=== PATIENT | male | born 1940 | race African-American/Black ===

== ENCOUNTER 2017-08-24 06:08 | Day surgery (SDC) | payer OTHER ==
[2017-08-19 09:25] LABS: Urine Appearance CLEAR; Urine Bilirubin NEGATIVE (NEG); Urine Blood NEGATIVE (NEG); Urine Color YELLOW; Urine Glucose NEGATIVE (NEG); Urine Protein NEGATIVE (NEG); Urine Specific Gravity <=1.005 (1.005-1.030)
[2017-08-19 09:28] LABS: Urine Microscopic Reflex NO UMIC
[2017-08-19 09:42] LABS: Protime INR 0.93
[2017-08-19 09:48] LABS: Absolute Lymphocytes (CBC) 1.6 K/uL (0.7-4.9); Absolute Monocytes 0.5 K/uL (0.1-1.3); Absolute Neutrophil 4.7 K/uL (1.8-8.0); Basophils % 0.4 % (0-1.3); Eosinophils % 4.4 % (0-4.4); Hematocrit 34.4 % (39.6-49.0); Lymphocytes % 22.7 % (15.3-44.8); MCH 24.4 pg (27.0-35.0); MCV 77.1 fL (80-100); MPV 8.4 fL (7.6-11.3); Monocytes % 7.1 % (3.3-12.3); RBC Red Blood Cell Count 4.47 M/uL (4.33-5.43)
[2017-08-19 10:12] LABS: A1c Component 0.53 mg/dL; ALT/SGPT 18 IU/L (10-60); AST/SGOT 26 IU/L (10-42); Albumin 4.2 g/dL (3.2-5.5); Alkaline Phosphatase 71 IU/L (42-121); BUN Blood Urea Nitrogen 12 mg/dL (6-20); Bicarbonate 25 mEq/L (21-31); Bilirubin Total 0.7 mg/dL (0.3-1.2); Glucose Level 91 mg/dL (65-120); Hemoglobin A1c 6.4 % (4-6.0); Potassium 4.6 mEq/L (3.6-5.0); Protein, Total 7.8 g/dL (6.0-8.3); Sodium Level 134 mEq/L (135-145)
[2017-08-19 10:13] LABS: Albumin 4.1 g/dL (3.2-5.5); Bilirubin Direct 0.1 mg/dL (0-0.2); Bilirubin Total 0.5 mg/dL (0.3-1.2); Protein, Total 7.8 g/dL (6.0-8.3)
--- NOTE | 2017-08-19 10:32 | RAD REPORT ---
EXAM DESCRIPTION: RADOP - Outpt Chest Pa/Lat (2 Views) - 08/19/2017 9:21 am CLINICAL HISTORY: Hypertension/preop COMPARISON: 2013 FINDINGS: The lungs appear clear of acute infiltrate. The heart is normal size. The aorta is tortuou s/ectatic IMPRESSION: No acute abnormality is displayed
[2017-08-24] MEDS ORDERED: NA CHLORIDE 0.9% 0 ML ONE (06:10)
[2017-08-24] MEDS ORDERED: CEFAZOLIN/SWI 1gm 0 GM/0 ML SYR ONE (06:11)
[2017-08-24 06:39] VITALS: BP 127/66; TEMP 98.1; O2SAT 96
== END 2017-08-24 09:29 | disposition home or self-care (01) ==
LOC: DSO 06:08 → DS 06:08 → UNDOADMIN 06:08 → UNDODISIN 07:30 → EDSTATUS 07:30 → DS 09:29
PROVIDERS: ATTEND Orthopaedic Surgery
DX: M17.12 Unilateral primary osteoarthritis, left knee (principal); M25.562 Pain in left knee; Z53.8 Procedure and treatment not carried out for other reasons
CPT/HCPCS: 36415; 71046; 80053; 80076; 81003; 83036; 85025; 85610; 85730; 86850; 86900; 86901; J0690; J7030

== ENCOUNTER 2017-09-07 05:47 | Inpatient (IN) | payer OTHER ==
[2017-09-02 08:38] LABS: Absolute Lymphocytes (CBC) 1.5 K/uL (0.7-4.9); Absolute Monocytes 0.4 K/uL (0.1-1.3); Absolute Neutrophil 3.6 K/uL (1.8-8.0); Basophils % 0.6 % (0-1.3); Eosinophils % 4.1 % (0-4.4); Hematocrit 34.7 % (39.6-49.0); Lymphocytes % 25.6 % (15.3-44.8); MCH 24.4 pg (27.0-35.0); MCV 75.6 fL (80-100); Monocytes % 6.8 % (3.3-12.3); RBC Red Blood Cell Count 4.59 M/uL (4.33-5.43)
[2017-09-02 08:39] LABS: Urine Appearance CLEAR; Urine Bilirubin NEGATIVE (NEG); Urine Blood NEGATIVE (NEG); Urine Color YELLOW; Urine Glucose NEGATIVE (NEG); Urine Protein NEGATIVE (NEG); Urine Specific Gravity 1.015 (1.005-1.030)
[2017-09-02 08:46] LABS: Urine Microscopic Reflex NO UMIC
[2017-09-02 08:47] LABS: Protime INR 0.94
[2017-09-02 09:19] LABS: Bicarbonate 24 mEq/L (21-31); Glucose Level 72 mg/dL (65-120); Potassium 4.3 mEq/L (3.6-5.0); Sodium Level 137 mEq/L (135-145)
[2017-09-02 09:25] LABS: ALT/SGPT 16 IU/L (10-60); AST/SGOT 23 IU/L (10-42); Albumin 4.1 g/dL (3.2-5.5); Alkaline Phosphatase 69 IU/L (42-121); BUN Blood Urea Nitrogen 11 mg/dL (6-20); Bilirubin Direct 0.1 mg/dL (0-0.2); Bilirubin Total 0.5 mg/dL (0.3-1.2); Protein, Total 7.7 g/dL (6.0-8.3)
[2017-09-02 12:19] LABS: A1c Component 0.54 mg/dL; Hemoglobin A1c 6.4 % (4-6.0)
[2017-09-07] MEDS ORDERED: NA CHLORIDE 0.9% 1,000 ML ONE ×2 (06:04→09:10)
[2017-09-07] MEDS ORDERED: CEFAZOLIN/SWI 1gm 1 GM/10 ML SYR ONE (06:04)
[2017-09-07] MEDS ORDERED: NA CHLORIDE 0.9% 250 ML ONE (06:47)
[2017-09-07] MEDS ORDERED: ROPLVACAINE HCL 40 ML ONE (06:51)
[2017-09-07] MEDS ORDERED: DEXAMETHASONE 4 MG/ML VIAL ONE (06:51)
[2017-09-07] MEDS ORDERED: FENTANYL CITR 100 MCG/2 ML ONE (06:57)
[2017-09-07] MEDS ORDERED: LIDOCAINE 2% MPF 5 ML VIAL ONE (06:57)
[2017-09-07] MEDS ORDERED: MIDAZOLAM HCL 2 MG/2 ML INJ ONE (06:57)
[2017-09-07] MEDS ORDERED: PROPOFOL 200 MG/20 ML VIAL IV ONE (06:57)
[2017-09-07] MEDS ORDERED: ROCURONIUM 50 MG/5 ML VIAL IV ONE (06:57)
[2017-09-07] MEDS ORDERED: TRANEXAMIC ACID 1,000 MG in NA CHLORIDE 0.9% 50 ML IV SCH (07:15)
[2017-09-07] MEDS: BUPIVACA 0.25%/EPI 0.0005%/PF 30 ML VIAL ONE ×2 (08:21→11:00)
[2017-09-07] MEDS ORDERED: EPHEDRINE SULF 50 MG/ML SYR ONE (08:52)
[2017-09-07] MEDS ORDERED: Phenylephrine HCl 10 MG/ML 1 ML VIAL ONE (08:52)
[2017-09-07] MEDS ORDERED: NS 0.9% VIAL 0 ML ONE (08:52)
[2017-09-07] MEDS ORDERED: ONDANSETRON 4 MG/2 ML VIAL ONE (10:51)
[2017-09-07] MEDS ORDERED: ZOLPIDEM TARTRATE 5 MG TABLET PO PRN (11:28)
[2017-09-07] MEDS ORDERED: DOCUSATE NA 100 MG CAP PO PRN (11:28)
[2017-09-07] MEDS ORDERED: Morphine 2 MG/2 ML SYR IV PRN (11:28)
[2017-09-07] MEDS ORDERED: ONDANSETRON 4 MG/2 ML VIAL IV PRN (11:28)
[2017-09-07] MEDS ORDERED: HYDROCODONE/APAP 7.5/325 MG TAB PO PRN (11:28)
[2017-09-07 11:59] LABS: Hematocrit 32.6 % (39.6-49.0)
[2017-09-07] MEDS: Ringers Lactate 1,000 ML IV SCH (12:00)
--- NOTE | 2017-09-07 12:11 | RAD REPORT ---
EXAM DESCRIPTION: RAD - Knee Left 2 View - 09/07/2017 11:56 am CLINICAL HISTORY: TKA COMPARISON: None. FINDINGS: A left total knee arthroplasty has been performed. Hardware is in expected location. Air i s present in the joint. . Skin matt are noted. IMPRESSION: Postoperative left knee with no unexpected finding.
[2017-09-07 13:37] VITALS: BMI 26.7
[2017-09-07] MEDS: INSULIN -REGULAR HUMAN 50 UNIT/0.5 ML ML SQ SCH ×2 (15:48→21:00)
[2017-09-07] MEDS ORDERED: GLUCAGON 1 MG/VIAL IM PRN (16:07)
[2017-09-07] MEDS ORDERED: D50W 25 GM/50 ML SYRINGE IV PRN (16:07)
[2017-09-07] MEDS: CEFAZOLIN/SWI 1gm 1 GM/10 ML SYR IV SCH (16:31)
[2017-09-07] MEDS: METFORMIN ER 500 MG TAB PO SCH (16:36)
[2017-09-07] MEDS ORDERED: PNEUMOCOCCAL VACCINE 0.5 ML IMVAC ONE (17:00)
[2017-09-07] MEDS ORDERED: DOXAZOSIN 1 MG TAB PO SCH (21:00)
[2017-09-07] MEDS: ATORVASTATIN 10 MG TAB PO SCH (21:55)
[2017-09-07] MEDS: METOPROLOL TAR 25 MG TAB PO SCH (21:55)
[2017-09-07] MEDS: DOXAZOSIN 2 MG TAB PO SCH (21:56)
--- NOTE | 2017-09-08 00:48 | CON ---
Date of Consultation: 09/07/2017 Reason Of Consultation: Medical management. History Of Present Illness: This is a 76-year-old male patient, who had knee surgery done by Dr. Ramesh today and he has done well with the surgery postoperatively. He denies any chest pain, shortness of breath, nausea, vomiting. Denies any pain anywhere. The patient was seen this evening for medical management consultation. Past Medical History: Significant for type 2 diabetes mellitus, hypertension, hyperlipidemia, osteoarthritis at multiple sites, gastroesophageal reflux disease, benign prostatic hypertrophy, anemia, and also peripheral vascular disease. Past Surgical History: Angioplasty of leg in 2007 for peripheral vascular disease. Allergies: NO KNOWN ALLERGIES. Social History: Prior history of smoking, not at present time. Use of alcohol negative. Family History: Mother with Alzheimer disease. Review of Systems: Musculoskeletal: Knee pain due to arthritis. All other systems reviewed and negative. Medications: Pravastatin 80 mg p.o. daily, doxazosin 2 mg 2 times a day, gabapentin 300 mg 2 times a day, glimepiride 4 mg 2 times a day, hydralazine 10 mg 2 times a day, Levemir 20 units daily at bedtime, metformin 1000 mg 2 times a day, metoprolol 12.5 mg p.o. 2 times a day, omeprazole 20 mg p.o. daily. Physical Examination: Vital Signs: Weight 181 pounds. Temperature 97.3, pulse 75, respiratory rate 18, blood pressure 151/77, oxygen saturation 98%. General: Awake, alert, oriented, not in distress. HEENT: Head atraumatic, normocephalic. Conjunctivae nonerythematous. Sclerae white. Mouth, no thrush or edema noted. Ears/Nose, no mass, lesion, discharge noted. Neck: Supple. No JVD, lymph nodes, bruit, thyromegaly noted. Lungs: Bilateral good equal air entry. Clear to auscultation. No rhonchi. No rales. Heart: Normal heart sounds, no murmur or gallop. Abdomen: Soft, bowel sounds normal. No guarding, rigidity, tenderness, mass, hepatosplenomegaly, distention, or bruit noted. Extremities: Left knee exam, has surgical dressing present. Skin: No rash, ulcer, cellulitis. Lymphatics: No lymph node enlargement in neck, supraclavicular, infraclavicular region. Neuro: No focal neurological deficit. Chest: Unremarkable. External Genitalia: Deferred. Rectal: Deferred. Laboratory Data: White count on 09/02/2017 was 5.8, hemoglobin 11.2, platelets 288. Today, hemoglobin 10.4. On 09/02, chemistry; sodium 137, potassium 4.3, chloride 107, bicarb 24, BUN 11, creatinine 0.98, glucose 72. Hemoglobin A1c 6.4. Liver function tests unremarkable. Last fingerstick blood sugar 178 this afternoon. Impression: 1. Type 2 diabetes mellitus. 2. Hypertension. 3. Hyperlipidemia. 4. Gastroesophageal reflux disease. 5. Benign prostatic hypertrophy. 6. Anemia. 7. Osteoarthritis, multiple sites. 8. Peripheral vascular disease. Plan: The patient will continue to receive his antihypertensive medication, diabetes medication, and cholesterol medication per order. DVT prophylaxis was ordered by Dr. Ramesh with Lovenox. We will monitor fingerstick blood sugar with sliding scale insulin and depending on the patient's blood pressure and blood sugar readings, we will decide if any adjustment in medication needs to be made or not. His last hemoglobin A1c was 6.4 done about a week ago showing excellent control of his diabetes. Plan of treatment discussed with the patient. He has incentive spirometer at bedside and he was encouraged to use it every hour to reduce chances of pneumonia. I will see him tomorrow morning for followup. LISE/JOSE Voice ID: [id number] Report ID: [id number] MTDD
[2017-09-08] MEDS: CEFAZOLIN/SWI 1gm 1 GM/10 ML SYR IV SCH ×2 (01:58→09:41)
[2017-09-08 05:29] LABS: Hematocrit 30.3 % (39.6-49.0)
[2017-09-08] MEDS: ENOXAPARIN 30 MG/0.3 ML SQ SCH ×2 (05:45→17:52)
[2017-09-08] MEDS: PANTOPRAZOLE 40MG TABLET PO SCH (05:45)
[2017-09-08] MEDS: AMLODIPINE 10 MG TAB PO SCH (05:45)
[2017-09-08] MEDS: INSULIN -REGULAR HUMAN 50 UNIT/0.5 ML ML SQ SCH ×4 (07:30→20:36)
[2017-09-08] MEDS: Ringers Lactate 1,000 ML IV SCH (08:00)
[2017-09-08] MEDS: FE SULF/FA/VIT B COMP & C TAB PO SCH (09:42)
[2017-09-08] MEDS: CELECOXIB 100 MG CAPSULE PO SCH (09:42)
[2017-09-08] MEDS: GLIMEPIRIDE 2 MG TABLET PO SCH (09:43)
[2017-09-08] MEDS: DOXAZOSIN 2 MG TAB PO SCH ×2 (09:43→20:35)
[2017-09-08] MEDS: GABAPENTIN 300 MG CAP PO SCH (09:43)
[2017-09-08] MEDS: METFORMIN ER 500 MG TAB PO SCH ×2 (09:44→17:52)
[2017-09-08] MEDS: TAMSULOSIN 0.4 MG SR CAP PO SCH (09:44)
[2017-09-08] MEDS: METOPROLOL TAR 25 MG TAB PO SCH ×2 (09:54→20:36)
[2017-09-08] MEDS: ASCORBIC ACID 500 MG TABLET PO SCH (09:54)
[2017-09-08] MEDS ORDERED: HYDROCODONE/APAP 7.5/325 MG TAB PO PRN (13:04)
--- NOTE | 2017-09-08 13:11 | P.PN ---
Date of Service: 09/08/17 (POD#1) S: PATIENT IN BED, AVOIDING LUNCH BECAUSE OF NAUSEA WITH 2 TABS NORCO 7.5/ 325mg APAP GIVEN FOR PAIN. FEMORAL AND SCIATIC N. BLOCKS WORKED WELL UNTIL THIS MORNING. PATIENT TOOK PAIN PILLS AND BECAME NAUSEATED DURING P.T. EFFORT. O: AVVS, HGB 9.8 THIS AM, HGB A1.c 6.8, BLOOD SUGARS 128-172. NV EXAM INTACT. WAS TOLERATING CPM ALL NIGHT 0*-60*. X-RAYS REVIEWED SHOWING EXCELLENT ALIGNMENT OF PROSTHETIC COMPONENTS LEFT TKA. A: PROGRESS INTERRUPTED BY NAUSEA WITH NORCO DOSE OF 2 TABS. P: REDUCE NORCO TO 7.5/325 1 TAB Q 4-6 HRS. ENCOURAGED BED EXERCISES UNTIL P.T. RETURNS. RECOMMENDED PATIENT TO PARTAKE OF LUNCH SO DIABETIC MEDS WOULD NOT LEAD TO HYPOGLYCEMIC SYMPTOMS. CONTINUE AGGRESSIVE MOBILIZATION.
--- NOTE | 2017-09-08 13:58 | P.BOP ---
Preoperative diagnosis: PRIMARY OTEOARTHRITIS LEFT KNEE Postoperative diagnosis: SAME Primary procedure: TOTAL KNEE ARTHROPLASTY LEFT KNEE WITH COMPUTERIZED NAVIGATION, IMAGELESS Director Revenue: MARIO YADAV (GAVE NECESSARY 1ST ASSIST SERVICES THROUGHOUT CASE) Estimated blood loss: 100mL Specimen: BONE SHARDS AND SOFT TISSUES DEBRIDED Findings: EBURNATED BONE ACROSS MEDIAL COMPARTMENT AND INTRACONDYLAR NOTCH Anesthesia: General Complications: None Drain(s): Other (NONE) Implants: SIGMAFEMUR 4L;TRAY 4RP;PATELLA 38OVAL;[id number] PS;SMARTSET GMV CEMENT Fluids & blood products: FEMORAL AND SCIATIC N.BLOCKS GIVEN PRIOR/ 30mL 0.25% MARCAINE INTO INCISIONS Transferred to: Recovery Room Condition: Good
[2017-09-08] MEDS: ATORVASTATIN 10 MG TAB PO SCH (20:36)
--- NOTE | 2017-09-08 23:32 | PN ---
Date of Progress Note: 09/08/2017 Subjective: The patient was seen this morning for followup, no new complaints or problems reported b y the patient except some pain in the hip. No nausea or vomiting. No shortness of breath. No chest pain. Objective: Vital Signs: Reviewed. HEENT: Examination unremarkable. Lungs: Clear to auscultation. Heart: Sounds normal. Abdomen: Soft, bowel sounds normal. No guarding, rigidity, tenderness, or distention. Extremities: No leg edema. Laboratory Data: Hemoglobin 9.8. Fingerstick blood sugar readings reviewed. Impression: 1.Anemia due to acute blood loss. 2.Hypertension. 3.Type 2 diabetes mellitus. 4.Hyperlipidemia. Plan: We will continue current medications for diabetes and hypertension problem. Continue DVT prop hylaxis. No need for blood transfusion at this point, and I will see him tomorrow for followup. LISE/MODL Voice ID: [id number] Report ID: [id number]
--- NOTE | 2017-09-09 01:26 | OP ---
Date of Procedure: 09/07/2017 Surgeon: Ramesh Ramesh MD Preoperative Diagnosis: Primary osteoarthritis, left knee. Postoperative Diagnosis: Primary osteoarthritis, left knee. Primary Procedure: Total knee arthroplasty, left knee with computerized navigation, imageless. Electric Motor And Generator Assembler: Padmini Mills, who gave very necessary first aid instructor services throughout this case. Indications: This 76-year-old male has had persistent pain and limitations with the severe genu varu m deformity and [id number] arthritis in the medial compartment of his left knee. The [id number]-[id number] continues across the intercondylar notch area. The patient after discussing the risks and benefits a t length with all questions answered has elected to proceed with left total knee arthroplasty. Technique: The patient was taken to the operating room and given a general anesthesia with LMA. The left lower extremity was prepped and draped after a tourniquet was applied to the proximal thigh and a bolster was placed under the left hip. A foot rest was positioned to hold the knee at 90-degree f lexion during the procedure when desired. The limb was exsanguinated with an Esmarch bandage and isaac vation and then the tourniquet was raised to 250 mmHg and left up for 140 minutes. The patient was g iven Ancef 1 g IV piggyback prior to the incision and also given 1 g of tranexamic acid. A second gr am of tranexamic acid was given upon initiation of closure. All important facts about this patient a nd proposed surgery were discussed and accepted before deciding to proceed with the operation. The i ncision was drawn on the anterior knee and Ioban sticky drape was placed around the thigh and lower l eg to completely cover the operative area. The incision was made longitudinally over the medial thir d of the patella and ending up adjacent to the tibial tubercle distally and 4-6 cm above the proximal pole of the patella proximally. The incision was carried sharply through skin and subcutaneous tiss ue. The capsule was exposed and a medial parapatellar incision was made. The patella was everted an d measured at 25 mm thickness. The jig back for cutting the patella was adjusted to preserve 16 mm o f patella. The cut was made and the PEG holes were drilled in the cut surface. The prosthetic trial component was placed in position and the thickness of the patella again measured 25 mm. The anterio r sharp debridement of soft tissue was carried out for the knee and the supracondylar anterior aspect of the femur and then 4 threaded 3-mm pins were placed, 2 in the distal femur and 2 in the mid shaft tibia through puncture wounds for the tibia and through the anterior incision for placement on the d istal femur. The position of the pins and subsequent attachment of femoral and tibial arrays were el ected to be on the medial aspect to allow anterior instrumentation access to the front of the incisio n. Once the arrays were in place, the limb was moved in circumduction to allow the computer to navig ate and locate the center of rotation of the femoral head. Then, registration was carried out for fi rst the femur and then the tibia as sequenced by the computer program. The elected size was size 5 f emoral component and size 5 tibial component. These were excepted after comparing the prosthetic siz e 5 component to the exposed distal end of the femur. Then, the cutting jig was navigated into posit ion for the proximal tibia. The cut was made and accepted and then the tensiometer was put in positi on. It was necessary to perform distal releases for the MCL until the balance was achieved for the l igaments. At that time, the distal femoral cutting jig was navigated into position and that cut was made. The size 5 4-in-1 cutting jig was navigated into position and secured and posterior cuts and c hamfer cuts were made. The 5 component fits nicely. The tibia was then prepared with placement of t he tibial tray prosthetic trial, secured with the keel punch. The trial indicated the trial prosthet ic insert was not able to be positioned using the smallest 10-mm insert. Attention was turned to inc reasing the flexion gap by using the size 4 4-in-1 cutting jig and changing the planned size of the d istal femoral component to size 4. Once that adjustment was made, the extension and flexion blocks w ere put in position. There was still significant tightness for both extension and flexion, so 2 mm a dditionally was cut from the proximal tibia. The trial components were then placed and the fit for t he 10-mm insert was quite stable and was accepted. The additional cuts took additional time and 20 m inutes of tourniquet time over the usual 120 minutes was incurred. The tourniquet was released as th e SmartSet gentamicin GMV cement was setting after it was injected into all cancellous surfaces and t he actual components were tapped into position with excess cement curetted away and a trial insert wa s in position during the setting of the cement. The tourniquet was released at that point and Bovie both punctate and Aquamantys were utilized to control hemostasis. Estimated blood loss total was 100 mL. The trial insert was removed and the 10 mm x size 4 tibial insert was snapped into position and proved quite stable. The knee was irrigated profusely with Simpulse lavage and closure was affected with #1 Vicryl for fascial layer using interrupted sutures. A 2-0 Vicryl was used for the subcutane ous layer closure with interrupted sutures and then skin matt were used for skin closure. The ban dage applied was an Aquacel sealed bandage with a long bandage for the bent knee over the main incisi on and a smaller Aquacel bandage for the 2 puncture wounds just distal to the first bandage. Estimat ed blood loss was 100 mm. Tourniquet time was 1:40 minutes. The patient was given a soft roll and A ce wrap around the Aquacel bandage and was taken to the recovery room, where he was placed on the CPM machine moving at 0-60 degrees flexion. The incision was injected with 30 mL of 0.25% Marcaine with epinephrine prior to application of the bandage. NEREYDA/JOSE Voice ID: [id number] Report ID: [id number]
[2017-09-09] MEDS: Ringers Lactate 1,000 ML IV SCH ×3 (04:00→19:46)
[2017-09-09] MEDS: AMLODIPINE 10 MG TAB PO SCH (05:30)
[2017-09-09] MEDS: PANTOPRAZOLE 40MG TABLET PO SCH (05:52)
[2017-09-09] MEDS: ENOXAPARIN 30 MG/0.3 ML SQ SCH (05:52)
[2017-09-09] MEDS: INSULIN -REGULAR HUMAN 50 UNIT/0.5 ML ML SQ SCH ×4 (07:30→20:46)
[2017-09-09] MEDS: METOPROLOL TAR 25 MG TAB PO SCH ×2 (08:39→21:06)
[2017-09-09] MEDS: TAMSULOSIN 0.4 MG SR CAP PO SCH (08:39)
[2017-09-09] MEDS: DOXAZOSIN 2 MG TAB PO SCH ×2 (08:39→21:07)
[2017-09-09] MEDS: GLIMEPIRIDE 2 MG TABLET PO SCH (08:39)
[2017-09-09] MEDS: GABAPENTIN 300 MG CAP PO SCH (08:39)
[2017-09-09] MEDS: ASCORBIC ACID 500 MG TABLET PO SCH (08:39)
[2017-09-09] MEDS: CELECOXIB 100 MG CAPSULE PO SCH (08:39)
[2017-09-09] MEDS: METFORMIN ER 500 MG TAB PO SCH ×2 (08:40→19:10)
[2017-09-09] MEDS: FE SULF/FA/VIT B COMP & C TAB PO SCH (08:40)
--- NOTE | 2017-09-09 13:53 | P.PN ---
Date of Service: 09/09/17 (POD#2) S: PATIENT IN HALLWAY MAKING FULL LAP OF 270'. STATES HEAVY FEELING IS GONE FROM LLE. O: AVVS, HGB 9.6 THIS AM, STABLE; BLOOD SUGARS 140-198. NV EXAM INTACT. DID NOT USE CPM LAST NIGHT, DID CPM 0*-60* THIS AM AFTER 38' WITH PT THIS MORNING. OBSERVED GOOD GAIT WITH HHEELSTRIKE AND WEIGHT BEARING LLE. A: PROGRESS ACCELERATED THIS AFTERNOON. P: PLANNING DISCHARGE TO [facility] IN [place]. NORCO 5325 1 P.O.Q4 HRS PRN PAIN, #35 LOVENOX 40 MG SUCUT.INJ DAILY X12 d CPM LLE 0*-65*4 HRS/d ADD 5*/D TOLERATED TO MAX OF 120* CHANGE AQUACEL BANDAGE PRIOR TO DISCHARGE, USE ALCOHOL SWABS PRIOR TO NEEW BANDAGE, THEN CHANGE Q 5 D WITH NEW AQUACEL BANDAGES. F/U MY OFFIC IN 10-14D CONTINUE AGGRESSIVE MOBILIZATION.
[2017-09-09] MEDS: ENOXAPARIN 40 MG/0.4 ML SQ SCH (19:10)
[2017-09-09] MEDS: HYDROCODONE/APAP 5/325 MG TAB PO PRN (19:11)
[2017-09-09] MEDS: ATORVASTATIN 10 MG TAB PO SCH (21:07)
--- NOTE | 2017-09-09 23:57 | PN ---
Date of Progress Note: 09/09/2017 Subjective: The patient was seen this morning for followup. No new complaints or problems reported. Denies any pain in knees. No nausea or vomiting. No abdominal pain. No chest pain. No shortness of breath. Objective: Vital signs: Reviewed. HEENT: Examination unremarkable. Lungs: Clear to auscultation. Heart: Sounds normal. Abdomen: Soft. Bowel sounds normal. No guarding, rigidity, tenderness, or distention. Extremities: No leg edema. Laboratory Data: Hemoglobin 9.6, yesterday it was 9.8, day before yesterday it was 10.4. Fingerstic k blood sugar readings reviewed. Impression: 1.Acute blood loss anemia. 2.Hypertension. 3.Type 2 diabetes mellitus. Plan: We will continue current medical management for hypertension and diabetes. Anemia with acute blood loss is stable, no need for any blood transfusion. I will see him tomorrow for followup. LISE/MODL Voice ID: [id number] Report ID: [id number]
[2017-09-10 05:28] LABS: Hematocrit 29.9 % (39.6-49.0)
[2017-09-10] MEDS: PANTOPRAZOLE 40MG TABLET PO SCH (06:02)
[2017-09-10] MEDS: AMLODIPINE 10 MG TAB PO SCH (06:02)
[2017-09-10] MEDS: HYDROCODONE/APAP 5/325 MG TAB PO PRN ×4 (06:02→22:28)
[2017-09-10] MEDS: INSULIN -REGULAR HUMAN 50 UNIT/0.5 ML ML SQ SCH ×4 (07:30→21:00)
[2017-09-10] MEDS: METOPROLOL TAR 25 MG TAB PO SCH ×2 (08:30→22:28)
[2017-09-10] MEDS: TAMSULOSIN 0.4 MG SR CAP PO SCH (08:30)
[2017-09-10] MEDS: GLIMEPIRIDE 2 MG TABLET PO SCH (08:31)
[2017-09-10] MEDS: FE SULF/FA/VIT B COMP & C TAB PO SCH (08:31)
[2017-09-10] MEDS: ASCORBIC ACID 500 MG TABLET PO SCH (08:31)
[2017-09-10] MEDS: DOXAZOSIN 2 MG TAB PO SCH ×2 (08:31→22:28)
[2017-09-10] MEDS: GABAPENTIN 300 MG CAP PO SCH (08:31)
[2017-09-10] MEDS: METFORMIN ER 500 MG TAB PO SCH ×2 (08:31→17:38)
[2017-09-10] MEDS: CLOPIDOGREL 75 MG TABLET PO SCH (12:36)
--- NOTE | 2017-09-10 14:02 | P.PN ---
Date of Service: 09/10/17 (POD#3) S: PATIENT USING CPM IN BED AT 65*. MAKING GOOD PROGRESS THIS AFTERNOON AFTER "WOOZY" THIS AM. O: AVVS, HGB 10.0 THIS AM, IMPROVED FROM 9.6; PATIENT FEELS GOOD ABOUT LLE INDICATING HE MADE FULL LOOP AROUND NURSING STATION 250' AFTER GOING 50' X 2 EARLIER THIS AM. NV EXAM INTACT. MONIKA'S SIGN NEGATIVE. BANDAGE CLEAN DRY AND INTACT. A: PATIENT IS MAKING GOOD PROGRESS THIS AFTERNOON. P: DISCHARGE TO [facility] IN [place] SOMEWHAT DELAYED. MY OFFICE CALLED ABOUT [id number], GAVE MY CELL#, BUT NO CALL SO FAR. PATIENT HAS NO HELP AT HOME IS DEBILITATED, ON OXYGEN THERAPY AND MOBILITY IMPAIRED USING WHEEL CHAIR. PLAN IS STILL FOR: DISCHARGE TO [place], [place] WITH NORCO 5/325 1 P.O.Q4 HRS PRN PAIN, #35 LOVENOX 40 MG SUCUT.INJ DAILY X12 d CPM LLE 0*-65*4 HRS/d ADD 5*/D TOLERATED TO MAX OF 120* CHANGE AQUACEL BANDAGE PRIOR TO DISCHARGE, USE ALCOHOL SWABS PRIOR TO NEEW BANDAGE, THEN CHANGE Q 5 D WITH NEW AQUACEL BANDAGES. F/U MY OFFIC IN 10-14D CONTINUE AGGRESSIVE MOBILIZATION. Addendum: CALLED BY PEER APPROVAL DOC FOR [facility]. WILL NOT APPROVE STAY AT [facility], BUT INDICATES SNF COULD BE APPROVED WITHOUT REVIEW IF FACILITY FOUND THAT WILL ACCEPT PATIENT TODAY OR WEDNESDAY(OR WEDNESDAY). DISCUSSED WITH Candido GIRONLITIES ARE NIK OSBORN AND BLAINE GREGORY.
--- NOTE | 2017-09-10 15:58 | PN ---
Date of Progress Note: 09/10/2017 Subjective: The patient was seen this morning for followup. No new complaints or problems reported by the patient. Objective: General: Lying in bed, not in distress. Vital Signs: Reviewed. HEENT: Unremarkable. Lungs: clear to auscultation. Heart: Sounds normal. Abdomen: Soft. Bowel sounds normal. No guarding, rigidity, tenderness, or distention. Extremities: No leg edema. Laboratory Data: Hemoglobin 10. Fingerstick blood sugar readings reviewed. Impression: 1.Acute blood loss anemia. 2.Hypertension. 3.Type 2 diabetes mellitus. 4.Hyperlipidemia. Plan: We will continue current diabetes management. Continue current antihypertensive medication. The patient normally takes Plavix 75 mg p.o. daily at home, and if it is okay with Dr. Ramesh, the pa tient should restart this medication as of today. finish repair worker is trying to get the patient into [facility] rehab facility out of town and medically, the patient is stable for discharge whenever Dr. Gadiel woodyines he is ready for discharge. If he is in the hospital over the weekend, I will continue to f alyssalow up. I have advised the patient that upon discharge from the hospital, he should continue all his home medication as he normally was taking at home. LISE/MODL Voice ID: [id number] Report ID: [id number]
[2017-09-10] MEDS: ENOXAPARIN 40 MG/0.4 ML SQ SCH (17:38)
[2017-09-10] MEDS: Ringers Lactate 1,000 ML IV SCH (20:00)
[2017-09-10] MEDS: ATORVASTATIN 10 MG TAB PO SCH (22:28)
[2017-09-11] MEDS: HYDROCODONE/APAP 5/325 MG TAB PO PRN ×3 (06:08→20:41)
[2017-09-11] MEDS: PANTOPRAZOLE 40MG TABLET PO SCH (06:08)
[2017-09-11] MEDS: AMLODIPINE 10 MG TAB PO SCH (06:08)
[2017-09-11 06:15] LABS: Hematocrit 28.7 % (39.6-49.0)
[2017-09-11] MEDS: INSULIN -REGULAR HUMAN 50 UNIT/0.5 ML ML SQ SCH ×4 (07:30→20:42)
[2017-09-11] MEDS: FE SULF/FA/VIT B COMP & C TAB PO SCH (09:42)
[2017-09-11] MEDS: GLIMEPIRIDE 2 MG TABLET PO SCH (09:42)
[2017-09-11] MEDS: CLOPIDOGREL 75 MG TABLET PO SCH (09:42)
[2017-09-11] MEDS: ASCORBIC ACID 500 MG TABLET PO SCH (09:42)
[2017-09-11] MEDS: METFORMIN ER 500 MG TAB PO SCH ×2 (09:42→17:00)
[2017-09-11] MEDS: TAMSULOSIN 0.4 MG SR CAP PO SCH (09:42)
[2017-09-11] MEDS: DOXAZOSIN 2 MG TAB PO SCH ×2 (09:43→20:39)
[2017-09-11] MEDS: GABAPENTIN 300 MG CAP PO SCH (09:43)
[2017-09-11] MEDS: METOPROLOL TAR 25 MG TAB PO SCH ×2 (09:43→20:40)
[2017-09-11 10:16] LABS: Absolute Lymphocytes (CBC) 1.5 K/uL (0.7-4.9); Absolute Monocytes 0.7 K/uL (0.1-1.3); Absolute Neutrophil 6.2 K/uL (1.8-8.0); Basophils % 0.2 % (0-1.3); Hematocrit 28.6 % (39.6-49.0); Lymphocytes % 16.6 % (15.3-44.8); MCH 25.2 pg (27.0-35.0); MCV 76.2 fL (80-100); MPV 8.2 fL (7.6-11.3); Monocytes % 8.4 % (3.3-12.3); RBC Red Blood Cell Count 3.75 M/uL (4.33-5.43)
--- NOTE | 2017-09-11 11:44 | P.PN ---
Date of Service: 09/11/17 (POD#4) S: PATIENT IN [employer]ITS THIS AM. PLANNING 2ND LAP OF 250'. O: AVVS, HGB 9.5 , DOWN FROM 10.0 REPORTED YESTERDAY; NV EXAM INTACT. MONIKA'S SIGN NEGATIVE. TOLERATING CPM. BANDAGE CLEAN DRY & INTACT. A: DISCHARGE SLOWED BY FAILURE OF PRE-ARRANGED [facility]. TO BE APPROVED. PEER TO PEER INDICATED SNF COULD BE AUTHORIZED FOR WEDNESDAY WITHOUT FURTHER INSURANCE REVIEW. AWAITING TRANSFER TO [facility]. AGREED YESTERDAY PATIENT TO GO BACK ON PLAVIX PREOP DOSE. CALLED ABOUT SAME ISSUE THIS MORNING ~ 10:45 AM. P: PLANNING DISCHARGE TO [facility]. NORCO 5/325 1 P.O.Q4 HRS PRN PAIN, #35 LOVENOX 40 MG SUBCUT.INJ DAILY X12 d CPM LLE 0*-70*, 4 HRS/d ADD 5*/D TOLERATED TO MAX OF 120* CHANGE AQUACEL BANDAGE PRIOR TO DISCHARGE, USE ALCOHOL SWABS PRIOR TO NEW BANDAGE, THEN CHANGE Q 5 D WITH NEW AQUACEL BANDAGES. F/U MY OFFICE IN 10-14D CONTINUE AGGRESSIVE MOBILIZATION.
--- NOTE | 2017-09-11 15:11 | PN ---
Date of Progress Note: 09/11/2017 Subjective: The patient was seen this morning for followup. No new complaints or problems reported by him. He denies any pain. He was sitting at bedside. Last bowel movement was day before yesterda y. No abdominal pain, nausea, vomiting. Objective: Vital Signs: Reviewed. HEENT: Examination unremarkable. Lungs: Clear to auscultation. Heart: Sounds normal. Abdomen: Soft. Bowel sounds normal. No guarding, rigidity, tenderness, or distention. Extremities: No leg edema. Laboratory Data: Hemoglobin 9.3. Fingerstick blood sugar readings reviewed. Impression: 1.Anemia due to acute blood loss. 2.Hypertension. 3.Type 2 diabetes mellitus. 4.Hyperlipidemia. Plan: The patient is getting his Plavix per order. Continue current antihypertensive diabetes medic ation with monitoring of fingerstick blood sugar readings. We will discontinue morphine. The patien t is on oral pain medication. We will continue that. His pain is well controlled. Continue DVT pro phylaxis using Lovenox. We will get a CBC today and chemistry profile tomorrow per order. As per no te from social service now, social [facility] is working on custodial placement for the patient. LISE/MODL Voice ID: [id number] Report ID: [id number]
[2017-09-11] MEDS: ENOXAPARIN 40 MG/0.4 ML SQ SCH (17:38)
[2017-09-11] MEDS: ATORVASTATIN 10 MG TAB PO SCH (20:41)
[2017-09-12] MEDS: AMLODIPINE 10 MG TAB PO SCH (05:58)
[2017-09-12] MEDS: PANTOPRAZOLE 40MG TABLET PO SCH (05:58)
[2017-09-12] MEDS: HYDROCODONE/APAP 5/325 MG TAB PO PRN ×2 (05:59→20:52)
[2017-09-12 06:37] LABS: BUN Blood Urea Nitrogen 14 mg/dL (6-20); Bicarbonate 25 mEq/L (21-31); Glucose Level 142 mg/dL (65-120); Magnesium 1.9 mg/dL (1.8-2.5); Potassium 4.6 mEq/L (3.6-5.0); Sodium Level 137 mEq/L (135-145)
[2017-09-12] MEDS: INSULIN -REGULAR HUMAN 50 UNIT/0.5 ML ML SQ SCH ×4 (07:30→21:00)
[2017-09-12] MEDS: GABAPENTIN 300 MG CAP PO SCH (09:18)
[2017-09-12] MEDS: FE SULF/FA/VIT B COMP & C TAB PO SCH (09:18)
[2017-09-12] MEDS: TAMSULOSIN 0.4 MG SR CAP PO SCH (09:18)
[2017-09-12] MEDS: METFORMIN ER 500 MG TAB PO SCH ×2 (09:18→18:15)
[2017-09-12] MEDS: GLIMEPIRIDE 2 MG TABLET PO SCH (09:19)
[2017-09-12] MEDS: ASCORBIC ACID 500 MG TABLET PO SCH (09:19)
[2017-09-12] MEDS: CLOPIDOGREL 75 MG TABLET PO SCH (09:19)
[2017-09-12] MEDS: DOXAZOSIN 2 MG TAB PO SCH ×2 (09:23→20:51)
[2017-09-12] MEDS: METOPROLOL TAR 25 MG TAB PO SCH ×2 (09:24→20:51)
[2017-09-12] MEDS ORDERED: MAGNESIUM HYDROXIDE 8% 30 ML PO PRN (09:52)
--- NOTE | 2017-09-12 14:15 | PN ---
Date of Progress Note: 09/12/2017 Subjective: The patient was seen this morning for followup. No new complaints or problems reported by patient. Lying in bed, not in distress. Objective: Vital Signs: Reviewed. General: Denies having any bowel movement for last 2 days. HEENT: Unremarkable. Lungs: Clear to auscultation. Heart: Sounds normal. Abdomen: Soft, bowel sounds normal. No guarding, rigidity, tenderness, or distention. Extremity: No leg edema. Laboratory Data: Hemoglobin 9.5, platelets 268. Today, sodium 137, potassium 4.6, chloride 105, bic arb 25, BUN 14, creatinine 0.76, glucose 142, magnesium 1.9. Impression: 1.Acute blood loss anemia. 2.Hypertension. 3.Diabetes mellitus. 4.Status post left knee replacement. Plan: The patient is doing fine. His pain is well controlled. He does get in and out of bed to use the bedside commode. Physical therapy to continue to work with the patient. We will continue curre nt medications, and we will give stool softener daily and milk of magnesia p.r.n. per order. I will see him tomorrow for followup. LISE/MODL Voice ID: [id number] Report ID: [id number]
[2017-09-12] MEDS: DOCUSATE NA 100 MG CAP PO SCH (14:30)
[2017-09-12] MEDS: ENOXAPARIN 40 MG/0.4 ML SQ SCH (18:15)
[2017-09-12] MEDS: ATORVASTATIN 10 MG TAB PO SCH (20:51)
[2017-09-12 21:26] VITALS: O2SAT 97
[2017-09-13] MEDS: AMLODIPINE 10 MG TAB PO SCH (05:30)
[2017-09-13] MEDS: PANTOPRAZOLE 40MG TABLET PO SCH (05:32)
[2017-09-13] MEDS: INSULIN -REGULAR HUMAN 50 UNIT/0.5 ML ML SQ SCH ×2 (07:30→11:30)
[2017-09-13] MEDS: GLIMEPIRIDE 2 MG TABLET PO SCH (08:39)
[2017-09-13] MEDS: GABAPENTIN 300 MG CAP PO SCH (08:40)
[2017-09-13] MEDS: DOCUSATE NA 100 MG CAP PO SCH (08:40)
[2017-09-13] MEDS: DOXAZOSIN 2 MG TAB PO SCH (08:40)
[2017-09-13] MEDS: ASCORBIC ACID 500 MG TABLET PO SCH (08:41)
[2017-09-13] MEDS: FE SULF/FA/VIT B COMP & C TAB PO SCH (08:42)
[2017-09-13] MEDS: METOPROLOL TAR 25 MG TAB PO SCH (08:42)
[2017-09-13] MEDS: CLOPIDOGREL 75 MG TABLET PO SCH (08:42)
[2017-09-13] MEDS: METFORMIN ER 500 MG TAB PO SCH (08:42)
[2017-09-13] MEDS: TAMSULOSIN 0.4 MG SR CAP PO SCH (08:43)
[2017-09-13 13:30] VITALS: BP 105/73; TEMP 98.4
--- NOTE | 2017-09-13 13:42 | P.PN ---
Date of Service: 09/13/17 (POD#6) S: PATIENT COMFORTABLE IN BED. INDICATES CPM REMOVED 9PM LAST NIGHT NOT REAPPLIED SINCE. LAST GAIT TRAINING IN MEDICAL RECORD ' WITH [facility] WEDNESDAY~8 AM. O: AVVS; NV EXAM INTACT. MONIKA'S SIGN NEGATIVE. REPLACED CPM IN BED AND SET AT 75* SLOW SPEED (3 MINUTES OF EFFORT). BANDAGE CLEAN DRY & INTACT. A: DISCHARGE STILL PENDING INSURANCE APPROVAL DESPITE PEER REVIEW ASSURANCES THAT NURSING PERSONNEL COULD OK WITHOUT FURTHER REVIEW ON WEDNESDAY OR WEDNESDAY. TO BE APPROVED. AWAITING TRANSFER TO [facility]. PATIENT PRONE TO GIVE EXCUSES FOR NON-PARTICIPATION WHICH HAVE BEEN READILY ACCEPTED(SLEEPY, TIRED, JUST TOOK PAIN MED. HAVEN'T HAD PAIN MEDS. ETC...). P: PLANNING EVENTUAL DISCHARGE TO [facility]. NORCO 5/325 1 P.O.Q4 HRS PRN PAIN, #35 LOVENOX 40 MG SUBCUT.INJ DAILY X12 d CPM LLE 0*-70*, 4 HRS/d ADD 5*/D TOLERATED TO MAX OF 120* CHANGE AQUACEL BANDAGE PRIOR TO DISCHARGE, USE ALCOHOL SWABS PRIOR TO NEW BANDAGE, THEN CHANGE Q 5 D WITH NEW AQUACEL BANDAGES. F/U MY OFFICE IN 10-14D CONTINUE AGGRESSIVE MOBILIZATION.
--- NOTE | 2017-09-14 00:19 | PN ---
Date of Progress Note: 09/13/2017 Subjective: The patient was seen this morning for followup. No new complaints or problems reported by the patient. Lying in bed, not in distress. Objective: Vital Signs: Reviewed. HEENT: Unremarkable. Lungs: Clear to auscultation. Heart: Sounds normal. Abdomen: Soft. Bowel sounds normal. No guarding, rigidity, tenderness, or distention. Extremities: No leg edema. Impression: 1.Acute blood loss anemia. 2.Hypertension. 3.Type 2 diabetes mellitus. 4.Hyperlipidemia. Plan: Continue current medications for diabetes and hypertension. Continue Plavix and continue curr ent DVT prophylaxis with Lovenox. The patient was advised that upon discharge from the hospital, he should continue all his previous home medications as before and any other extra new medications per Calvin Ramesh. [facility] is planning [facility] to [facility] as arranged by [facility]. LISE/JOSE Voice ID: [id number] Report ID: [id number]
--- NOTE | 2017-09-22 14:52 | DS ---
Date of Discharge: 09/13/2017 Hospital Course: Suresh Conley is a 76-year-old male with severe osteoarthritis complaints regarding h is left knee, who was brought to surgery on 09/08/2017 for an elective total knee arthroplasty for th e left knee with computer navigation, imageless. Indications, this patient has had progressive bone on bone arthritis with painful limiting symptoms. He had elected after discussion of risks and benef its to proceed with total knee arthroplasty for his left knee. The surgeon was Dr. Fco Ramesh, ileana tant was JAMIN Rosen, who gave necessary food service assistant services throughout the case. Technique, the patient was taken to the operating room. He had been given a femoral nerve and sciatic nerve bl ock, and his total knee arthroplasty procedure went quite well with insertion of a Sigma femur size 4 PS prosthesis. The tibial tray was a size 4 rotating platform for the Sigma set. The patella was a 38 mm oval, and the insert was a size 4 x 10 mm rotating platform. The components were cemented usi ng injection technique with SmartSet GMV cement, 2 batches mixed and placed in a cement gun. The pat ient was taken to the recovery room having tolerated the procedure well and was placed on a CPM machi ne going 0-60 degrees. Following that afternoon, he dangled his legs from the side of the bed, and t he following morning, he began the first of his 2 physical therapy sessions of the day. On the first postoperative day, the patient was found in bed avoiding lunch because of nausea, having taken 2 Nor co 7.5/325 mg tablets given for pain. The femoral and sciatic nerve blocks were wearing off and the pain pills became necessary but have interfered with his first physical therapy effort. His hemoglob in on the morning after surgery was 9.8. Blood sugars were running between 128 and 172. Neurovascul ar exam was intact. The patient tolerated the CPM moving throughout the night at 0-60 degrees. Revi ew of x-ray showed excellent alignment of prosthetic components for the left TKA. Wallkill tablets were reduced to 1 tablet q.4-6 hours p.r.n. pain. Bed exercises were encouraged until another physical t herapy opportunity presented. Dr. Ziggy Samuels was consulted for medical management, and identified p roblems, type 2 diabetes mellitus, hypertension, hyperlipidemia, gastroesophageal reflux disease, tylor ign prostatic hypertrophy, anemia, osteoarthritis multiple sites, and peripheral vascular disease. H is usual medications were continued. Lovenox was used for DVT prophylaxis. A sliding scale for david toring blood sugars was set up. Incentive spirometry was encouraged. The patient was quite comforta ble with Dr. Samuels's excellent care. On the second postoperative day, the patient was up in the hallw ay, having made a full lap of 250 feet. He indicated the heavy feeling was gone from his left lower extremity as the residual effect of the femoral nerve and sciatic nerve block had finally given way t o normal feeling sensation. Hemoglobin was stable at 9.6. Blood sugars ranged from 140-198. The pa tiejerrod went only 38 feet with physical therapy in the adjunct psychology faculty member, but was making good progress. patient had anticipated discharge to [facility] in [place]. A peer review proved unsucc essful in getting the patient's insurance company to pay for his care there. The [facility] then [facility] with paperwork submitted. On postoperat ade day 3, the patient was using his CPM at 65 degrees. He was woozy for the morning session and did not perform well, but made good progress in his afternoon physical therapy effort. Hemoglobin was 1 0. The patient had made a full loop around the nursing station 250 feet. Homans sign was negative. Bandage was clean and dry. The patient was unable to be discharged to home as his is debilitat ed on oxygen therapy and mobility impaired using a wheelchair, unable to participate in his care. On the fourth postoperative day, the patient was preparing for his second lap of 250 feet. His hemoglo bin was down slightly to 9.5. Neurovascular exam, left lower extremity was intact. Homans sign nega tive. The patient was tolerating the CPM increased to 70 degrees. The [facility] meant the special nursing facilities would not or could not except on Wednesday and Wednesday, so the patient continued with therapy with plan for discharge to [facility]. On Wednesday that transfer was finally accepted, and the patient was sent with a prescri ption for Wallkill 5/325 one p.o. q.4 hours p.r.n. pain, number dispensed 35. He was also sent with Aurora enox 40 mg subcutaneous injectable daily x12 days, 12 additional days. He was to continue with his C PM at 0-70 degrees 4 hours per day and increase 5 degrees per day as tolerated to a maximum of 120 de grees. The Aquacel bandage was changed prior to discharge. His incision was looking quite well and alcohol swabs were used prior to application of the new Aquacel bandages, changes were then authorize d to be performed each 5 days while he was in the special nursing unit. Follow up in my office is pl anned in 10-14 days with continued aggressive mobilization to maximize his range of motion and gain in strength and coordination. Discharge was carried out on Aug, to [facility]. NEREYDA/JOSE Voice ID: [id number] Report ID: [id number]
== END 2017-09-13 16:35 | DRG 470 ==
LOC: OR 05:47 → 2ND 12:30
PROVIDERS: ADMIT Orthopaedic Surgery; ATTEND Orthopaedic Surgery
PROC: 8E0YXBZ Computer Assisted Procedure of Lower Extremity (ICD-10-PCS; 2017-09-07)
PROC: 0SRD0J9 Replacement of Left Knee Joint with Synthetic Substitute, Cemented, Open Approach (ICD-10-PCS; principal; 2017-09-07 07:30)
DX: M17.12 Unilateral primary osteoarthritis, left knee (principal); D62 Acute posthemorrhagic anemia; E11.9 Type 2 diabetes mellitus without complications; I10 Essential (primary) hypertension; E78.5 Hyperlipidemia, unspecified; K21.9 Gastro-esophageal reflux disease without esophagitis; I73.9 Peripheral vascular disease, unspecified; N40.0 Benign prostatic hyperplasia without lower urinary tract symptoms
CPT/HCPCS: 36415; 80048; 80053; 81003; 82248; 82962; 83036; 83735; 85014; 85018; 85025; 85610; 85730; 86850; 86900; 86901; 88304; 88311; 97163; J0690; J1650; J2250; J2370; J2405; J2795; J3010; J7030

== ENCOUNTER 2017-10-07 12:22 | Inpatient (IN) | payer OTHER ==
[2017-10-07 16:40] LABS: Potassium 4.5 mEq/L (3.6-5.0)
[2017-10-07 16:45] LABS: Absolute Lymphocytes (CBC) 1.7 K/uL (0.7-4.9); Absolute Monocytes 0.6 K/uL (0.1-1.3); Absolute Neutrophil 4.3 K/uL (1.8-8.0); Basophils % 0.6 % (0-1.3); Eosinophils % 5.3 % (0-4.4); Hematocrit 32.2 % (39.6-49.0); Lymphocytes % 23.7 % (15.3-44.8); MCH 24.6 pg (27.0-35.0); MCV 76.5 fL (80-100); MPV 7.6 fL (7.6-11.3); Monocytes % 8.3 % (3.3-12.3); RBC Red Blood Cell Count 4.21 M/uL (4.33-5.43)
[2017-10-07 16:47] LABS: Protime INR 1.08
--- NOTE | 2017-10-07 17:04 | RAD REPORT ---
EXAM DESCRIPTION: RAD - Knee Left 3 View - 10/07/2017 4:49 pm CLINICAL HISTORY: Pain and swelling COMPARISON: None. FINDINGS: Moderate soft tissue swelling is seen about the knee. Intra-articular joint fluid is not c learly seen. Total knee arthroplasty is present. Hardware loosening is not seen. Vascular calcificati ons identified.
[2017-10-07] MEDS ORDERED: PIPER/TAZO/NS 3.375gm 3.375 GM/100 ML BAG ONE (18:31)
[2017-10-07] MEDS ORDERED: VANCOMYCIN 0 GM/0 ML BAG ONE (18:32)
[2017-10-07] MEDS ORDERED: VANCOMYCIN 1 GM/250 ML BAG ONE (18:36)
--- NOTE | 2017-10-07 18:45 | EDPHYS ---
Physician Documentation [facility] Name: Surehs Conley Age: 76 yrs Sex: Male : 1940 Arrival Date: 10/07/2017 Time: 12:26 Bed 16 Private MD: Roberto Samuels C ED Physician Rocky Hanley HPI: 10/07 16:15 This 76 yrs old Black Male presents to ER via Wheelchair with complaints of Knee cp drainage. 16:15 The patient presents with swelling, skin drainage. cp 16:15 The complaints affect the left knee. Onset: The symptoms/episode began/occurred today. cp Associated signs and symptoms: Pertinent positives: swelling, warmth, Pertinent negatives calf tenderness, fever, weakness, joint pain. Treatment prior to arrival includes: wrapped with Kerlix and dressing. Patient reports left knee replacement surgery by DR Ramesh on 09-10-2017. Patient was seen yesterday by DR Ramesh and has fluid drained from left knee. Historical: - Allergies: 12:30 No Known Allergies; aj - PMHx: 16:00 Diabetes - IDDM; Hypertension; aa5 - PSHx: 12:30 Knee surgery; aj - Immunization history:: Adult Immunizations up to date. - Social history:: Smoking status: Patient/guardian denies using tobacco. - Ebola Screening: : No symptoms or risks identified at this time. ROS: 16:20 Constitutional: Negative for body aches, chills, fever, poor PO intake. cp 16:20 Eyes: Negative for injury, pain, redness, and discharge. cp 16:20 ENT: Negative for drainage from ear(s), ear pain, sore throat, difficulty swallowing, difficulty handling secretions. 16:20 Cardiovascular: Negative for chest pain, edema, palpitations. 16:20 Respiratory: Negative for cough, shortness of breath, wheezing. 16:20 Abdomen/GI: Negative for abdominal pain, nausea, vomiting, and diarrhea. 16:20 MS/extremity: Positive for erythema, swelling, tenderness, of the left knee, Negative for decreased range of motion, pain. 16:20 Skin: Positive for of the left knee, skin drainage. 16:20 Neuro: Negative for altered mental status, headache, weakness. 16:20 All other systems are negative. Exam: 16:25 Constitutional: The patient appears in no acute distress, alert, awake, cp non-diaphoretic, non-toxic, well developed, well nourished. 16:25 Head/Face: Normocephalic, atraumatic. cp 16:25 Eyes: Periorbital structures: appear normal, Conjunctiva: normal, no exudate, no injection, Sclera: no appreciated abnormality, Lids and lashes: appear normal, bilaterally. 16:25 ENT: External ear(s): are unremarkable, Nose: is normal, Mouth: Lips: moist, Posterior pharynx: is normal, airway is patent, no erythema, no exudate. 16:25 Neck: ROM/movement: is normal, is supple, without pain, no range of motions limitations, no nuchal rigidity. 16:25 Chest/axilla: Inspection: normal, Palpation: is normal, no crepitus, no tenderness. 16:25 Cardiovascular: Rate: normal, Rhythm: regular. 16:25 Respiratory: the patient does not display signs of respiratory distress, Respirations: normal, no use of accessory muscles, no retractions, no splinting, no tachypnea, labored breathing, is not present. 16:25 Abdomen/GI: Exam negative for discomfort, distension, guarding, Inspection: abdomen appears normal. 16:25 Back: pain, is absent, ROM is normal. 16:25 Musculoskeletal/extremity: Extremities: grossly normal except: noted in the anterior aspect left knee: swelling, tenderness, There is no evidence of decreased ROM. 16:25 Skin: overlying skin of anterior knee appears with mild erythema, skin warm to touch, noted serosanguinous drainage. Vital Signs: 12:30 BP 114 / 80; Pulse 99; Resp 20; Temp 97.9; Pulse Ox 98% on R/A; Weight 78.93 kg; Height aj 5 ft. 9 in. (175.26 cm); 16:44 BP 117 / 70; Pulse 73; Resp 16; Pulse Ox 100% on R/A; sv 19:15 BP 120 / 67; Pulse 81; Resp 18; Pulse Ox 100% on R/A; mt 20:15 BP 119 / 65; Pulse 78; Resp 17 S; Pulse Ox 100% on R/A; bs1 20:45 BP 104 / 66; Pulse 72; Resp 16 S; Temp 98(O); Pulse Ox 100% ; Pain 2/10; bs1 12:30 Body Mass Index 25.70 (78.93 kg, 175.26 cm) aj MDM: 16:04 Patient medically screened. 17:00 Differential diagnosis: cellulitis, abscess, joint infection. 17:50 Data reviewed: vital signs, nurses notes, lab test result(s), radiologic studies, plain cp films. 18:00 Physician consultation: Ramesh Ramesh MD was contacted at 18:00, regarding consult, cp patient's condition, wants patient admitted for IV antibiotics. 18:35 Physician consultation: Roberto Samuels MD was contacted at 18:35, regarding admission, to the medical/surgical unit. 10/07 16:08 Order name: CBC with Diff; Complete Time: 17:48 10/07 17:22 Interpretation: Normal except: RBC 4.21; HGB 10.4; HCT 32.2; MCV 76.5; MCH 24.6; RDW cp 17.0; EOSINOPHIL % 5.3. 10/07 16:09 Order name: BMP; Complete Time: 22:53 10/07 17:22 Interpretation: Normal except: NA 133; CL 100; GFR 83. 10/07 16:09 Order name: PT-INR; Complete Time: 17:22 10/07 17:48 Interpretation: PT 12.8; Reviewed. 10/07 16:09 Order name: Ptt, Activated; Complete Time: 17:22 10/07 16:09 Order name: Sed Rate; Complete Time: 17:48 10/07 17:48 Interpretation: Abnormal: SED 52. 10/07 16:09 Order name: CRP; Complete Time: 22:53 10/07 16:09 Order name: XRAY Knee LEFT 3 view; Complete Time: 17:22 10/07 18:11 Order name: Wound Culture 10/07 19:07 Order name: Basic Metabolic Panel EDMS 10/07 19:07 Order name: Basic Metabolic Panel EDFL 10/07 19:07 Order name: CBC with Automated Diff EDFL 10/07 19:07 Order name: CBC with Automated Diff EDFL 10/07 16:09 Order name: IV; Complete Time: 16:25 cp 10/07 18:26 Order name: Diet Ada 1800 Ramón; Complete Time: 18:26 10/07 19:03 Order name: CONS Physician Consult EDMS Administered Medications: 18:45 Drug: Zosyn 3.375 grams Route: IVPB; Infused Over: 60 mins; Site: left antecubital; sv 21:12 Follow up: IV Status: Completed infusion bs1 19:16 Drug: vancoMYCIN 1 grams Route: IVPB; Infused Over: 2 hrs; Site: left antecubital; bs1 21:13 Follow up: IV Status: Completed infusion bs1 Disposition: 10/08 10:46 Co-signature as Attending Physician, Rocky Hanley MD I agree with the assessment and kdr plan of care. Disposition: 10/07/17 18:44 Hospitalization ordered by Roberto Samuels for Inpatient Admission. Preliminary diagnosis is Cellulitis of left lower limb - Left Knee. - Bed requested for Telemetry/MedSurg (Inpatient). - Status is Inpatient Admission. bs1 - Condition is Stable. - Problem is new. - Symptoms are unchanged. UTI on Admission? No Signatures: Dispatcher [employer] EDFL Lucy Hartley RN RN sv Woody, Diana, RN RN dw Myers, Amanda, RN RN aj Rittger, Kevin, MD MD kdr Calderon, Audri, RN RN aa5 Guy Hogan PA PA Lesley Kinney RN RN bs1 Corrections: (The following items were deleted from the chart) 10/07 19:26 18:44 Hospitalization Ordered by A Abril RALPH for Inpatient Admission. Preliminary dw diagnosis is Cellulitis of left lower limb - Left Knee. Bed requested for Telemetry/MedSurg (Inpatient). Status is Inpatient Admission. Condition is Stable. Problem is new. Symptoms are unchanged. UTI on Admission? No. cp 21:13 19:26 10/07/2017 18:44 Hospitalization Ordered by A Abril RALPH for Inpatient Admission. bs1 Preliminary diagnosis is Cellulitis of left lower limb - Left Knee. Bed requested for Telemetry/MedSurg (Inpatient). Status is Inpatient Admission. Condition is Stable. Problem is new. Symptoms are unchanged. UTI on Admission? No. dw
--- NOTE | 2017-10-07 18:45 | ER ---
Nurse's Notes [facility] Name: Suresh Conley Age: 76 yrs Sex: Male : 1940 Arrival Date: 10/07/2017 Time: 12:26 Bed 16 Private MD: Roberto Samuels C Diagnosis: Cellulitis of left lower limb-Left Knee Presentation: 10/07 12:28 Presenting complaint: Patient states: Instructed to come to ER by Dr Arriaza to meet Dr kendra Arriaza here. Reports increased drainage to surgical wound since bandage changed yesterday, by Dr Arriaza. Patient denies increased pain. Transition of care: patient was not received from another setting of care. Onset of symptoms was October 07, 2017. Care prior to arrival: None. 12:28 Method Of Arrival: Wheelchair aj 12:28 Acuity: TIERA 4 aj 15:45 Risk Assessment: Do you want to hurt yourself or someone else? Patient reports no aa5 desire to harm self or others. Initial Sepsis Screen: Does the patient meet any 2 criteria? No. Patient's initial sepsis screen is negative. Does the patient have a suspected source of infection? No. Patient's initial sepsis screen is negative. Triage Assessment: 12:30 General: Appears in no apparent distress. comfortable, Behavior is calm, cooperative, aj appropriate for age. Pain: Denies pain. Neuro: Level of Consciousness is awake, alert, obeys commands, Oriented to person, place, time, situation. Respiratory: Airway is patent Respiratory effort is even, unlabored, Respiratory pattern is regular, symmetrical. Derm: Skin is intact, is healthy with good turgor, Skin is pink, warm \\T\\ dry. normal. Derm: Wound noted left knee Wound is increased drainage. Historical: - Allergies: 12:30 No Known Allergies; aj - PMHx: 16:00 Diabetes - IDDM; Hypertension; aa5 - PSHx: 12:30 Knee surgery; aj - Immunization history:: Adult Immunizations up to date. - Social history:: Smoking status: Patient/guardian denies using tobacco. - Ebola Screening: : No symptoms or risks identified at this time. Screenin:45 Abuse screen: Denies threats or abuse. Nutritional screening: No deficits noted. aa5 Tuberculosis screening: No symptoms or risk factors identified. Fall Risk None identified. Assessment: 15:45 General: Appears comfortable, Behavior is calm, cooperative. Pain: Complains of pain in aa5 left knee Pain does not radiate. Pain currently is 5 out of 10 on a pain scale. Quality of pain is described as aching, shooting, Is intermittent, lasting a few seconds. Neuro: Level of Consciousness is awake, alert, obeys commands, Oriented to person, place, time, situation. Cardiovascular: Heart tones S1 S2 present Rhythm is regular. Respiratory: Airway is patent Respiratory effort is even, unlabored, Respiratory pattern is regular, symmetrical. GI: No signs and/or symptoms were reported involving the gastrointestinal system. : No signs and/or symptoms were reported regarding the genitourinary system. EENT: No signs and/or symptoms were reported regarding the EENT system. Derm: Skin is dry, Skin is normal, Skin temperature is warm Pt reports drainage to left knee that began yesterday. Pt states "I had knee surgery September 07, 2017 and the doctor drained some fluid from my knee with a needle yesterday". Yellowish drainage noted from L Knee. Incision site does not appear to be red or swollen, incision site to L knee appears macerated, incision appears closed. Musculoskeletal: Range of motion: intact in all extremities. 16:45 Reassessment: Patient appears in no apparent distress at this time. No changes from sv previously documented assessment. Patient and/or family updated on plan of care and expected duration. Pain level reassessed. Patient is alert, oriented x 3, equal unlabored respirations, skin warm/dry/pink. 17:35 Reassessment: Left knee cleaned with saline and dressed with abd pads and Kerlix per PA aa5 VO. . 17:35 Reassessment: Patient and/or family updated on plan of care and expected duration. Pain aa5 level reassessed. Neuro: Level of Consciousness is awake, alert, obeys commands, Oriented to person, place, time, situation. Respiratory: Airway is patent Respiratory effort is even, unlabored, Respiratory pattern is regular, symmetrical. Derm: Skin is dry, Skin is normal, Skin temperature is warm. 18:45 Reassessment: Patient appears in no apparent distress at this time. No changes from sv previously documented assessment. Patient and/or family updated on plan of care and expected duration. Pain level reassessed. Patient is alert, oriented x 3, equal unlabored respirations, skin warm/dry/pink. 19:10 Reassessment: Report received from WISAM De La Fuente. bs1 19:10 General: Appears in no apparent distress. comfortable, Behavior is calm, cooperative. bs1 Pain: Complains of pain in left leg Pain does not radiate. Neuro: Level of Consciousness is awake, alert, obeys commands, Oriented to person, place, time, situation. Cardiovascular: Denies chest pain, shortness of breath, Heart tones S1 S2 present Capillary refill < 3 seconds Patient's skin is warm and dry. Respiratory: Airway is patent Trachea midline Respiratory effort is even, unlabored, Respiratory pattern is regular, symmetrical, Breath sounds are clear bilaterally. GI: No signs and/or symptoms were reported involving the gastrointestinal system. : No signs and/or symptoms were reported regarding the genitourinary system. EENT: No signs and/or symptoms were reported regarding the EENT system. Derm: Skin is dry, Skin is normal, Skin temperature is warm Surgical wound noted to left knee, some drainage noted. Musculoskeletal: Range of motion: limited in left leg and left knee Swelling present in left knee. 20:30 Reassessment: Wrapped patients leg with gauze/kerlix. bs1 Vital Signs: 12:30 BP 114 / 80; Pulse 99; Resp 20; Temp 97.9; Pulse Ox 98% on R/A; Weight 78.93 kg; Height aj 5 ft. 9 in. (175.26 cm); 16:44 BP 117 / 70; Pulse 73; Resp 16; Pulse Ox 100% on R/A; sv 19:15 BP 120 / 67; Pulse 81; Resp 18; Pulse Ox 100% on R/A; mt 20:15 BP 119 / 65; Pulse 78; Resp 17 S; Pulse Ox 100% on R/A; bs1 20:45 BP 104 / 66; Pulse 72; Resp 16 S; Temp 98(O); Pulse Ox 100% ; Pain 2/10; bs1 12:30 Body Mass Index 25.70 (78.93 kg, 175.26 cm) ED Course: 12:26 Patient arrived in ED. mr 12:26 Roberto Samuels MD is Private Physician. mr 12:29 Triage completed. aj 12:30 Arm band placed on right wrist. Patient placed in waiting room, Patient notified of wait time. 15:45 Patient has correct armband on for positive identification. aa5 15:51 Lucy Hartley, RN is Primary Nurse. sv 16:02 No provider procedures requiring assistance completed. aa5 16:03 Guy Hogan PA is PHCP. cp 16:03 Rocky Hanley MD is Attending Physician. cp 16:20 Initial lab(s) drawn, by nj, sent to lab. Inserted saline lock: 20 gauge in left sv antecubital area, using aseptic technique. Blood collected. Flushed left antecubital with 5 ml normal saline. 16:25 Awaiting lab results, Awaiting for x-ray. sv 16:42 X-ray completed. Portable x-ray completed in exam room. Patient tolerated procedure bb2 well. 16:45 XRAY Knee LEFT 3 view In Process Unspecified. EDMS 18:43 Roberto Samuels MD is Hospitalizing Provider. cp 19:00 Report given to WISAM Sutton. aa5 19:09 Lesley Peters RN is Primary Nurse. bs1 21:08 Patient admitted, IV remains in place. intact. bs1 Administered Medications: 18:45 Drug: Zosyn 3.375 grams Route: IVPB; Infused Over: 60 mins; Site: left antecubital; sv 21:12 Follow up: IV Status: Completed infusion bs1 19:16 Drug: vancoMYCIN 1 grams Route: IVPB; Infused Over: 2 hrs; Site: left antecubital; bs1 21:13 Follow up: IV Status: Completed infusion bs1 Outcome: 18:44 Decision to Hospitalize by Provider. cp 21:08 Admitted to Med/surg accompanied by nurse, via wheelchair, room 213, with chart, Report bs1 called to WISAM Quintero 21:08 Condition: stable 21:08 Instructed on the need for admit, Demonstrated understanding of instructions. 21:13 Patient left the ED. bs1 Signatures: Dispatcher [employer] EDSD Lucy Hartley RN RN sv Myers, Amanda, RN RN aj Rivera, Maria mr KazTena RN RN aa5 Guy Hogan PA PA cp Thompson, [place] Lesley Becerril bb2 Lesley Peters RN RN bs1 Corrections: (The following items were deleted from the chart) 17:38 15:45 Derm: Skin is pink, warm \\T\\ dry. Pt reports drainage to left knee that began aa5 yesterday. Pt states "I had knee surgery September 07, 2017 and the doctor drained some fluid from my knee with a needle yesterday". Yellowish drainage noted from L Knee. Incision site does not appear to be red or swollen, incision site to L knee appears macerated, incision appears closed. aa5
[2017-10-07] MEDS ORDERED: ONDANSETRON 4 MG/2 ML VIAL IV PRN (19:03)
[2017-10-07] MEDS ORDERED: ACETAMINOPHEN 500 MG TAB PO PRN (19:03)
[2017-10-07] MEDS ORDERED: Pharmacy Consult 1 EA IV PRN (19:03)
[2017-10-07] MEDS ORDERED: HYDROCODONE/APAP 5/325 MG TAB PO PRN (19:03)
[2017-10-07 19:44] LABS: C-Reactive Protein 8.3 mg/L (<10.0)
[2017-10-07 21:16] VITALS: BMI 25.6
[2017-10-07 22:14] LABS: Urine Appearance CLEAR; Urine Bilirubin NEGATIVE (NEG); Urine Blood NEGATIVE (NEG); Urine Color YELLOW; Urine Glucose NEGATIVE (NEG); Urine Protein NEGATIVE (NEG)
[2017-10-07 22:32] LABS: Urine Microscopic Reflex NO UMIC
[2017-10-07] MEDS ORDERED: D50W 25 GM/50 ML SYRINGE IV PRN (23:11)
[2017-10-07] MEDS ORDERED: GLUCAGON 1 MG/VIAL IM PRN (23:11)
[2017-10-07] MEDS ORDERED: PIPER/TAZO/NS 3.375gm 6.750 GM/200 ML BAG ONE (23:15)
[2017-10-07] MEDS ORDERED: VANCOMYCIN/NS 1 gm 1 GM/250 ML BAG IVPB SCH (23:15)
[2017-10-07] MEDS: PIPER/TAZO/NS 3.375gm 3.375 GM/100 ML BAG IVPB SCH (23:28)
--- NOTE | 2017-10-08 04:50 | HP ---
Date of Admission: 10/07/2017 Chief Complaint: Left knee swelling and drainage. History Of Present Illness: This is a 76-year-old male patient who had left knee replacement surgery done by Dr. Ramesh on 09/07/2017. Postoperative course in the hospital was unremarkable. The patient went to group home facility for rehab therapy, and he came home about 7 to 10 days ago. The patient says that yesterday he went to see Dr. Ramesh, and he did remove some fluid from his left knee after he examined the patient and sent it for culture; and today, the patient reported that he was having some drainage from particular incision area on his left knee; and Dr. Ramesh advised him to come to emergency room. After he was evaluated in the ER, he was admitted to the hospital under my service. I saw him in the emergency room. Dr. Ramesh would like for the patient to go ahead and get started on IV antibiotics, and he will see the patient tomorrow. The patient denies any pain in his knee. He denies any fever or chills. No fall. No injury. Medications: List reviewed. Review of Systems: Musculoskeletal: As mentioned above. All other systems reviewed and negative. Allergies: NO KNOWN ALLERGIES. Family History: Mother with Alzheimer disease. Social History: Prior history of smoking, not at present time. Use of alcohol ; negative. Past Medical History: Significant for type 2 diabetes mellitus, hypertension, hyperlipidemia, osteoarthritis at multiple sites, gastroesophageal reflux disease, benign prostatic hypertrophy, anemia, and peripheral vascular disease. Past Surgical History: Angioplasty leg in 2007 for peripheral vascular disease and the left knee replacement on 09/07/2017. Medications: According to office records, the patient is on pravastatin 80 mg p.o. daily, doxazosin 2 mg 2 times a day, gabapentin 300 mg 3 times a day, glimepiride 4 mg 2 times a day, hydralazine 10 mg 2 times a day, Levemir insulin 20 units daily at bedtime, metformin 1000 mg 2 times a day, metoprolol 12.5 mg 2 times a day, and omeprazole 20 mg p.o. daily. Physical Examination: Vital Signs: When he came in to emergency room, blood pressure 114/80, pulse 99 , respiratory rate 20, temperature 97.9, oxygen saturation 98%, weight 78.93 kg , and height 5 feet 9 inches. General: Awake, alert, oriented, not in distress. HEENT: Head atraumatic, normocephalic. Conjunctivae nonerythematous. Sclerae white. Mouth, no thrush or edema noted. Ears/Nose, no mass, lesion, discharge noted. Neck: Supple. No JVD, lymph nodes, bruit, thyromegaly noted. Lungs: Bilateral good equal air entry. Clear to auscultation. No rhonchi. No rales. Heart: Normal heart sounds, no murmur or gallop. Abdomen: Soft, bowel sounds normal. No guarding, rigidity, tenderness, mass, hepatosplenomegaly, distention, or bruit noted. Extremities: Left leg shows surgical scar over left anterior knee from knee surgery, and knee itself has mild swelling. Skin surrounding the surgical scar over almost entire knee is dark, slightly pink, warm to touch, nontender, with 2 to 3 areas along the incision of small blister type of appearance. Skin: No rash, ulcer, cellulitis. Lymphatics: No lymph node enlargement in neck, supraclavicular, infraclavicular region. Neuro: No focal neurological deficit. Chest: Unremarkable. External Genitalia: Deferred. Rectal: Deferred. Laboratory Data: White count 7, hemoglobin 10.4, and platelets 350. Sodium 133 , potassium 4.5, chloride 100, bicarb 23, BUN 14, creatinine 1.06, and glucose 75. Sed rate 52. QUALITY ASSOCIATE pending. Knee x-ray; moderate soft tissue swelling with total knee arthroplasty seen. Hardware loosening is not seen. Vascular calcification identified. Impression: 1. Rule out left knee septic arthritis. 2. Osteoarthritis, multiple sites. 3. Hypertension. 4. Type 2 diabetes mellitus. 5. Hyperlipidemia. 6. Chronic anemia. 7. Gastroesophageal reflux disease. 8. Benign prostatic hypertrophy. 9. Peripheral vascular disease. Plan: Admit the patient to hospital for further evaluation and management of this problem. The patient's home medications will be continued per order. We will go ahead and start empiric antibiotic. Dr. Ramesh has obtained synovial fluid culture yesterday, and we will follow up on that result. So far, result is pending, and I will see him tomorrow for followup. Details of plan of treatment were discussed with the patient. Monitor FSBS with sliding scale insulin for diabetes management, will continue blood pressure medications with monitoring. Ambulation was advised. LISE/JOSE Voice ID: [id number]
[2017-10-08 05:04] LABS: Absolute Lymphocytes (CBC) 1.5 K/uL (0.7-4.9); Absolute Monocytes 0.5 K/uL (0.1-1.3); Absolute Neutrophil 3.6 K/uL (1.8-8.0); Basophils % 0.4 % (0-1.3); Eosinophils % 5.1 % (0-4.4); Hematocrit 29.1 % (39.6-49.0); Lymphocytes % 25.5 % (15.3-44.8); MCH 24.9 pg (27.0-35.0); MCV 75.9 fL (80-100); MPV 7.7 fL (7.6-11.3); Monocytes % 7.9 % (3.3-12.3); RBC Red Blood Cell Count 3.83 M/uL (4.33-5.43)
[2017-10-08 05:23] LABS: Potassium 4.2 mEq/L (3.6-5.0)
[2017-10-08] MEDS: PIPER/TAZO/NS 3.375gm 3.375 GM/100 ML BAG IVPB SCH ×3 (05:33→17:00)
[2017-10-08] MEDS ORDERED: HYDROCODONE/APAP 5/325 MG TAB PO PRN (07:19)
[2017-10-08] MEDS: INSULIN -REGULAR HUMAN 50 UNIT/0.5 ML ML SQ SCH ×4 (07:30→20:50)
[2017-10-08] MEDS: PANTOPRAZOLE 40MG TABLET PO SCH ×2 (09:37→20:42)
[2017-10-08] MEDS: DOXAZOSIN 2 MG TAB PO SCH ×2 (09:37→20:41)
[2017-10-08] MEDS: ASCORBIC ACID 500 MG TABLET PO SCH (09:37)
[2017-10-08] MEDS: GABAPENTIN 300 MG CAP PO SCH (09:39)
[2017-10-08] MEDS: TAMSULOSIN 0.4 MG SR CAP PO SCH (09:39)
[2017-10-08] MEDS: FERROUS SULFATE 325 MG TAB PO SCH (09:39)
[2017-10-08] MEDS: METOPROLOL TAR 25 MG TAB PO SCH ×2 (09:39→20:42)
[2017-10-08] MEDS: CLOPIDOGREL 75 MG TABLET PO SCH (09:39)
--- NOTE | 2017-10-08 12:05 | CON ---
Date of Consultation: 10/07/2017 Consultation is requested by Dr. Ziggy Samuels regarding cellulitis left knee. History Of Present Illness: This patient is a total knee arthroplasty patient, 30 days post surgery, who was [facility]. The patient was seen 8 days after surgery, matt removed and sterile bandage applied. The patient indicates no bandage was applied afterwards at the [facility], he was allowed to bathe every third day and given a wet wash rag to wipe his knee at that time. The patient presented to my office on the day prior to his admission, and was here because home health had noted a crusting rash indicating activity around the incision, anterior left knee. This wound over the incision was described by the patient as having blisters that would form and the blisters were followed by oozing, crust or scab formation. The patient is making excellent progress with range of motion and ambulatory activities, achieving good range of motion and ambulatory capabilities. While at the office, a clear area of skin was prepped and needle aspiration produced a reddish but relatively clear fluid, the effusion was approximately 1+ with 24 mL aspirated to essentially empty the knee. That aspirate was analyzed and found to have only 1516 fluid WBCs with 53% neutrophils, fluid RBCs were 23,022. Laboratory testing done on 10/06 indicated Westergren sedimentation rate 55, still up from the surgery 1 month prior. C-reactive protein had normalized to 6.2, white blood cell count was 7.2 with normal differential, both aerobic and anaerobic cultures are in the system and pending with Gram stain showing 0-3 WBCs and no organisms and initial culture report, no growth so far. On the day of admission, the patient' s called and said that his knee was gushing fluid. They gave the impression that the incision had given way, but that did not fit the previous days inspection in which the incision appeared to be completely healed with a rash around. The patient was asked to come in immediately to the office, but the patient's had other medical appointments during the day and she indicated she could only come after 4 p.m., therefore she was told to present to the emergency room for evaluation at that time. The patient on the day prior to admission was started on Bactrim DS and doxycycline as a [facility] pathogen is expected to be a resistant organism. The bandage applied was Telfa and Neosporin. Upon examination in the emergency room, it was noted that the treatment with Neosporin had dissolved the crusty portion of the rash and that the entire anterior surface of the knee was moist and oozing to saturate the bandage. The patient is being admitted for IV antibiotic treatment of his cellulitis anterior left knee. Medications: The patient's medications are listed with 1% Silvadene, Bactrim DS and doxycycline added on the day prior to admission. The patient takes 1 aspirin per day and Plavix, metformin and glimepiride for diabetes. Physical Examination: Vital signs: Stable. HEENT: Within normal limits Neck: Supple. Chest: Clear to auscultation. Heart: Regular rate and rhythm. Abdomen: Soft and nontender. Active bowel sounds present. Genital and rectal exam: Deferred. Extremities: On examination of the extremity, the patient has an oozing wound around and over the incision of the left knee. He demonstrates normal ability to flex and extend the left knee and denies difficulty with ambulation. Neurovascular exam: Intact left lower extremity. Musculoskeletal: see HPI Laboratory Data: X-rays of the left knee show excellent position for prosthetic components inserted with computer navigation. Assessment: This patient at 1 month post left total knee arthroplasty has developed a perioperative superficial cellulitis anterior left knee. Thick crusting over the entire anterior knee suggested an impetigo-type rash. The initial synovial aspiration from the intra-articular space done 10/06/2017, so far has indicated no involvement of the intra-articular space. The patient's rash and septic cellulitis anterior to the knee is of course high risk for involving the intra-articular space, but warrants IV antibiotic treatment of an aggressive nature in an attempt to preserve the joint replacement. Plan: The patient is admitted for IV antibiotic therapy. Infectious Disease consult will be placed. The aggressive treatment for the infection is expected to clear the skin, so that additional serial evaluations of knee aspirate can occur over days and weeks. Initial antibiotics are vancomycin and Zosyn with adjustments to be made, should wound culture or aspirate culture prove positive with sensitivities indicating antibiotic changes to be made. NEREYDA/JOSE Voice ID: [id number] Report ID: [id number] MARGIE
--- NOTE | 2017-10-08 13:49 | PN ---
Date of Progress Note: 10/08/2017 Subjective: The patient was seen this morning for followup. No new complaints or problems reported by the patient. Lying in bed, not in distress. Objective: Vital signs: Reviewed. HEENT: Examination unremarkable. Lungs: Clear to auscultation. Heart: Sounds normal. Abdomen: Soft, bowel sounds normal. No guarding, rigidity, tenderness, or distention. Extremities: No leg edema. Left knee exam unchanged. Laboratory Data: White count 5.8, hemoglobin 9.5, platelets 305. Sodium 134, potassium 4.2, chlorid e 105, bicarb 22, BUN 15, creatinine 0.99. Glucose this morning was 49 and after it was corrected la st glucose was 113. Impression: 1.Rule out septic arthritis, left knee. 2.Type 2 diabetes mellitus. 3.Hypertension. 4.Anemia. 5.Peripheral vascular disease. 6.Osteoarthritis, multiple sites. Plan: We will go ahead and continue to follow with Dr. Ramesh. Follow up on culture results. So fa r, culture is pending. Continue current empiric antibiotics. Home medications will be continued per order. We will hold antihypertensive medication if systolic blood pressure is less than 120-130 and the specific orders written for specific blood pressure medication when to hold and we will not give any long-acting insulin that he takes at home and we will not give any glimepiride or metformin at t his point. Considering how his sugar was early this morning, we will just try to control his diabete s with sliding scale. Depending on his blood sugar readings we will decide at what point we can reintroduce his diabetes medications. I will see him tomorrow for followup. LISE/MODL Voice ID: [id number] Report ID: [id number]
[2017-10-08] MEDS: VANCOMYCIN 1.5 GM in NA CHLORIDE 0.9% 500 ML IVPB SCH (14:28)
--- NOTE | 2017-10-08 14:30 | P.PN ---
Date of Service: 10/08/17 S: THIS PATIENT IS COMFORTABLE AT BEDREST, LLE ELEVATED ON PILLOW. O: VSS, AFEBRILE. BANDAGE APPLIED YESTERDAY IN ED SATURATED ANTERIORLY THROUGH 2 ABD PADS AND KERLEX. PATIENT MOVES LEFT KNEE EASILY 0*-90*. BANDAGE REMOVED, RASH IMPROVED FROM YESTERDAY FROM MACERATED LOOK. WEDNESDAY(DAY PRIOR TO ADMIT) WOUND WAS THICK, DARK AND CRUSTY WITH PARTICLES BREAKING OF WITH ALCOHOL SWAB STICK USE. DISCUSSED CULTURES WITH MICROBIOLOGY, NO GROWTH SO FAR FOR SYNOVIAL FLUID SENT 10/06 OR WOUND SWAB SENT FROM ED 10/07. ALL GRAM STAINS NO ORGANISMS SEEN. A: PERIOPERATIVE LEFT TKA CELLULITIS WITHOUT EVIDENCE OF DEEP INFECTION 1 MONTH POST-OP. P: INFECTIOUS DISEASE CONSULT REQUESTED. MAY NOT GET ID OF PATHOGEN, BUT SUSPECT NH NOSOCOMIAL WITH SIGNIFICANT RESISTANCES. APPROPRIATE ISOLATION PRECAUTIONS INITIATED. PICC LINE IF IV ABX TO BE PROLONGED. WOULD WAIT FOR SKIN TO CLEAR BEFORE ADDITIONAL SYNOVIAL ASPIRATION.
[2017-10-08] MEDS: ATORVASTATIN 10 MG TAB PO SCH (20:42)
[2017-10-08] MEDS: CETIRIZINE HCL 5 MG TABLET PO SCH (20:42)
[2017-10-08] MEDS: ZOLPIDEM TARTRATE 5 MG TABLET PO PRN (20:45)
--- NOTE | 2017-10-08 21:34 | CON ---
History Of Present Illness: The patient is a 76-year-old male who had left knee surgery in end , coming in to the hospital with swelling and discomfort in the knee. The patient had some fluid removed from his knee and was admitted to the emergency room for further evaluation and admission to the hospital for IV antibiotics. The patient denies any headache, nausea, vomiting, chest pain, abdo talat pain, constipation, or diarrhea. Past Medical History: Include diabetes mellitus, hypertension, hyperlipidemia, osteoarthritis, gastr oesophageal reflux disease, benign prostatic hypertrophy, anemia, peripheral vascular disease. Past Surgical History: Left knee replacement on September 07 of this year, angioplasty of leg in 2007. Social History: Tobacco; prior history, no smoking at present. Alcohol use negative. Family History: Noncontributory. Medications: Include Zosyn and vancomycin. Allergies: NO KNOWN DRUG ALLERGIES. Review of Systems: Ten-point review was performed. Physical Examination: General: This is a 76-year-old male, lying in bed, not in any acute cardiopulmonary distress. Vital Signs: Temperature 98, pulse 74, respiration 18, blood pressure 126/60. HEENT: Unremarkable. Neck: Supple. Lungs: Clear to auscultation. Heart: S1, S2 regular. Abdomen: Soft, nontender. Bowel sounds positive. Extremity: Increased warmth and tenderness noted in the left knee joint area. No foul smell. No op en area of drainage noted. Laboratory Data: Shows WBC 5.8, hemoglobin 9.5, platelets 305. Chemistry shows sodium 134, potassiu m 4.2, chloride 105, bicarb 22, BUN 15, creatinine 1.99, glucose is 161. X-ray of the knee shows the patient has moderate soft tissue swelling with intra-articular joint fluid is not clearly seen. Tot al knee arthroplasty is present. Assessment And Plan: Possible left knee septic arthritis. We will recommend total 6 weeks of IV ant ibiotic treatment. Consider long-term acute care. Consider keeping legs elevated and compression dr jasbir as needed. We will follow the patient closely. Thank you Dr. Samuels for consult. NF/MODL Voice ID: [id number] Report ID: [id number]
[2017-10-09] MEDS: PIPER/TAZO/NS 3.375gm 3.375 GM/100 ML BAG IVPB SCH ×3 (00:48→17:50)
[2017-10-09] MEDS: AMLODIPINE 10 MG TAB PO SCH (05:30)
[2017-10-09] MEDS: VANCOMYCIN 1.5 GM in NA CHLORIDE 0.9% 500 ML IVPB SCH (07:00)
[2017-10-09] MEDS: INSULIN -REGULAR HUMAN 50 UNIT/0.5 ML ML SQ SCH ×4 (07:30→21:00)
[2017-10-09] MEDS: DOXAZOSIN 2 MG TAB PO SCH ×2 (09:29→21:23)
[2017-10-09] MEDS: CLOPIDOGREL 75 MG TABLET PO SCH (09:29)
[2017-10-09] MEDS: TAMSULOSIN 0.4 MG SR CAP PO SCH (09:29)
[2017-10-09] MEDS: GABAPENTIN 300 MG CAP PO SCH (09:29)
[2017-10-09] MEDS: METOPROLOL TAR 25 MG TAB PO SCH ×2 (09:29→21:25)
[2017-10-09] MEDS: ASCORBIC ACID 500 MG TABLET PO SCH (09:29)
[2017-10-09] MEDS: FERROUS SULFATE 325 MG TAB PO SCH (09:30)
[2017-10-09] MEDS: PANTOPRAZOLE 40MG TABLET PO SCH ×2 (09:30→21:24)
--- NOTE | 2017-10-09 12:11 | P.PN ---
Date of Service: 10/09/17 S: THIS PATIENT IS COMFORTABLE IN BED, LLE ELEVATED ON PILLOW. NO C/O PAIN. O: VSS, AFEBRILE. NEW BANDAGE PROTOCOL BY DR. SANTIZO. PATIENT MOVES LEFT KNEE EASILY 0*-90*. BANDAGE LEFT IN PLACE. CULTURES CONTINUE NO GROWTH SO FAR FOR SYNOVIAL FLUID 10/06, AND WOUND SWAB FROM ED 10/07. MICROBIOLOGY HOLDING CULTURES FOR EXTRA DAYS IN HOPES OF IDing PATHOGEN. A: PERIOPERATIVE LEFT TKA CELLULITIS RESPONDING TO IV ABX. DOUBT DEEP INFECTION. P: APPRECIATE INFECTIOUS DISEASE CONSULT BY DR. SANTIZO AND MGMT OF HYPOTENSION AND HYPOGLYCEMIA BY DR. ARREDONDO. PROBABLY WON'T GET ID OF PATHOGEN, BUT COULD BE NH NOSOCOMIAL WITH SIGNIFICANT RESISTANCES. IF WOUND/RASH CONTINUES TO IMPROVE MAY HAVE SKIN AREA CLEAR TO SAFELY PERFORM A SECOND SYNOVIAL ASPIRATION. LACK OF C-RP ELEVATION GOOD SIGN FOR SUPERFICIAL PERIOPERATIVE INCISIONAL INFECTION. LENGTH OF ABX TX, IV OR P.O. TO BE LARGELY DECIDED BY I.D. CONSULT. NO INDICATION FOR OPEN DEBRIDEMENT WITH POLY EXCHANGE SO FAR.
--- NOTE | 2017-10-09 15:27 | PN ---
Date of Progress Note: 10/09/2017 Subjective: The patient was seen today for followup. No new complaints or problems reported. Denie s any knee pain. Objective: Vital Signs: Reviewed. HEENT: Unremarkable. Lungs: Clear to auscultation. Heart: Heart sounds normal. Abdomen: Soft. Bowel sounds normal. No guarding, rigidity, tenderness, or distention. Extremities: No leg edema. Laboratory Data: Fingerstick blood sugar readings reviewed. Wound culture is pending so far. Impression: 1.Rule out septic arthritis. 2.Type 2 diabetes mellitus. 3.Hypertension. 4.Anemia. Plan: We will go ahead and continue current medications. Continue current antibiotics. Continue sl iding scale insulin for diabetes control and we will also start oral hypoglycemic medication for diab etes. LISE/MODL Voice ID: [id number] Report ID: [id number]
[2017-10-09] MEDS: CETIRIZINE HCL 5 MG TABLET PO SCH (21:22)
[2017-10-09] MEDS: METFORMIN ER 500 MG TAB PO SCH (21:23)
[2017-10-09] MEDS: ZOLPIDEM TARTRATE 5 MG TABLET PO PRN (21:26)
[2017-10-09] MEDS: ATORVASTATIN 10 MG TAB PO SCH (21:26)
[2017-10-10] MEDS: VANCOMYCIN 1.5 GM in NA CHLORIDE 0.9% 500 ML IVPB SCH ×2 (01:54→20:50)
[2017-10-10] MEDS: PIPER/TAZO/NS 3.375gm 3.375 GM/100 ML BAG IVPB SCH ×3 (01:57→17:43)
[2017-10-10] MEDS: AMLODIPINE 10 MG TAB PO SCH (05:58)
[2017-10-10] MEDS: INSULIN -REGULAR HUMAN 50 UNIT/0.5 ML ML SQ SCH ×4 (07:30→20:25)
[2017-10-10] MEDS: ASCORBIC ACID 500 MG TABLET PO SCH (09:09)
[2017-10-10] MEDS: DOXAZOSIN 2 MG TAB PO SCH ×2 (09:10→20:24)
[2017-10-10] MEDS: FERROUS SULFATE 325 MG TAB PO SCH (09:11)
[2017-10-10] MEDS: TAMSULOSIN 0.4 MG SR CAP PO SCH (09:12)
[2017-10-10] MEDS: METFORMIN ER 500 MG TAB PO SCH ×2 (09:12→21:03)
[2017-10-10] MEDS: METOPROLOL TAR 25 MG TAB PO SCH ×2 (09:12→20:25)
[2017-10-10] MEDS: PANTOPRAZOLE 40MG TABLET PO SCH ×2 (09:13→20:51)
[2017-10-10] MEDS: GABAPENTIN 300 MG CAP PO SCH (09:13)
[2017-10-10] MEDS: CLOPIDOGREL 75 MG TABLET PO SCH (09:13)
[2017-10-10] MEDS: ATORVASTATIN 10 MG TAB PO SCH (20:51)
[2017-10-10] MEDS: CETIRIZINE HCL 5 MG TABLET PO SCH (21:03)
[2017-10-10] MEDS: ZOLPIDEM TARTRATE 5 MG TABLET PO PRN (21:04)
[2017-10-11] MEDS: PIPER/TAZO/NS 3.375gm 3.375 GM/100 ML BAG IVPB SCH (00:13)
[2017-10-11] MEDS: AMLODIPINE 10 MG TAB PO SCH (05:30)
[2017-10-11] MEDS: INSULIN -REGULAR HUMAN 50 UNIT/0.5 ML ML SQ SCH ×4 (07:30→20:39)
[2017-10-11] MEDS: DOXAZOSIN 2 MG TAB PO SCH ×2 (09:00→20:36)
[2017-10-11] MEDS: Levofloxacin 750mg IV 750 MG/150 ML BAG IV SCH (09:00)
[2017-10-11] MEDS: METOPROLOL TAR 25 MG TAB PO SCH ×2 (09:00→20:38)
[2017-10-11] MEDS: PANTOPRAZOLE 40MG TABLET PO SCH ×2 (10:17→20:36)
[2017-10-11] MEDS: ASCORBIC ACID 500 MG TABLET PO SCH (10:17)
[2017-10-11] MEDS: TAMSULOSIN 0.4 MG SR CAP PO SCH (10:17)
[2017-10-11] MEDS: GABAPENTIN 300 MG CAP PO SCH (10:17)
[2017-10-11] MEDS: METFORMIN ER 500 MG TAB PO SCH ×2 (10:19→20:38)
[2017-10-11] MEDS: CLOPIDOGREL 75 MG TABLET PO SCH (10:19)
[2017-10-11] MEDS: FERROUS SULFATE 325 MG TAB PO SCH (10:19)
--- NOTE | 2017-10-11 13:32 | PN ---
Date of Progress Note: 10/10/2017 Subjective: Seen this morning for followup. No new complaints or problems reported by the patient. Lying in bed, not in distress. Objective: Vital Signs: Reviewed. HEENT: Unremarkable. Lungs: Clear to auscultation. No rhonchi or rales. Heart: Sounds normal. Abdomen: Soft. Bowel sounds normal. No guarding, rigidity, tenderness, or distention. Extremities: No leg edema. Left knee, mild swelling present, overall better than before. Laboratory Data: The patient's wound culture from left knee, this was collected on the day he presen brandon to the hospital emergency room, has grown Pseudomonas and MRSA. Pseudomonas is resistant to Zosy n, which currently, the patient is on. It is sensitive to Levaquin. MRSA is sensitive to vancomycin , which the patient is currently on. The patient's culture of left knee sinoatrial fluid, which was collected the day before admission to the hospital, has remained negative. Impression: 1.Cellulitis, left knee. 2.Hypertension. 3.Type 2 diabetes mellitus. 4.Anemia. Plan: We will continue current medications, which is vancomycin. We will start the patient on Levaq uin 750 mg IV piggyback daily. Discontinue Zosyn. Continue other current medications. Repeat blood work tomorrow. We will continue to follow with Infectious Disease specialist, Dr. Perales to get his recommendation about the duration of antibiotic therapy and then we will plan for discharge accordingly. LISE/MODL Voice ID: [id number] Report ID: [id number]
--- NOTE | 2017-10-11 13:54 | P.PN ---
Date of Service: 10/11/17 S: THIS PATIENT IS IN BED, LLE ELEVATED ON PILLOW. NO C/O PAIN. O: VSS, AFEBRILE. BANDAGE CHANGED. PATIENT IS AGAIN SHOWING CRUSTING SCAB OVER 3 CM PERIMETER AROUND INCISION. HE MOVES LEFT KNEE EASILY 0*-90*. NO SIGN OF INTRA-ARTICULAR EFFUSION. CULTURE OF WOUND ON ADMIT IDed WITH MRSA SUSPECTED AND PSUEDEMONAS. VANC CONTINUED, ZOSYN DCed, LEVAQUIN STARTED. NO GROWTH FINAL AEROBIC AND ANAEROBIC FOR SYNOVIAL FLUID ASPIRATED 10/06. A: PERIOPERATIVE LEFT TKA CELLULITIS HAS A CHANCE TO RESPOND TO IV ABX. WITHOUT DEVELOPING A DEEP INFECTION . P: DURATION OF THERAPY TO REQUIRE PICC LINE AND OUTPT. MGMT OF ANTIBIOTICS PER DR. SANTIZO. WITHOUT NEW SYMPTOMS, WOULD ASPIRATE KNEE 2-4 WEEKS AFTER IV ANTIBIOTICS DCed.
[2017-10-11] MEDS: VANCOMYCIN 1.5 GM in NA CHLORIDE 0.9% 500 ML IVPB SCH (13:56)
--- NOTE | 2017-10-11 16:20 | PN ---
Subjective: The patient is lying in bed. Denies any headache, nausea, vomiting, chest pain, abdomin al pain, constipation, or diarrhea. Objective: Vital Signs: Temperature 98, pulse 81, respirations 16, and blood pressure 120/60. Lungs: Clear to auscultation. Heart: S1 and S2 regular. Abdomen: Soft, nontender. Bowel sounds positive. Extremities: Left leg erythematous changes. Laboratory Data: No new labs available today. Micro data show the patient has pseudomonas and MRSA in his wound. We will recommend Levaquin and vancomycin. Assessment And Plan: Septic arthritis of left knee. We will recommend 6 weeks of IV vancomycin and Levaquin. Monitor blood levels 2-3 times a week; CBC, BMP, and vancomycin level for next 6 weeks. C onsider long-term acute care. We will follow the patient as needed. MARKO/MODVeronika Voice ID: [id number] Report ID: [id number]
[2017-10-11] MEDS: CETIRIZINE HCL 5 MG TABLET PO SCH (20:38)
[2017-10-11] MEDS: ATORVASTATIN 10 MG TAB PO SCH (20:38)
[2017-10-11] MEDS: ZOLPIDEM TARTRATE 5 MG TABLET PO PRN (22:23)
[2017-10-12] MEDS: AMLODIPINE 10 MG TAB PO SCH (05:09)
[2017-10-12 06:12] LABS: Absolute Lymphocytes (CBC) 1.8 K/uL (0.7-4.9); Absolute Monocytes 0.5 K/uL (0.1-1.3); Absolute Neutrophil 4.3 K/uL (1.8-8.0); Basophils % 0.9 % (0-1.3); Eosinophils % 3.8 % (0-4.4); Hematocrit 31.8 % (39.6-49.0); Lymphocytes % 26.4 % (15.3-44.8); MCV 76.2 fL (80-100); MPV 7.6 fL (7.6-11.3); Monocytes % 7.2 % (3.3-12.3); RBC Red Blood Cell Count 4.18 M/uL (4.33-5.43)
[2017-10-12 06:13] LABS: ALT/SGPT 11 IU/L (10-60); AST/SGOT 15 IU/L (10-42); Albumin 3.4 g/dL (3.2-5.5); Alkaline Phosphatase 70 IU/L (42-121); BUN Blood Urea Nitrogen 12 mg/dL (6-20); Bicarbonate 21 mEq/L (21-31); Bilirubin Total 0.4 mg/dL (0.3-1.2); Glucose Level 107 mg/dL (65-120); Magnesium 1.6 mg/dL (1.8-2.5); Potassium 4.6 mEq/L (3.6-5.0); Sodium Level 135 mEq/L (135-145)
[2017-10-12] MEDS: VANCOMYCIN 1.5 GM in NA CHLORIDE 0.9% 500 ML IVPB SCH (06:26)
[2017-10-12] MEDS: INSULIN -REGULAR HUMAN 50 UNIT/0.5 ML ML SQ SCH ×4 (07:30→21:00)
[2017-10-12] MEDS: METFORMIN ER 500 MG TAB PO SCH ×2 (09:51→20:45)
[2017-10-12] MEDS: DOXAZOSIN 2 MG TAB PO SCH ×2 (09:51→20:44)
[2017-10-12] MEDS: ASCORBIC ACID 500 MG TABLET PO SCH (09:52)
[2017-10-12] MEDS: GABAPENTIN 300 MG CAP PO SCH (09:52)
[2017-10-12] MEDS: CLOPIDOGREL 75 MG TABLET PO SCH (09:52)
[2017-10-12] MEDS: METOPROLOL TAR 25 MG TAB PO SCH ×2 (09:53→20:45)
[2017-10-12] MEDS: Levofloxacin 750mg IV 750 MG/150 ML BAG IV SCH (09:53)
[2017-10-12] MEDS: FERROUS SULFATE 325 MG TAB PO SCH (09:53)
[2017-10-12] MEDS: TAMSULOSIN 0.4 MG SR CAP PO SCH (09:53)
[2017-10-12] MEDS: PANTOPRAZOLE 40MG TABLET PO SCH ×2 (09:53→20:46)
--- NOTE | 2017-10-12 13:30 | RAD REPORT ---
EXAM DESCRIPTION: RAD - Chest Single View - 10/12/2017 1:23 pm CLINICAL HISTORY: PICC line placement COMPARISON: None. FINDINGS: Portable chest was obtained following placement of a right upper extremity PICC line. The catheter tip is in the right atrium. Retraction of the PICC line [address] the tip in the mid to distal SVC.
--- NOTE | 2017-10-12 17:23 | PN ---
Subjective: The patient lying in bed, feels little better today. Denies any headache, nausea, vomit ing, chest pain, abdominal pain, constipation, or diarrhea. Objective: Vital Signs: Temperature 98, pulse 80, respiration 18, blood pressure 135/73. Lungs: Basal crackles. Heart: S1, S2. Regular. Abdomen: Soft, nontender. Bowel sounds positive. Extremities: Edema decreasing. Laboratory Data: WBC 6.9, hemoglobin 10, platelets are 296. Chemistry shows sodium 135, potassium 4 .6 chloride 106, bicarb 21, BUN 12, creatinine 0.97, glucose 107. Wound cultures growing MRSA and Ps eudomonas. Current Medications: Include Levaquin and vancomycin. Assessment And Plan: Left knee septic arthritis and cellulitis. Recommend to continue antibiotic fo r 6 weeks. Consider long-term acute care at [facility]. We will follow the patient close ly. NF/MODL Voice ID: [id number] Report ID: [id number]
[2017-10-12] MEDS ORDERED: SODIUM CHLORIDE 0.9% 10ML INJ IV PRN (19:00)
[2017-10-12] MEDS: ATORVASTATIN 10 MG TAB PO SCH (20:46)
[2017-10-12] MEDS: CETIRIZINE HCL 5 MG TABLET PO SCH (20:47)
[2017-10-12] MEDS: ZOLPIDEM TARTRATE 5 MG TABLET PO PRN (20:56)
[2017-10-12] MEDS: SODIUM CHLORIDE 0.9% 10ML INJ IV SCH (22:07)
--- NOTE | 2017-10-13 00:18 | PN ---
Date of Progress Note: 10/12/2017 Subjective: The patient was seen this morning for followup. No new complaints or problems reported by patient. Objective: General: Lying in bed, not in acute distress. Vital Signs: Reviewed. HEENT: Unremarkable. Lungs: Clear to auscultation. Heart: Sounds normal. Abdomen: Soft, bowel sounds normal. No guarding, rigidity, tenderness, distention. Extremities: No leg edema. Laboratory Data: White count 6.9, hemoglobin 10, platelets 296. Sodium 135, potassium 4.6, chloride 106, bicarb 21, BUN 12, creatinine 0.97, glucose 107. Liver function tests unremarkable. Magnesium 1.6. Impression: 1.Cellulitis, left knee. 2.Hypomagnesemia. 3.Hypertension. 4.Diabetes mellitus. 5.The patient is on vancomycin and Levaquin. We will continue that. We will discuss details with Calvin Perales. He has recommended 6 weeks of IV antibiotic therapy and PICC line was ordered. Details w ere discussed with the patient and I will see him tomorrow for followup. Replace magnesium per alvino col. LISE/MODL Voice ID: [id number] Report ID: [id number]
[2017-10-13] MEDS: VANCOMYCIN 1.5 GM in NA CHLORIDE 0.9% 500 ML IVPB SCH ×2 (00:59→19:28)
[2017-10-13] MEDS: AMLODIPINE 10 MG TAB PO SCH (05:34)
[2017-10-13] MEDS: INSULIN -REGULAR HUMAN 50 UNIT/0.5 ML ML SQ SCH ×4 (07:30→21:00)
[2017-10-13] MEDS: DOXAZOSIN 2 MG TAB PO SCH ×2 (09:00→20:25)
[2017-10-13] MEDS: TAMSULOSIN 0.4 MG SR CAP PO SCH (09:18)
[2017-10-13] MEDS: FERROUS SULFATE 325 MG TAB PO SCH (09:18)
[2017-10-13] MEDS: CLOPIDOGREL 75 MG TABLET PO SCH (09:19)
[2017-10-13] MEDS: METFORMIN ER 500 MG TAB PO SCH ×2 (09:19→20:25)
[2017-10-13] MEDS: ASCORBIC ACID 500 MG TABLET PO SCH (09:19)
[2017-10-13] MEDS: METOPROLOL TAR 25 MG TAB PO SCH ×2 (09:19→20:26)
[2017-10-13] MEDS: PANTOPRAZOLE 40MG TABLET PO SCH ×2 (09:20→20:27)
[2017-10-13] MEDS: GABAPENTIN 300 MG CAP PO SCH (09:20)
[2017-10-13] MEDS: Levofloxacin 750mg IV 750 MG/150 ML BAG IV SCH (09:21)
[2017-10-13] MEDS: SODIUM CHLORIDE 0.9% 10ML INJ IV SCH ×2 (09:22→23:00)
--- NOTE | 2017-10-13 17:04 | P.PN ---
Date of Service: 10/12/17 S: THIS PATIENT IS COMFORTABLE IN BED, LLE ELEVATED ON PILLOW WITH BANDAGE IN PLACE. NO C/O PAIN. NURSES IN ROOM FOR SHIFT CHANGE HANDOFF. O: VSS, AFEBRILE. BANDAGE DRY AND INTACT. PATIENT WAS OUT OF HIS ROOM HAVING PICC LINE INSERTED AT NOON. HE MOVES LEFT KNEE EASILY 0*-90*,AND DESCRIBES MAKING A COMPLETE 250 FOOT ROUND ON THE FLOOR WITH THERAPY TODAY. THE PATIENT RELATES HIS UNDERSTANDING OF ATTEMPT TO PLACE HIM AT [facility]. HE UNDERSTANDS THAT 6 WEEKS OF iv ANTIBIOTIC THERAPY COULD BE REQUIRED WITH REASSESSMENT AT 3 WEEKS TO DETERMINE IF CONTINUATION IS NECESSARY. HE ALSO INDICATES ANOTHER FACILITY HAS BEEN DISCUSSED FOR POSSIBLE SNF CARE. MRSA AND PSUEDEMONAS ONLY FROM SUPERFICIAL WOUND CULTURES CONTINUESTO BE TREATED WITH VANCOMYCIN AND, LEVAQUIN. NO GROWTH FINAL AEROBIC DETERMINED FOR SYNOVIAL FLUID ASPIRATED 10/06. A: PERIOPERATIVE LEFT TKA CELLULITIS SHOULD HAVE AN OPPORTUNITY TO RESPOND TO IV ABX. WITHOUT DEVELOPING A DEEP INFECTION . P: PICC LINE IN PLACE. DR. SANTIZO RECOMMENDING [facility]. PATIENT UNDERSTANDABLY REFUSING RETURN TO [facility]. IS DEBILITATED AND UNABLE TO HELP WITH MANAGEMENT OF CARE AT HOME.
[2017-10-13] MEDS: ATORVASTATIN 10 MG TAB PO SCH (20:26)
[2017-10-13] MEDS: SODIUM CHLORIDE 0.9% 10ML INJ IV PRN (20:27)
[2017-10-13] MEDS: CETIRIZINE HCL 5 MG TABLET PO SCH (20:27)
--- NOTE | 2017-10-13 21:07 | PN ---
Date of Progress Note: 10/13/2017 Subjective: The patient was seen this morning for followup. He was sitting in chair. No new compla ints or problems reported by him. Objective: Vital Signs: Reviewed. HEENT: Examination unremarkable. Lungs: Clear to auscultation. Heart: Sounds normal. Abdomen: Soft, bowel sounds normal. No guarding, rigidity, tenderness, or distention. Extremities: No leg edema. Laboratory Data: Reviewed. Impression: 1.Cellulitis, left knee. 2.Anemia. 3.Hypertension. 4.Diabetes mellitus. Plan: The patient's wound culture from left knee drainage is growing MRSA and Pseudomonas. His woun d culture specimen was collected in the emergency room when he presented for this admission and this was collected by nurse practitioner or a physician chiropractic assistant from the skin surface using the drainage that he had from the surgical incision site. The day before this admission, the patient saw Dr. Saritha vitale and Dr. Ramesh, he placed a needle in his left knee joint and obtained some synovial fluid and se nt that for culture and that particular culture has remained negative so far. So at this point, we d o know that the patient does not have any septic arthritis, but he has soft tissue infection like sally lulitis of the left knee area. All these details were discussed with Infectious Disease specialist Calvin Perales, and after discussing all these details, he understands and agrees because he did not know how the left knee culture was collected from the emergency room. In any case, after discussing detai ls with him, Dr. Perales has advised 2 weeks of IV antibiotic therapy, and I have informed him as well as the patient, and upon completion of antibiotics, the patient needs to follow up with Dr. Gadiel bustos 2-3 days, so he can plan to do another arthrocentesis to collect synovial fluid and sent it for culture again, and the patient to see me also within 2-[address] Ramesh upon completion of antibiotics therapy. All these details were discussed with the patient this morning. He has a PI CC line in place in the right arm. We are waiting for now arrangements to be completed for the patie nt to go to long-term acute care facility, and Dr. Perales is assisting for that. LISE/MODL Voice ID: [id number] Report ID: [id number]
[2017-10-14] MEDS: AMLODIPINE 10 MG TAB PO SCH (05:27)
[2017-10-14] MEDS: INSULIN -REGULAR HUMAN 50 UNIT/0.5 ML ML SQ SCH ×4 (07:30→21:00)
[2017-10-14] MEDS: FERROUS SULFATE 325 MG TAB PO SCH (09:53)
[2017-10-14] MEDS: METOPROLOL TAR 25 MG TAB PO SCH ×2 (09:53→21:33)
[2017-10-14] MEDS: SODIUM CHLORIDE 0.9% 10ML INJ IV PRN (09:53)
[2017-10-14] MEDS: PANTOPRAZOLE 40MG TABLET PO SCH ×2 (09:53→21:34)
[2017-10-14] MEDS: SODIUM CHLORIDE 0.9% 10ML INJ IV SCH ×2 (09:54→21:00)
[2017-10-14] MEDS: METFORMIN ER 500 MG TAB PO SCH ×2 (09:54→21:33)
[2017-10-14] MEDS: CLOPIDOGREL 75 MG TABLET PO SCH (09:54)
[2017-10-14] MEDS: TAMSULOSIN 0.4 MG SR CAP PO SCH (09:54)
[2017-10-14] MEDS: ASCORBIC ACID 500 MG TABLET PO SCH (09:54)
[2017-10-14] MEDS: GABAPENTIN 300 MG CAP PO SCH (09:54)
[2017-10-14] MEDS: Levofloxacin 750mg IV 750 MG/150 ML BAG IV SCH (09:55)
[2017-10-14] MEDS: DOXAZOSIN 2 MG TAB PO SCH ×2 (09:55→21:00)
[2017-10-14] MEDS: VANCOMYCIN 1.5 GM in NA CHLORIDE 0.9% 500 ML IVPB SCH (13:14)
--- NOTE | 2017-10-14 17:54 | P.PN ---
Date of Service: 10/14/17 S: THIS PATIENT IS COMFORTABLE IN BED, LLE ELEVATED ON PILLOW WITH BANDAGE IN PLACE. NO C/O PAIN. O: VSS, AFEBRILE. BANDAGE CHANGED. DARK CRUSTING AREA PERSISTS WITHOUT WEEPING OR DRAINAGE. PATIENT COMFORTABLE WITH PICC LINE IN PLACE. HE MOVES LEFT KNEE EASILY 0*-100*. MRSA AND PSUEDEMONAS FROM SUPERFICIAL WOUND CULTURES CONTINUES TO BE TREATED WITH VANCOMYCIN AND, LEVAQUIN. NO GROWTH FINAL AEROBIC AND ANAEROBIC CULTURES WERE REPORTED FOR SYNOVIAL FLUID ASPIRATED 10/06. A: PERIOPERATIVE LEFT TKA CELLULITIS RESPONDING TO IV ABX.. P: DISCUSSION WITH DR. SANTIZO INDICATES [facility] LIKELY TO BE REFUSED BY INSURANCE COMPANY. DR. SANTIZO TO ARRANGE 2 WEEKS OF IV ANTIBIOTIC THERAPY PRIOR TO SWITCH TO P.O. ANTIBIOTICS IF WOUND CONTINUES TO IMPROVE.
[2017-10-14] MEDS: ATORVASTATIN 10 MG TAB PO SCH (21:33)
[2017-10-14] MEDS: CETIRIZINE HCL 5 MG TABLET PO SCH (21:33)
[2017-10-14] MEDS: ZOLPIDEM TARTRATE 5 MG TABLET PO PRN (21:40)
--- NOTE | 2017-10-14 23:40 | PN ---
Date of Progress Note: 10/14/2017 Subjective: The patient was seen this morning for followup. No new complaints or problems reported by patient. He was sitting in the chair. Objective: Vital Signs: Reviewed. HEENT: Unremarkable. Lungs: Clear to auscultation. Heart: Sounds normal. Abdomen: Soft. Bowel sounds normal. No guarding, rigidity, tenderness, or distention. Extremities: No leg edema. Impression: 1.Cellulitis, left leg. 2.Anemia. 3.Hypertension. 4.Type 2 diabetes mellitus. Plan: We will go ahead and continue current medications, Levaquin and vancomycin. We will continue to follow with Infectious Disease specialist Dr. Perales and orthopedic surgeon, Dr. Ramesh. Waiting on arrangements to be completed for patient to go to long-term acute care facility if approved by [employer]. LISE/MODL Voice ID: [id number] Report ID: [id number]
[2017-10-15] MEDS: INSULIN -REGULAR HUMAN 50 UNIT/0.5 ML ML SQ SCH ×4 (07:30→21:00)
[2017-10-15] MEDS: AMLODIPINE 10 MG TAB PO SCH (07:51)
[2017-10-15] MEDS: VANCOMYCIN 1.5 GM in NA CHLORIDE 0.9% 500 ML IVPB SCH (08:57)
[2017-10-15] MEDS: Levofloxacin 750mg IV 750 MG/150 ML BAG IV SCH (10:16)
[2017-10-15] MEDS: METOPROLOL TAR 25 MG TAB PO SCH ×2 (10:17→21:29)
[2017-10-15] MEDS: PANTOPRAZOLE 40MG TABLET PO SCH ×2 (10:17→21:29)
[2017-10-15] MEDS: FERROUS SULFATE 325 MG TAB PO SCH (10:18)
[2017-10-15] MEDS: ASCORBIC ACID 500 MG TABLET PO SCH (10:18)
[2017-10-15] MEDS: DOXAZOSIN 2 MG TAB PO SCH ×2 (10:18→21:00)
[2017-10-15] MEDS: TAMSULOSIN 0.4 MG SR CAP PO SCH (10:18)
[2017-10-15] MEDS: METFORMIN ER 500 MG TAB PO SCH ×2 (10:19→21:29)
[2017-10-15] MEDS: GABAPENTIN 300 MG CAP PO SCH (10:19)
[2017-10-15] MEDS: CLOPIDOGREL 75 MG TABLET PO SCH (10:19)
[2017-10-15] MEDS: SODIUM CHLORIDE 0.9% 10ML INJ IV SCH ×2 (10:48→21:00)
--- NOTE | 2017-10-15 14:12 | P.PN ---
Date of Service: 10/15/17 S: THIS PATIENT IS COMFORTABLE IN BED, LLE ELEVATED ON PILLOW WITH BANDAGE IN PLACE. NO C/O PAIN. O: VSS, AFEBRILE. BANDAGE CHANGED THIS AM. DARK CRUSTING AREA BREAKING AWAY, CLEARING. PATIENT COMFORTABLE WITH PICC LINE IN PLACE. HE MOVES LEFT KNEE EASILY 0*-100*, AND INDICATES NO PAIN WITH AMBULATION. MRSA AND PSUEDEMONAS FROM SUPERFICIAL WOUND CULTURES CONTINUES TO BE TREATED WITH VANCOMYCIN AND, LEVAQUIN.. A: PERIOPERATIVE LEFT TKA CELLULITIS RESPONDING TO IV ABX. P: [facility] STILL PENDING FINAL REFUSAL, USUAL WEDNESDAY AFTERNOON TWO-STEP. PATIENT HAS BACTRIM DS AND DOXYCYCLINE PRESCIPTIONS AT HOME FILLED DAY BEFORE ADMISSION. OUT OF TOWN THIS WEEKEND.
--- NOTE | 2017-10-15 17:15 | PN ---
Subjective: The patient lying in bed. No new acute events. Chart reviewed. Objective: Vital Signs: Temperature 98, pulse 78, respirations 16. Lungs: Clear to auscultation. Heart: S1, S2. Regular. Abdomen: Soft, nontender. Bowel sounds positive. Extremities: No edema. Laboratory Data: Reviewed. Assessment And Plan: Cellulitis of the legs with infection with small wound, which has healed, disch arge grew methicillin-resistant Staphylococcus aureus and Pseudomonas. The patient is doing well on IV antibiotic. We will continue total of 2 weeks. Follow up with primary care and possible continua tion with oral antibiotic if needed. NF/MODL Voice ID: [id number] Report ID: [id number]
--- NOTE | 2017-10-15 19:06 | PN ---
Date of Progress Note: 10/15/2017 Subjective: The patient was seen this morning for followup. Denied any complaints. Lying in bed, not in distress. Objective: Vital Signs: Reviewed. HEENT: Examination unremarkable. Lungs: Clear to auscultation. Heart: Sounds normal. Abdomen: Soft. Bowel sounds normal. No guarding, rigidity, tenderness, or distention. Extremities: No leg edema. Left knee examination shows swelling that the patient had when he first came in, has significantly improved. Surgical incision has healed completely. No abnormality. No gapping. No discharge. No warmness. Laboratory Data: Fingerstick blood sugar readings reviewed. Impression: 1. Cellulitis, left knee, organism Pseudomonas, and methicillin-resistant Staphylococcus aureus. 2. Anemia. 3. Hypertension. 4. Diabetes mellitus. Plan: We will go ahead and continue current antibiotics. The patient is on IV vancomycin and IV Levaquin. I did talk to Dr. Perales, Infectious Disease specialist, and he has recommended 2 weeks of IV antibiotic and the patient already has received about 8 days of IV antibiotic therapy. He has only 6 more days left now, considering that he really will not be able to go to long-term acute care facility and in fact, original plan was to send him to long-term acute care facility because we were thinking about 6 weeks of IV antibiotic therapy. So the patient's insurance company physician did contact me today to do [id number] regarding that but this new updated information was given to her and I have requested that the patient is more appropriate for residential facility placement instead of long-term acute care facility placement. Now considering today is Wednesday, I am not sure if anything will be arranged for the patient to go to residential facility or not. I also talked to social service to see if we can expedite that but it appears that very likely nothing will happen over the weekend and social service will have to initiate the residential facility placement on Wednesday, by the time we get some information answer from insurance company, it might be Wednesday and by the time Wednesday comes the patient will be ready for discharge, so there is a good possibility that the patient will probably just end of finishing his antibiotic therapy here in the hospital. I will see him tomorrow for followup. We will repeat blood work tomorrow morning. LISE/MODL Voice ID: [id number] Report ID: [id number] MTDCalvin
[2017-10-15] MEDS: ATORVASTATIN 10 MG TAB PO SCH (21:29)
[2017-10-15] MEDS: CETIRIZINE HCL 5 MG TABLET PO SCH (21:29)
[2017-10-16] MEDS: VANCOMYCIN 1.5 GM in NA CHLORIDE 0.9% 500 ML IVPB SCH ×2 (03:28→19:17)
[2017-10-16] MEDS: AMLODIPINE 10 MG TAB PO SCH (05:03)
[2017-10-16 05:57] LABS: Absolute Lymphocytes (CBC) 1.6 K/uL (0.7-4.9); Absolute Monocytes 0.5 K/uL (0.1-1.3); Basophils % 0.8 % (0-1.3); Eosinophils % 4.9 % (0-4.4); Hematocrit 29.4 % (39.6-49.0); MCH 24.5 pg (27.0-35.0); MCV 76.4 fL (80-100); MPV 7.6 fL (7.6-11.3); Monocytes % 7.5 % (3.3-12.3); RBC Red Blood Cell Count 3.85 M/uL (4.33-5.43)
[2017-10-16 06:15] LABS: BUN Blood Urea Nitrogen 12 mg/dL (6-20); Bicarbonate 23 mEq/L (21-31); Glucose Level 96 mg/dL (65-120); Magnesium 1.5 mg/dL (1.8-2.5); Potassium 4.1 mEq/L (3.6-5.0); Sodium Level 136 mEq/L (135-145)
[2017-10-16] MEDS: INSULIN -REGULAR HUMAN 50 UNIT/0.5 ML ML SQ SCH ×4 (07:30→21:00)
[2017-10-16] MEDS: DOXAZOSIN 2 MG TAB PO SCH ×2 (08:38→20:54)
[2017-10-16] MEDS: FERROUS SULFATE 325 MG TAB PO SCH (08:38)
[2017-10-16] MEDS: Levofloxacin 750mg IV 750 MG/150 ML BAG IV SCH (08:38)
[2017-10-16] MEDS: CLOPIDOGREL 75 MG TABLET PO SCH (08:38)
[2017-10-16] MEDS: ASCORBIC ACID 500 MG TABLET PO SCH (08:39)
[2017-10-16] MEDS: METFORMIN ER 500 MG TAB PO SCH ×2 (08:39→20:53)
[2017-10-16] MEDS: TAMSULOSIN 0.4 MG SR CAP PO SCH (08:39)
[2017-10-16] MEDS: GABAPENTIN 300 MG CAP PO SCH (08:39)
[2017-10-16] MEDS: METOPROLOL TAR 25 MG TAB PO SCH ×2 (08:39→20:53)
[2017-10-16] MEDS: PANTOPRAZOLE 40MG TABLET PO SCH ×2 (08:39→20:53)
[2017-10-16] MEDS: SODIUM CHLORIDE 0.9% 10ML INJ IV SCH ×2 (08:40→20:55)
--- NOTE | 2017-10-16 15:13 | PN ---
Date of Progress Note: 10/16/2017 Subjective: The patient was seen this morning for followup. Lying in bed, not in distress. No new complaints or problems reported by him. Objective: Vital Signs: Reviewed. HEENT: Examination unremarkable. Lungs: Clear to auscultation. Heart: Sounds normal. Abdomen: Soft, bowel sounds normal. No guarding, rigidity, tenderness, or distention. Extremities: No leg edema. Laboratory Data: White count 6.5, hemoglobin 9.4, platelets 266. Sodium 136, potassium 4.1, chlorid e 105, bicarb 23, BUN 12, creatinine 0.98, glucose 96, magnesium 1.5. Impression: 1.Cellulitis, left knee. 2.Anemia, chronic. 3.Hypertension. 4.Diabetes mellitus. Plan: We will go ahead and continue current medications. Continue current antibiotics and the patie nt will have will few more days of IV antibiotics that is needed, he needs total 14 days of IV antibi otics and he has been in hospital since 10/07/2017. We will continue this antibiotic and possible di rodolforge to go home next week on Wednesday. Details were discussed with the patient. LISE/MODL Voice ID: [id number] Report ID: [id number]
[2017-10-16] MEDS: CETIRIZINE HCL 5 MG TABLET PO SCH (20:53)
[2017-10-16] MEDS: ATORVASTATIN 10 MG TAB PO SCH (20:54)
[2017-10-17] MEDS: AMLODIPINE 10 MG TAB PO SCH (05:52)
[2017-10-17] MEDS: INSULIN -REGULAR HUMAN 50 UNIT/0.5 ML ML SQ SCH ×4 (07:30→20:41)
[2017-10-17] MEDS: GABAPENTIN 300 MG CAP PO SCH (08:45)
[2017-10-17] MEDS: ASCORBIC ACID 500 MG TABLET PO SCH (08:45)
[2017-10-17] MEDS: DOXAZOSIN 2 MG TAB PO SCH ×2 (08:46→20:38)
[2017-10-17] MEDS: METOPROLOL TAR 25 MG TAB PO SCH ×2 (08:47→20:39)
[2017-10-17] MEDS: PANTOPRAZOLE 40MG TABLET PO SCH ×2 (08:47→20:38)
[2017-10-17] MEDS: FERROUS SULFATE 325 MG TAB PO SCH (08:47)
[2017-10-17] MEDS: CLOPIDOGREL 75 MG TABLET PO SCH (08:48)
[2017-10-17] MEDS: TAMSULOSIN 0.4 MG SR CAP PO SCH (08:48)
[2017-10-17] MEDS: METFORMIN ER 500 MG TAB PO SCH ×2 (08:49→20:38)
[2017-10-17] MEDS: Levofloxacin 750mg IV 750 MG/150 ML BAG IV SCH (08:49)
[2017-10-17] MEDS: SODIUM CHLORIDE 0.9% 10ML INJ IV SCH ×2 (09:00→20:40)
[2017-10-17] MEDS: SODIUM CHLORIDE 0.9% 10ML INJ IV PRN (09:04)
[2017-10-17] MEDS ORDERED: HYDROCODONE/APAP 5/325 MG TAB PO PRN (09:29)
--- NOTE | 2017-10-17 11:59 | PN ---
Date of Progress Note: 10/17/2017 Subjective: The patient was seen this morning for followup. No new complaints or problems reported. Objective: Vital Signs: Reviewed. HEENT: Unremarkable. Lungs: Clear to auscultation. Heart: Sounds normal. Abdomen: Soft, bowel sounds normal. No guarding, rigidity, tenderness, or distention. Extremities: No leg edema. Left knee exam is unremarkable. Impression: 1.Cellulitis, left knee. 2.Hypertension. 3.Diabetes mellitus. 4.Anemia, chronic. Plan: We will continue current antibiotics. DVT prophylaxis will be given using Lovenox. Ambulatio n was encouraged. I will see him tomorrow for followup. Continue current blood pressure and diabete s medications. Fingerstick blood sugar readings reviewed. LISE/MODL Voice ID: [id number] Report ID: [id number]
[2017-10-17] MEDS ORDERED: ENOXAPARIN 40 MG/0.4 ML SQ ONE (12:00)
[2017-10-17] MEDS: VANCOMYCIN 1.5 GM in NA CHLORIDE 0.9% 500 ML IVPB SCH (13:00)
[2017-10-17] MEDS: ATORVASTATIN 10 MG TAB PO SCH (20:38)
[2017-10-17] MEDS: CETIRIZINE HCL 5 MG TABLET PO SCH (20:39)
[2017-10-18] MEDS: ZOLPIDEM TARTRATE 5 MG TABLET PO PRN ×2 (00:03→22:03)
[2017-10-18] MEDS: AMLODIPINE 10 MG TAB PO SCH (06:00)
[2017-10-18] MEDS: VANCOMYCIN 1.5 GM in NA CHLORIDE 0.9% 500 ML IVPB SCH ×2 (07:00→13:58)
[2017-10-18] MEDS: INSULIN -REGULAR HUMAN 50 UNIT/0.5 ML ML SQ SCH ×4 (07:30→21:00)
[2017-10-18] MEDS: METFORMIN ER 500 MG TAB PO SCH ×2 (09:46→21:54)
[2017-10-18] MEDS: PANTOPRAZOLE 40MG TABLET PO SCH ×2 (09:46→21:55)
[2017-10-18] MEDS: DOXAZOSIN 2 MG TAB PO SCH ×2 (09:46→21:54)
[2017-10-18] MEDS: ASCORBIC ACID 500 MG TABLET PO SCH (09:46)
[2017-10-18] MEDS: FERROUS SULFATE 325 MG TAB PO SCH (09:47)
[2017-10-18] MEDS: TAMSULOSIN 0.4 MG SR CAP PO SCH (09:47)
[2017-10-18] MEDS: CLOPIDOGREL 75 MG TABLET PO SCH (09:47)
[2017-10-18] MEDS: GABAPENTIN 300 MG CAP PO SCH (09:47)
[2017-10-18] MEDS: METOPROLOL TAR 25 MG TAB PO SCH ×2 (09:47→21:00)
[2017-10-18] MEDS: ENOXAPARIN 40 MG/0.4 ML SQ SCH (09:48)
[2017-10-18] MEDS: Levofloxacin 750mg IV 750 MG/150 ML BAG IV SCH (09:48)
[2017-10-18] MEDS: SODIUM CHLORIDE 0.9% 10ML INJ IV SCH ×2 (09:49→22:05)
--- NOTE | 2017-10-18 12:55 | P.PN ---
Date of Service: 10/18/17 S: THIS PATIENT IS COMFORTABLE IN BED, LLE ELEVATED ON PILLOW WITH NEW BANDAGE IN PLACE. NO C/O PAIN. O: VSS, AFEBRILE. BANDAGE CHANGED IN LAST HOUR. DARK CRUSTING AREA DESCRIBED ALMOST GONE. HE MOVES LEFT KNEE EASILY 0*-100*, AND INDICATES NO PAIN WITH AMBULATION. MRSA AND PSUEDEMONAS FROM SUPERFICIAL WOUND CULTURES CONTINUES TO BE TREATED WITH VANCOMYCIN AND, LEVAQUIN HOSP. DAY #11. A: PERIOPERATIVE LEFT TKA CELLULITIS RESPONDING TO IV ABX. P: AGREE WITH DR. ARREDONDO'S PLAN FOR 2 WEEKS IV ABX. PATIENT HAS BACTRIM DS AND DOXYCYCLINE PRESCIPTIONS AT HOME FILLED DAY BEFORE ADMISSION. WILL PROBABLY CONTINUE P.O. ABX. TX. WITH BACTRIM AND LEVEQUIN UNTIL INCISION APPEARS NORMAL, ~ 2 WEEKS BARRING COMPLICATIONS.
[2017-10-18] MEDS: ATORVASTATIN 10 MG TAB PO SCH (21:55)
[2017-10-18] MEDS: CETIRIZINE HCL 5 MG TABLET PO SCH (21:55)
--- NOTE | 2017-10-19 01:22 | PN ---
Date of Progress Note: 10/18/2017 Subjective: The patient was seen this morning for followup. No new complaints or problems reported. Lying in bed, not in distress. Objective: Vital Signs: Reviewed. HEENT: Examination unremarkable. Lungs: Clear to auscultation. No rhonchi. No rales. Heart: Heart sounds normal. Abdomen: Soft. Bowel sounds normal. No guarding, rigidity, tenderness, or distention. Extremities: No leg edema. Left knee exam is unremarkable. Impression: 1.Cellulitis, left knee. 2.Anemia. 3.Hypertension. 4.Diabetes mellitus. Plan: We will go ahead and continue current medications. Continue current antibiotics. I will see him tomorrow for followup. The patient is currently on Levaquin and vancomycin. We will continue th ose. LISE/MODL Voice ID: [id number] Report ID: [id number]
[2017-10-19] MEDS: AMLODIPINE 10 MG TAB PO SCH (05:12)
[2017-10-19] MEDS: INSULIN -REGULAR HUMAN 50 UNIT/0.5 ML ML SQ SCH ×4 (07:30→20:47)
[2017-10-19 08:23] LABS: Absolute Lymphocytes (CBC) 1.6 K/uL (0.7-4.9); Absolute Monocytes 0.4 K/uL (0.1-1.3); Absolute Neutrophil 3.5 K/uL (1.8-8.0); Basophils % 0.8 % (0-1.3); Eosinophils % 4.9 % (0-4.4); Hematocrit 29.5 % (39.6-49.0); Lymphocytes % 27.4 % (15.3-44.8); MCH 24.7 pg (27.0-35.0); MCV 76.2 fL (80-100); MPV 7.9 fL (7.6-11.3); Monocytes % 7.5 % (3.3-12.3); RBC Red Blood Cell Count 3.87 M/uL (4.33-5.43)
[2017-10-19 08:32] LABS: Potassium 4.1 mEq/L (3.6-5.0)
[2017-10-19 08:53] LABS: Magnesium 1.4 mg/dL (1.8-2.5)
[2017-10-19] MEDS ORDERED: Magnesium Sulfate 2gm IVPB 2 G/50 ML BAG IV ONE (09:06)
[2017-10-19] MEDS: ASCORBIC ACID 500 MG TABLET PO SCH (09:13)
[2017-10-19] MEDS: METOPROLOL TAR 25 MG TAB PO SCH ×2 (09:14→20:16)
[2017-10-19] MEDS: GABAPENTIN 300 MG CAP PO SCH (09:14)
[2017-10-19] MEDS: PANTOPRAZOLE 40MG TABLET PO SCH ×2 (09:14→20:18)
[2017-10-19] MEDS: TAMSULOSIN 0.4 MG SR CAP PO SCH (09:14)
[2017-10-19] MEDS: METFORMIN ER 500 MG TAB PO SCH ×2 (09:14→20:19)
[2017-10-19] MEDS: CLOPIDOGREL 75 MG TABLET PO SCH (09:15)
[2017-10-19] MEDS: FERROUS SULFATE 325 MG TAB PO SCH (09:15)
[2017-10-19] MEDS: DOXAZOSIN 2 MG TAB PO SCH ×2 (09:15→20:18)
[2017-10-19] MEDS: Levofloxacin 750mg IV 750 MG/150 ML BAG IV SCH (09:17)
[2017-10-19] MEDS: ENOXAPARIN 40 MG/0.4 ML SQ SCH (09:18)
[2017-10-19] MEDS: SODIUM CHLORIDE 0.9% 10ML INJ IV SCH ×2 (09:18→20:19)
--- NOTE | 2017-10-19 13:50 | P.PN ---
Date of Service: 10/19/17 S: THIS PATIENT IS COMFORTABLE IN BED, LLE ELEVATED ON PILLOW WITH NEW BANDAGE IN PLACE. NO C/O PAIN. O: VSS, AFEBRILE. BANDAGE REMOVED AND REPLACED AFTER INSPECTION. SKIN APPEARS CLEAR, FURTHER WOUND CARE OPTIONAL IN MY OPINION. HE MOVES LEFT KNEE EASILY 0*- 100*, AND INDICATES NO PAIN WITH AMBULATION. MRSA AND PSUEDEMONAS FROM SUPERFICIAL WOUND CULTURES CONTINUES TO BE TREATED WITH VANCOMYCIN AND, LEVAQUIN HOSP. DAY #13. A: PERIOPERATIVE LEFT TKA CELLULITIS RESPONDING TO IV ABX. P: DISCUSSED CARE WITH DR. ARREDONDO. PATIENT TO BE DISCHARGED WITH 2 ADDITIONAL WEEKS OF P.O. TREATMENT WITH BACTRIM DS AND LEVAQUIN. HAS BACTRIM DS #20 AT HOME FILLED DAY BEFORE ADMISSION. F/U MY OFFICE IN 2 WEEKS. CALL FOR APPT. CONTINUE WBAT LLE. PATIENT ALSO HAS SILVADENE 1% CREAM TUBE AT HOME PRESCRIBED DAY BEFORE ADMIT. PATIENT NOW 6 WEEKS POST-OP. NO NEED FOR THERAPY NOW. WILL EVALUATE IN TWO WEEKS FOR OUT PT. APPT FOR CONDITIONING.
[2017-10-19] MEDS: VANCOMYCIN 1.5 GM in NA CHLORIDE 0.9% 500 ML IVPB SCH (14:27)
[2017-10-19] MEDS ORDERED: MAGNESIUM SULFATE 1 gm IVPB 1 GM/100 ML BAG IV ONE (19:00)
[2017-10-19] MEDS: ATORVASTATIN 10 MG TAB PO SCH (20:17)
[2017-10-19] MEDS: CETIRIZINE HCL 5 MG TABLET PO SCH (20:18)
[2017-10-19 22:25] VITALS: O2SAT 99
--- NOTE | 2017-10-20 00:34 | PN ---
Date of Progress Note: 10/19/2017 Subjective: The patient was seen this morning for followup. No new complaints or problems reported by him. Lying in bed, not in distress. Objective: Vital Signs: Reviewed. HEENT: Unremarkable. Lungs: Clear to auscultation. Heart: Sounds normal. Abdomen: Soft, bowel sounds normal. No guarding, rigidity, tenderness, or distention. Extremities: No leg edema. Laboratory Data: CBC and chemistry ordered. Impression: 1.Cellulitis, left knee. 2.Anemia. 3.Hypertension. 4.Diabetes mellitus. Plan: We will continue current medications. We will follow up on lab results. I will see him tomor row. Details were discussed with Dr. Ramesh and our plan is to discharge him to go home tomorrow wit h oral Levaquin and Bactrim. The patient will follow up with me and Dr. [facility] LISE/MODL Voice ID: [id number] Report ID: [id number]
[2017-10-20] MEDS: AMLODIPINE 10 MG TAB PO SCH (05:32)
[2017-10-20 05:47] LABS: Magnesium 1.8 mg/dL (1.8-2.5); Potassium 4.3 mEq/L (3.6-5.0)
[2017-10-20] MEDS ORDERED: MAGNESIUM SULFATE 1 gm IVPB 1 GM/100 ML BAG IV ONE (06:17)
[2017-10-20] MEDS: INSULIN -REGULAR HUMAN 50 UNIT/0.5 ML ML SQ SCH ×2 (07:30→11:30)
[2017-10-20 08:51] VITALS: BP 139/85; TEMP 97.4
[2017-10-20] MEDS: PANTOPRAZOLE 40MG TABLET PO SCH (08:53)
[2017-10-20] MEDS: ENOXAPARIN 40 MG/0.4 ML SQ SCH (08:53)
[2017-10-20] MEDS: FERROUS SULFATE 325 MG TAB PO SCH (08:53)
[2017-10-20] MEDS: TAMSULOSIN 0.4 MG SR CAP PO SCH (08:54)
[2017-10-20] MEDS: METOPROLOL TAR 25 MG TAB PO SCH (08:54)
[2017-10-20] MEDS: METFORMIN ER 500 MG TAB PO SCH (08:54)
[2017-10-20] MEDS: GABAPENTIN 300 MG CAP PO SCH (08:54)
[2017-10-20] MEDS: DOXAZOSIN 2 MG TAB PO SCH (08:55)
[2017-10-20] MEDS: CLOPIDOGREL 75 MG TABLET PO SCH (08:55)
[2017-10-20] MEDS: ASCORBIC ACID 500 MG TABLET PO SCH (08:55)
[2017-10-20] MEDS: SODIUM CHLORIDE 0.9% 10ML INJ IV SCH (09:00)
[2017-10-20] MEDS: Levofloxacin 750mg IV 750 MG/150 ML BAG IV SCH (09:16)
[2017-10-20] MEDS: SODIUM CHLORIDE 0.9% 10ML INJ IV PRN (09:17)
--- NOTE | 2017-10-21 17:28 | DS ---
Date of Discharge: 10/20/2017 Disposition: Discharged to go home. Physical Examination: HEENT: Unremarkable. Lungs: Clear to auscultation. Heart: Sounds normal. Abdomen: Soft, bowel sounds normal. No guarding, rigidity, tenderness, or distention. Extremities: No leg edema. Left knee exam; no evidence of any swelling, redness, discharge, very we ll healed surgical incision. Laboratory Data: Last white count yesterday 5.9, hemoglobin 9.6, platelets 268. Upon admission on 0 10/07/2017, the white count was 7, hemoglobin 10.4, platelets 350. Last chemistry today sodium 139, p otassium 4.3, chloride 106, bicarb 25, BUN 9, creatinine 1, glucose 95, magnesium 1.8. Culture obtai rebecca from drainage from the left knee cellulitis area grew Pseudomonas and MRSA, and culture obtained for aspiration of left knee done on outpatient basis day before this admission by Dr. Ramesh remained negative. Hospital Course: A 76-year-old male patient, who had knee replacement surgery done on 09/07/[address] Ramesh and after surgery he spend sometime in a fpc and then came home. He started to h ave some swelling of the left knee area around the surgical site with some drainage and went to see Calvin Ramesh. Dr. Ramesh did drain some fluid out of his left knee and sent in for the culture and next day the patient ended up in the emergency room because of the pain that he noted from the incision s ite. Wound culture was obtained from this drainage in the emergency room. There was no needle place d in the left knee in emergency room. This was a superficial drainage from the skin on the incision site and that was collected in the emergency room. This particular culture grew Pseudomonas and MRSA during his hospitalization. The patient was started on IV antibiotic, vancomycin and Levaquin was g iven. His left knee cellulitis has resolved. Initially, we were concerned about if we were dealing with septic arthritis or not, considering the culture obtained by Dr. Ramesh was negative. There was no concern about septic arthritis. Dr. Perales from Infectious Disease Specialty was consulted and jo terrell recommended 2 weeks of IV antibiotic. The patient's otherwise overall condition remained stable. He has a prescription for Bactrim and doxycycline, which was given to him by Dr. Ramesh and this was prescribed day prior to this admission to the hospital. Today, I have informed the patient that he s hould continue Bactrim that was prescribed by Dr. Ramesh and do not take any doxycycline and the gavin ent to start taking Levaquin 500 mg daily for 10 days and the patient will follow up with Dr. Ramesh per his instruction and follow up at my office in 1 week. He is ambulating well without any problem, does not have any pain in his knee. Final Diagnoses: 1.Cellulitis, left knee. 2.Osteoarthritis, multiple sites. 3.Anemia, chronic. 4.Hypertension. 5.Type 2 diabetes mellitus. 6.Hyperlipidemia. 7.Gastroesophageal reflux disease. 8.Benign prostatic hypertrophy. 9.Peripheral vascular disease. LISE/MODL Voice ID: [id number] Report ID: [id number]
== END 2017-10-20 12:35 | disposition home or self-care (01) | DRG 863 ==
LOC: ER 12:22 → ERHOLD 19:01 → 2ND 20:12 → 4TH 10-09 14:33
PROVIDERS: ADMIT Internal Medicine; ATTEND Internal Medicine
PROC: 02HV33Z Insertion of Infusion Device into Superior Vena Cava, Percutaneous Approach (ICD-10-PCS; principal; 2017-10-12)
DX: T81.4XXA Infection following a procedure, initial encounter (principal); L03.116 Cellulitis of left lower limb; B96.5 Pseudomonas (aeruginosa) (mallei) (pseudomallei) as the cause of diseases classified elsewhere; B95.62 Methicillin resistant Staphylococcus aureus infection as the cause of diseases classified elsewhere; D64.9 Anemia, unspecified; I10 Essential (primary) hypertension; E11.9 Type 2 diabetes mellitus without complications; Z96.652 Presence of left artificial knee joint; E83.42 Hypomagnesemia; K21.9 Gastro-esophageal reflux disease without esophagitis; N40.0 Benign prostatic hyperplasia without lower urinary tract symptoms; M19.90 Unspecified osteoarthritis, unspecified site; I73.9 Peripheral vascular disease, unspecified
CPT/HCPCS: 36415; 71045; 80048; 80053; 80202; 81003; 82962; 83735; 85025; 85610; 85652; 85730; 86140; 87070; 87075; 87077; 87186; 87205; 89050; 96365; 97163; 99285; J1650; J2543; J3370; J3475

== ENCOUNTER 2018-02-07 11:50 | Day surgery (SDC) | payer OTHER ==
[2018-02-07] MEDS ORDERED: PROPOFOL 200 MG/20 ML VIAL IV ONE (12:52)
[2018-02-07] MEDS ORDERED: CYCLOPENTOLATE 1% OPTH 2 ML ONE (12:59)
[2018-02-07] MEDS ORDERED: NA CHLORIDE 0.9% 500 ML ONE (12:59)
[2018-02-07] MEDS ORDERED: PHENYLEPHRINE 2.5% OPTH 2 ML ONE (12:59)
[2018-02-07] MEDS: TETRACAINE HCL 0.5% 2ML OPTH ONE ×2 (13:03→13:07)
[2018-02-07] MEDS: LIDOCAINE 2% MPF 5 ML VIAL ONE ×2 (13:04→13:08)
[2018-02-07] MEDS: BUPIVACAINE 0.25% PF 10 ML VIAL ONE ×3 (13:05→13:09)
[2018-02-07] MEDS ORDERED: DUOVISC 1 KIT OPTH ONE (13:20)
[2018-02-07] MEDS ORDERED: NS 0.9% VIAL 10 ML ONE (13:20)
[2018-02-07] MEDS ORDERED: BALANCED SALT IRRIG PLAIN 500 ML BTL IRR ONE (13:20)
[2018-02-07] MEDS ORDERED: EPINEPHRINE/PF 1 MG/ML AMP ONE (13:20)
[2018-02-07] MEDS ORDERED: MOXIFLOXACIN HCL 10 DROPS/ML **OR USE OPTH ONE (13:21)
--- NOTE | 2018-02-07 13:57 | P.BOP ---
Preoperative diagnosis: Nuclear sclerotic, cortical, posterior subcapsular cataract OS Postoperative diagnosis: Same Primary procedure: Phacoemulsification with IOL OS Estimated blood loss: None Anesthesia: Local (Subtenon's infusion with anesthesia for cataract surgery) Complications: None Implants: ZCB00 +20.5 Transferred to: Other (Day surgery) Condition: Good
[2018-02-07 15:03] VITALS: BP 131/82; TEMP 97.7; O2SAT 100
--- NOTE | 2018-02-07 23:15 | OP ---
Date of Procedure: 02/07/2018 Surgeon: Ashley Moyer MD Preoperative Diagnoses: Nuclear sclerotic cataract and cortical cataract and posterior subcapsular c ataract, left eye. Operation Performed: Phacoemulsification with intraocular lens implant, left eye. Anesthesia: Ada Zepeda CRNA and Warner Winter MD. Anesthesia: Per cataract surgery. Complications: None. Description Of Procedure: In day surgery, the patient was prepped with Betadine and draped. A conju nctival incision was made in the inferior nasal quadrant with Festus scissors. A sub-Tenon block c onsisting of a 1:1 mixture of 2% Xylocaine and 0.25% bupivacaine was placed through the conjunctival incision with a blunt cannula. A Honan balloon was placed over the eye and the patient was transferr ed to the operating room. In the operating room the patient was prepped and draped in the usual sterile fashion for ophthalmic surgery. A lid speculum was placed in the left eye. Two paracentesis sites were made superiorly and inferiorly in the limbal cornea. Viscoat was placed in the anterior chamber and a crescent blade wa s used to make a corneal groove and tunnel, and a keratome was used to enter the anterior chamber. P rovisc was placed in the anterior chamber and a 360 degree capsulotomy was performed with a cystitome . The lens was hydrodissected with BSS and rotated freely. The lens was removed with a stop and cho p technique. 15.57 phaco CDE was used to remove the lens. Residual cortex was removed with the irri gation and aspiration. Provisc was placed in the capsular bag. A ZCB00 +20.5 lens was placed in the capsular bag without complications. Irrigation and aspiration was used to remove residual viscoelas tic. The paracentesis sites were hydrated with BSS. The wound and paracentesis sites were inspected and found to be watertight. Vigamox 0.07 cc was placed intracamerally at the end of the procedure. The eye was irrigated with balanced salt solution. The eye was patched with a soft cotton patch and Yusuf metal shield. The patient was returned to day surgery in good condition. Comments: The lens was slightly loose. Discharge Instructions: Mr. Conley is discharged to home in good condition and is to follow up with Dr Madeline Moyer in the morning. KIERA/JOSE Voice ID: [id number] Report ID: [id number]
== END 2018-02-07 14:25 | disposition home or self-care (01) ==
LOC: OR 11:50
PROVIDERS: ATTEND Ophthalmology Retina Specialist
PROC: 08RK3JZ Replacement of Left Lens with Synthetic Substitute, Percutaneous Approach (ICD-10-PCS; principal; 2018-02-07 11:45)
DX: H25.12 Age-related nuclear cataract, left eye (principal); H25.042 Posterior subcapsular polar age-related cataract, left eye; H25.012 Cortical age-related cataract, left eye; E11.9 Type 2 diabetes mellitus without complications; I10 Essential (primary) hypertension; E78.5 Hyperlipidemia, unspecified; Z79.82 Long term (current) use of aspirin; Z87.891 Personal history of nicotine dependence
CPT/HCPCS: 66984; 82962; J0171

== ENCOUNTER 2020-06-08 10:36 | Emergency (ER) | payer OTHER ==
--- OUTSIDE RECORDS SUMMARY | 2020-06-08 10:39 | XMS REPORT | Continuity of Care Document ---
:1940 Author Organization [facility] t Address [address] [place] [address] Care Team Providers Name Role Phone Lab, Adc Fam Pob I Attending Clinician Unavailable System, Referring Provider Not In Attending Clinician Unava ilable Pob1, Care Clinic Attending Clinician Unavailable Doctor Unassigned, Name Attending Clinician Unavailable Mackenzie RALPH, L Attending Clinician Problems Condition Condition Condition Status Onset Resolution Last Treating Co mments Source Name Details Category Date Date Treatment Clinician Date Pain in Pain in Problem Active [facility] - left knee left knee Luis Carlos bouchra l Outpati ent Clinics Left sided Left sided Problem Active [facility] sciatica sciatica [facility] Clinics Infection Infection Problem Active [facility] following following Luke s - a a Memoria procedure, procedure, l subsequent subsequent Ou tpati encounter encounter ent Clinics Aftercare Aftercare Problem Active [facility] following following Luke s - joint joint Memoria replacemen replacemen l t surgery t surgery Outp ati ent Clinics Presence Presence Problem Active [facility] of left of left [facility] - artificial artificial Me moria knee joint knee joint l Outpati ent Clinics 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 Outpati ent Clinics 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 Medications Ordered Filled Start Stop Current Ordering Indication Dosage Frequency Signature Comments Components Source Medication Medication Date Date Medication? Clinician (SIG) Name Name Gabapentin Gabapentin Yes Roberto [address] [facility] 11-25 [facility] - 00:00: Memoria 00 l Outpati ent Clinics Doxazosin Doxazosin Yes Roberto [address] [facility] Mesylate Mesylate 11-25 Dobbs [facility] - 00:00: Memoria 00 l Outpati ent Clinics Aspirin 81 Aspirin 81 Yes Roberto [address] [facility] 11-25 [facility]bs [facility] - 00:00: Memoria 00 l Outpati ent Clinics Multi Multi Yes Roberto as [facility] Complete Complete 11-25 Dobbs directed Johny es - 00:00: Memoria 00 l Outpati ent Clinics Vitamin B Vitamin B Yes Roberto as [facility] 12 12 11-25 Dobbs directed [facility] - 00:00: Memoria 00 l Outpati ent Clinics Clopidogrel Clopidogrel Yes Roberto not [facility] Bisulfate Bisulfate Dobbs defined Jillian kes - Memoria l Outpati ent Clinics Atorvastati Atorvastati Yes Roberto not [facility] n Calcium n Calcium Dobbs defined Jillian kes - Memoria l Outpati ent Clinics Metformin Metformin Yes Roberto not [facility] HCl HCl Dobbs defined [facility] Omeprazole Omeprazole Yes Roberto not [facility] Dobbs defined [facility] Metoprolol Metoprolol Yes Roberto not [facility] Tartrate Tartrate Dobbs defined Luke s - Memoria l Outpati ent Clinics Glimepiride Glimepiride Yes Roberto not [facility] Dobbs defined [facility] Ciprofloxac Ciprofloxac Yes Roberto not [facility] in HCl in HCl Dobbs defined [facility] Clinics Amlodipine Amlodipine Yes Roberto not [facility] Besylate Besylate Dobbs defined Luke s - Memoria l Outpati ent Clinics Levemir Levemir Yes Roberto not [facility] FlexTouch FlexTouch Dobbs defined Jillian kes - Memoria l Outpati ent Clinics Omeprazole Omeprazole Yes Roberto not [facility] Dobbs defined [facility] - Memoria [facility] ent Clinics HydrALAZINE HydrALAZINE Yes Roberto not [facility] HCl HCl Dobbs defined [facility] - Memoria [facility] ent Clinics Diclofenac Diclofenac Yes Roberto not [facility] Sodium Sodium Dobbs defined [facility] ent [facility] Procedures This patient has no known procedures. Encounters Start End Encounter Admission Attending Care Care Encounter Source Date/Time Date/Time Type Type Clinicians Facility Department ID 2020-03-21 2020-03-21 Laboratory Lab, [facility] [id number] 13:11:08 13:31:08 Only Fam Pob I Health [id number] [place] [id number] Professio [phone] nal [address] 2019-12-26 2019-12-26 Telephone System, Kena HENDERSON [id number] 00:00:00 00:00:00 Referring JANNA [id number] Provider HOSPITAL [id number] Not In [id number] 2019-12-21 2019-12-21 Urgent Pob1, Acute [facility] [id number] 11:17:47 12:49:21 Care Care [facility] Health [id number] [place] [id number] Professio [phone] nal [address] 2019-08-16 2019-08-16 [facility] [id number] 09:30:00 09:30:00 t Bone Bone and [facility] - and Joint [facility] ent Clinics 2019-08-16 2019-08-16 Orders Doctor BEATRIZ [id number] 00:00:00 00:00:00 Only Unassigned, JANNA [id number] [facility] [id number] 2019-07-16 2019-07-16 Refill Mackenzie [facility] [id number] 00:00:00 00:00:00 Herbie L Health [id number] Surgical [id number] Special [phone] es 198 [place] 2019-03-23 2019-03-23 Outpatient Leidy Barnhart [id number] 10:30:00 10:30:00 t Bone Bone and [facility] - and Joint Joint [facility] ent [facility] 2018-11-25 2018-11-25 Outpatient Leidy Barnhart [id number] 09:30:00 09:30:00 t Bone Bone and [facility] - and Joint Joint [facility] a [facility] ent [facility] Results This patient has no known results.
[2020-06-08] MEDS ORDERED: IBUPROFEN 400 MG TAB ONE (11:09)
[2020-06-08] MEDS ORDERED: ACETAMINOPHEN 325 MG TABLET ONE (11:09)
--- NOTE | 2020-06-08 12:41 | EDPHYS ---
Physician Documentation [facility] Name: Suresh Conley Age: 79 yrs Sex: Male : 1940 Arrival Date: 06/08/2020 Time: 10:37 Bed 20 Private MD: ED Physician Rohan Andrews HPI: 06/08 13:14 This 79 yrs old Black Male presents to ER via Wheelchair with complaints of Leg Pain. kb 13:14 The patient presents with pain. The complaints affect the right leg and left leg. kb Context: The problem was sustained at an unknown site, resulted from a chronic condition, the patient can fully bear weight, can ambulate using a cane. Onset: The symptoms/episode began/occurred 5 month(s) ago. Modifying factors: The symptoms are alleviated by nothing. the symptoms are aggravated by nothing. Associated signs and symptoms: Pertinent positives: swelling, Pertinent negatives calf tenderness, fever, nausea, numbness, rash, tingling, vomiting, warmth, weakness. Treatment prior to arrival includes: no previous treatment. Severity of symptoms: At their worst the symptoms were moderate, in the emergency department the symptoms have improved, mildly. The patient has not experienced similar symptoms in the past. The patient has been recently seen by a physician:. Pt reports bilateral leg pain for 5 months. Denies injury or trauma. States sometimes they hurt more than other times. Was seen by PCP this week and has appt, tried to go to the ortho that did his knee replacement because it has been "going out" but he retired, has appt to have further evaluation by another dr but wasn't able to get an appt for a month or two. Reports sometimes he has swelling to right leg and left knee. Reports pain is from hip to toes. Historical: - Allergies: 10:52 No Known Allergies; jd3 - PMHx: 10:52 Diabetes - IDDM; Hypertension; jd3 - PSHx: 10:52 Knee surgery; jd3 - Immunization history:: Adult Immunizations up to date. - Social history:: Smoking status: Patient/guardian denies using tobacco, but has a distant history of tobacco abuse. ROS: 13:18 Constitutional: Negative for fever, chills, and weight loss, Cardiovascular: Negative kb for chest pain, palpitations, and edema, Respiratory: Negative for shortness of breath, cough, wheezing, and pleuritic chest pain, Abdomen/GI: Negative for abdominal pain, nausea, vomiting, diarrhea, and constipation, Skin: Negative for injury, rash, and discoloration, Neuro: Negative for headache, weakness, numbness, tingling, and seizure. 13:18 MS/extremity: Positive for pain, of the right leg and left leg. Exam: 13:21 Constitutional: This is a well developed, well nourished patient who is awake, alert, kb and in no acute distress. Head/Face: Normocephalic, atraumatic. Chest/axilla: Normal chest wall appearance and motion. Nontender with no deformity. No lesions are appreciated. Cardiovascular: Regular rate and rhythm with a normal S1 and S2. No gallops, murmurs, or rubs. Normal PMI, no JVD. No pulse deficits. Respiratory: Lungs have equal breath sounds bilaterally, clear to auscultation and percussion. No rales, rhonchi or wheezes noted. No increased work of breathing, no retractions or nasal flaring. Abdomen/GI: Soft, non-tender, with normal bowel sounds. No distension or tympany. No guarding or rebound. No evidence of tenderness throughout. Skin: Warm, dry with normal turgor. Normal color with no rashes, no lesions, and no evidence of cellulitis. MS/ Extremity: Pulses equal, no cyanosis. Neurovascular intact. Full, normal range of motion. Neuro: Awake and alert, GCS 15, oriented to person, place, time, and situation. Cranial nerves II-XII grossly intact. Motor strength 5/5 in all extremities. Sensory grossly intact. Cerebellar exam normal. Normal gait. Vital Signs: 10:52 BP 154 / 89; Pulse 99; Resp 17 S; Temp 98.1(O); Pulse Ox 98% on R/A; Weight 78.93 kg jd3 (R); Height 5 ft. 9 in. (175.26 cm) (R); Pain 10/10; 11:50 BP 144 / 86; Pulse 84; Resp 17; Pulse Ox 97% on R/A; rb3 10:52 Body Mass Index 25.70 (78.93 kg, 175.26 cm) jd3 MDM: 10:42 Patient medically screened. kb 12:39 Data reviewed: vital signs, nurses notes. Data interpreted: Pulse oximetry: on room air kb is 97 %. Interpretation: normal. Counseling: I had a detailed discussion with the patient and/or guardian regarding: the historical points, exam findings, and any diagnostic results supporting the discharge/admit diagnosis, radiology results, the need for outpatient follow up, a family practitioner, to return to the emergency department if symptoms worsen or persist or if there are any questions or concerns that arise at home. 06/08 10:51 Order name: Extremity Venous W Compression Gustavo kb 06/08 10:51 Order name: US Lower Extremity Arterial Bilateral kb Administered Medications: 10:57 Drug: Ibuprofen 400 mg Route: PO; rb3 11:43 Follow up: Response: No adverse reaction rb3 10:57 Drug: Tylenol 650 mg Route: PO; rb3 11:43 Follow up: Response: No adverse reaction rb3 Disposition: 13:34 Co-signature as Attending Physician, Rohan Andrews MD. rn Disposition: 06/08/20 12:41 Discharged to Home. Impression: Pain in right leg, Pain in left leg. - Condition is Stable. - Discharge Instructions: Musculoskeletal Pain, Arthritis, [id number]. - Prescriptions for Naprosyn 375 mg Oral Tablet - take 1 tablet by ORAL route 2 times per day take with food; 20 tablet. - Medication Reconciliation Form, Thank You Letter, Antibiotic Education, Prescription Opioid Use form. - Follow up: Emergency Department; When: As needed; Reason: Worsening of condition. Follow up: Private Physician; When: 2 - 3 days; Reason: Recheck today's complaints, Continuance of care, Re-evaluation by your physician. Signatures: Dispatcher [employer] EDMD Vivi Gonzalez, BEHAVIORAL HEALTH ASSOCIATE-C BEHAVIORAL HEALTH ASSOCIATE-Ckb Rohan Andrews MD MD rn Davies, Jonathon, RN RN jLaura Ceja, RN RN rb3 Corrections: (The following items were deleted from the chart) 13:19 12:41 06/08/2020 12:41 Discharged to Home. Impression: Pain in right leg; Pain in left rb3 leg. Condition is Stable. Forms are Medication Reconciliation Form, Thank You Letter, Antibiotic Education, Prescription Opioid Use. Follow up: Emergency Department; When: As needed; Reason: Worsening of condition. Follow up: Private Physician; When: 2 - 3 days; Reason: Recheck today's complaints, Continuance of care, Re-evaluation by your physician. kb
--- NOTE | 2020-06-08 12:41 | ER ---
Nurse's Notes [facility] Name: Suresh Conley Age: 79 yrs Sex: Male : 1940 Arrival Date: 06/08/2020 Time: 10:37 Bed 20 Private MD: Diagnosis: Pain in right leg;Pain in left leg Presentation: 06/08 10:48 Chief complaint: Patient states: "I am having both my legs swelling at hurting that it jd3 hurts to walk. my left leg is swelling and hurting from my foot through my hip and my right leg is hurting at my knee.". Coronavirus screen: At this time, the client does not indicate any symptoms associated with coronavirus-19. Ebola Screen: Patient negative for fever greater than or equal to 101.5 degrees Fahrenheit, and additional compatible Ebola Virus Disease symptoms. Initial Sepsis Screen: Does the patient meet any 2 criteria? No. Patient's initial sepsis screen is negative. Does the patient have a suspected source of infection? No. Patient's initial sepsis screen is negative. Risk Assessment: Do you want to hurt yourself or someone else? Patient reports no desire to harm self or others. Onset of symptoms Onset of symptoms was March 05, 2020. 10:48 Method Of Arrival: Wheelchair jd3 10:48 Acuity: TIERA 4 jd3 Historical: - Allergies: 10:52 No Known Allergies; jd3 - PMHx: 10:52 Diabetes - IDDM; Hypertension; jd3 - PSHx: 10:52 Knee surgery; jd3 - Immunization history:: Adult Immunizations up to date. - Social history:: Smoking status: Patient/guardian denies using tobacco, but has a distant history of tobacco abuse. Screenin:53 Abuse screen: Denies threats or abuse. Denies injuries from another. Nutritional iw screening: No deficits noted. Tuberculosis screening: No symptoms or risk factors identified. Fall Risk None identified. Assessment: 10:52 General: Appears in no apparent distress. Behavior is calm, cooperative. Pain: iw Complains of pain in right foot, left foot, right leg and left leg. Neuro: Level of Consciousness is awake, alert, obeys commands, Oriented to person, place, time, situation, Moves all extremities. Cardiovascular: Patient's skin is warm and dry. Respiratory: Respiratory effort is even, unlabored, Respiratory pattern is regular, symmetrical. GI: Abdomen is flat, non-distended. Derm: Skin is intact. Musculoskeletal: Range of motion: intact in all extremities, Reports pain in right knee and left leg. 11:50 Reassessment: Patient appears in no apparent distress at this time. No changes from rb3 previously documented assessment. 13:09 Reassessment: Patient appears in no apparent distress at this time. Patient and/or iw family updated on plan of care and expected duration. Pain level reassessed. Patient is alert, oriented x 3, equal unlabored respirations, skin warm/dry/pink. Vital Signs: 10:52 BP 154 / 89; Pulse 99; Resp 17 S; Temp 98.1(O); Pulse Ox 98% on R/A; Weight 78.93 kg jd3 (R); Height 5 ft. 9 in. (175.26 cm) (R); Pain 10/10; 11:50 BP 144 / 86; Pulse 84; Resp 17; Pulse Ox 97% on R/A; rb3 10:52 Body Mass Index 25.70 (78.93 kg, 175.26 cm) jd3 ED Course: 10:37 Patient arrived in ED. ds1 10:42 Vivi Gonzalez FNP-C [facility] kb 10:42 Rohan Andrews MD is Attending Physician. kb 10:52 Triage completed. jd3 10:53 Arm band placed on. jd3 11:56 Laura Cortez, RN is Primary Nurse. rb3 12:34 US Extremity Venous W Compression Gustavo In Process Unspecified. EDMS 12:34 Ultrasound completed. Patient tolerated well. Notified STEAM TABLE ATTENDANT/PA vivi. sg3 12:35 US Lower Extremity Arterial Bilateral In Process Unspecified. EDMS 13:09 No provider procedures requiring assistance completed. Patient did not have IV access iw during this emergency room visit. 13:10 Patient has correct armband on for positive identification. iw Administered Medications: 10:57 Drug: Ibuprofen 400 mg Route: PO; rb3 11:43 Follow up: Response: No adverse reaction rb3 10:57 Drug: Tylenol 650 mg Route: PO; rb3 11:43 Follow up: Response: No adverse reaction rb3 Outcome: 12:41 Discharge ordered by . kb 13:09 Discharged to home ambulatory. iw 13:09 Condition: good 13:09 Discharge instructions given to patient, Instructed on discharge instructions, follow up and referral plans. Demonstrated understanding of instructions, follow-up care, medications, Prescriptions given X 1. 13:19 Patient left the ED. rb3 Signatures: Dispatcher [employer] EDVivi Grimes, MATH INTERVENTIONIST-C MATH INTERVENTIONIST-Ckb Anne Thurman ds1 Lara Jackson RN RN iw Daniel Larson RN RN Iris Gonzalez 3 Laura Cortez, RN RN rb3
[2020-06-08 13:25] VITALS: TEMP 98.1
[2020-06-08 13:26] VITALS: BP 144/86; O2SAT 97
--- NOTE | 2020-06-08 13:37 | RAD REPORT ---
EXAM DESCRIPTION: USExtrem Venous W Compress Bil06/08/2020 12:34 pm CLINICAL HISTORY: Leg pain COMPARISON: June 2019 FINDINGS: The common femoral, superficial femoral, popliteal and posterior tibial veins bilaterally are compressible and demonstrate augmentation. Doppler demonstrates good flow. IMPRESSION: No evidence of deep venous thrombosis involving either lower extremity.
--- NOTE | 2020-06-08 13:50 | RAD REPORT ---
EXAM DESCRIPTION: US - Lower Extremity Arterial Bilat - 06/08/2020 12:35 pm CLINICAL HISTORY: Leg pain COMPARISON: None FINDINGS: The right common femoral, right superficial femoral and right popliteal arteries demonstrate triphasi c waveforms The right posterior tibial and right dorsalis pedis arterial waveforms are biphasic The left common femoral, left superficial femoral, left popliteal, left posterior tibial and left dexter salis pedis arterial waveforms are biphasic. The distal left superficial femoral arterial waveform is diminished in amplitude. Marked calcified plaque within the left superficial femoral artery results in a high-grade stenosis Jhinhpbn-vb-eafoyu calcified plaque within the right superficial femoral and popliteal arteries bilat erally Moderate stenosis involves the right and right superficial femoral popliteal arteries IMPRESSION: Marked calcified plaque within the left superficial femoral artery results in a high-grade stenosis Duinagjc-lc-rryfvh calcified plaque within the right superficial femoral and popliteal arteries bilat erally Moderate stenosis involves the right and right superficial femoral popliteal arteries
== END 2020-06-08 13:19 | disposition home or self-care (01) ==
LOC: ER 10:36
DX: M79.605 Pain in left leg (principal); M79.604 Pain in right leg; I10 Essential (primary) hypertension
CPT/HCPCS: 93925; 93970; 99283

== ENCOUNTER 2020-07-12 11:10 | Observation (INO) | payer OTHER ==
--- OUTSIDE RECORDS SUMMARY | 2020-07-12 11:14 | XMS REPORT | Continuity of Care Document ---
:1940 Author Organization [facility] t Address [address] [place] [address] Care Team Providers Name Role Phone Lab, [...] Date Date Medication? Clinician (SIG) Name Name Aspirin 81 Aspirin 81 Yes Roberto 1 [...] 00:00: Memoria 00 l Outpati ent Clinics Gabapentin Gabapentin Yes Roberto 1 capsule [facility] [...] Dobbs defined Jillian kes - [facility]oria l [facility] Omeprazole Omeprazole Yes Roberto not [facility] Dobbs defined [facility] - [facility] l [facility] ent Clinics HydrALAZINE HydrALAZINE Yes Roberto not [facility] HCl HCl Dobbs defined [facility] - [facility] l [facility] ent Clinics Diclofenac Diclofenac Yes Roberto not [facility] Sodium Sodium Dobbs defined [facility] Clin[facility] Procedures This patient has no known procedures. Encounters Start End Encounter Admission Attending Care Care Encounter Source Date/Time Date/Time Type Type Clinicians Facility Department ID 2020-03-21 2020-03-21 Laboratory Lab, [facility] [id number] 13:11:08 13:31:08 Only Fam Pob I Health [id number] [place] [id number] Professio [phone] nal [facility] Office Building One 2019-12-26 2019-12-26 Telephone System, Kena HENDERSON [id number] 00:00:00 00:00:00 Referring JANNA [id number] Provider HOSPITAL [id number] Not In [id number] 2019-12-21 2019-12-21 Urgent Pob1, Acute [facility] [id number] 11:17:47 12:49:21 Care Care [facility] Health [id number] [place] [id number] Professio [phone] nal [facility] Office Building One 2019-08-16 2019-08-16 [facility] [id number] [address] 09:30:00 09:30:00 t Bone Bone and [facility] - [facility] ent Clinics 2019-08-16 2019-08-16 Orders Doctor BEATRIZ [id number] 00:00:00 00:00:00 Only Unassigned, JANNA [id number] [facility] [id number] 2019-07-16 2019-07-16 [facility] [id number] 00:00:00 00:00:00 Herbie L Health [id number] Surgical [id number] [facility] [id number] 198 [place] 2019-03-23 2019-03-23 Outpatient Leidy Barnhart [id number] 10:30:00 10:30:00 t Bone Bone and [facility] - [facility] Joint [facility] ent [facility] 2018-11-25 2018-11-25 Outpatient Leidy Barnhart [id number] [facility] [address] 09:30:00 09:30:00 t Bone Bone and [facility] - [facility] Joint [facility] ent Clinics Results This patient has no known results.
[2020-07-12] MEDS ORDERED: D50W 25 GM/50 ML SYRINGE IV PRN (11:47)
[2020-07-12] MEDS ORDERED: GLUCAGON 1 MG/VIAL IM PRN (11:47)
[2020-07-12 12:06] VITALS: BMI 22.7
[2020-07-12 12:30] LABS: Absolute Lymphocytes (CBC) 1.8 K/uL (0.7-4.9); Basophils % 0.7 % (0-1.3); Hematocrit 33.3 % (39.6-49.0); Lymphocytes % 27.1 % (15.3-44.8); MPV 8.3 fL (7.6-11.3); RBC Red Blood Cell Count 4.25 M/uL (4.33-5.43)
[2020-07-12 12:58] LABS: ALT/SGPT 37 U/L (12-78); AST/SGOT 36 U/L (15-37); Albumin 3.6 g/dL (3.4-5.0); Alkaline Phosphatase 109 U/L (45-117); BUN Blood Urea Nitrogen 17 mg/dL (7-18); Bicarbonate 23 mmol/L (21-32); Bilirubin Total 0.5 mg/dL (0.2-1.0); Glucose Level 107 mg/dL (74-106); Magnesium 1.8 mg/dL (1.8-2.4); Potassium 3.8 mmol/L (3.5-5.1); Protein, Total 7.5 g/dL (6.4-8.2); Sodium Level 138 mmol/L (136-145)
--- NOTE | 2020-07-12 15:09 | RAD REPORT ---
EXAM DESCRIPTION: MRI - Lumbar Spine Wo Con- 07/12/2020 2:59 pm CLINICAL HISTORY: left leg weakness, foot drop COMPARISON: MRI LUMBAR SPINE W O CON dated 07/19/2012 FINDINGS: Vertebral body heights are within normal limits. Diffuse disc desiccation is evident. No fracture is suspected. The conus medullaris terminates at a normal level. No thickening of the cauda equina or clumping of n erve roots seen. L1-2 level: Moderate posterior disc bulge with mild facet and ligamentum flavum hypertrophy noted. Mo derate central canal stenosis is evident. L2-3 level: Moderate posterior disc bulge is seen with moderate facet and ligamentum flavum hypertrop hy. Moderate central canal stenosis is seen with left exit foraminal stenosis. L3-4 level: Moderate posterior disc bulge is present with moderate to significant facet ligamentum fl avum hypertrophy significant central canal stenosis is seen. Moderate left-sided exit foraminal steno sis. L4-5 level: Large central protrusion of disc material seen. Moderate facet and ligamentum flavum hype rtrophy is present. Severe central canal stenosis evident. Both exit foramina moderately narrowed. L5-S1 level: Mild to moderate posterior disc bulge with marked facet and ligamentum flavum hypertroph y with mild central canal narrowing is present. Moderate bilateral exit foraminal stenosis. IMPRESSION: Severe pattern of multilevel lumbar degenerative spondylosis is present. Severe central canal stenosis is present at L4-5.
[2020-07-12] MEDS ORDERED: INSULIN -REGULAR HUMAN 50 UNIT/0.5 ML ML SQ SCH (16:30)
[2020-07-12 17:38] VITALS: BP 177/91; TEMP 97.6
--- NOTE | 2020-07-12 21:02 | CON ---
Reason For Consultation: This consultation was called by Dr. Samuels because of leg weakness and fallin g and muscle atrophy in the legs. History Of Present Illness: Mr. Conley is a 79-year-old right-handed patient with ins ulin-dependent diabetes mellitus, hypertension, who reports that around a year and a half or so to 2 years of some weakness in the left and right lower extremity. He had left total knee replacement by Dr. Ramesh in 2018 and notes that at times his left leg was buckling. He has actually been following symptoms, seem to worsen over the last 2 months where he would lose his balance and fall and he has noted shrinkage or atrophy of the quadriceps muscles bilaterally and more footdrop on the left than r ight. He has had some problems controlling his bladder function, but no problems controlling bowel f unction. He has difficulty getting up from a chair, getting up steps, getting off the bed and toilet . Dr. Samuels did a direct admit to [facility] to have imaging done and the patient had a lumbar spine imaging without contrast done today on . This study showed severe patterns of multilevel l umbar degeneration and spondylosis with severe canal stenosis present at L4-5 and moderate bilateral exit foraminal stenosis at L5-S1 and moderate narrowing of both nerve roots at L4-5 along with modera te narrowing at L3, L4 of the nerve roots. This was discussed with Dr. Samuels that the patient actuall y needs decompressive surgery as he is losing muscle strength and atrophy in his muscle and will have actually had some bladder loss. Dr. Samuels will contact his neurosurgeon in [place] and try to get th e patient transferred for a higher level of care where he can receive lumbar cord decompression. Past Medical History: As indicated. Allergies: NO KNOWN DRUG ALLERGIES. Surgical History: Left knee replacement. Family History: Noncontributory. Social History: Remote tobacco use. No alcohol use. The patient is retired. He actually worked in a furniture factory, lifts heavy furniture for many years and occasionally actually still does but m ore recently unable to do so. Medications: He has insulin sliding scale, has received some Tylenol and Norvasc 10 mg daily along w ith vitamin C, Lipitor 10 mg at bedtime, aspirin 81 mg daily. Review of Systems: The patient reports the footdrop, left more than right, and weakness in the lower extremities in the thighs, have right more than left and some problems controlling his bladder function. Otherwise, he denies any recent fevers, chills, nausea, vomiting, arthralgias, myalgias, headache, weight change, r wilmar, or psychiatric problems. No gastrointestinal problems, but he has genitourinary issues as menti terrence. Physical Examination: Vital Signs: Blood pressure 179/93, pulse 81, respiratory rate 16, temperature 97.1, oxygen saturati on 98% on room air. General: Mr. Conley is resting in bed. He is in no acute distress. He is normocephalic, atraumatic. Sclerae anicteric. Oropharynx is moist and pink. Neck: Supple. Chest: Clear. Heart: Regular. Extremities: Show no edema, cyanosis, or clubbing. Neurologic: Alert, oriented to situation, place, time. Cranial nerves show no focal deficits on 2 t hrough 12. Upper extremity strength is good with 5/5 proximally, distally. Lower extremity hip flex ion and extension are 4/5. Knee extension is 4/5 with 4- on the right side and 4/5 on the left. His left foot dorsiflexion is around 2/5, on the right side 4/5, plantar flexion is on the right 4, on t he left 3/5. Reflexes are absent in the patella and trace in upper extremities and he has 1+ at the ankles. Coordination is intact, although some weakness makes it slightly difficult for him to do rafiq l-to-li with gait. He would actually require the physical therapist with a gait belt, but there is left steppage gait, and ataxia with strong tendency to fall. Laboratory Studies: Complete blood count with differential shows white blood cell count 6.2, hemoglo bin 10.8, platelets are 301. His chemistries show essentially unremarkable with glucose 107, normal chloride, potassium, BUN is normal. Liver function studies are normal. TSH 1.1. Assessment: Mr. 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 He does have loss of reflexes, perhaps related to diabetes mellitus and obvious nerve root compression in the lumbar region at L4-5 and L5-S1. He has some problems controlling blad ta function and the MRI shows severe stenosis in the lumbar region as indicated above. He requires surgical decompression to help preserve function and for him to then begin physical therapy and regai n strength in the lower extremities. Plan: 1.The patient should have surgical decompression. 2.Aggressive management of diabetes mellitus, hypertension. 3.He was advised on the importance of actually being safe and not falling using a walker when ambula ting and taking strong precautions so he does not fall and have a critical loss of movement of the lo wer extremities. This is actually discussed with Dr. Samuels, who is now trying to get the patient sent to [place] for surgical decompression of the lumbar region. LB/MODL Voice ID: [id number] Report ID: [id number]
--- NOTE | 2020-08-13 02:38 | SS ---
Date of Admission: 07/12/2020 Date of Discharge: 07/12/2020 Chief Complaint: Weakness of left leg and muscle atrophy of left leg. History Of Present Illness: This is a 79-year-old very pleasant male patient, who is having some tingling sensation in legs, but recently noted to have left leg weakness and muscle atrophy involving left leg, which was very obvious when I saw him at the office. Denies any fall injury. Denies any back pain. No incontinence. The patient was admitted to the hospital for further evaluation and management of this leg problem as we were concerned about some significant neurological concerns. Decision was made to admit him directly to the hospital for further evaluation and management of this leg problems. Allergies: NO KNOWN ALLERGIES. Medications: Atorvastatin 80 mg daily, amlodipine 5 mg daily, aspirin 81 mg daily, Plavix 75 mg daily, gabapentin 300 mg 2 times a day, hydralazine 10 mg takes 2 tablets 2 times a day, Levemir insulin 25 units subcutaneous injection daily in morning, metoprolol tartrate 25 mg 2 times a day, omeprazole 20 mg daily, vitamin B12 500 mcg daily. Review of Systems: POND SCALER: As mentioned above. All other systems reviewed and negative. Past Medical History: Significant for type 2 diabetes mellitus, hypertension, hyperlipidemia, gastroesophageal reflux disease, benign prostatic hypertrophy, leukocytopenia, peripheral vascular disease, anemia, and the patient had COVID- 19 infection on March 01, 2020. Past Surgical History: Bilateral leg angioplasty due to peripheral vascular disease in the past and left knee surgery. Family History: Father and mother both . Mother had Alzheimer's. Details unknown about father's health. Brother , details unknown. Sister alive and well. Social History: Prior history of smoking, not at present time. Use of alcohol occasional. Physical Examination: Vital Signs: Height 5 feet 9 inches, weight 153 pounds. Temperature 97.1, pulse 81, respiratory rate 16, blood pressure 179/93. General: Awake, alert, oriented, not in distress. HEENT: Head atraumatic, normocephalic. Conjunctivae nonerythematous. Sclerae white. Mouth, no thrush or edema noted. Ears/Nose, no mass, lesion, discharge noted. Neck: Supple. No JVD, lymph nodes, bruit, thyromegaly noted. Lungs: Bilateral good equal air entry. Clear to auscultation. No rhonchi. No rales. Heart: Normal heart sounds. No murmur or gallop. Abdomen: Soft. Bowel sounds normal. No guarding, rigidity, tenderness, mass, hepatosplenomegaly, distention, or bruit noted. Extremities: No leg edema. No calf tenderness. Skin: No rash, ulcer, cellulitis. Lymphatics: No lymph node enlargement in neck, supraclavicular, infraclavicular region. POND SCALER: Left lower extremity has some muscle atrophy with power 4/5, all other extremities power is 5/5. Chest: Unremarkable. External Genitalia: Deferred. Rectal: Deferred. Laboratory Data: White count 6.6, hemoglobin 10.8, platelets 301. Sodium 138, potassium 3.8, chloride 105, bicarb 23, BUN 17, creatinine 0.79, glucose 107. Liver function tests unremarkable. TSH 1.1. MRI of lumbar spine done after the patient was admitted to the hospital shows severe pattern of multilevel lumbar degenerative spondylosis present, severe central canal stenosis at L4-5. Hospital Course: After the patient was admitted to the hospital, he was seen in consultation by neurologist, Dr. Mueller, and MRI of the spine done, results reviewed with Dr. Mueller and I have discussed details with the patient and the patient's son. I have also communicated with neurosurgeon, Dr. Saleem, regarding this MRI results and decision was made to discharge the patient to go home and for the patient to follow up with Dr. Saleem this coming week on Wednesday, and the patient was advised to go to Dr. Saleem's office Wednesday morning with MRI film. Final Diagnoses: 1. Lumbar spinal stenosis. 2. Lumbar spondylosis. 3. Hypertension. 4. Hyperlipidemia. 5. Type 2 diabetes mellitus. 6. Gastroesophageal reflux disease. 7. Anemia, chronic, unspecified. 8. Leukocytopenia. 9. Benign prostatic hypertrophy. 10. Idiopathic pulmonary fibrosis. 11. Peripheral vascular disease. 12. Peripheral neuropathy. Discharge Medications: Continue all prior home medications. LISE/MODL Voice ID: [id number] Report ID: [id number] [facility]
== END 2020-07-12 19:26 | disposition home or self-care (01) ==
LOC: 2ND 11:10 → INTOOBSV 11:10
PROVIDERS: ADMIT Internal Medicine; ATTEND Internal Medicine
DX: M47.896 Other spondylosis, lumbar region (principal); M48.061 Spinal stenosis, lumbar region without neurogenic claudication; E11.9 Type 2 diabetes mellitus without complications; Z79.4 Long term (current) use of insulin; I10 Essential (primary) hypertension; Z87.891 Personal history of nicotine dependence
CPT/HCPCS: 36415; 71250; 72148; 80053; 82947; 83735; 84443; 85025; G0378; G0379

== ENCOUNTER 2022-10-13 10:39 | Emergency (ER) | payer OTHER ==
--- OUTSIDE RECORDS SUMMARY | 2022-10-13 10:44 | XMS REPORT | Continuity of Care Document ---
:1940 Author Organization [facility] t Address [address] [place] [address]. [address] [place] [address] Care Team Providers Name Role Phone MARJORIE ARREDONDO Primary Care Physician Unavailable Andreia Saleem Attending Clinician Unavailable Yanely Givens Cardiology Attending Clinician Unavailable JUAN BRYANT Attending Clinician Unavailable Lab, Adc Fam Pob I Attending Clinician Unavailable Jessica Rivera Attending Clinician JESSICA LUU Attending Clinician Unavailable System, Amb Referring Provider Not In Attending Clinician Un available Pob1, Acute Care Clinic Attending Clinician Unavailable Remedios Das Attending Clinician Doctor Unassigned, [place] Attending Clinician Unavailable Ryann Garcia MD Attending Clinician RYANN GARCIA Attending Clinician Unavailable Andreia Saleem Admitting Clinician Unavailable Yanely Givens Admitting Clinician Unavailable UNDEFINED Admitting Clinician Unavailable Payers Payer Name Policy Type Policy Number Effective Date Expiration Date [facility] [id number] 2019 MEDICARE GOLD 00:00:00 Problems Condition Condition Condition Status Onset Resolution Last Treating Co mments Source Name Details Category Date Date Treatment Clinician Date Sore Sore Disease Active [facility] throat throat 8- ity of 00:: [address] Pain in Pain in Problem Active Common joint of joint of Spirit left knee left knee - CH I [facility] 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 - CHI [facility] Infection Infection Problem Active Com mon following following Spir it a a - CHI procedure, procedure, St subsequent subsequent [facility] encounter encounter [facility] Aftercare Problem Active Com mon following following Spir it joint joint - CHI replacemen replacemen St t surgery t [facility] Presence Presence Problem Active 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 [facility] Iliotibial 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 - CHI of right of right St side side [facility] 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 Sp jose manuel athy athy - CHI associated associated with with [facility] diabetes diabetes Medica l mellitus mellitus Center due to due to underlying underlying condition condition Primary Primary Problem Active 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 - CHI right knee right knee [facility] Pain in Pain in Diagnosis Active Commo n joint of joint of Spirit right knee right knee - CHI [facility] Allergies, Adverse Reactions, Alerts Allergy Allergy Status Severity Reaction(s) Onset Inactive Treating Comm ents Source Name Type Date Date Clinician No Known DA Active [facility]08 [facility] 00:: [address] No Known DA Active U [facility] Allergie 3-03 [facility] 00:00: [address] No Known DA Active U [facility] Allergie 3-03 [place] [facility] 00:[facility]: [address] NO KNOWN Drug Active [facility] Social History Social Habit Start Date Stop Date Quantity Comments Source Sex Assigned At [facility] Medical Branch Exposure to Yes [facility] SARS-CoV-2 (event) Medica l Branch Tobacco use and 2019-12-21 2019-12-21 Never used [facility] exposure 00:0000 00:00:00 Medical Branch Smoking Status Start Date Stop Date Source Never smoker [facility] [place] Medical Branch Medications Ordered Filled Start Stop Current Ordering Indication Dosage Frequency Signature Comments Components Source Medication Medication Date Date Medication? Clinician (SIG) Name Name hydroCHLORO 2020-0 Yes 12.5mg Take 12.5 Univers thiazide 7-16 mg by ity of 12.5 mg 00:00: mouth [place] tablet 00 every Medical morning. Branch hydroCHLORO 2020-0 Yes 12.5mg Take 12.5 Univers thiazide 7-16 mg by ity of 12.5 mg 00:00: mouth [place] tablet 00 every Medical morning. Branch hydroCHLORO 2020-0 Yes 12.5mg Take 12.5 Univers thiazide 7-16 mg by ity of 12.5 mg 00:00: mouth [place] tablet 00 every Medical morning. Branch NOVOFINE 2020-0 Yes USE Univers PLUS 32 7-08 DIRECTED ity of gauge x 00:00: EVERY DAY [place] 05/22" Ndle Medical Branch NOVOFINE 2020-0 Yes USE Univers PLUS 32 7-08 DIRECTED ity of gauge x 00:00: EVERY DAY [place] 05/22" Ndle 00 Medical Branch NOVOFINE 2020-0 Yes USE Univers PLUS 32 7-08 DIRECTED ity of gauge x 00:00: EVERY DAY [place] 05/22" Ndle 00 Medical Branch LEVEMIR 2020-0 Yes INJECT Univers FLEXTOUCH 7-07 25UNITS ity of U-100 00:00: SUBCUTANEO [place] INSULN 100 00 USLY DAILY Med ical unit/mL (3 IN MORNING Bra nch mL) injection LEVEMIR 2020-0 Yes INJECT Univers FLEXTOUCH 7-07 25UNITS ity of U-100 00:00: SUBCUTANEO [place] INSULN 100 00 USLY DAILY Med ical unit/mL (3 IN MORNING Bra nch mL) injection LEVEMIR 2020-0 Yes INJECT Univers FLEXTOUCH 7-07 25UNITS ity of U-100 00:00: SUBCUTANEO [place] INSULN 100 00 USLY DAILY Med ical unit/mL (3 IN MORNING Bra nch mL) injection ONETOUCH 2020-0 Yes USE Univers ULTRA BLUE 6-26 DIRECTED ity o f TEST STRIP 00:00: [place] strip 00 [place] Branch ONETOUCH 2020-0 Yes USE Univers ULTRA BLUE 6-26 DIRECTED ity o f TEST STRIP 00:00: [place] 00 [place] ONETOUCH 2020-0 Yes USE Univers ULTRA BLUE 6-26 DIRECTED ity o f TEST STRIP 00:00: [place] 00 [place] atorvastati 2020-0 Yes Univer s n 80 mg 6-18 ity of tablet 00:00: [place] [address] Medical Branch doxazosin 2 2020-0 Yes Univer s mg tablet 6-18 ity of 00:00: [place] 00 Medical Branch hydrALAZINE 2020-0 Yes Univer s 10 mg 6-18 ity of tablet 00:00: [place] [address] Medical Branch metoprolol 2020-0 Yes Univers tartrate 25 6-18 ity of mg tablet 00:00: [place] [address] Medical Branch clopidogreL 2020-0 Yes Univer s 75 mg 6-18 ity of tablet 00:00: [place] [address] Medical Branch omeprazole 2020-0 Yes Univers 20 mg 6-18 ity of capsule 00:00: [place] [address] Medical Branch atorvastati 2020-0 Yes Univer s n 80 mg 6-18 ity of tablet 00:00: [place] [address] Medical Branch doxazosin 2 2020-0 Yes Univer s mg tablet 6-18 ity of 00:00: [place] [address] Medical Branch hydrALAZINE 2020-0 Yes Univer s 10 mg 6-18 ity of tablet 00:00: [place] [address] Medical Branch metoprolol 2020-0 Yes Univers tartrate 25 6-18 ity of mg tablet 00:00: [place] [address] Medical Branch clopidogreL 2020-0 Yes Univer s 75 mg 6-18 ity of tablet 00:00: [place] [address] Medical Branch omeprazole 2020-0 Yes Univers 20 mg 6-18 ity of capsule 00:00: [place] [address] Medical Branch atorvastati 2020-0 Yes Univer s n 80 mg 6-18 ity of tablet 00:00: [place] [address] Medical Branch doxazosin 2 2020-0 Yes Univer s mg tablet 6-18 ity of 00:00: [place] [address] Medical Branch hydrALAZINE 2020-0 Yes Univer s 10 mg 6-18 ity of tablet 00:00: [place] [address] Medical Branch metoprolol 2020-0 Yes Univers tartrate 25 6-18 ity of mg tablet 00:00: [place] [address] Medical Branch clopidogreL 2020-0 Yes Univer s 75 mg 6-18 ity of tablet 00:00: [place] [address] Medical Branch omeprazole 2020-0 Yes Univers 20 mg 6-18 ity of capsule 00:00: [address] OMEPRAZOLE 2020-0 Yes None Univers ORAL 1-08 Entered ity of 20:54: [address] PRAVASTATIN 2020-0 Yes None Univer s ORAL 1-08 Entered ity of 20:54: [address] PLAVIX ORAL 2020-0 Yes None Univer s 1-08 Entered ity of 20:54: [address] GABAPENTIN 2020-0 Yes None Univers ORAL 1-08 Entered ity of 20:54: [address] CRESTOR 2020-0 Yes None Univers ORAL 1-08 Entered ity of 20:54: [address] METFORMIN 2020-0 Yes None Univers HCL ORAL 1-08 Entered ity of 20:54: [address] ASPIRIN 81 2020-0 Yes None Univers MG ORAL 1-08 Entered ity of CHEW 20:54: [address] GLIMEPIRIDE 2020-0 Yes None Univer s ORAL 1-08 Entered ity of 20:54: [address] OMEPRAZOLE 2020-0 Yes None Univers ORAL 1-08 Entered ity of 20:54: [address] PRAVASTATIN 2020-0 Yes None Univer s ORAL 1-08 Entered ity of 20:54: [address] PLAVIX ORAL 2020-0 Yes None Univer s 1-08 Entered ity of 20:54: [address] GABAPENTIN 2020-0 Yes None Univers ORAL 1-08 Entered ity of 20:54: [address] CRESTOR 2020-0 Yes None Univers ORAL 1-08 Entered ity of 20:54: [address] METFORMIN 2020-0 Yes None Univers HCL ORAL 1-08 Entered ity of 20:54: [address] ASPIRIN 81 2020-0 Yes None Univers MG ORAL 1-08 Entered ity of CHEW 20:54: [address] GLIMEPIRIDE 2020-0 Yes None Univer s ORAL 1-08 Entered ity of 20:54: [address] OMEPRAZOLE 2020-0 Yes None Univers ORAL 1-08 Entered ity of 20:54: [address] PRAVASTATIN 2020-0 Yes None Univer s ORAL 1-08 Entered ity of 20:54: [address] PLAVIX ORAL 2020-0 Yes None Univer s 1-08 Entered ity of 20:54: [address] GABAPENTIN 2020-0 Yes None Univers ORAL 1-08 Entered ity of 20:54: [address] CRESTOR 2020-0 Yes None Univers ORAL 1-08 Entered ity of 20:54: [address] METFORMIN 2020-0 Yes None Univers HCL ORAL 1-08 Entered ity of 20:54: [address] ASPIRIN 81 2020-0 Yes None Univers MG ORAL 1-08 Entered ity of CHEW 20:54: [address] GLIMEPIRIDE 2020-0 Yes None Univer s ORAL 1-08 Entered ity of 20:54: [address] OMEPRAZOLE 2020-0 Yes None Univers ORAL 1-08 Entered ity of 20:54: [address] PRAVASTATIN 2020-0 Yes None Univer s ORAL 1-08 Entered ity of 20:54: [address] PLAVIX ORAL 2020-0 Yes None Univer s 1-08 Entered ity of 20:54: [address] GABAPENTIN 2020-0 Yes None Univers ORAL 1-08 Entered ity of 20:54: [address] CRESTOR 2020-0 Yes None Univers ORAL 1-08 Entered ity of 20:54: [address] METFORMIN 2020-0 Yes None Univers HCL ORAL 1-08 Entered ity of 20:54: [address] ASPIRIN 81 2020-0 Yes None Univers MG ORAL 1-08 Entered ity of CHEW 20:54: [address] GLIMEPIRIDE 2020-0 Yes None Univer s ORAL 1-08 Entered ity of 20:54: [address] OMEPRAZOLE 2020-0 Yes None Univers ORAL 1-08 Entered ity of 20:54: [address] PRAVASTATIN 2020-0 Yes None Univer s ORAL 1-08 Entered ity of 20:54: [address] PLAVIX ORAL 2020-0 Yes None Univer s 1-08 Entered ity of 20:54: [address] GABAPENTIN 2020-0 Yes None Univers ORAL 1-08 Entered ity of 20:54: [address] CRESTOR 2020-0 Yes None Univers ORAL 1-08 Entered ity of 20:54: [address] METFORMIN 2020-0 Yes None Univers HCL ORAL 1-08 Entered ity of 20:54: [address] ASPIRIN 81 2020-0 Yes None Univers MG ORAL 1-08 Entered ity of CHEW 20:54: [address] Branch GLIMEPIRIDE 2020-0 Yes None Univer s ORAL 1-08 Entered ity of 20:54: [place] [address] Medical Branch diclofenac 2020-0 Yes [id number] 75mg Take 1 U nivers 75 mg EC 1-08 tablet by ity of tablet 00:00: mouth 2 [place] (two) Medical times Branch daily with meals. diclofenac 2020-0 Yes [id number] 75mg Take 1 U nivers 75 mg EC 1-08 tablet by ity of tablet 00:00: mouth 2 [place] (two) Medical times Branch daily with meals. diclofenac 2020-0 Yes [id number] 75mg Take 1 U nivers 75 mg EC 1-08 tablet by ity of tablet 00:00: mouth 2 [place] (two) Medical times Branch daily with meals. diclofenac 2020-0 Yes [id number] 75mg Take 1 U nivers 75 mg EC 1-08 tablet by ity of tablet 00:00: mouth 2 [place] (two) Medical times Branch daily with meals. diclofenac 2020-0 Yes [id number] 75mg Take 1 U nivers 75 mg EC 1-08 tablet by ity of tablet 00:00: mouth 2 [place] (two) Medical times Branch daily with meals. Gabapentin Gabapentin 2019-0 Yes Roberto 1 capsule Common 11-25 [facility] 00:00: - [facility] Doxazosin Doxazosin 2019-0 Yes Roberto 1 tablet Common Mesylate Mesylate 11-25 [facility] 00:00: - [facility] Aspirin 81 Aspirin 81 2019-0 Yes Roberto 1 tablet Common 11-25 [facility] 00:00: - [facility] Multi Multi 2019-0 Yes Roberto as Common Complete Complete 11-25 Dobbs directed Spi rit 00:00: [facility] Vitamin B Vitamin B 2019-0 Yes Roberto as Common 12 12 - Dobbs directed Spirit 00:00: [facility] Clopidogrel Clopidogrel Yes Roberto not Common Bisulfate Bisulfate Dobbs defined [facility] Atorvastati Atorvastati Yes Roberto not Common n Calcium n Calcium Dobbs defined [facility] Metformin Metformin Yes Roberto not Co mmon HCl HCl Dobbs defined [facility] Omeprazole Omeprazole Yes Roberto not Common Dobbs defined [facility] Metoprolol Metoprolol Yes Roberto not Common Tartrate Tartrate Dobbs defined Spir [facility] Glimepiride Glimepiride Yes Roberto not Common Dobbs defined [facility] Ciprofloxac Ciprofloxac Yes Roberto not Common in HCl in HCl Dobbs defined [facility] Amlodipine Amlodipine Yes Roberto not Common Besylate Besylate Dobbs defined Spir [facility] Levemir Levemir Yes Roberto not Common FlexTouch FlexTouch Dobbs defined Sp jose manuelVA [facility] Omeprazole Omeprazole Yes Roberto not Common Dobbs defined [facility] HydrALAZINE HydrALAZINE Yes Roberto not Common HCl HCl Dobbs defined [facility] Diclofenac Diclofenac Yes Roberto not Common Sodium Sodium Dobbs defined [facility] Vital Signs Vital Name Observation Time Observation Value Comments Source Systolic blood 2019-12-21 16:28:00 132 mm[Hg] Univer sity [facility] Diastolic blood 2019-12-21 16:28:00 78 [facility]Hg[facility] 2019-12-21 16:27:00 67 /min [facility] Body temperature 2019-12-21 16:27:[address] [facility] Respiratory rate 2019-12-21 16:27:00 18 /min [facility] Body height 2019-12-21 16:27:00 175.3 cm [facility] Body weight 2019-12-21 16:27:00 83.915 kg [facility] BMI 2019-12-21 16:27:00 27.32 kg/m2 [facility] Oxygen saturation in 2019-12-21 16:27:00 99 /min [facility] Arterial blood by [facility] Pulse oximetry Branch Systolic blood 2019-12-21 16:28:00 132 mm[Hg] Univer sity of [facility] Diastolic blood 2019-12-21 16:28:00 78 mm[Hg[facility] 2019-12-21 16:27:00 67 /min [facility] Body temperature 2019-12-21 16:27:[address] [facility] Respiratory rate 2019-12-21 16:27:00 18 /min [facility] Body height 2019-12-21 16:27:00 175.3 cm [facility] Body weight 2019-12-21 16:27:00 83.915 kg [facility] BMI 2019-12-21 16:27:00 27.32 kg/m2 [facility] Oxygen saturation in 2019-12-21 16:27:00 99 /min [facility] Arterial blood by [facility] Pulse oximetry Branch Procedures Procedure Date / Time Performing Clinician Source Performed [id number] 2020-07-26 00:00:00 [facility] [id number] 2020-07-26 00:00:00 [facility] AUTHORIZATION FOR 2019-08-16 05:01:00 Doctor Unassigned, No [facility] RELEASE OF PHI Name [place] [facility] Branch Encounters Start End Encounter Admission Attending Care Care Encounter Source Date/Time Date/Time Type Type Clinicians Facility Department ID 2020-07-17 Inpatient TAMMI BurrisTO [facility]ATO [id number] [facility] 16:45:32 Andreia 02 [place] [facility] 2021-10-04 2021-10-04 Outpatient ANURADHA Givens, TAMMIWU SURG [id number] [facility] 04:30:00 04:30:00 Salim 46 [facility] 2021-10-04 2021-10-04 Outpatient ANURADHA Givens, TAMMIWU HCAWU [id number] [facility] 04:30:00 04:30:00 Salim [id number] [facility] 2021-08-23 2021-08-23 Inpatient EL Chon, HCAWU SURG [id number] [facility] 05:21:00 05:21:00 Salim 07 [facility] 2020-09-09 2020-09-09 Outpatient Duglas BRYANT [facility] [id number] Univers 13:30:00 13:30:00 JUAN pastrana [facility] 2020-08-19 2020-08-19 Outpatient [facility] [id number] Univers 13:40:00 13:40:00 ity of [facility] 2020-07-27 2020-07-27 Outpatient Stiven, HCAWU REFE [id number] [facility] 07:24:00 07:24:00 [place] 57 [facility] 2020-07-27 2020-07-27 Outpatient Taba, HCAWH SIST [id number] [facility] 07:23:00 07:23:00 [place] [address] [facility] 2020-07-17 2020-07-17 Outpatient Taba, HCACL LABO [id number] [facility] 20:12:00 20:12:00 [place] 16 [facility] 2020-07-17 2020-07-17 Outpatient EL Stiven, HCATO 3DAY [id number] [facility] 00:00:00 00:00:00 [place] 96 [place] [facility] 2020-03-21 2020-03-21 Laboratory Lab, [facility] Fam Pob I [facility] 1.2. [id number] Univers 13:11:08 13:31:08 Only Jessica Luu [facility] [id number] ity of [place] [id number] Manjeet as Professio [phone] Id dical [address] Office Building [facility] 2020-03-21 2020-03-21 Laboratory Lab, [facility] [id number] 13:11:08 13:31:08 Only Fam Pob I Health [id number] [place] [id number] Professio [phone] [place] [address] Office Building [facility] 2020-03-21 2020-03-21 Outpatient R BELL, [facility] [id number] Univers 13:20:00 13:20:00 JESSICA ity of [facility] 2019-12-26 2019-12-26 Telephone System, Kena HENDERSON [id number] Univers 00:00:00 00:00:00 Referring JANNA [id number] ity of [facility] [id number] [place] [phone] [address] 2019-12-26 2019-12-26 Telephone System, Kena HENDERSON [id number] 00:00:00 00:00:00 Referring JANNA [id number] Provider HOSPITAL [id number] [place] [phone] [phone] 2019-12-21 Urgent Pob1, Acute Care Clinic [facility] 1. 2.840.114 [id number] Univers 11:17:47 12:49:21 [facility] [id number] ity of [place] [id number] Manjeet as Professio [phone] Id dical [address] Office Building One 2019-12-21 2019-12-21 Urgent Pob1, Acute [facility] [id number] 11:17:47 12:49:21 [facility] [id number] [place] [id number] Professio [phone] [place] [address] Office Building [facility] 2019-12-21 2019-12-21 Outpatient R [facility] [id number] Univers 11:40:00 11:40:00 ity of [facility] 2019-08-16 2019-08-16 Outpatient [facility] [id number] Common 09:30:00 09:30:00 t [facility] - [facility] 2019-08-16 2019-08-16 Orders Doctor HENDERSON [id number] 00:00:00 00:00:00 Only Unassigned, JANNA [id number] [place] [facility] [id number] [id number] [id number] 2019-08-16 2019-08-16 Orders Doctor HENDERSON [id number] Univers 00:00:00 00:00:00 Only Unassigned, JANNA [id number] ity of [place] [facility] [id number] Manjeet as [phone] [address] 2019-07-16 2019-07-16 [facility] [id number] 00:00:00 00:00:00 Ryann Banda [facility] [id number] Surgical [id number] Specialti [phone] es [address] [place] 2019-07-16 2019-07-16 [facility] [id number] Univers 00:00:00 00:00:00 Ryann Banda [facility] [id number] it y of Surgical [id number] Manjeet as Specialti [phone] Id dical es 198 [facility] 2019-05-24 2019-05-24 [facility] [id number] Univers 14:57:40 23:59:00 [facility] 2019-03-23 2019-03-23 [facility] [id number] Common 10:30:00 10:30:00 t [facility] Sp[facility] 2018-11-25 2018-11-25 Outpatient [facility] [id number] Common 09:30:00 09:30:00 t [facility] Results Test Description Test Time Test Comments Results Result Comments Source ACT-ISTAT 2021-10-04 06:40:00 Test Item Value Reference Range Interpretation Comme nts ACT-ISTAT (test code = ACTI) 214 SEC 74-137 H BASIC METABOLIC [id number] 05:20:00 Test Item Value Reference Range Interpretation Comments SODIUM (test code = 139 MMOL/L 137-145 N NA) POTASSIUM (test code = 3.6 MMOL/L 3.5-5.1 N K) CHLORIDE (test code = 105 MMOL/L 98-107 N CL) CARBON DIOXIDE (test 24 MMOL/L 22-30 N code = CO2) ANION GAP (test code = 14 MMOL/L 14-24 N GAP) GLUCOSE (test code = 123 MG/DL 74-106 H GLU) BLOOD UREA NITROGEN 17 MG/DL 9-20 N (test code = BUN) GLOMERULAR FILTRATION > 60 Report ing units: RATE (test code = GFR) ml/mi n/1.73 m2 (Modified MDRD Formula)Referen ce Range: > or = 6 0 ml/min/1.73 m2 CREATININE (test code 1.10 MG/DL 0.66-1.25 N = CREAT) CALCIUM (test code = 9.1 MG/DL 8.4-10.2 N CA) LIPID PROFILE (CORONARY RISK)2021-10-04 05:20:00 Test Item Value Reference Range Interpretation Comments TRIGLYCERIDES (test 94 MG/DL 150-199 L TRIGLYCE RIDES code = TRIG) REFERENCE RANGE:Normal: < 150 mg/dLBorderline High: 150-199 mg/dLHi gh: 200-499 mg/dLVe ry High: >=500 mg/ dL CHOLESTEROL (test code 166 MG/DL <200 = CHOL) HDL CHOLESTEROL (test 48 MG/DL 40-59 N code = HDL) LIPOPROTEIN LDL (test 80 MG/DL 0-99 N OPTI MAL.........<100 code = LDL) mg/dLNEAR OPTIMAL/ABOVE OPTIMAL........ .100-12 9 mg/dL BORDERL INE HIGH.........13 0-159 mg/dL HIGH.........16 0-189 mg/dL VERY HIGH.........>/ = 190 mg/dL [id number] 05:20:00 Test Item Value Reference Range Interpretation Comments MAGNESIUM (test code = MAG) 1.8 MG/DL 1.6-2.3 N PROTHROMBIN [id number] 05:12:00 Test Item Value Reference Range Interpretation Comments PROTHROMBIN TIME 10.5 SECONDS 9.4-12.7 N PATIENT (test code = PTP) INTERNATIONAL NORMAL 0.9 0.86-1.14 N The INR is to be RATIO (test code = used only for INR) monitoring oral anticoagulantth erap y. INDICATION I NR VALUE ---- ---- ---- -------1. Prophylaxis, de ep venous thrombos is, including high risk surgery. 2.0 - 3.0 2. Prophylaxis, deep venous thrombosis, hip surgery, treatm ent for deep venous thrombosis or pulmonary prevention of systemic emboli sm in patients wit h valvular heart disease, atrial fibrillation, tissue heart va lve, or acute myocar dial infarction. 2.0 - 3.0 3. Occupational Health And Safety Adviser al prosthesis hear t valves, recurre nt systemic emboli sm. 3.0 - 4.5 PTT [id number] 05:12:00 Test Item Value Reference Range Interpretation Comments PTT ACTIVATED (test code = APTT) 33.1 SECONDS 26.2-35.4 COVID 19 Asymptomatic IH [id number] 05:05:00 Test Item Value Reference Range Interpretation Comments COVID 19 NEGATIVE Negative "Negative resul ts from Asymptomatic IH AG patients with symptom (test code = onset beyondfiv e days, COVNONPUIAG) should be treat ed as presumptive, andconfirmation with a molecular assay , if necessary forpa tient management may be performed. Nega tive results do notr ule out COVID-19 and sh ould not be used as the sole basisfor treatm ent or patient managem ent decisions, includinginfect ion control decisio ns. Negative result s should beconsidered in the context of a pa tients recent exposure s,history, and the presenc e of clinical signs and symptomsconsist ent with COVID-19.This t est detects both vi able andnon-viable S ARS-CoV and SARS CoV-2. Test performance dep endson the amount of virus (antigen) in the sample." CBC W/AUTO [id number] 04:57:00 Test Item Value Reference Range Interpretation Comments WHITE BLOOD CELL (test code = 5.9 K/MM3 3.8-9.8 N WBC) RED BLOOD CELL (test code = 4.73 M/MM3 3.95-5.67 N RBC) HEMOGLOBIN (test code = HGB) 12.3 G/DL 12.4-16.7 L HEMATOCRIT (test code = HCT) 38.6 % 35.9-49.5 N MEAN CELL VOLUME (test code = 82 fL 81.7-96.1 N MCV) MEAN CELL HGB (test code = MCH) 26.0 pg 27.6-33.2 L MEAN CELL HGB CONCETRATION 31.9 % 32.9-35.5 L (test code = MCHC) RED CELL DISTRIBUTION WIDTH 16.7 % 12.1-15.2 H (test code = RDW) PLATELET COUNT (test code = 229 K/MM3 129-368 N PLT) MEAN PLATELET VOLUME (test code 9.3 fl 7.4-10.4 N = MPV) NEUTROPHIL % (test code = NT%) 60.7 % 43-75 N IMMATURE GRANULOCYTE % (test 0.2 % 0.0-2.0 N code = IG%) LYMPHOCYTE % (test code = LY%) 28.5 % 14-44 N MONOCYTE % (test code = MO%) 7.4 % 4-13 N EOSINOPHIL % (test code = EO%) 2.9 % 0-6 N BASOPHIL % (test code = BA%) 0.3 % 0-2 N NUCLEATED RBC % (test code = 0.0 % 0-1.0 N NRBC%) NEUTROPHIL # (test code = NT#) 3.59 K/mm3 2.0-7.6 N IMMATURE GRANULOCYTE # (test 0.01 x10 3/uL 0-0.03 N code = IG#) LYMPHOCYTE # (test code = LY#) 1.69 K/mm3 1.0-3.8 N MONOCYTE # (test code = MO#) 0.44 K/mm3 0.1-0.8 N EOSINOPHIL # (test code = EO#) 0.17 K/mm3 0.0-0.2 N BASOPHIL # (test code = BA#) 0.02 K/mm3 0.0-0.2 N NUCLEATED RBC # (test code = 0.00 K/mm3 0.0-0.1 N NRBC#) [id number] 11:57:00 Test Item Value Reference Range Interpretation Comments ACT-ISTAT (test code = ACTI) 237 SEC 74-137 H BASIC METABOLIC [id number] 08:13:00 Test Item Value Reference Range Interpretation Comments SODIUM (test code = 139 MMOL/L 137-145 N NA) POTASSIUM (test code = 4.1 MMOL/L 3.5-5.1 N K) CHLORIDE (test code = 105 MMOL/L 98-107 N CL) CARBON DIOXIDE (test 25 MMOL/L 22-30 N code = CO2) GLUCOSE (test code = 142 MG/DL 74-106 H GLU) BLOOD UREA NITROGEN 19 MG/DL 9-20 N (test code = BUN) GLOMERULAR FILTRATION > 60 Report ing units: RATE (test code = GFR) ml/mi n/1.73 m2 (Modified MDRD Formula)Referen ce Range: > or = 6 0 ml/min/1.73 m2 CREATININE (test code 1.00 MG/DL 0.66-1.25 N = CREAT) CALCIUM (test code = 9.6 MG/DL 8.4-10.2 N CA) LIPID PROFILE (CORONARY RISK)2021-08-23 08:13:00 Test Item Value Reference Range Interpretation Comments TRIGLYCERIDES (test 138 MG/DL 150-199 L TRIGLYCE RIDES code = TRIG) REFERENCE RANGE:Normal: < 150 mg/dLBorderline High: 150-199 mg/dLHi gh: 200-499 mg/dLVe ry High: >=500 mg/ dL CHOLESTEROL (test code 171 MG/DL <200 = CHOL) HDL CHOLESTEROL (test 49 MG/DL 40-59 N code = HDL) LIPOPROTEIN LDL (test 77 MG/DL 0-99 N OPTIM AL.........<100 code = LDL) mg/dLNEAR OPTIMAL/ABOVE OPTIMAL........ .100-12 9 mg/dL BORDERL INE HIGH.........13 0-159 mg/dL HIGH.........16 0-189 mg/dL VERY HIGH.........>/ = 190 mg/dL [id number] 08:13:00 Test Item Value Reference Range Interpretation Comments MAGNESIUM (test code = MAG) 1.9 MG/DL 1.6-2.3 N PROTHROMBIN [id number] 07:53:00 Test Item Value Reference Range Interpretation Comments PROTHROMBIN TIME 10.4 SECONDS 9.4-12.7 N PATIENT (test code = PTP) INTERNATIONAL NORMAL 0.9 0.86-1.14 N The INR is to be RATIO (test code = used only for INR) monitoring oral anticoagulantth erap y. INDICATION INR VALUE ---- ---- ---- -------1. Prophylaxis, de ep venous thrombos is, including high risk surgery. 2.0 - 3.0 2. Prophylaxis, deep venous thrombosis, hip surgery, treatm ent for deep venous thrombosis or pulmonary prevention of systemic emboli sm in patients wit h valvular heart disease, atrial fibrillation, tissue heart va lve, or acute myocar dial infarction. 2.0 - 3.0 3. Occupational Health And Safety Adviser al prosthesis hear t valves, recurre nt systemic emboli sm. 3.0 - 4.5 PTT [id number] 07:53:00 Test Item Value Reference Range Interpretation Comments PTT ACTIVATED (test code = APTT) 30.7 SECONDS 26.2-35.4 N CBC W/AUTO [id number] 07:45:00 Test Item Value Reference Range Interpretation Comments WHITE BLOOD CELL (test code = 6.2 K/MM3 3.8-9.8 N WBC) RED BLOOD CELL (test code = 4.72 M/MM3 3.95-5.67 N RBC) HEMOGLOBIN (test code = HGB) 11.8 G/DL 12.4-16.7 L HEMATOCRIT (test code = HCT) 37.4 % 35.9-49.5 N MEAN CELL VOLUME (test code = 79 fL 81.7-96.1 L MCV) MEAN CELL HGB (test code = MCH) 25.0 pg 27.6-33.2 L MEAN CELL HGB CONCETRATION 31.6 % 32.9-35.5 L (test code = MCHC) RED CELL DISTRIBUTION WIDTH 16.3 % 12.1-15.2 H (test code = RDW) PLATELET COUNT (test code = 295 K/MM3 129-368 N PLT) MEAN PLATELET VOLUME (test code 9.2 fl 7.4-10.4 N = MPV) NEUTROPHIL % (test code = NT%) 66.3 % 43-75 N IMMATURE GRANULOCYTE % (test 0.2 % 0.0-2.0 N code = IG%) LYMPHOCYTE % (test code = LY%) 24.7 % 14-44 N MONOCYTE % (test code = MO%) 5.7 % 4-13 N EOSINOPHIL % (test code = EO%) 2.6 % 0-6 N BASOPHIL % (test code = BA%) 0.5 % 0-2 N NUCLEATED RBC % (test code = 0.0 % 0-1.0 N NRBC%) NEUTROPHIL # (test code = NT#) 4.11 K/mm3 2.0-7.6 N IMMATURE GRANULOCYTE # (test 0.01 x10 3/uL 0-0.03 N code = IG#) LYMPHOCYTE # (test code = LY#) 1.53 K/mm3 1.0-3.8 N MONOCYTE # (test code = MO#) 0.35 K/mm3 0.1-0.8 N EOSINOPHIL # (test code = EO#) 0.16 K/mm3 0.0-0.2 N BASOPHIL # (test code = BA#) 0.03 K/mm3 0.0-0.2 N NUCLEATED RBC # (test code = 0.00 K/mm3 0.0-0.1 N NRBC#) COVID 19 Asymptomatic IH [id number] 05:42:00 Test Item Value Reference Range Interpretation Comments COVID 19 NEGATIVE Negative "Negative resul ts from Asymptomatic IH AG patients with symptom (test code = onset beyondfiv e days, COVNONPUIAG) should be treat ed as presumptive, andconfirmation with a molecular assay , if necessary forpa tient management may be performed. Nega tive results do notr ule out COVID-19 and sh ould not be used as the sole basisfor treatm ent or patient managem ent decisions, includinginfect ion control decisio ns. Negative result s should beconsidered in the context of a pa tients recent exposure s,history, and the presenc e of clinical signs and symptomsconsist ent with COVID-19.This t est detects both vi able andnon-viable S ARS-CoV and SARS CoV-2. Test performance dep endson the amount of virus (antigen) in the sample." [id number] 13:15:00 Test Item Value Reference Range Interpretation Comments GLUBED (test code = GLUBED) 151 mg/dL 60-125 H [id number] 05:59:00 Test Item Value Reference Range Interpretation Comments GLUBED (test code = GLUBED) 104 mg/dL 60-125 N [id number] 21:06:00 Test Item Value Reference Range Interpretation Comments GLUBED (test code = GLUBED) 161 mg/dL 60-125 H [id number] 17:33:00 Test Item Value Reference Range Interpretation Comments GLUBED (test code = GLUBED) 151 mg/dL 60-125 H [id number] 11:35:00 Test Item Value Reference Range Interpretation Comments GLUBED (test code = GLUBED) 183 mg/dL 60-125 H GLYCOSYLATED HEMOGLOBIN (HA1C)2020-07-27 11:24:00 Test Item Value Reference Range Interpretation Comments GLYCOSYLATED 8.0 % 4.8-5.9 H Any condition t hat shortens HEMOGLOBIN (HA1C) erythocyte survival or (test code = GLYHGB) decreas esmean erythrocyte age (e.g., darvin very from acute blood los s,hemolytic anemai) will fa lsely lower HGBA1c resultsr egardless of the method used . HGBA1c results frompat ients with HbSS, HbCC and HbSc must be interpreted wit hcaution given the patho logical processes, incl uding anemia,increase d red cell turnover, trans fusion requirements, t hatadversely impact HGBA1c a s a marker of long-term glycemiccontrol . Alternative for ms of testing such as fructosaminesho uld be considered for these patients.Any co ndition that shortens erytho cyte survival or dec reasesmean erythrocyte age (e.g., recovery from a cute blood loss,hemolytic anemia) will falsely lower H GBA1c resultsregardle ss of the method used. HG BA1c results from patientswi th HbSS, HbCC, and HbSc must be interpreted wit h cautiongiven th e pathological pr ocesses, including anemi a,increased red cell turnov er, transfusion req uirements, thatadversely i mpact HGBA1c as a marker of long-term glycemiccontrol . Alternative for ms of testing such as fructosaminesho uld be considered for these patients.DONE A T: [facility] [id number], [place], [place] [address] GLYCOSYLATED HEMOGLOBIN (HA1C)2020-07-27 11:23:00 Test Item Value Reference Range Interpretation Comments GLYCOSYLATED 8.0 % 4.8-5.9 H Any condition t hat shortens HEMOGLOBIN (HA1C) erythocyte survival or (test code = GLYHGB) decreas esmean erythrocyte age (e.g., darvin very from acute blood los s,hemolytic anemia) will fa lsely lower HGBA1c resultsr egardless of the method used . HGBA1c results from mary larry HbSS, HbCC, and HbSc must be interpreted with cautiongiven th e pathological pr ocesses, including anemi a,increased red cell turnov er, transfusion req uirements, thatadversely i mpact HGBA1c as a marker of long-term glycemiccontrol . Alternative for ms of testing such as fructosaminesho uld be considered for these patients. B-TYPE NATRIURETIC [id number] 11:05:00 Test Item Value Reference Range Interpretation Comments B-TYPE NATRIURETIC PEPTIDE (test 66.84 pg/mL 0-100 N code = BNP) B-TYPE NATRIURETIC [id number] 11:05:00 Test Item Value Reference Range Interpretation Comments B-TYPE NATRIURETIC PEPTIDE (test 66.84 pg/mL 0-100 code = BNP) [id number] 09:17:00 Test Item Value Reference Range Interpretation Comments GLUBED (test code = GLUBED) 171 mg/dL 60-125 H BASIC METABOLIC [id number] 07:42:00 Test Item Value Reference Range Interpretation Comments SODIUM (test code = 140 mmol/L 136-145 N NA) POTASSIUM (test code = 4.2 mmol/L 3.5-5.1 N K) CHLORIDE (test code = 103.0 mmol/L 98-107 N CL) CARBON DIOXIDE (test 25.9 mmol/L 21-32 N code = CO2) GLUCOSE (test code = 81 mg/dL 70-110 N GLU) BLOOD UREA NITROGEN 15 mg/dL 7-18 N (test code = BUN) GLOMERULAR FILTRATION 87.6 >60 Unit o f measure: RATE (test code = GFR) mL/mi n/1.73 n5Dpaeqyvad Range:Healthy Adults >90 mL/min/1.73 m2 For Chronic Kidney Disease: Stage II Mild Decrease i n GFR 60-90 Stage III Moderate Decrea se in GFR 30-59 St age IV Severe Decre ase in GFR 15-29 St age V Kidney Failur e <15 CREATININE (test code 1.00 mg/dL 0.55-1.30 N = CREAT) CALCIUM (test code = 9.0 mg/dL 8.2-10.1 N CA) HGB [id number] 07:27:00 Test Item Value Reference Range Interpretation Comments HEMOGLOBIN (test code = HGB) 11.3 g/dL 12-16 L HEMATOCRIT (test code = HCT) 34.5 % 37-47 L [id number] 05:44:00 Test Item Value Reference Range Interpretation Comments GLUBED (test code = GLUBED) 80 mg/dL 60-125 N [id number] 23:44:00 Test Item Value Reference Range Interpretation Comments GLUBED (test code = GLUBED) 197 mg/dL 60-125 H [id number] 20:47:00 Test Item Value Reference Range Interpretation Comments GLUBED (test code = GLUBED) 372 mg/dL 60-125 H [id number] 12:19:00 Test Item Value Reference Range Interpretation Comments GLUBED (test code = GLUBED) 185 mg/dL 60-125 H - XR SPINE 1 V SPEC [id number] 10:37:00 [facility] 1940 Sex: M Patient Name: ZANDER MULLER Unit No: [id number] EXAMS: CPT CODE: [id number] XR SPINE 1 V SPEC LEVEL 53703 2 LATERAL INTRAOPERATIVE VIEWS OF THE LUMBAR SPINE Image 1: Surgical marker is at the upper L3 level Image 2: Surgical instrumentation is at L3-L4. at 1037 Reported and signed by: Alexander Dior M.D. CC: Andreia Saleem MD Technologist: VAMSHI PATEL (RT.R) Transcribed D/ (1037) [email or web address] [facility] NAME: ZANDER MULLER [address] [place] [address] PHYS: Andreia Wellington MD : 1940 AGE: 79 SEX: M [place], [place] [address] LOC: Y.998 2 PHONE #: [phone] EXAM DATE: 07/26/2020 STATUS: ADM IN FAX #: [phone] RAD #: D/C DT PAGE 1 Signed Report Patient Name: ZANDER MULLER Unit No: [id number] EXAMS: CPT CODE: [id number] XR SPINE 1 V SPEC LEVEL 68828 (Continued) Orig Print D/T: S: 07/26/2020 (1040) [facility] NAME: ZANDER MULLER [address] [place] [address] PHYS: Andreia Wellington MD : 1940 AGE: 79 SEX: M [place], [place] [address] LOC: Y.998 2 PHONE #: [phone] EXAM DATE: 07/26/2020 STATUS: ADM IN FAX #: [phone] RAD #: D/C DT PAGE 2 Signed Report- XR SPINE 1 V SPEC [id number] 10:37:00 [facility] : 1940 Sex: M Patient Name: ZANDER MULLER Unit No: [id number] EXAMS: CPT CODE: [id number] XR SPINE 1 V SPEC LEVEL 17178 2 LATERAL INTRAOPERATIVE VIEWS OF THE LUMBAR SPINE Image 1: Surgical marker is at the upper L3 level Image 2: Surgical instrumentation is at L3-L4. at 1037 Reported and signed by: Alexander Dior M.D. CC: Andreia Saleem MD Technologist: VAMSHI PATEL (RT.R) Transcribed D/ (1037) MariaelenaSLJ [facility] NAME: ZANDER MULLER [address] [place] [address] PHYS: Andreia Wellington MD : 1940 AGE: 79 SEX: M [place] [address] LOC: Y.998 2 PHONE #: [phone] EXAM DATE: 07/26/2020 STATUS: ADM IN FAX #: [phone] RAD #: D/C DT PAGE 1 Signed Report Patient Name: ZANDER MULLER Unit No: [id number]: CPT CODE: [id number] XR SPINE 1 V SPEC LEVEL 04178 (Continued) Orig Print D/T: S: 07/26/2020 (1040) [facility] NAME: PEGGY MULLER[address] PHYS: Andreia Wellington MD :1940 AGE: 79 SEX: M [place] [address] LOC: Y.998 2 PHONE #: [phone] EXAM DATE: 07/26/2020 STATUS: ADM IN FAX #: [phone] RAD #: D/C DT PAGE 2 Signed [id number] 07:13:00 Test Item Value Reference Range Interpretation Comments GLUBED (test code = GLUBED) 152 mg/dL 60-125 H Novel Coronavirus 2018 [id number] 20:10:00 Test Item Value Reference Range Interpretation Comments Novel Coronavirus Negative Negative Positive r esults are 2019 Inhouse (test indicativ e of the presence code = COVNONPUI) ofSARS-CoV -2 RNA, clinical correlation wit h patient historyand othe r diagnostic info rmation is necessary to determinepatien t infection status. Positiv e results do not rule out bacterial infection or co -infection with other viru ses. Negative result s do not preclude SARS-C oV-2 infection andsh ould not be used as the shekhar e basis for patient managementdecis ions. Negative result s must be combined with otherclinical observations, p atient history, and epidemiological information . Detection of SARS-CoV-2 RNA may be affe cted bysample collec tion methods, storag e conditions, and /or stageof infection. Linnette l RNA mutations, vacc inations, antiviraltherap eutics, antibiotics, chemotherapeuti c orimmunosuppres maria e drugs have not been e valuated for effectson d etection. Results are for the identification of SARS-CoV-2 RNA usingthe Ley M2000 Sy stem under the [facility] Emergen cy UseAuthorizatio n. The testing is perf ormed by personneltraine d in the procedures for the Devicescape M2000 molecular diagnostic SARS-CoV-2 assa y in vitro. Novel Coronavirus 2019 [id number] 20:09:00 Test Item Value Reference Range Interpretation Comments Novel Coronavirus Negative Negative Positive r esults are 2019 Inhouse (test indicativ e of the presence code = COVNONPUI) ofSARS-CoV -2 RNA, clinical correlation wit h patient historyand othe r diagnostic info rmation is necessary to determinepatien t infection status. Positiv e results do not rule out bacterial infection or co -infection with other viru ses. Negative result s do not preclude SARS-C oV-2 infection andsh ould not be used as the shekhar e basis for patient managementdecis ions. Negative result s must be combined with otherclinical observations, p atient history, and epidemiological information . Detection of SARS-CoV-2 RNA may be affe cted bysample collec tion methods, storag e conditions, and /or stageof infection. Linnette l RNA mutations, vacc inations, antiviraltherap eutics, antibiotics, chemotherapeuti c orimmunosuppres maria e drugs have not been e valuated for effectson d etection. Results are for the identification of SARS-CoV-2 RNA usingthe Ley M2000 Sy stem under the FDA Emergen cy UseAuthorizatio n. The testing is perf ormed by personneltraine d in the procedures for the Ley M2000 molecular diagnostic SARS-CoV-2 assa y in vitro. CBC W/AUTO [id number] 20:58:00 Test Item Value Reference Range Interpretation Comments WHITE BLOOD CELL (test code = WBC) 8.1 K/mm3 5.7-10.5 N RED BLOOD CELL (test code = RBC) 4.89 M/mm3 4.2-5.4 N HEMOGLOBIN (test code = HGB) 12.5 g/dL 12-16 N HEMATOCRIT (test code = HCT) 38.0 % 37-47 N MEAN CELL VOLUME (test code = MCV) 78 fL 80-98 L MEAN CELL HGB (test code = MCH) 25.6 pg 27-34 L MEAN CELL HGB CONCENTRATION (test 32.9 g/dL 30.8-34.1 N code = MCHC) RED CELL DISTRIBUTION WIDTH (test 15.9 % 11-16 N code = RDW) PLT (test code = PLT) 358 K/mm3 130-400 N MEAN PLATELET VOLUME (test code = 10.1 fL 8.9-12.1 N MPV) NEUTROPHIL % (test code = NT%) 60.6 % 45-70 N LYMPHOCYTE % (test code = LY%) 29.7 % 20-40 N MONOCYTE % (test code = MO%) 6.5 % 3-10 N EOSINOPHIL % (test code = EO%) 2.7 % 1-5 N BASOPHIL % (test code = BA%) 0.4 % 0.0-1.1 N NEUTROPHIL # (test code = NT#) 4.92 K/mm3 2.00-7.50 N LYMPHOCYTE # (test code = LY#) 2.41 K/mm3 1.50-4.00 N MONOCYTE # (test code = MO#) 0.53 K/mm3 0.2-0.8 N EOSINOPHIL # (test code = EO#) 0.22 K/mm3 0.04-0.4 N BASOPHIL # (test code = BA#) 0.03 K/mm3 0.02-0.10 N MANUAL DIFF REQUIRED (test code = NO MANUAL DIFF MDIFF) NUCLEATED RED BLOOD CELL (test 0 % 0-0 N code = NRBC) BASIC METABOLIC [id number] 20:56:00 Test Item Value Reference Range Interpretation Comments SODIUM (test code = 132 mmol/L 136-145 L NA) POTASSIUM (test code = 4.3 mmol/L 3.5-5.1 N K) CHLORIDE (test code = 98.0 mmol/L 98-107 N CL) CARBON DIOXIDE (test 24.4 mmol/L 21-32 N code = CO2) GLUCOSE (test code = 111 mg/dL 70-110 H GLU) BLOOD UREA NITROGEN 20 mg/dL 7-18 H (test code = BUN) GLOMERULAR FILTRATION 87.6 >60 Unit o f measure: RATE (test code = GFR) mL/mi n/1.73 d6Apqwzjnyc Range:Healthy A dults >90 mL/min/1.73 m2 For Chronic Kid magaly Disease: Stage II Mild Decrease i n GFR 60-90 Stage III Moderate Decrea se in GFR 30-59 Stage IV Severe Decrease in GFR 15-29 Stage V Kidney Failure <15 CREATININE (test code 1.00 mg/dL 0.55-1.30 N = CREAT) CALCIUM (test code = 9.2 mg/dL 8.2-10.1 N CA) PROTHROMBIN [id number] 20:52:00 Test Item Value Reference Range Interpretation Comments PROTHROMBIN TIME 11.6 secs 10.1-12.5 N PATIENT (test code = PTP) INTERNATIONAL NORMAL 1.02 <2.0 RECOMME NDED THERAPEUTIC RATIO (test code = RANGE FOR ORAL INR) ANTICOAGULANTTR EATMENT: CONDITION INRPr ophylaxis of venous throm bosis in 2.0 - 3.0 high- risk medical or surg ical patientsTreatme nt of venous thrombos is 2.0 - 3.0Prevention o f embolism 2.0 - 3.0Prevention o f recurrent embol ism, or 3.0 - 4.5 patie nts with mechanical pros thetic intravascular v vasquez IS PATIENT ON ANTICOAGULANTS ? YLIST ANTICOAGULANT/ANTI PLT MEDICATION : Clopidogrel (Anti-PLT)Has Lab been notified if Patient is on Heparin Drip? NO THROMBOPLASTIN TIME [id number] 20:52:00 Test Item Value Reference Range Interpretation Comments PTT ACTIVATED (test code = APTT) 30.5 secs 24.9-37.0 N IS PATIENT ON ANTICOAGULANTS ? YLIST ANTICOAGULANT/ANTI PLT MEDICATION : Clopidogrel (Anti-PLT)Has Lab been notified if Patient is on Heparin Drip? NO Notes Date/Time Note Provider Source 2021-10-04 07:30:00-00:00 [id number] [place] [id number] [place] [address] PATIENT NAME: ZANDER MULLER ADMIT DATE: 10/04/21 ACCOUNT NO: [id number] ROOM NO: AGE: 80 REPORT TYPE: CARDIAC CATHETERIZATION REPORT SEX : M ADMITTING PHYSICIAN: ATTENDING PHYSICIAN:Yanely Givens MD PROCEDURE DATE: 10/04/2021 DIRECTOR OF MATH: Yanely Givens M.D. INDICATION FOR THE PROCEDURE : Severe peripheral arterial disease with leg pains and previous interventions. TITLE OF THE PROCEDURE: 1. Selective bilateral iliof emoral angiograms with the third order angiogram of the right lower extremity, first order angiogram of the left lower extremity, orbital atherectomy and DCB of the right SFA proximal, right SFA distal, and the right popliteal. 2. Closing device. ESTIMATED BLOOD LOSS: Minimal. COMPLICATIONS: None. CONTRAST: 65 mL. ANESTHESIA: Conscious sedati on with Versed and fentanyl, 1% lidocaine for local anesthesia. FINAL DIAGNOSES: Severe peripheral arterial dise ase, status post atherectomy and DCB of the right SFA at 2 places proximal an d distal and right popliteal, patent left SFA atherectomy DCB site. PROCEDURE IN DETAIL: After informed consent, the patient was brought to the cardiac catheterization lab in a stable fasting nonsedated state. He was prepped and draped in the usual sterile fashion. After conscious sedation, 1% lidocaine was administered to the left common fe moral artery area for local anesthesia. A 6-Divehi sheath was placed in the left common femoral artery using standard techniques and fluoroscopy. After heparinization, selective first order angiogram of the left lower extremity showed 30% plaque of the left external iliac, tortuosity in the common iliac, 20% plaque in the proximal SFA on the left, and 10% to 20% at the recently inte rvened upon area. Distally there was 2-vessel runoff on the left. Then thai jaimes a [place] catheter and a [place] Advantage wire, I was able to go up and over and placed a long sheath and took selective first order angiogram of the right low er extremity and that showed couple of lesions proximally 90% and 50% calcified and then distally there was 60%, 60%, and 90% right at the popliteal also ca lcified. I did pass the [place] Advantage wire all the way down. There w as 2-vessel runoff distally and then I PATIENT NAME: ZANDER MULLER 6 changed the [place] Advantage wire to a Viper wire using a Avoca catheter. Then, I did Diamondback athe rectomy 2.0 solid, several runs distally, but at low and medium speed and several runs proximally at low, medium, and high speeds. I then went ahead and started out with the Lutonix 5 x 150 distally that covered both the popliteal and the distal SFA and then a fter that I predilated the proximal lesion with that balloon. Then using a 6 x 40 Lutonix balloon, I did the proximal area and then post-dilated the distal area with the same balloon. Final angiograms showed less than 20% residual p roximally and less than 10% distally with good distal flow, still 2-vessel r unoff. The left groin was sealed using Angio-Seal. There were no complicat ions. The patient tolerated the procedure well, was rand sferred back to the holding area for observation to be discharged in few hours on medical therapy an d risk factor modification. Dictated By: Yanely Givens MD WT: CATH:EVON/ALMA/STACI Conf#: [id number]/DID#: [id number] Authenticated by Yanely Givens MD On 09/15 10:31:16 AM at 1031 PATIENT NAME: ZANDER MULLER 6 2021-10-04 05:00:00-00:00 [id number] [place] [address] PATIENT NAME: ZANDER MULLER ADMIT DATE: 10/04/21 ACCOUNT NO: [id number] ROOM NO: AGE: 80 REPORT TYPE: ELECTROCARDIOGRAM SEX: M ADMITTING PHYSICIAN: ATTENDING PHYSICIAN:Yanely Givens MD Order: [id number] Test Reason : PRE-OP Test Date/Time Stamp: Sat Oct 04 2021 05:00:56 Blood Pressure : / mmHG Vent. Rate : 068 BPM Atrial Rate : 068 BPM P-R Int : 190 ms QRS Dur : 094 ms QT Int : 408 ms P-R-T Axes : 046 042 043 degree s QTc Int : 433 ms Normal sinus rhythm Septal infarct , age undetermined Abnormal ECG When compared with ECG of 23-AUG-2021 07:31, QRS axis shifted left Septal infarct is now present Nonspecific T wave abnormality has repla daniel inverted T waves in Inferior leads Confirmed by YANELY GIVENS ([id number]) on 10/04/2021 5:42:32 AM Referred By: Self Referred Confirmed by:YANELY HIGGINS at 0542 PATIENT NAME: ZANDER MULLER 6 2021-10-04 05:00:00-00:00 [id number] [place] [address] PATIENT NAME: ZANDER MULLER ADMIT DATE: 10/04/21 ACCOUNT NO: [id number] ROOM NO: AGE: 80 REPORT TYPE: ELECTROCARDIOGRAM SEX: M ADMITTING PHYSICIAN: ATTENDING PHYSICIAN:Yanely Givens MD Order: [id number] Test Reason : PRE-OP Test Date/Time Stamp: WedOct 04 2021 05:00:56 Blood Pressure : / mmHG Vent. Rate : 068 BPM Atrial Rate : 068 BPM P-R Int : 190 ms QRS Dur : 094 ms QT Int : 408 ms P-R-T Axes : 046 042 043 degre es QTc Int : 433 ms Normal sinus rhythm Septal infarct , age undetermined Abnormal ECG When compared with ECG of 23-AUG-2021 07:31, QRS axis shifted left Septal infarct is now present Nonspecific T wave abnormality has repla daniel inverted T waves in Inferior leads Confirmed by YANELY GIVENS ([id number]) on 10/06/2021 2:46:40 PM Referred By: Self Referred Confirmed by:YANELY HIGGINS at 0266 PATIENT NAME: ZANDER MULLER 6 2021-10-03 07:13:00-00:00 [id number] [id number] [place] [address] PATIENT NAME: ZANDER MULLER ADMIT DATE: ACCOUNT NO: [id number] ROOM NO: AGE: 80 REPORT TYPE: HISTORY AND PHYSICAL SEX: M ADMITTING PHYSICIAN: ATTENDING PHYSICIAN:Yanely Givens MD PATIENT NAME: ZANDER MULLER ADMIT DATE:10/04/2021 ADMISSION DATE: 10/04/2021 DIRECTOR OF MATH: Yanely Givens M.D. REASON FOR ADMISSION: Intervention on ca s right SFA for symptomatic peripheral arterial disease. HISTORY OF PRESENT ILLNESS: Zander is a 80-year- old patient with known atherosclerotic cardiovascular disease and previ ous peripheral interventions. He was last time at [facility] on 01/2022. He had abdominal and bilateral peripheral angiograms. At that time, he was foun d to have severe disease in both SFAs and infrapopliteal. He underwent a suc cessful atherectomy and drug-coated balloon of the left SFA. He was foun d at that time to have severe disease of the right SFA, al so heavily calcified, so he is coming back today for intervention on the right SFA with acces s being from the left, so he will come in for peripheral angiograms of the left lower extremity to document patency of the recently intervened upon areas and then proc eed with intervention on the right SFA. The patient's sym ptoms did improve on the left side after the recent intervention. Now his main symptoms are on the r ight leg. He is denying any active cardiac symptoms. Please see rece nt dictations for his cardiac history. PAST MEDICAL HISTORY: Unchanged from recent eval uation. PAST SURGICAL HISTORY: Unchanged from recent radha luation. ALLERGIES: Unchanged from recent evaluation. MEDICATIONS: Unchanged from recent evaluation. SOCIAL HISTORY: Unchanged from recent evaluation . FAMILY HISTORY: Unchanged from recent evaluation . REVIEW OF SYSTEMS: Unchanged from recent evaluat ion. PHYSICAL EXAMINATION: GENERAL: Reveals a pleasant elderly male in no a cute distress. VITAL SIGNS: Blood pressure 129/78, pulse 89 and regular, respiratory rate 16 and unlabored, and temperature afebrile. HEENT: Head atraumatic and normocephalic. Eyes a nd ENT examination within normal for age. PATIENT NAME: ZANDER MULLER 47 NECK: Supple. No jugular venous distention, brui ts, or lymphadenopathy. Normal upstroke. LUNGS: Clear and resonant. HEART: Regular rate and rhythm with II/V I systolic ejection murmur at the left lower sternal border. No gallops. ABDOMEN: Soft. No tenderness. No organomegaly. N o masses or bruits. EXTREMITIES: 1+ pulses on the right, 2+ on the l eft. No edema, cyanosis, or clubbing. NEUROLOGIC: Alert and oriented x3. The examinati on appears to be nonfocal. LABORATORY DATA: Pending. Noninvasive cardiovasc ular workup enclosed. IMPRESSION AND PLAN: This is a 80-year-old patie nt with a long history of/ atherosclerotic cardiovascul ar disease. 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 So he is here toda y for angiograms of the left SFA, access on the left groin, and then to proce ed with intervention on the right SFA. Back in 2007, he received a b alloon on the right SFA 6 x 40, now he will be getting an atherectomy and DCB, which wa s not available back then. The recommendation is to pro ceed with the above-mentioned procedures. The risks and benefits of the planned procedures were discussed in detail with the patient and he is willing to proceed. Rest as per orders . Dictated By: Yanely Givens MD WT: HP:WERNER/ALMA/STACI Conf#: [id number]/DID#: [id number] Authenticated and Edited by Yanely Givens MD On 10/03/21 1:49:46 PM at 0151 PATIENT NAME: ZANDER MULLER 6 2021-08-23 12:33:00-00:00 [id number] [place] [address] PATIENT NAME: ZANDER MULLER ADMIT DATE: 08/23/21 ACCOUNT NO: [id number] ROOM NO: AGE: 80 REPORT TYPE: CARDIAC CATHETERIZATION REPORT SEX: M ADMITTING PHYSICIAN: ATTENDING PHYSICIAN:Yanely Givens MD PROCEDURE DATE: 08/23/2021 DIRECTOR OF MATH: Yanely Givens M.D. INDICATION FOR THE PROCEDURE: Leg pains, peripheral arterial disease, multiple cardiovascular risk factors. TITLE OF THE PROCEDURE: 1. Abdominal and bilateral selective iliofemoral angiograms. 2. First order angiogram of the right lower extr emity. 3. Third order angiogram of the left lower extre mity. 4. CSI atherectomy of the left SFA. 5. DCB of the left SFA. 6. Angio-Seal of the right groin. ESTIMATED BLOOD LOSS: Minimal. COMPLICATIONS: None. CONTRAST: 80 mL. ANESTHESIA: Conscious sedati on with Versed and fentanyl, 1% lidocaine for local anesthesia. FINAL DIAGNOSES: Severe bilateral periph eral arterial disease. The left SFA is heavily calcified and diseased; 80%, 80%, and 99 %. Two-vessel runoff bilaterally. The right SFA had a focal lesion of 90%. The aortoiliacs show mild plaquing. The patient is now status post CSI atherectomy, DCB of the left SFA and he will need to come back later on for P CI of the right SFA. PROCEDURE IN DETAIL: After informed consent, the patient was brought to the cardiac catheterization lab in a stable fasting nonsedated state. He was prepped and draped in the usual sterile fashion. After conscious sedation, 1% lidocaine was administered to the right common f emoral artery area for local anesthesia. A 6-Divehi sheath was placed in the right common femoral artery using standard techniques and fluoroscopy. After heparinization, selective first order angiogram of the right lower extremity showed 90% proximal calcified lesion of the SFA on the right, then 40% and 50% distal. There is 2-vessel runoff distally with severe disease. Abdominal a nd aortoiliacs show minimal plaquing, 30% of the right external iliac and 20 % of the left common iliac. Then with an up and over she ath and putting the catheter in the left SFA, there was 30% plaquing of the left proximal SF A and then there were several lesions, PATIENT NAME: ZANDER MULLER 7 80% and 80% and finally subtotal lesion right wh ere the artery overlaps the bone. Distally there was a 2 -vessel runoff, so decided to intervene on the left SFA lesions. The up and over sheath was used. Ru bicon catheter was used to change the [place] Advantage wire that crossed the lesion to the Viper wire and then Diamondback atherectomy CSI was used. Class ic 2.0 and we did it at low, medium, and high several runs. Then that was fol lowed with a Lutonix 6 x 100 balloon inflated twice. Angiogram showed less th an 10% residual with good distal flow and no angiograp hic complications. The right groin was sealed using Angio-Seal. There were no complications. The pat ient tolerated the procedure well and was [facility] to be discharged a few hours on medical therapy and ri sk factor modification. He needs to come back for intervention on the right SFA. Dictated By: Yanely Givens MD WT: CATH:EVON/ALMA/STACI Conf#: [id number]/DID#: [id number] Authenticated by Yanely Givens MD On 01/2022 01:39:05 PM at 0139 PATIENT NAME: ZANDER MULLER 7 2021-08-23 07:31:00-00:00 [id number] PATIENT NAME: ZANDER MULLER ADMIT DATE: 08/23/21 ACCOUNT NO: [id number] ROOM NO: AGE: 80 REPORT TYPE: ELECTROCARDIOGRAM SEX: M ADMITTING PHYSICIAN: ATTENDING PHYSICIAN:Yanely Givens MD Order: [id number] Test Reason : PRE-OP Test Date/Time Stamp: WedAug 23 2021 07:31:52 Blood Pressure : / mmHG Vent. Rate : 059 BPM Atrial Rate : 059 BPM P-R Int : 202 ms QRS Dur : 096 ms QT Int : 410 ms P-R-T Axes : 012 116 -07 degree s QTc Int : 405 ms Sinus bradycardia Right axis deviation Abnormal QRS-T angle, consider primary T wave ab normality Abnormal ECG No previous ECGs available Confirmed by YANELY GIVENS ([id number]) on 08/23/2021 7 :37:07 AM Referred By: Self Referred Confirmed by:YANELY HIGGINS at 0737 PATIENT NAME: ZANDER MULLER 7 2021-08-23 07:31:00-00:00 [id number] [place] [address] PATIENT NAME: ZANDER MULLER ADMIT DATE: 08/23/21 ACCOUNT NO: [id number] ROOM NO: AGE: 80 REPORT TYPE: ELECTROCARDIOGRAM SEX: M ADMITTING PHYSICIAN: ATTENDING PHYSICIAN:Yanely Givens MD Order: [id number] Test Reason : PRE-OP Test Date/Time Stamp: Sat Aug 23 2021 07:31:52 Blood Pressure : / mmHG Vent. Rate : 059 BPM Atrial Rate : 059 BPM P-R Int : 202 ms QRS Dur : 096 ms QT Int : 410 ms P-R-T Axes : 012 116 -07 degree s QTc Int : 405 ms Sinus bradycardia Right axis deviation Abnormal QRS-T angle, consider primary T wave ab normality Abnormal ECG No previous ECGs available Confirmed by YANELY GIVENS ([id number]) on 08/25/2021 12:56:35 PM Referred By: Self Referred Confirmed by:YANELY HIGGINS at 1256 PATIENT NAME: ZANDER MULLER 7 2021-08-01 07:15:00-00:00 [phone] [place] [address] PATIENT NAME: ZANDER MULLER ADMIT DATE: ACCOUNT NO: [id number] ROOM NO: AGE: 80 REPORT TYPE: PREOP HISTORY AND PHYSICAL SEX: M ADMITTING PHYSICIAN: ATTENDING PHYSICIAN:Yanely Givens MD PATIENT NAME: ZANDER MULLER ADMIT DATE:08/02/2021 ADMISSION DATE: 08/02/2021 DIRECTOR OF MATH: Yanely Givens MD REASON FOR ADMISSION: Symptomatic peripheral art erial disease. For abdominal and bilateral selective ilio femoral angiograms and possible revascularization of the left lower extremity. HISTORY OF PRESENT ILLNESS: Zander is a 80-year- old patient with known atherosclerotic cardiovascul ar disease and previous peripheral intervention, who lately has been having worsening symptoms of his left leg. Noninvasive workup was carried out, the lower arterial Doppler exam ination that showed the left ankle-brachial index to be 0.77, the rig ht is 0.82. This was worse compared to previous evaluation and that is the same leg whe re the patient is having worsening symptoms. Given this information and t he patient's history, he is here for abdominal and bilat eral selective iliofemoral angiograms to assess for possible revascularization. His last procedure w as carried out on 01/07/2008, at which time he received a RAIL CAR REPAIRMAN of his r ight SFA with a 6 x 40 mm balloon. The patient has been stable over the years until rec ently when he started having worsening symptoms. The patient is not known to have active coronary artery disease. His last echocardiogram showed hyperten sive heart disease with mild valvular insufficiency. His last nuclear stress test was negative for ischemia. His main problems at this time are dyspnea on e xertion and symptomatic peripheral arterial disease. 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 PAST SURGICAL HISTORY: Rhondaar manish for total knee replacement in 2018 and lumbar back surgery in July 2020. ALLERGIES: NO KNOWN DRUG ALLERGIES. MEDICATIONS: Include aspirin 81 mg daily , amlodipine 10 mg daily, Zyrtec 10 mg daily, doxazosin 1 mg daily, Flomax 0.4 mg daily , gabapentin 300 mg b.i.d., glimepiride 4 mg b.i.d., iron, metformin is on h old, metoprolol 25 mg b.i.d., omeprazole 20 mg daily, Plavix 75 mg daily, prav astatin 80 mg daily, hydrochlorothiazide 12.5 mg daily, and other vit amins and Tylenol as needed. PATIENT NAME: ZANDER MULLER 7 SOCIAL HISTORY: There is no history of smoking. He has stopped smoking many years ago. He smoked for 40 years. There is no h istory of alcohol or street drug use. FAMILY HISTORY: Unknown. The patient has lost co ntact with his family since age 17. REVIEW OF SYSTEMS: Remarkable for the above in a ddition to the back problems, decreased hearing. No acute GI or symptoms. N o TIAs or strokes. PHYSICAL EXAMINATION: GENERAL: Reveals a pleasant elderly male, in no acute distress. VITAL SIGNS: Blood pressure 139/85, pulse 77 and regular, respiratory rate 18 and unlabored, and temperature afebrile. HEENT: Head, atraumatic and normocephalic. Eyes and ENT examination within normal for age. NECK: Supple. No jugular venous distention, brui ts, or lymphadenopathy. Normal upstroke. LUNGS: Clear and resonant. HEART: Regular rate and rhythm with II/V I systolic ejection murmur at the left lower sternal border. No gallops. ABDOMEN: Soft. No tenderness, no organomegaly, n o masses or bruits. EXTREMITIES: A 1+ distal pulses on the left, 2+ on the right. No edema, cyanosis, or clubbing. NEUROLOGIC: Alert and oriented x3. The examinati on appears to be nonfocal. LABORATORY DATA: Pending. Noninvasive cardiovasc ular workup enclosed. IMPRESSION: This is a 80-yea r-old patient with known history of atherosclerotic cardiovascular disease. His last invasive proced ure was carried out in 2007 where he underwent a RAIL CAR REPAIRMAN of the right SF A on 01/07/2008. The patient is having at this time symptoms of claudication, mainly of the left lower extremity. He is here for abdominal and bilateral selective il iofemoral angiograms and possible revascularization of his left lower ext remity. The recommendation is to pro ceed with the above-mentioned procedures. The risks and benefits of the planned procedure were discussed in detail with the patient and available family members and he is w illing to proceed. Rest as per orders. Dictated By: Yanely Givens MD WT: PREOPHP:WERNER/ALMA/STACI Conf#: [id number]/DID#: [id number] Authenticated and Edited by Yanely Givens MD On 08/01/21 4:26:58 PM at 0429 PATIENT NAME: ZANDER MULLER 7 2020-07-28 09:44:00-00:00 [facility] ([facility]) Ortho / Spine Progress Note REPORT#:[id number] REPORT STATUS: Signed DATE:07/28/20 TIME: 943 PATIENT: ZANDER MULLER UNIT #: [id number] ROOM/BED: [address] : 41 AGE: 79 SEX: M ATTEND: Andreia Saleem MD ADM AUTHOR: Andreia Saleem MD * ALL edits or amendments must be made on the el [employer]/computer document * Diagnosis, Assessment Plan Free Text A P: Ortho Spine Progress Note Dx: Critical stenosis L3-4, L4-5 with Left Leg F oot Drop and Atrophy Surgery: 07/26/2020 - L3-4, L 4-5 lumbar laminectomy with bilateral foraminotomies and left sided L4-5 diskectomy Subjective: Pain controlled. Ambulating. No post-operative i mprovement in lower extremity stregnth. Objective: General: AAO, NAD Respiratory: Normal work of breathing on nasal c annula Dressings: sanguinous drainage, removed. Incisio n with minimal amount of drainage from cephalad component; jackson covington applied Drain: removed on AM rounds Neuro: Strength: Right Left Iliopsoas 5/5 5/5 Quad 5/5 4/5 Hamstring 5/5 5/5 Tib Ant 5/5 0/5 Gastrocsoleus 5/5 5/5 EHL 5/5 0/5 FHL 5/5 5/5 Sensation: Reporting sensation intact t o light touch throughout bilateral lower extremities Assessment: Zander is a 79 yo male with critical lumbar stenosis and a left sided footdrop now POD 2 sp L3-4, L4-5 Laminecto my and left sided diskectomy Plan: 1. No bending, no lifting > 10 lbs, no twisting. 2. Ambulate as tolerated. 3. Pain control: as written 4. Advance diet as tolerated. 5. Skinner out and voiding, monitor PVR 6. DVT Prophy: ambulation and SCDs, on home plav ix dose 7. Drain removed 8. Dressing changed, continue aquacel dr covington for 7 days from today's date () then daily dry dressing changes. 8. Dispo: PT OT OOB, D/C today Andreia Saleem MD Electronically Signed by Andreia Saleem MD on 07/28 at 0947 RPT #:[id number] END OF REPORT 2020-07-28 09:21:00-00:00 [facility] ([facility]) Clinical Note REPORT#:[id number] REPORT STATUS: Signed DATE:07/28/20 TIME: 920 PATIENT: ZANDER MULLER UNIT #: [id number] ROOM/BED: [address] : 41 AGE: 79 SEX: M ATTEND: Andreia Saleem MD ADM AUTHOR: Ang Krishnan MD * ALL edits or amendments must be made on the [employer]/computer document * Clinical Note Note: [facility] Ang brown M.D. (cell text [phone]) Assessment/Plan 1.) Anemia of acute blood loss- .Hgb 11.3 -3, asymptomatic. 2.) POD#2 L3-5 laminectomy with bilateral forami notomies Left L4-5 diskectomy - .acute pain control. Mechanical DVT prophylaxi s early ambulation as per Dr. Saleem 3.) Hypertension- .follow BP and hold Rxs if SBP <120. 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 Patient has been urinating. Will Dc on flomax and have recomended he followup wit h a urologist. * OK for DISCHARGE per Internal Medicine. Prior Events/Overnight: Uneventful. Chief Complaint: No significant complaints. Objective Vital Signs: Date Time Temp Pulse Resp B/P B/P Pulse O2 O2 F low FiO2 Mean Ox Delivery Rate 07/28 0854 98.8 98 13 127/76 92.7 98 07/28 0730 Room air 07/28 0730 98.2 105 18 117/70 85.5 94 Room air 07/28 0317 98.4 97 14 113/60 77.8 93 Room air 07/27 2316 97.5 106 14 112/68 82.4 95 Room air 07/27 2035 99.5 97 14 152/97 115.5 96 Room air 07/27 1547 98.8 100 18 154/74 100.7 94 07/27 1116 98.1 109 14 145/80 101.5 94 Room air Gen: Alert, oriented, in mild discomfort Neck: No Masses, No Thyromegaly- CV: Regular Rate Rhythm / Edema- no significant Resp: Clear To Ascultation / Normal Respiratory Effort ABD: NonTender / NonDistended MS/Skin: chronic Left foot drop - weakness Other: Labs/X-ray: Laboratory Tests: 07/28 07/27 07/27 07/27 0412 2036 1720 1123 Chemistry POC Glucose (60 - 125 mg/dL) 104 161 H 151 H 18 3 H Ang Smith M.D. at 1029 RPT #:[id number] END OF REPORT 2020-07-27 10:42:00-00:00 [facility] ([facility]) Ortho / Spine Progress Note REPORT#:[id number] REPORT STATUS: Signed DATE:07/27/20 TIME: 1042 PATIENT: ZANDER MULLER UNIT #: [id number] ROOM/BED: [address] : 41 AGE: 79 SEX: M ATTEND: Andreia Saleem MD ADM AUTHOR: Andreia Saleem MD * ALL edits or amendments must be made on the el [employer]/computer document * Diagnosis, Assessment Plan Free Text A P: Ortho Spine Progress Note Dx: Critical stenosis L3-4, L4-5 with Left Leg F oot Drop and Atrophy Surgery: 07/26/2020 - L3-4, L 4-5 lumbar laminectomy with bilateral foraminotomies and left sided L4-5 diskectomy Subjective: Doing well, pain controlled. No improvem ent in left leg at this point. Voiding with skinner removed. Tolerating PO. Ambulated travis und room with therapy. Objective: General: AAO, NAD Respiratory: Normal work of breathing on nasal c annula Dressings: deferred Drain: sanguinous output (240 mL) Neuro: Strength: Right Left Iliopsoas 5/5 5/5 Quad 5/5 4/5 Hamstring 5/5 5/5 Tib Ant 5/5 0/5 Gastrocsoleus 5/5 5/5 EHL 5/5 0/5 FHL 5/5 5/5 Sensation: Reporting sensation intact t o light touch throughout bilateral lower extremities Assessment: Zander is a 79 yo male with critical lumbar stenosis and a left sided footdrop now POD 1 sp L3-4, L4-5 Laminecto my and left sided diskectomy Plan: 1. No bending, no lifting > 10 lbs, no twisting. 2. Ambulate as tolerated. 3. Pain control: as written 4. Advance diet as tolerated. 5. Skinner out and voiding, monitor PVR 6. DVT Prophy: ambulation and SCDs, on home plav ix dose 7. Drain output 240 mL over 24 hours. If reduces may pull drain and perform dressing change, otherwise anticipate drain jf dayne and dressing change tomorrow. 8. Dispo: PT OT OOB, D/C pending drain managemen t today PM vs tomorrow Andreia Saleem MD Electronically Signed by Andreia Saleem MD on 07/27 at 1046 RPT #:[id number] END OF REPORT 2020-07-27 09:14:00-00:00 [facility] ([facility]) Clinical Note REPORT#:[id number] REPORT STATUS: Signed DATE:07/27/20 TIME: 913 PATIENT: ZANDER MULLER UNIT #: [id number] ROOM/BED: [address] : 41 AGE: 79 SEX: M ATTEND: Holly Saleem MD ADM AUTHOR: Ang Krishnan MD * ALL edits or amendments must be made on the el [employer]/computer document * Clinical Note Note: [facility] Ang brown M.D. (cell text [phone]) Assessment/Plan 1.) Anemia of acute blood loss- .Hgb 11.3, asymp tomatic. 2.) POD#1 L3-5 laminectomy with bilateral forami notomies Left L4-5 diskectomy - .acute pain control. Mechanical DVT prophylaxi s early ambulation as per Dr. Saleem 3.) Hypertension- .follow BP and hold Rxs if SBP <120. 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 Patient has been urinating since skinner removed around 6am. Bladder scan at around 9am was 248cc. Will check bladder scan at noon and clear for discharge if not showing XS urine accumulation. Prior Events/Overnight: Uneventful. Chief Complaint: No significant complaints. Objective Vital Signs: Date Time Temp Pulse Resp B/P B/P Pulse O2 O2 F low FiO2 Mean Ox Delivery Rate 07/27 0705 98.2 98 14 128/82 97.3 94 Room air 07/27 0422 97.3 90 14 133/70 90.9 96 07/26 2247 95 Room air 0 21 07/26 2157 96.4 98 18 118/75 89.0 97 Nasal 3 cannula 07/26 2049 Nasal 3 cannula 07/26 2000 97.7 97 18 123/67 85.4 98 Nasal 3 cannula 07/26 1551 96.4 81 16 146/76 99.4 99 Nasal cannula 07/26 1305 Nasal 3 cannula 07/26 1241 95.7 61 17 163/82 108.8 100 Nasal cannula 07/26 1230 99 Nasal 1 24 cannula 07/26 1216 Nasal 3 cannula / 1215 97.4 62 16 157/83 99 Nasal 3 cannula / 1200 97.6 64 18 160/82 100 Nasal 3 cannula / 1145 70 14 170/84 100 Nasal 3 cannula / 1130 70 15 157/85 100 Nasal 3 cannula 07/26 1115 77 14 160/82 100 Nasal 3 cannula 07/26 1104 Simple 5 mask 07/26 1057 97.4 72 12 144/77 100 Simple 5 mask Gen: Alert, oriented, in mild discomfort Neck: No Masses, No Thyromegaly- CV: Regular Rate Rhythm / Edema- no significant Resp: Clear To Ascultation / Normal Respiratory Effort ABD: NonTender / NonDistended MS/Skin: chronic Left foot drop - weakness Other: Labs/X-ray: Laboratory Tests: 07/27 07/27 07/27 07/26 07/26 0905 0532 0320 2332 2018 Chemistry Sodium (136 - 145 mmol/L) 140 Potassium (3.5 - 5.1 mmol/L) 4.2 Chloride (98 - 107 mmol/L) 103.0 Carbon Dioxide (21 - 32 mmol/L) 25.9 BUN (7 - 18 mg/dL) 15 Creatinine (0.55 - 1.30 mg/dL) 1.00 Glomerular Filtr Rate (>60) 87.6 Glucose (70 - 110 mg/dL) 81 POC Glucose (60 - 125 mg/dL) 171 H 80 197 H 372 H Calcium (8.2 - 10.1 mg/dL) 9.0 Hematology Hgb (12 - 16 g/dL) 11.3 L Hct (37 - 47 %) 34.5 L 07/26 1103 Chemistry POC Glucose (60 - 125 mg/dL) 185 H Ang Smith M.D. at 1038 RPT #:[id number] END OF REPORT 2020-07-26 17:03:00-00:00 [facility] ([facility]) Clinical Note REPORT#:[id number] REPORT STATUS: Signed DATE:07/26/20 TIME: 1703 PATIENT: ZANDER MULLER UNIT #: [id number] [facility] AGE: 79 SEX: M ATTEND: Andreia Saleem MD ADM AUTHOR: Ang Krishnan MD * ALL edits or amendments must be made on the el [employer]/computer document * Clinical Note Note: [facility] Ang brown MD (cell text [phone]) Internal Medicine Consult at request of : Dr Leonardo Saleem Chief Complaint: right knee pain HPI: 79yo M with history of critical lumbar spin al stenosis at L3-4 and L4-5 , an associated left sided foot drop, and atroph y of the anterior and lateral compartment musculature is now s/p L3-5 laminect shanon with bilateral foraminotomies Left L4-[address] Saleem. Mr. Muller relates left foot giving out approximately one year ago wi th increasing difficulty in ambulation 2nd to weakness in lef quadriceps the last 5 mon ths. I was notified that Mr. Muller had 450cc of urine in bladder apon placement of urinary catheter. Patient tells me that he goes 2-3 a night to the bathroom, slow stream. Comorbidities: see below. PmHx: .OsteoArthritis, diabetes2, Hypertension, hyperlipidemia ALLERGY: Allergies: No Known Allergies (Coded, 07/17/20) Home Medications: Home Medications: amLODIPine (NORVASC) 5 MG PO DAILY CLOPIDOGREL (PLAVIX) 75 MG PO DAILY - does not k now why he is on plavix. ATORVASTATIN (LIPITOR) 80 MG PO BEDTIME INSULIN DETEMIR (LEVEMIR FlexTouch (15mL)) 40 UN ITS SUBQ DAILY SgHx: .Left knee replaced 12/2017 SHx: Tob: quit 14 yrs ago FHx: .No significant h x of DVT/PE. Alcohol: none Drugs: none Lives: with son Vitals: Vital Signs: Date Time Temp Pulse Resp B/P B/P Pulse O2 O2 F low FiO2 Mean Ox Delivery Rate 07/26 1551 96.4 81 16 146/76 99.4 99 Nasal cannula 07/26 1305 Nasal 3 cannula 07/26 1241 95.7 61 17 163/82 108.8 100 Nasal cannula 07/26 1216 Nasal 3 cannula 07/26 1215 97.4 62 16 157/83 99 Nasal 3 cannula 07/26 1200 97.6 64 18 160/82 100 Nasal 3 cannula 07/26 1145 70 14 170/84 100 Nasal 3 cannula 07/26 1130 70 15 157/85 100 Nasal 3 cannula 07/26 1115 77 14 160/82 100 Nasal 3 cannula 07/26 1104 Simple 5 mask 07/26 1057 97.4 72 12 144/77 100 Simple 5 mask 07/26 0610 97.8 81 18 173/96 100 Room air Gen: Alert, in mild discomfort, nl nutrition. EYE: Nl lids conjunctiva. ENT: Nl ears Nose, nl lips,. Neck: Supple, nl thyroid, No masses. CV: Regular Rate Rhythm, no heave or significant murmur. Edema- none Feet toes normal temperature. RESP: Clear to Auscultation, normal Respiratory effort. ABD: Soft, NonDistended,. LYM: No significant cervical Lymphadenopathy. MS: No sign of compartment syndrome, NEURO: Left foot drop and left leg weakness (chr onic), . Preop Labs(07/17/20): CBC:. Hgb 12.5, Plt 358, CHEM: Na 132, K 4.3, Cr 1.0 (eGFR 88%), . Ekg: NSR, left axis, normal (medium to high risk of complications or morbidi ty) (major surgery) (IV sedative, meds) Assessment Plan 1.) Anemia of Acute Blood Loss- .will recheck to gabrielle. 2.) S/p L3-5 laminectomy with bilateral foramino tomies Left L4-5 diskectomy- .acute pain control. Mechani donna DVT prophylaxis early ambulation as per Dr. Saleem 3.) Hypertension- .follow BP and hold Rxs if SBP <120. 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 Large urine output with catheterization just bef ore surgery suggests partial neurogenic weak bladder poss ibly from chronic BPH. I will start flomax and keep skinner overnight and start voiding trial in AM. I f Mr. Muller is able to void tomorrow and serial bladder U S show stable (not increasing) bladder urine volume in bladder he will be discharged on flomax to followup with a urologist ( he will check with his pcp). Ang Smith M.D. Thanks! at 1733 RPT #:[id number] END OF REPORT 2020-07-26 12:24:00-00:00 [facility] ([facility]) Discharge Summary REPORT#:[id number] REPORT STATUS: Signed DATE:07/26/20 TIME: 1224 PATIENT: ZANDER MULLER UNIT #: [id number] [facility]GE[facility] 79 SEX: M ATTEND: Andreia Saleem MD ADM AUTHOR: Andreia Saleem MD * ALL edits or amendments must be made on the el [employer]/computer document * General Information Discharge date: 07/28/20 Hospital course: Discharge Summary Discharge Diagnosis: Left fo ot drop, critical lumbar spinal stenosis L3-4 and L4 -5 Surgical Procedure: 07/26/2020 - L3-4, L4-5 Luis Angel ectomy with bilateral foraminotomies and left L4-5 Diskectomy Hospital Course: Zander is a 79 year old male with critical lumbar spinal stenosis at L3-4 and L4 -5 with an associated left sided foot drop and a trophy of the anterior and lateral compartment musculature. Based on these findings on imaging, the weakness and ambulatory diff iculty surgical intervention was recommended with an L3-4 and L4-5 laminectomy. On the day of surgery Zander was admitted to the floor from the operating room for postoperative pain control and observation. The procedure was well-tolerated without immedia te complications. Post- operative pain was controlle d via oral medications with tylenol #3 and tylenol # 4. Hemodynamic status was mo nitored and remained stable throughout recovery. 24 hours of prophylactic antibiotics were administe red with cefazolin 2 grams. Zander was out of bed and am bulating on post-operative day 1. Internal medicine consultation was made for assistance with medica l co-morbidities and urinary retention/skinner management during the hospitaliz ation. Zander's pre-operative MRI showed a large distended bladder and upon pl acement of the skinner catheter pre-operatively 450 mL of ur ine was drained. These were concerning for a likely unrecognized urinary retention which may have be en partly related to his stenosis. For these reasons the skinner was retained post-operatively until POD 1, he subsequently was able to void without issue. Drain output after the first 24 hours was 240 mL, given the fact that Zander is taking plavix the drain was retained until output subsided and then it was r emoved on POD 2. Additionally on post-operative day 2 Zander had a small amoun t of sanguinous drainage from the proximal portion of the incision, dr jasbir were changed and the drain was removed. An aquacel type imp ervious dressing was then applied to remain in place for 7 days. By post-operative day 2 Abby ngo s pain was well controlled, he was ambulating without issue, to lerating PO and voiding without issue. Arrangements were made for discharge home with post-operative follow up in clinic in approximately 2 weeks. Disposition: Discharged to home Discharge Condition: Stable Instructions: As per DC instruction sheet Prescriptions: 1. Tylenol # 4 1 tab PO q4h PRN: Pain, Quantity 40 Post Hospitalization Issues to Follow-up: 1. AFO for Left ankle 2. Therapy for ankle range of motion and gait tr prasanna 3. Follow up on wound drainage Follow Up: Zander was instructed to follow up ag ain in clinic 2 weeks after surgery and as necessary for changes in symptoms or worsening of condition. Med Rec Med Rec Discharge meds: Continue taking these medications: amLODIPine (NORVASC) 5 MG TAB 5 MILLIGRAM ORAL DAILY. CLOPIDOGREL (PLAVIX) 75 MG TAB 75 MILLIGRAM ORAL DAILY. ATORVASTATIN (LIPITOR) 80 MG TAB 80 MILLIGRAM ORAL BEDTIME. INSULIN DETEMIR (LEVEMIR FlexTouch (15mL)) 100 U NIT/ML (3 ML) PEN.INJCTR 40 UNITS SUBCUTANEOUS DAILY. Start taking the following new medications: ACETAMINOPHEN/CODEINE (TYLENOL WITH CODEINE #4 3 00/60 MG) 300 MG-60 MG TAB 1 UD TABLET ORAL EVERY 4 HOURS NEEDED. as ne eded for PAIN Qty = 40 No Refills Discharge Instructions Discharge Instructions Additional Discharge Routines: Attending Follow- Up Electronically Signed by Andreia Saleem MD on 07/29 at 0719 RPT #:[id number] END OF REPORT 2020-07-26 11:31:00-00:00 [facility] ([facility]) Operative Note REPORT#:[id number] REPORT STATUS: Signed DATE:07/26/20 TIME: 1131 PATIENT: ZANDER MULLER UNIT #: [id number] ROOM/BED: 992 : 41 AGE: 79 SEX: M ATTEND: Andreia Saleem MD ADM AUTHOR: Andreia Saleem MD * ALL edits or amendments must be made on the el [employer]/computer document * Operative Report Operative Note Note: NAME: Zander Muller : 1940 OPERATION DATE: 07/26/2020 PREOPERATIVE DIAGNOSIS: 1. 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 2. L4-5 critical lumbar spinal stenosis with juan rogenic claudication and radiculopathy. 3. Left Foot Drop POSTOPERATIVE DIAGNOSIS: 1. 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 2. L4-5 critical lumbar spinal stenosis with juan rogenic claudication and radiculopathy. 3. Left Foot Drop PROCEDURE: 1. L3-4 laminectomy with bilateral foraminotomie s 2. L4-5 laminectomy with bilateral foraminotomie s 3. Left L4-5 diskectomy ANESTHESIA: General endotracheal tube anesthesia. ESTIMATED BLOOD LOSS: 10 mL. COMPLICATIONS: None. SPECIMENS: None. PREOPERATIVE ANTIBIOTICS: Cefazolin intravenously. ASSESSMENT CLINICIAN: EZEQUIEL Hairston HISTORY: Zander is a 79 year old male with critical lumba r spinal stenosis with neurogenic claudication, radiculopathy, and a le ft lower extremity foot drop with associated muslcle atrophy, suffering from debilitating symptoms. He was recently hospitalized secondary to these symptom s and imaging demonstrated critical lumbar stenosis. Based on the a dimitrios, the longer standing symptoms and the urgent nature of the pathology surgi donna intervention was recommended. This was reviewed in detail with Zander and h is daughter pre-operatively in clinic. He understands the risks inherent to the procedu re including risks such as infection, wound healing pro blems, need for IV antibiotics or return to the OR, pars fracture/instability, recurrent stenosis, c ontinued symptoms, nerve root injury, spinal fluid leak/dural tear, dv t/pe, heart attack, stroke and .. Informed consent was obtained and placed in the chart in written form. DESCRIPTION OF PROCEDURE: Zander was taken to the operating room w here a time-out was performed. General endotracheal anesthesia was induced. Intravenous antibiotics were administered. He was positioned prone on the operative table w ith all pressure points appropriately padded. The back was prepped and d raped in the usual sterile fashion. A final time-out was performed. An inci jhonatan was then made with a #10 blade through skin and subcutaneous tissues, in the midline centered over the operative levels, followed b y Bovie electrocautery down to the fascia, splitting the fascia over the spinous processes and dissec ting down onto the lamina. A Kobi clamp was then placed on the spinous proc ess and a penfield underneath the lamina to confirm the ap propriate operative level. The exposure was extended to fully expose the L3 and L4 lamina, as well as the cephalad aspect of the L5 lamina. Deep self-retaining retractors were plac ed. The inferior one-half of the L3 and all of the L4 spinous process was the n resected. The decompression began at the L4-5 level, usi ng the high-speed bur to thin the L4 lamina and then undercutting the L4 lamina with a Kerris on punch rongeur, working cephalad and performing an L4 laminectomy . Attention was then turned towards the next level, L3, again using a bur to thi n the lamina and then undercut the L3 lamina with a Kerrison punch rongeur, working cephalad and per forming a laminectomy at this level. Attention was now turned back caudal to perform a limited laminectomy of the cephalad aspect of the L5 la endy, enough to release ligamentum flavum, and then worked out into the lateral recess. The lateral recesses were decompressed bilaterally at all levels, L3-4 and L4-5, then t he bilateral foramina were decompressed with a small Ke rrison punch rongeur, again at all levels, L3-4 and L4-5. The thecal sac and neural elements were now well decompressed however at L4-5 there was an obvious large ventral disk bul ge. Given the dense motor weakness the decision was gurvinder adams to proceed with a left sided diskectomy at L4-5. The traversing nerve root wa s gently mobilized medially. A small annulotomy was created in the L4-5 disk with the penfield 4. A pituitary ronguer was then utilized to remove disk fragments, sever al small disk fragments were retrieved in this fashion. A nerve hook was used to explor e the disk space and further release any loose fragments. No further free dis k fragment was then seen. At this point no further neural compressive pathology was appreciated at this level /area. Hemostasis was inspected and determined to be ap propriate, copious irrigation with the sterile saline was performed. Then a layered closure over a subfascial drain with #1 Vicryl suture in the deep fascia followed by 2-0 Vicryl suture in the subc utaneous layer, followed by running 3-0 subcuticular monocryl suture and Neil ri-Strips on the skin was performed. A sterile dressing was applied. Zander was then transferred to the supine position, awakened and extubated, and transferred to the [facility] and taken to the posta nesthesia care unit in good condition. He tolerated the procedure well, and there were no complications. Jad Morse, was medically necessary throughou t the procedure to provide suction and retraction such that the surgery cou ld safely be performed. POSTOPERATIVE PLAN: DVT prophylaxis with mechanical measures and ear ly mobilization. Routine james-operative antibiotics. Mobilize as tolerated. No bending, no lifting more than 10 pounds, no t wisting. Andreia Saleem MD Electronically Signed by Andreia Saleem MD on 07/26 at 1143 RPT #:[id number] END OF REPORT 2020-07-26 11:30:00-00:00 [facility]) Ortho / Spine Progress Note REPORT#:[id number] REPORT STATUS: Signed DATE:07/26/20 TIME: 1130 PATIENT: ZANDER MULLER UNIT #: [id number] ROOM/BED: [place] [address] : 41 AGE: 79 SEX: M ATTEND: Andreia Saleem MD ADM AUTHOR: Andreia Saleem MD * ALL edits or amendments must be made on the el [employer]/computer document * Diagnosis, Assessment Plan Free Text A P: Ortho Spine Progress Note Dx: Critical stenosis L3-4, L4-5 with Left Leg F oot Drop and Atrophy Surgery: 07/26/2020 - L3-4, L 4-5 lumbar laminectomy with bilateral foraminotomies and left sided L4-5 diskectomy Subjective: Doing well, no new leg symptoms. Back pain contr olled Objective: General: AAO, NAD Respiratory: Normal work of breathing on nasal c annula Dressings: deferred Drain: sanguinous output Neuro: Strength: Right Left Iliopsoas 5/5 5/5 Quad 5/5 5/5 Hamstring 5/5 5/5 Tib Ant 5/5 0/5 Gastrocsoleus 5/5 5/5 EHL 5/5 0/5 FHL 5/5 5/5 Sensation: Reporting sensation intact t o light touch throughout bilateral lower extremities Assessment: Zander is a 79 yo male with critical lumbar stenosis and a left sided footdrop now POD 0 sp L3-4, L4-5 Laminecto my and left sided diskectomy Plan: 1. No bending, no lifting > 10 lbs, no twisting. 2. Ambulate as tolerated. 3. Pain control: as written 4. Advance diet as tolerated. 5. Pre-existing multifactorial urinary r etention, plan to leave skinner in until tomorrow AM 5. DVT Prophy: ambulation and SCDs. 6. Dispo: PT OT OOB, Skinner out tomorrow, drain r emoval pending output, possible DC home tomorrow if otherwise doing wel l and pain controlled Andreia Saleem MD Electronically Signed by Andreia Saleem MD on 07/26 at 1224 RPT #:[id number] END OF REPORT 2020-07-26 10:31:00-00:00 [facility] ([facility]) Brief Op Note REPORT#:[id number] REPORT STATUS: Signed DATE:07/26/20 TIME: 1031 PATIENT: ZANDER MULLER UNIT #: [id number] ROOM/BED: 998-2 : 41 AGE: 79 SEX: M ATTEND: Andreia Saleem MD ADM AUTHOR: Andreia Saleem MD * ALL edits or amendments must be made on the el [employer]/computer document * Op/Inv Proc Note - Brief Pre-procedure diagnosis: 1. Lumbar Spinal Stenosis at L3-4, L4-5 with Lef t Side Foot Drop Post-procedure diagnosis: same as pre procedure dx Procedures performed: 1. L3-4 Laminectomy with Bilateral Foraminotomie s 2. L4-5 Laminectomy with Bilateral Foraminotomie s 3. Left L4-5 Diskectomy Primary Surgeon: Andreia Saleem MD Multi Skilled Operator(s): EZEQUIEL Hairston Findings: See Operative Dictation Complications: none Estimated blood loss in ml's: 10 mL Specimens removed/altered: none Drain(s): 1 subfascial hemovac Electronically Signed by Andreia Saleem MD on 07/26 at 1033 RPT #:[id number] END OF REPORT
--- NOTE | 2022-10-13 12:05 | RAD REPORT ---
EXAM DESCRIPTION: [facility] Pa And Lat (2 Views)10/13/2022 11:50 am CLINICAL HISTORY: COUGH COMPARISON: Chest Pa And Lat (2 Views) dated 10/20/2021; Chest Pa And Lat (2 Views) dated 05/22/2020; Ch est Single View dated 10/12/2017; CHEST PA AND LAT 2 VIEW dated 11/01/2013 TECHNIQUE: PA and lateral views of the chest. FINDINGS: The lungs are clear. Elevation of the right hemidiaphragm again noted. No pneumothorax or effusion. The cardiomediastinal contours are unremarkable. IMPRESSION: No acute cardiopulmonary process.
--- NOTE | 2022-10-13 12:27 | RAD REPORT ---
EXAM DESCRIPTION: CT - C Spine Wo Con - 10/13/2022 11:59 am CLINICAL HISTORY: Throat closing. Difficulty breathing COMPARISON: None. TECHNIQUE: Axial 2 mm thick images of the cervical spine were obtained with sagittal and coronal rec onstruction images generated and reviewed. All CT scans are performed using dose optimization technique as appropriate and may include automated exposure control or mA/KV adjustment according to patient size. FINDINGS: Cervical body height and alignment are normal. No multilevel endplate and facet remodeling , with up to moderate disc height loss at C3-4 and C6-7. Mild anterior endplate osteophytes, most pro nounced opposite C6-7. No fracture or acute bony abnormality. No paraspinal mass or hematoma. Calcification along the posterior longitudinal ligament opposite C3-4. This contributes to moderate c entral canal stenosis. Variable degrees of neural foraminal narrowing, up to moderate bilaterally at C5-6, more so on the right. Moderate mucosal thickening in the right maxillary sinus. Is could be related to odontogenic causes, given numerous periapical collections along the remnant roots of the right maxillary alveolar dentiti on. Mild centrilobular emphysematous changes. IMPRESSION: Degenerative changes with mild anterior endplate osteophytes most pronounced opposite C6 -7, which could relate to the patient's symptoms. Other multilevel degenerative changes as above. No other acute abnormalities.
[2022-10-13 13:03] LABS: SARS-CoV-2 Antigen Rapid Res Negative (Negative)
--- NOTE | 2022-10-13 14:06 | EDPHYS ---
Physician Documentation [facility] Name: Suresh Conley Age: 81 yrs Sex: Male : 1940 Arrival Date: 10/13/2022 Time: 10:39 Bed DIS1 Private MD: Roberto Samuels C ED Physician Gustavo Kirby HPI: 10/13 11:40 This 81 yrs old Black Male presents to ER via Unassigned with complaints of Breathing bs3 Difficulty, Sore Throat. 11:40 81-year-old male history of hypertension diabetes hyperlipidemia presents with several bs3 episodes of the feeling like he cannot breathe he feels like it is his throat and he feels like the flap is stuck his symptoms last approximately 1 minute and then seem to resolve he notes a similar episode several months ago for which he talk to his primary care doctor but never followed up he currently denies any symptoms she denies any fevers chills chest pain shortness of breath or anything else bothering him he notes that he did get sweaty during the episode. 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 Exam: 11:42 Constitutional: This is a well developed, well nourished patient who is awake, alert, bs3 and in no acute distress. Head/Face: Normocephalic, atraumatic. Eyes: Pupils equal round and reactive to light, extra-ocular motions intact. Lids and lashes normal. ENT: mmm, no posterior phyarngeal erythema Neck: Trachea midline, no thyromegaly, no neck stiffness Chest/axilla: Normal chest wall appearance and motion. Nontender with no deformity. No lesions are appreciated. Cardiovascular: Regular rate and rhythm with a normal S1 and S2. symmetric pulses in upper extremities Respiratory: Lungs have equal breath sounds bilaterally, clear to auscultation, no respiratory distress MS/ Extremity: Pulses equal, no cyanosis. Neurovascular intact. Full, normal range of motion. Neuro: Awake and alert, GCS 15, oriented to person, place, time, and situation. Cranial nerves II-XII grossly intact. Motor strength 5/5 in all extremities. Sensory grossly intact. Psych: Awake, alert, with orientation to person, place and time. Behavior, mood, and affect are within normal limits. Vital Signs: 12:19 BP 160 / 91; Pulse 64; Resp 16; Temp 98.5; Pulse Ox 100% on R/A; Weight 77.11 kg; hb Height 5 ft. 9 in. ; Pain 0/10; 12:19 Body Mass Index 25.10 (77.11 kg, 175.26 cm) hb 12:19 Pain Scale: Adult hb MDM: 11:27 Patient medically screened. bs3 11:42 Differential diagnosis: Anxiety Reaction Psychogenic reactive airway disease, bs3 laryngospasm. Data reviewed: vital signs, nurses notes. 14:04 ED course: Work-up nondiagnostic while he has an abnormal CT of his C-spine I do not bs3 think this explains his symptoms advise follow-up with ENT I discussed the case with Dr. Samuels who agrees with the plan. 10/13 11:28 Order name: Influenza Screen (a \T\ B); Complete Time: 14:03 bs3 10/13 11:28 Order name: SARS-COV-2 Antigen Rapid; Complete Time: 14:03 bs3 10/13 11:28 Order name: Strep bs3 10/13 12:45 Order name: Throat Culture EDMS 10/13 11:28 Order name: XRAY Chest Pa And Lat (2 Views); Complete Time: 12:39 bs3 10/13 11:40 Order name: CT C Spine; Complete Time: 12:39 bs3 10/13 11:41 Order name: EKG - Nurse/Tech; Complete Time: 14:14 bs3 Administered Medications: No medications were administered Disposition Summary: 10/13/22 14:06 Discharge Ordered Location: Home bs3 Problem: new bs3 Symptoms: have improved bs3 Condition: Stable bs3 Diagnosis - Laryngeal spasm bs3 Followup: bs3 - With: Roberto Samuels MD - When: 24 Hours - Reason: Re-evaluation by your physician Discharge Instructions: - Discharge Summary Sheet bs3 - Hyperfunctional Voice Disorders bs3 Forms: - Medication Reconciliation Form bs3 - Thank You Letter bs3 - Antibiotic Education bs3 - Prescription Opioid Use bs3 Prescriptions: - Prednisone 20 mg Oral Tablet - take 2 tablets by ORAL route once daily for 5 days; 10 tablet; Refills: 0, bs3 Product Selection Permitted Signatures: Dispatcher [employer] Bere Millard, WISAM RN Gustavo Lin MD MD bs3
--- NOTE | 2022-10-13 14:06 | ER ---
Nurse's Notes [facility] Name: Suresh Conley Age: 81 yrs Sex: Male : 1940 Arrival Date: 10/13/2022 Time: 10:39 Bed DIS1 Private MD: Roberto Samuels C Diagnosis: Laryngeal spasm Presentation: 10/13 12:19 Chief complaint: Difficulty swallowing and brief choking sensation x 1 week. hb Coronavirus screen: At this time, the client does not indicate any symptoms associated with coronavirus-19. Ebola Screen: No symptoms or risks identified at this time. 12:19 Method Of Arrival: Ambulatory hb 12:21 Risk Assessment: Do you want to hurt yourself or someone else? Patient reports no hb desire to harm self or others. 12:21 Acuity: TIERA 3 hb Historical: - Allergies: 12:21 No Known Allergies; hb - PMHx: 12:21 Diabetes - IDDM; Hypertension; hb Vital Signs: 12:19 BP 160 / 91; Pulse 64; Resp 16; Temp 98.5; Pulse Ox 100% on R/A; Weight 77.11 kg; hb Height 5 ft. 9 in. ; Pain 0/10; 12:19 Body Mass Index 25.10 (77.11 kg, 175.26 cm) hb 12:19 Pain Scale: Adult hb ED Course: 10:40 Patient arrived in ED. am2 10:40 Roberto Samuels MD is Private Physician. am2 11:27 Gustavo Kirby MD is Attending Physician. bs3 11:37 Patient's name was called from ER [employer]. No response. hb 11:52 XRAY Chest Pa And Lat (2 Views) In Process Unspecified. EDMS 12:00 CT C Spine In Process Unspecified. EDMS 12:00 Gustavo Kirby MD is Attending Physician. hb 12:00 Patient's name was called from ER [employer]. Unable to locate patient. Will disposition as hb left without being seen by a provider. 12:21 Triage completed. hb 14:05 Roberto Samuels MD is Referral Physician. bs3 Administered Medications: No medications were administered Outcome: 14:06 Discharge ordered by MD. bs3 14:22 Patient left the ED. iw Signatures: Dispatcher [employer] EDWA Lara Jackson RN RN iw Bere Nguyen RN RN Mitzi Muñoz am2 Gustavo Kirby MD MD bs3
[2022-10-13 14:28] VITALS: BP 160/91; TEMP 98.5; O2SAT 100
--- NOTE | 2022-10-14 14:37 | EKG ---
Test Date: 2022-10-13 Test Time: 14:12:52 [employer]: KUSUM MEASUREMENT RESULTS: Intervals: Rate: 63 NE: 178 QRSD: 96 QT: 406 QTc: 415 [place]: P: 47 NE: 178 QRS: -48 T: 51 INTERPRETIVE STATEMENTS: Normal sinus rhythm Left axis deviation Septal infarct, age undetermined Abnormal ECG Compared to ECG 01/31/2001 11:37:00 Left-axis deviation now present Myocardial infarct finding now present Sinus bradycardia no longer present Electronically Signed On 10-14-22 14:36:41 CDT by Panfilo Kent
== END 2022-10-13 14:22 | disposition home or self-care (01) ==
LOC: ER 10:39
DX: J38.5 Laryngeal spasm (principal); Z20.822 Contact with and (suspected) exposure to COVID-19; E11.9 Type 2 diabetes mellitus without complications; I10 Essential (primary) hypertension
CPT/HCPCS: 36415; 71046; 72125; 87070; 87081; 87804; 87811; 93005; 99282

== ENCOUNTER 2024-05-01 12:55 | Emergency (ER) | payer OTHER ==
--- OUTSIDE RECORDS SUMMARY | 2024-05-01 12:59 | XMS REPORT | Continuity of Care Document ---
Author Name Unknown Address [address] [facility] [address] [place] [address] [facility] thconnect Address [address] [facility] [address] [place] [address] Care Team Providers Care Advisory Software Engineer Name Role Phone MARJORIE ARREDONDO Primary Care Physician Unavailab Andreia Lance Attending Clinician Unavailable Zakia Givens Cardiology Attending Clinician Unavailable JUAN BRYANT Attending Clinician Unavailable Lab, Adc Fam Pob I Attending Clinician Unavailab Jessica Carreno Attending Clinician [phone] JESSICA LUU Attending Clinician Unavailable System, Amb Referring Provider Not In Attending Clinician Unavailable Pob1, Acute Care Clinic Attending Clinician Unav Remedios Paredes Attending Clinician [phone] Doctor Unassigned, [place] Attending Clinician Ryann Goel MD Attending Clinician [phone] RYANN GARCIA Attending Clinician UnavailAndreia Santamaria Admitting Clinician Unavailable Zakia Givens Admitting Clinician Unavailable UNDEFINED Admitting Clinician Unavailable Payers Payer Name Policy Type Policy Number Effective Date Expirati on Date Source [employer] MEDICARE GOLD [id number] 2019 00:00:00 Problems Condition Name Condition Details Condition Category Status Onset Date Resolution Date Last Treatment Date Treating Clinician Comments Source Sore throat Sore throat Disease Active 8 00:00: 00 [facility] Pain in joint of left knee Pain in joint of left knee Problem Active [facility] Left sided sciatica Left sided sciatica Problem Active [facility] Infection following a procedure, subsequent encounter Infection following a procedure, subsequent encounter Problem Active [facility] 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 following joint replacemen t surgery Problem Active [facility] 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 left artificial knee joint Problem Active [facility] Iliotibial band syndrome of right side Iliotibial band syndrome of right side Diagnosis Active [facility] Diabetic polyneurop athy associated with diabetes mellitus due to underlying condition Diabetic polyneurop athy associated with diabetes mellitus due to underlying condition Problem Active [facility] Primary osteoarthr itis of right knee Primary osteoarthr itis of right knee Problem Active [facility] Pain in joint of right knee Pain in joint of right knee Diagnosis Active [facility] Allergies, Adverse Reactions, Alerts Allergy Name Allergy Type Status Severity Reaction(s) Onset Date Inactive Date Treating Clinician Comments Source No Known Allergie s DA Active U 4-08 00:00: 00 [facility] No Known Allergie s DA Active U 3-03 00:00: 00 [facility] No Known Allergie s DA Active U 3-03 00:00: 00 [facility] NO KNOWN ALLERGIE S Drug Class Active [facility] Social History Social Habit Start Date Stop Date Quantity Comments Source Sex Assigned At [facility] acute hospital Exposure to SARS-CoV-2 (event) Yes [facility] Tobacco use and exposure 2019-12-21 00:00:00 2019-12-21 00:00:00 Never used [facility] Smoking Status Start Date Stop Date Source Never smoker [facility] Medications Ordered Medication Name Filled Medication Name Start Date Stop Date Current Medication? Ordering Clinician Indication Dosage Frequency Signature (SIG) Comments Components Source hydroCHLORO thiazide 12.5 mg tablet 16 00:00: 00 Yes 12.5mg Take 12.5 mg by mouth every morning. [facility] NOVOFINE PLUS 32 gauge x 1/6" Ndle 11-21 00:00: 00 Yes USE DIRECTED EVERY DAY [facility] NOVOFINE PLUS 32 gauge x 1/6" Ndle 11-21 00:00: 00 Yes USE DIRECTED EVERY DAY [facility] LEVEMIR FLEXTOUCH U-100 INSULN 100 unit/mL (3 mL) injection 11-20 00:00: 00 Yes INJECT 25UNITS SUBCUTANEO USLY DAILY IN MORNING [facility] ONETOUCH ULTRA BLUE TEST STRIP strip 11-09 00:00: 00 Yes USE DIRECTED EVERY DAY [facility] atorvastati n 80 mg tablet 11-01 00:00: 00 Yes [facility] doxazosin 2 mg tablet 11-01 00:00: 00 Yes [facility] hydrALAZINE 10 mg tablet 11-01 00:00: 00 Yes [facility] metoprolol tartrate 25 mg tablet 11-01 00:00: 00 Yes [facility] clopidogreL 75 mg tablet 11-01 00:00: 00 Yes [facility] omeprazole 20 mg capsule 11-01 00:00: 00 Yes [facility] OMEPRAZOLE ORAL 05-24 20:54: 35 Yes None Entered [facility] PRAVASTATIN ORAL 08 20:54: 35 Yes None Entered [facility] PLAVIX ORAL 08 20:54: 35 Yes None Entered [facility] GABAPENTIN ORAL 05-24 20:54: 35 Yes None Entered [facility] CRESTOR ORAL 05-24 20:54: 35 Yes None Entered [facility] METFORMIN HCL ORAL 05-24 20:54: 35 Yes None Entered [facility] ASPIRIN 81 MG ORAL CHEW 05-24 20:54: 35 Yes None Entered [facility] GLIMEPIRIDE ORAL 05-24 20:54: 35 Yes None Entered [facility] diclofenac 75 mg EC tablet 05-24 00:00: 00 Yes [id number] 75mg Take 1 tablet by mouth 2 (two) times daily with meals. [facility] Gabapentin Gabapentin 11-25 00:00: 00 Yes Roberto Dobbs 1 capsule [facility] Doxazosin Mesylate Doxazosin Mesylate 11-25 00:00: 00 Yes Roberto Dobbs 1 tablet [facility] Aspirin 81 Aspirin 81 11-25 00:00: 00 Yes Roberto Dobbs 1 tablet [facility] Multi Complete Multi Complete 11-25 00:00: 00 Yes Roberto Dobbs as directed [facility] Vitamin B 12 Vitamin B 12 11-25 00:00: 00 Yes Roberto Dobbs as directed [facility] Clopidogrel Bisulfate Clopidogrel Bisulfate Yes Roberto Dobbs not defined [facility] Atorvastati n Calcium Atorvastati n Calcium Yes Roberto Dobbs not defined [facility] Metformin HCl Metformin HCl Yes Roberto Dobbs not defined [facility] Omeprazole Omeprazole Yes Roberto Dobbs not defined [facility] Metoprolol Tartrate Metoprolol Tartrate Yes Roberto Dobbs not defined [facility] Glimepiride Glimepiride Yes Derik Dobbs not defined [facility] Ciprofloxac in HCl Ciprofloxac in HCl Yes Roberto Dobbs not defined [facility] Amlodipine Besylate Amlodipine Besylate Yes Roberto Dobbs not defined [facility] Levemir FlexTouch Levemir FlexTouch Yes Roberto Dobbs not defined [facility] Omeprazole Omeprazole Yes Roberto Dobbs not defined [facility] HydrALAZINE HCl HydrALAZINE HCl Yes Roberto Dobbs not defined [facility] Diclofenac Sodium Diclofenac Sodium Yes Roberto Dobbs not defined [facility] Vital Signs Vital Name Observation Time Observation Value Comments S ource Systolic blood pressure 2019-12-21 16:28:00 132 mm[Hg] [facility] Diastolic blood pressure 2019-12-21 16:28:00 78 mm[Hg] [facility] Heart rate 2019-12-21 16:27:00 67 /min Unive [facility] Body temperature 2019-12-21 16:27:00 36.83 Laura [facility] Respiratory rate 2019-12-21 16:27:00 18 /min [facility] Body height 2019-12-21 16:27:00 175.3 cm [facility] Body weight 2019-12-21 16:27:00 83.915 kg [facility] BMI 2019-12-21 16:27:00 27.32 kg/m2 [facility] Oxygen saturation in Arterial blood by Pulse oximetry 2019-12-21 16:27:00 99 /min [facility] Systolic blood pressure 2019-12-21 16:28:00 132 mm[Hg] [facility] Diastolic blood pressure 2019-12-21 16:28:00 78 mm[Hg] [facility] Heart rate 2019-12-21 16:27:00 67 /min Unive [facility] Body temperature 2019-12-21 16:27:00 36.83 Laura [facility] Respiratory rate 2019-12-21 16:27:00 18 /min [facility] Body height 2019-12-21 16:27:00 175.3 cm [facility] Body weight 2019-12-21 16:27:00 83.915 kg [facility] BMI 2019-12-21 16:27:00 27.32 kg/m2 [facility] Oxygen saturation in Arterial blood by Pulse oximetry 2019-12-21 16:27:00 99 /min [facility] Procedures Procedure Date / Time Performed Performing Clinician Source [id number] 2020-07-26 00:00:00 [facility] [id number] 2020-07-26 00:00:00 [facility] AUTHORIZATION FOR RELEASE OF PHI 2019-08-16 05:01:00 Doctor Unassigned, [place] [facility] Encounters Start Date/Time End Date/Time Encounter Type Admission Type Attending Clinicians Care Facility Care Department Encounter ID Source 2020-07-17 16:45:32 Inpatient ANURADHA Andreia Saleem [facility] HCATO [id number] [facility] 2021-10-04 04:30:00 2021-10-04 04:30:00 Outpatient Zakia Bauer [facility]G [id number] [facility] 2021-10-04 04:30:00 2021-10-04 04:30:00 Outpatient Zakia Bauer [facility] H[facility]WU [id number] [facility] 2021-08-23 05:21:00 2021-08-23 05:21:00 Inpatient Zakia Bauer [facility] [id number] [facility] 2020-09-09 13:30:00 2020-09-09 13:30:00 Outpatient JUAN CONROY [facility] [id number] [facility] 2020-08-19 13:40:00 2020-08-19 13:40:00 Outpatient [facility] [id number] [facility] 2020-07-27 07:24:00 2020-07-27 07:24:00 Outpatient Andreia Saleem [facility] REFE [id number] [facility] 2020-07-27 07:23:00 2020-07-27 07:23:00 Outpatient Andreia Saleem [facility]CAWH SIST [id number] [facility] 2020-07-17 20:12:00 2020-07-17 20:12:00 Outpatient Andreia Saleem HCACL LABO [id number] [facility] 2020-07-17 00:00:00 2020-07-17 00:00:00 Outpatient Andreia Burris HCATO 3DAY [id number] [facility] 2020-03-21 13:11:08 2020-03-21 13:31:08 Laboratory Only Lab, Adc Fam Pob I [facility] [address] 1..114 [id number] [id number] [id number] [facility] 2020-03-21 13:11:08 2020-03-21 13:31:08 Laboratory Only Lab, [facility] Fam Pob I [facility] [address] 1..114 350.1.13.10 [id number] [id number] 2020-03-21 13:20:00 2020-03-21 13:20:00 Outpatient JESSICA NIELSEN [facility] [id number] [facility] 2019-12-26 00:00:00 2019-12-26 00:00:00 Telephone System, Amb Referring Provider Not In [facility] 1.0.114 [id number] [id number] [id number] [facility] 2019-12-26 00:00:00 2019-12-26 00:00:00 Telephone System, Amb Referring Provider Not In [facility] [id number] [id number] [id number] [id number] 2019-12-21 11:17:47 2019-12-21 12:49:21 Urgent Care Pob1, Acute Care Clinic [facility] [address] ..114 350.1.13.10 [id number] [id number] [facility] 2019-12-21 11:17:47 2019-12-21 12:49:21 Urgent Care Pob1, Acute Care Clinic [facility] [address] [id number] [id number] [id number] 2019-12-21 11:40:00 2019-12-21 11:40:00 Outpatient R [facility] [id number] [facility] 2019-08-16 09:30:00 2019-08-16 09:30:00 Outpatient [facility] [id number] [facility] 2019-08-16 00:00:00 2019-08-16 00:00:00 Orders Only Doctor Unassigned, [place] [facility] 1.2.114 350.1.13.10 4.2.7.2.686 [id number] [facility] 2019-08-16 00:00:00 2019-08-16 00:00:00 Orders Only Doctor Unassigned, [place] [facility] [id number] 350.1.13.10 4.2.7.2.686 [id number] 2019-07-16 00:00:00 2019-07-16 00:00:00 Ryann Barry [facility] [id number] 350.1.13.10 4.2.7.2.686 [id number] [facility] 2019-07-16 00:00:00 2019-07-16 00:00:00 Ryann Barry [facility] [id number] 350.1.13.10 4.2.7.2.686 [id number] 2019-05-24 14:57:40 2019-05-24 23:59:00 Outpatient RYANN STOKES [facility] [id number] [facility] 2019-03-23 10:30:00 2019-03-23 10:30:00 Outpatient [facility] [id number] [facility] 2018-11-25 09:30:00 2018-11-25 09:30:00 Outpatient [facility] [id number] [facility] Results Test Description Test Time Test Comments Results Result Co mments Source BASIC METABOLIC [id number] 05:20:00* Test Item Value Reference Range Interpretation Comme nts SODIUM (test code = NA) 139 MMOL/L 137-145 N POTASSIUM (test code = K) 3.6 MMOL/L 3.5-5.1 N CHLORIDE (test code = CL) 105 MMOL/L 98-107 N CARBON DIOXIDE (test code = CO2) 24 MMOL/L 22-30 N ANION GAP (test code = GAP) 14 MMOL/L 14-24 N GLUCOSE (test code = GLU) 123 MG/DL 74-106 H BLOOD UREA NITROGEN (test code = BUN) 17 MG/DL 9-20 N GLOMERULAR FILTRATION RATE (test code = GFR) > 60 Reporting units: ml/min/1.73 m2 (Modified MDRD Formula)Reference Range: > or = 60 ml/min/1.73 m2 CREATININE (test code = CREAT) 1.10 MG/DL 0.66-1.25 N CALCIUM (test code = CA) 9.1 MG/DL 8.4-10.2 N LIPID PROFILE (CORONARY RISK)2021-10-04 05:20:00* Test Item Value Reference Range Interpretation Comme nts TRIGLYCERIDES (test code = TRIG) 94 MG/DL 150-199 L TRIGLYCERIDES REFERENCE RANGE:Normal: <150 mg/dLBorderline High: 150-199 mg/dLHigh: 200-499 mg/dLVery High: >=500 mg/dL CHOLESTEROL (test code = CHOL) 166 MG/DL <200 HDL CHOLESTEROL (test code = HDL) 48 MG/DL 40-59 N LIPOPROTEIN LDL (test code = LDL) 80 MG/DL 0-99 N OPTIMAL......... <100 mg/dLNEAR OPTIMAL/ABOVE OPTIMAL.........100-12 9 mg/dL BORDERLINE HIGH.........130-159 mg/dL HIGH.........160-189 mg/dL VERY HIGH.........>/= 190 mg/dL [id number] 05:20:00* Test Item Value Reference Range Interpretation [facility] MAGNESIUM (test code = MAG) 1.8 MG/DL 1.6-2.3 N PROTHROMBIN [id number] 05:12:00* Test Item Value Reference Range Interpretation [facility] PROTHROMBIN TIME PATIENT (test code = PTP) 10.5 SECONDS 9.4-12.7 N INTERNATIONAL NORMAL RATIO (test code = INR) 0.9 0.86-1.14 N The INR is to be used only for monitoring oral anticoagulanttherap y. INDICATION INR VALUE -------1. Prophylaxis, deep venous thrombosis, including high risk surgery. 2.0 - 3.0 2. Prophylaxis, deep venous thrombosis, hip surgery, treatment for deep venous thrombosis or pulmonary prevention of systemic embolism in patients with valvular heart disease, atrial fibrillation, tissue heart valve, or acute myocardial infarction. 2.0 - 3.0 3. Mechanical prosthesis heart valves, recurrent systemic embolism. 3.0 - 4.5 PTT [id number] 05:12:00* Test Item Value Reference Range Interpretation [facility] PTT ACTIVATED (test code = APTT) 33.1 SECONDS 26.2-35.4 COVID 19 Asymptomatic IH [id number] 05:05:00* Test Item Value Reference Range Interpretation [facility] COVID 19 Asymptomatic IH AG (test code = COVNONPUIAG) NEGATIVE Negative "Negative result s from patients with symptom onset beyondfive days, should be treated as presumptive, andconfirmation with a molecular assay, if necessary forpatient management may be performed. Negative results do notrule out COVID-19 and should not be used as the sole basisfor treatment or patient management decisions, includinginfection control decisions. Negative results should beconsidered in the context of a patients recent exposures,history, and the presence of clinical signs and symptomsconsistent with COVID-19.This test detects both viable andnon-viable SARS-CoV and SARS CoV-2.Test performance dependson the amount of virus (antigen) in the sample." CBC W/AUTO [id number] 04:57:00* Test Item Value Reference Range Interpretation Comme nts WHITE BLOOD CELL (test code = WBC) 5.9 K/MM3 3.8-9.8 N RED BLOOD CELL (test code = RBC) 4.73 M/MM3 3.95-5.67 N HEMOGLOBIN (test code = HGB) 12.3 G/DL 12.4-16.7 L HEMATOCRIT (test code = HCT) 38.6 % 35.9-49.5 N MEAN CELL VOLUME (test code = MCV) 82 fL 81.7-96.1 N MEAN CELL HGB (test code = MCH) 26.0 pg 27.6-33.2 L MEAN CELL HGB CONCETRATION (test code = MCHC) 31.9 % 32.9-35.5 L RED CELL DISTRIBUTION WIDTH (test code = RDW) 16.7 % 12.1-15.2 H PLATELET COUNT (test code = PLT) 229 K/MM3 129-368 N MEAN PLATELET VOLUME (test c ode = MPV) 9.3 fl 7.4-10.4 N NEUTROPHIL % (test code = NT%) 60.7 % 43-75 N IMMATURE GRANULOCYTE % (test code = IG%) 0.2 % 0.0-2.0 N LYMPHOCYTE % (test code = LY%) 28.5 % 14-44 N MONOCYTE % (test code = MO%) 7.4 % 4-13 N EOSINOPHIL % (test code = EO%) 2.9 % 0-6 N BASOPHIL % (test code = BA%) 0.3 % 0-2 N NUCLEATED RBC % (test code = NRBC%) 0.0 % 0-1.0 N NEUTROPHIL # (test code = NT#) 3.59 K/mm3 2.0-7.6 N IMMATURE GRANULOCYTE # (test code = IG#) 0.01 x10 3/uL 0-0.03 N LYMPHOCYTE # (test code = LY#) 1.69 K/mm3 1.0-3.8 N MONOCYTE # (test code = MO#) 0.44 K/mm3 0.1-0.8 N EOSINOPHIL # (test code = EO#) 0.17 K/mm3 0.0-0.2 N BASOPHIL # (test code = BA#) 0.02 K/mm3 0.0-0.2 N NUCLEATED RBC # (test code = NRBC#) 0.00 K/mm3 0.0-0.1 N [id number] 11:57:00* Test Item Value Reference Range Interpretation Comme nts ACT-ISTAT (test code = ACTI) 237 SEC 74-137 H [id number] 08:13:00* Test Item Value Reference Range Interpretation Comme nts MAGNESIUM (test code = MAG) 1.9 MG/DL 1.6-2.3 N BASIC METABOLIC [id number] 08:13:00* Test Item Value Reference Range Interpretation Comme nts SODIUM (test code = NA) 139 MMOL/L 137-145 N POTASSIUM (test code = K) 4.1 MMOL/L 3.5-5.1 N CHLORIDE (test code = CL) 105 MMOL/L 98-107 N CARBON DIOXIDE (test code = CO2) 25 MMOL/L 22-30 N GLUCOSE (test code = GLU) 142 MG/DL 74-106 H BLOOD UREA NITROGEN (test code = BUN) 19 MG/DL 9-20 N GLOMERULAR FILTRATION RATE (test code = GFR) > 60 Reporting units: ml/min/1.73 m2 (Modified MDRD Formula)Reference Range: > or = 60 ml/min/1.73 m2 CREATININE (test code = CREAT) 1.00 MG/DL 0.66-1.25 N CALCIUM (test code = CA) 9.6 MG/DL 8.4-10.2 N LIPID PROFILE (CORONARY RISK)2021-08-23 08:13:00* Test Item Value Reference Range Interpretation Comme nts TRIGLYCERIDES (test code = TRIG) 138 MG/DL 150-199 L TRIGLYCERIDES REFERENCE RANGE:Normal: <150 mg/dLBorderline High: 150-199 mg/dLHigh: 200-499 mg/dLVery High: >=500 mg/dL CHOLESTEROL (test code = CHOL) 171 MG/DL <200 HDL CHOLESTEROL (test code = HDL) 49 MG/DL 40-59 N LIPOPROTEIN LDL (test code = LDL) 77 MG/DL 0-99 N OPTIMAL......... <100 mg/dLNEAR OPTIMAL/ABOVE OPTIMAL.........100-12 9 mg/dL BORDERLINE HIGH.........130-159 mg/dL HIGH.........160-189 mg/dL VERY HIGH.........>/= 190 mg/dL PROTHROMBIN [id number] 07:53:00* Test Item Value Reference Range Interpretation Comme nts PROTHROMBIN TIME PATIENT (test code = PTP) 10.4 SECONDS 9.4-12.7 N INTERNATIONAL NORMAL RATIO (test code = INR) 0.9 0.86-1.14 N The INR is to be used only for monitoring oral anticoagulanttherap y. INDICATION INR VALUE -------1. Prophylaxis, deep venous thrombosis, including high risk surgery. 2.0 - 3.0 2. Prophylaxis, deep venous thrombosis, hip surgery, treatment for deep venous thrombosis or pulmonary prevention of systemic embolism in patients with valvular heart disease, atrial fibrillation, tissue heart valve, or acute myocardial infarction. 2.0 - 3.0 3. Mechanical prosthesis heart valves, recurrent systemic embolism. 3.0 - 4.5 PTT [id number] 07:53:00* Test Item Value Reference Range Interpretation Comme nts PTT ACTIVATED (test code = APTT) 30.7 SECONDS 26.2-35.4 N CBC W/AUTO [id number] 07:45:00* Test Item Value Reference Range Interpretation Comme nts WHITE BLOOD CELL (test code = WBC) 6.2 K/MM3 3.8-9.8 N RED BLOOD CELL (test code = RBC) 4.72 M/MM3 3.95-5.67 N HEMOGLOBIN (test code = HGB) 11.8 G/DL 12.4-16.7 L HEMATOCRIT (test code = HCT) 37.4 % 35.9-49.5 N MEAN CELL VOLUME (test code = MCV) 79 fL 81.7-96.1 L MEAN CELL HGB (test code = MCH) 25.0 pg 27.6-33.2 L MEAN CELL HGB CONCETRATION (test code = MCHC) 31.6 % 32.9-35.5 L RED CELL DISTRIBUTION WIDTH (test code = RDW) 16.3 % 12.1-15.2 H PLATELET COUNT (test code = PLT) 295 K/MM3 129-368 N MEAN PLATELET VOLUME (test c ode = MPV) 9.2 fl 7.4-10.4 N NEUTROPHIL % (test code = NT%) 66.3 % 43-75 N IMMATURE GRANULOCYTE % (test code = IG%) 0.2 % 0.0-2.0 N LYMPHOCYTE % (test code = LY%) 24.7 % 14-44 N MONOCYTE % (test code = MO%) 5.7 % 4-13 N EOSINOPHIL % (test code = EO%) 2.6 % 0-6 N BASOPHIL % (test code = BA%) 0.5 % 0-2 N NUCLEATED RBC % (test code = NRBC%) 0.0 % 0-1.0 N NEUTROPHIL # (test code = NT#) 4.11 K/mm3 2.0-7.6 N IMMATURE GRANULOCYTE # (test code = IG#) 0.01 x10 3/uL 0-0.03 N LYMPHOCYTE # (test code = LY#) 1.53 K/mm3 1.0-3.8 N MONOCYTE # (test code = MO#) 0.35 K/mm3 0.1-0.8 N EOSINOPHIL # (test code = EO#) 0.16 K/mm3 0.0-0.2 N BASOPHIL # (test code = BA#) 0.03 K/mm3 0.0-0.2 N NUCLEATED RBC # (test code = NRBC#) 0.00 K/mm3 0.0-0.1 N COVID 19 Asymptomatic IH [id number] 05:42:00* Test Item Value Reference Range Interpretation Comme nts COVID 19 Asymptomatic IH AG (test code = COVNONPUIAG) NEGATIVE Negative "Negative result s from patients with symptom onset beyondfive days, should be treated as presumptive, andconfirmation with a molecular assay, if necessary forpatient management may be performed. Negative results do notrule out COVID-19 and should not be used as the sole basisfor treatment or patient management decisions, includinginfection control decisions. Negative results should beconsidered in the context of a patients recent exposures,history, and the presence of clinical signs and symptomsconsistent with COVID-19.This test detects both viable andnon-viable SARS-CoV and SARS CoV-2.Test performance dependson the amount of virus (antigen) in the sample." [id number] 13:15:00* Test Item Value Reference Range Interpretation Comme nts GLUBED (test code = GLUBED) 151 mg/dL 60-125 H [id number] 05:59:00* Test Item Value Reference Range Interpretation Comme nts GLUBED (test code = GLUBED) 104 mg/dL 60-125 N [id number] 21:06:00* Test Item Value Reference Range Interpretation Comme nts GLUBED (test code = GLUBED) 161 mg/dL 60-125 H [id number] 17:33:00* Test Item Value Reference Range Interpretation Comme nts GLUBED (test code = GLUBED) 151 mg/dL 60-125 H [id number] 11:35:00* Test Item Value Reference Range Interpretation Comme nts GLUBED (test code = GLUBED) 183 mg/dL 60-125 H GLYCOSYLATED HEMOGLOBIN (HA1C)2020-07-27 11:24:00* Test Item Value Reference Range Interpretation Comme nts GLYCOSYLATED HEMOGLOBIN (HA1C) (test code = GLYHGB) 8.0 % 4.8-5.9 H Any conditi on that shortens erythocyte survival or decreasesmean erythrocyte age (e.g., recovery from acute blood loss,hemolytic anemai) will falsely lower HGBA1c resultsregardless of the method used. HGBA1c results frompatients with HbSS, HbCC and HbSc must be interpreted withcaution given the pathological processes, including anemia,increased red cell turnover, transfusion requirements, thatadversely impact HGBA1c as a marker of long-term glycemiccontrol. Alternative forms of testing such as fructosamineshould be considered for these patients.Any condition that shortens erythocyte survival or decreasesmean erythrocyte age (e.g., recovery from acute blood loss,hemolytic anemia) will falsely lower HGBA1c resultsregardless of the method used. HGBA1c results from patientswith HbSS, HbCC, and HbSc must be interpreted with cautiongiven the pathological processes, including anemia,increased red cell turnover, transfusion requirements, thatadversely impact HGBA1c as a marker of long-term glycemiccontrol. Alternative forms of testing such as fructosamineshould be considered for these patients.DONE AT: [facility] [address] [place] [address] GLYCOSYLATED HEMOGLOBIN (HA1C)2020-07-27 11:23:00* Test Item Value Reference Range Interpretation Comme nts GLYCOSYLATED HEMOGLOBIN (HA1C) (test code = GLYHGB) 8.0 % 4.8-5.9 H Any conditi on that shortens erythocyte survival or decreasesmean erythrocyte age (e.g., recovery from acute blood loss,hemolytic anemia) will falsely lower HGBA1c resultsregardless of the method used. HGBA1c results from patientswith HbSS, HbCC, and HbSc must be interpreted with cautiongiven the pathological processes, including anemia,increased red cell turnover, transfusion requirements, thatadversely impact HGBA1c as a marker of long-term glycemiccontrol. Alternative forms of testing such as fructosamineshould be considered for these patients. B-TYPE NATRIURETIC [id number] 11:05:00* Test Item Value Reference Range Interpretation Comme [facility] B-TYPE NATRIURETIC PEPTIDE ( test code = BNP) 66.84 pg/mL 0-100 N B-TYPE NATRIURETIC [id number] 11:05:00* Test Item Value Reference Range Interpretation Comme nts B-TYPE NATRIURETIC PEPTIDE ( test code = BNP) 66.84 pg/mL 0-100 [id number] 09:17:00* Test Item Value Reference Range Interpretation Comme nts GLUBED (test code = GLUBED) 171 mg/dL 60-125 H BASIC METABOLIC [id number] 07:42:00* Test Item Value Reference Range Interpretation Comme nts SODIUM (test code = NA) 140 mmol/L 136-145 N POTASSIUM (test code = K) 4.2 mmol/L 3.5-5.1 N CHLORIDE (test code = CL) 103.0 mmol/L 98-107 N CARBON DIOXIDE (test code = CO2) 25.9 mmol/L 21-32 N GLUCOSE (test code = GLU) 81 mg/dL 70-110 N BLOOD UREA NITROGEN (test code = BUN) 15 mg/dL 7-18 N GLOMERULAR FILTRATION RATE (test code = GFR) 87.6 >60 Unit of m easure: mL/min/1.73 [id number] Range:Healthy Adults >90 mL/min/1.73 m2 For Chronic Kidney Disease: Stage II Mild Decrease in GFR 60-90 Stage III Moderate Decrease in GFR 30-59 Stage IV Severe Decrease in GFR 15-29 Stage V Kidney Failure <15 CREATININE (test code = CREAT) 1.00 mg/dL 0.55-1.30 N CALCIUM (test code = CA) 9.0 mg/dL 8.2-10.1 N HGB [id number] 07:27:00* Test Item Value Reference Range Interpretation Comme nts HEMOGLOBIN (test code = HGB) 11.3 g/dL 12-16 L HEMATOCRIT (test code = HCT) 34.5 % 37-47 L [id number] 05:44:00* Test Item Value Reference Range Interpretation Comme nts GLUBED (test code = GLUBED) 80 mg/dL 60-125 N [id number] 23:44:00* Test Item Value Reference Range Interpretation Comme nts GLUBED (test code = GLUBED) 197 mg/dL 60-125 H [id number] 20:47:00* Test Item Value Reference Range Interpretation Comme nts GLUBED (test code = GLUBED) 372 mg/dL 60-125 H [id number] 12:19:00* Test Item Value Reference Range Interpretation Comme nts GLUBED (test code = GLUBED) 185 mg/dL 60-125 H - XR SPINE 1 V SPEC [id number] 10:37:00 [facility] 1940 Sex: M Patient Name: ZANDER MULLER Unit No: [id number] EXAMS: CPT CODE: [id number] XR SPINE 1 V SPEC LEVEL 43210 2 LATERAL INTRAOPERATIVE VIEWS OF THE LUMBAR SPINE Image 1: Surgical marker is at the upper L3 level Image 2: Surgical instrumentation is at L3-L4. at 1037 Reported and signed by: Alexander Dior M.D. CC: Andreia Saleem MD Technologist: VAMSHI PATEL (RT.R) Transcribed D/ (1037) MariaelenaSLJ [facility] NAME: ZANDER MULLER [address] [place] [address] PHYS: Andreia Wellington MD : 1940 AGE: 79 SEX: M [place], [place] [address] LOC: Y.998 2 PHONE #: [phone] EXAM DATE: 07/26/2020 STATUS: ADM IN FAX #: [phone] RAD #: D/C DT PAGE 1 Signed Report Patient Name: ZANDER MULLER Unit No: [id number] EXAMS: CPT CODE: [id number] XR SPINE 1 V SPEC LEVEL 92769 (Continued) Orig Print D/T: S: 07/26/2020 (1040) [facility] NAME: ZANDER MULLER [address] [place] [address] PHYS: Mik WellingtonD : 1940 AGE: 79 SEX: M [place], [place] [address] LOC: Y.998 2 PHONE #: [phone] EXAM DATE: 07/26/2020 STATUS: ADM IN FAX #: [phone] RAD #: D/C DT PAGE 2 Signed Report- XR SPINE 1 V SPEC [id number] 10:37:00 [facility] 1940 Sex: M Patient Name: ZANDER MULLER Unit No: [id number] EXAMS: CPT CODE: [id number] XR SPINE 1 V SPEC LEVEL 39359 2 LATERAL INTRAOPERATIVE VIEWS OF THE LUMBAR SPINE Image 1: Surgical marker is at the upper L3 level Image 2: Surgical instrumentation is at L3-L4. at 1037 Reported and signed by: Alexander Dior M.D. CC: Andreia Saleem MD Technologist: VAMSHI PATEL (RT.R) Transcribed D/ (1037) MariaelenaSLJ [facility] NAME: ZANDER MULLER [address] [place] [address] PHYS: Andreia Wellington MD : 1940 AGE: 79 SEX: M [place], [place] [address] LOC: Y.998 2 PHONE #: [phone] EXAM DATE: 07/26/2020 STATUS: ADM IN FAX #: [phone] RAD #: D/C DT PAGE 1 Signed Report Patient Name: ZANDER MULLER Unit No: [id number] EXAMS: CPT CODE: [id number] XR SPINE 1 V SPEC LEVEL 22407 (Continued) Orig Print D/T: S: 07/26/2020 (1040) [facility] NAME: ZANDER MULLER [address] [place] [address] PHYS: Andreia Wellington MD : 1940 AGE: 79 SEX: M [place], [place] [address] LOC: Y.998 2 PHONE #: [phone] EXAM DATE: 07/26/2020 STATUS: ADM IN FAX #: [phone] RAD #: D/C DT PAGE 2 Signed [id number] 07:13:00* Test Item Value Reference Range Interpretation Comme nts GLUBED (test code = GLUBED) 152 mg/dL 60-125 H Novel Coronavirus 2018 [id number] 20:10:00* Test Item Value Reference Range Interpretation Comme nts Novel Coronavirus 2018 Inhouse (test code = COVNONPUI) Negative Negative Positive resul ts are indicative of the presence yfZIIL-QaH-4 RNA, clinical correlation with patient historyand other diagnostic information is necessary to determinepatient infection status. Positive results do not rule outbacterial infection or co-infection with other viruses. Negative results do not preclude SARS-CoV-2 infection andshould not be used as the sole basis for patient managementdecisions. Negative results must be combined with otherclinical observations, patient history, and epidemiologicalinformation . Detection of SARS-CoV-2 RNA may be affected bysample collection methods, storage conditions, and/or stageof infection. Viral RNA mutations, vaccinations, antiviraltherapeutics, antibiotics, chemotherapeutic orimmunosuppressant drugs have not been evaluated for effectson detection. Results are for the identification of SARS-CoV-2 RNA usingthe [employer] M2000 System under the FDA Emergency UseAuthorization. The testing is performed by personneltrained in the procedures for the [employer] M2000 moleculardiagnostic SARS-CoV-2 assay in vitro. Novel Coronavirus 2018 [id number] 20:09:00* Test Item Value Reference Range Interpretation Comme nts Novel Coronavirus 2019 Inhouse (test code = COVNONPUI) Negative Negative Positive resul ts are indicative of the presence brIODP-KeF-5 RNA, clinical correlation with patient historyand other diagnostic information is necessary to determinepatient infection status. Positive results do not rule outbacterial infection or co-infection with other viruses. Negative results do not preclude SARS-CoV-2 infection andshould not be used as the sole basis for patient managementdecisions. Negative results must be combined with otherclinical observations, patient history, and epidemiologicalinformation . Detection of SARS-CoV-2 RNA may be affected bysample collection methods, storage conditions, and/or stageof infection. Viral RNA mutations, vaccinations, antiviraltherapeutics, antibiotics, chemotherapeutic orimmunosuppressant drugs have not been evaluated for effectson detection. Results are for the identification of SARS-CoV-2 RNA usingthe [employer] M2000 System under the FDA Emergency UseAuthorization. The testing is performed by personneltrained in the procedures for the [employer] M2000 moleculardiagnostic SARS-CoV-2 assay in vitro. CBC W/AUTO [id number] 20:58:00* Test Item Value Reference Range Interpretation Comme nts WHITE BLOOD CELL (test code = WBC) [...] 27-34 L MEAN CELL HGB CONCENTRATION (test code = MCHC) 32.9 g/dL 30.8-34.1 N RED CELL DISTRIBUTION WIDTH (test code = RDW) 15.9 % 11-16 N PLT (test code = PLT) 358 K/mm3 130-400 N MEAN PLATELET VOLUME (test c ode = MPV) 10.1 fL 8.9-12.1 N NEUTROPHIL % (test code = NT%) 60.6 [...] K/mm3 0.02-0.10 N MANUAL DIFF REQUIRED (test c ode = MDIFF) NO MANUAL DIFF NUCLEATED RED BLOOD CELL (te st code = NRBC) 0 % 0-0 N BASIC METABOLIC [id number] 20:56:00* Test Item Value Reference Range Interpretation Comme nts SODIUM (test code = NA) 132 mmol/L 136-145 L POTASSIUM (test code = K) 4.3 mmol/L 3.5-5.1 N CHLORIDE (test code = CL) 98.0 mmol/L 98-107 N CARBON DIOXIDE (test code = CO2) 24.4 mmol/L 21-32 N GLUCOSE (test code = GLU) 111 mg/dL 70-110 H BLOOD UREA NITROGEN (test code = BUN) 20 mg/dL 7-18 H GLOMERULAR FILTRATION RATE (test code = GFR) 87.6 >60 Unit of m easure: mL/min/1.73 [id number] Range:Healthy Adults >90 mL/min/1.73 m2 For Chronic Kidney Disease: Stage II Mild Decrease in GFR 60-90 Stage III Moderate Decrease in GFR 30-59 Stage IV Severe Decrease in GFR 15-29 Stage V Kidney Failure <15 CREATININE (test code = CREAT) 1.00 mg/dL 0.55-1.30 N CALCIUM (test code = CA) 9.2 mg/dL 8.2-10.1 N PROTHROMBIN [id number] 20:52:00* Test Item Value Reference Range Interpretation Comme nts PROTHROMBIN TIME PATIENT (test code = PTP) 11.6 secs 10.1-12.5 N INTERNATIONAL NORMAL RATIO (test code = INR) 1.02 <2.0 RECOMMENDED THER APEUTIC RANGE FOR ORAL ANTICOAGULANTTREATMENT: CONDITION INRProphylaxis of venous thrombosis in 2.0 - 3.0 high-risk medical or surgical patientsTreatment of venous thrombosis 2.0 - 3.0Prevention of embolism 2.0 - 3.0Prevention of recurrent embolism, or 3.0 - 4.5 patients with mechanical prosthetic intravascular valves IS PATIENT ON ANTICOAGULANTS ? YLIST ANTICOAGULANT/ANTI PLT MEDICATION : Clopidogrel (Anti-PLT)HasLab been notified if Patient is on Heparin Drip? NO THROMBOPLASTIN TIME [id number] 20:52:00* Test Item Value Reference Range Interpretation Comme nts PTT ACTIVATED (test code = APTT) 30.5 secs 24.9-37.0 N IS PATIENT ON ANTICOAGULANTS ? YLIST ANTICOAGULANT/ANTI PLT MEDICATION : Clopidogrel (Anti-PLT)Has Lab been notified if Patient is on Heparin Drip? NO
[2024-05-01] MEDS ORDERED: NA CHLORIDE 0.9% 250 ML ONE (14:24)
[2024-05-01 14:55] LABS: PT Prothrombin Time 12.3 SECONDS (9.4-12.5); Protime INR 1.1
[2024-05-01 14:59] LABS: Absolute Basophils 0.1 K/uL (0-0.5); Absolute Eosinophils 0.1 K/uL (0-0.5); Absolute Lymphocytes (CBC) 1.5 K/uL (0.7-4.9); Absolute Monocytes 0.4 K/uL (0.1-1.3); Basophils % 0.9 % (0-1.3); Eosinophils % 1.9 % (0-4.4); Hematocrit 38.3 % (39.6-49.0); Hemoglobin 12.5 g/dL (13.6-17.9); MCH 26.9 pg (27.0-35.0); MCHC 32.7 g/dL (32.0-36.0); MCV 82.3 fL (80-100); MPV 8.3 fL (7.6-11.3); Monocytes % 6.9 % (3.3-12.3); Neutrophils % 66.3 % (41.7-73.7); Nucleated Red Blood Cells % 0.2 % (0-0); Platelets 238 thou/uL (152-406); RBC Red Blood Cell Count 4.66 M/uL (4.33-5.43); Red Cell Distribution Width 13.9 % (12.1-15.2)
[2024-05-01 15:12] LABS: Specific Gravity 1.018 (1.005-1.030); Sqamous Epithelial <5 /HPF (None Seen); Urine Bacteria None Seen /HPF (<20); Urine Bilirubin NEGATIVE (Negative); Urine Blood Negative (Negative); Urine Clarity Clear (Clear); Urine Color Light-Yellow (Yellow); Urine Culture Reflex Order NOT NEEDED; Urine Glucose 3+ (Negative); Urine Ketones NEGATIVE (Negative); Urine Microscopic Reflex YN ORDER UMIC; Urine Nitrite NEGATIVE (Negative); Urine Protein TRACE (Negative); Urine RBC <5 /HPF (None Seen); Urine Urobilinogen Normal (Normal); Urine WBC <5 /HPF (<5)
[2024-05-01 15:13] LABS: ALT/SGPT 24 U/L (16-61); AST/SGOT 26 U/L (15-37); Albumin 3.4 g/dL (3.4-5.0); Albumin/Globulin Ratio 0.8 (1.1-1.8); Alkaline Phosphatase 97 U/L (45-117); Anion Gap 8.4 mEq/L (5.0-15.0); BUN Blood Urea Nitrogen 21 mg/dL (7-18); Bicarbonate 27 mEq/L (21-32); Bilirubin Total 0.4 mg/dL (0.2-1.0); Globulin 4.4 g/dL (2.3-3.5); Glomerular Filtration Rate 76 ml/min (=/>90); Glucose Level 184 mg/dL (74-106); Lipase 46 U/L (13-75); Magnesium 1.9 mg/dL (1.6-2.4); NT PRO-BNP 129 pg/mL (<450); Potassium 4.4 mEq/L (3.5-5.1); Protein, Total 7.8 g/dL (6.4-8.2); Sodium Level 136 mEq/L (136-145); Troponin High Sensitivity 20.2 pg/mL (<58.9)
[2024-05-01 15:15] LABS: Bilirubin Direct < 0.2 mg/dL (0-0.2); Bilirubin Indirect, Calculated 0.2 mg/dL (0.2-0.8)
--- NOTE | 2024-05-01 15:18 | RAD REPORT ---
EXAMINATION: US Extrem Venous W Compress Gustavo CLINICAL INDICATION: [facility] MAIN Pain;Swelling Bed: N TECHNIQUE: Complete bilateral duplex sonography of the BILATERAL lower extremity veins was performed. The examination included compression for vein patency, color Doppler imaging and flow augmentation in response to distal compression of the distal external iliac, common femoral, femoral, popliteal, t ibial, and great and small saphenous veins. COMPARISON: No prior exam. FINDINGS: Duplex sonography testing of the veins of the BILATERAL lower extremity was performed. Color flow andra ging shows all veins to be compressible with [id number] color filling. Pulsatile and phasic flow is present within all lower extremity deep and superficial veins examined. IMPRESSION: There is no deep vein or superficial vein thrombosis.
--- NOTE | 2024-05-01 15:19 | RAD REPORT ---
EXAMINATION: ONE VIEW CHEST XR CLINICAL INDICATION: Male, 83 years old.,COUGH TECHNIQUE: Frontal chest projection is submitted. Examination is limited by patient positioning and t echnique. COMPARISON: 03/30/2024 FINDINGS: The lungs are hypoinflated and clear. No pneumothorax or sizable effusion. The heart is normal in si ze. Mediastinal contours are unchanged, with tortuosity of the thoracic aorta. IMPRESSION: No acute intrathoracic abnormalities.
--- NOTE | 2024-05-01 15:39 | EDPHYS ---
Physician Documentation [facility] Name: Suresh Conley Age: 83 yrs Sex: Male : 1940 Arrival Date: 05/01/2024 Time: 12:55 Bed 16 Private MD: ED Physician Guy Horne HPI: 05/01 14:44 This 83 yrs old Black Male presents to ER via Wheelchair with complaints of Leg Pain, barrett Leg Swelling. 14:44 The patient presents with decreased range of motion, LEFT PERONEAL NERVE , FOOT DROP. barrett The complaints affect the lateral aspect of left knee and left knee. Context: resulted from an unknown cause, the patient can fully bear weight. Onset: The symptoms/episode began/occurred 3 week(s) ago. Modifying factors: The symptoms are alleviated by remaining still, the symptoms are aggravated by movement. Associated signs and symptoms: The patient has no apparent associated signs or symptoms. Treatment prior to arrival includes: no previous treatment. Severity of symptoms: At their worst the symptoms were mild, moderate, in the emergency department the symptoms are unchanged. The patient has experienced similar episodes in the past, a few times. Historical: - Allergies: 13:36 No Known Allergies; cm10 - PMHx: 13:36 Diabetes - IDDM; Hypercholesterolemia; Hypertension; cm10 - Immunization history:: Adult Immunizations up to date. - Infectious Disease History:: Denies. - Social history:: Smoking status: Patient/guardian denies using tobacco. - Family history:: not pertinent. ROS: 14:44 Constitutional: Negative for fever, chills, and weight loss, Eyes: Negative for injury, barrett pain, redness, and discharge, ENT: Negative for injury, pain, and discharge, Neck: Negative for injury, pain, and swelling, Cardiovascular: Negative for chest pain, palpitations, and edema, Respiratory: Negative for shortness of breath, cough, wheezing, and pleuritic chest pain, Abdomen/GI: Negative for abdominal pain, nausea, vomiting, diarrhea, and constipation, Back: Negative for injury and pain, : Negative for injury, bleeding, discharge, and swelling, Skin: Negative for injury, rash, and discoloration, Neuro: Negative for headache, weakness, numbness, tingling, and seizure, 14:44 MS/extremity: Positive for LEFT FOOT DROP, Exam: 14:50 Constitutional: This is a well developed, well nourished patient who is awake, alert, barrett and in no acute distress. Head/Face: Normocephalic, atraumatic. Eyes: Pupils equal round and reactive to light, extra-ocular motions intact. Lids and lashes normal. Conjunctiva and sclera are non-icteric and not injected. Cornea within normal limits. Periorbital areas with no swelling, redness, or edema. ENT: Nares patent. No nasal discharge, no septal abnormalities noted. Tympanic membranes are normal and external auditory canals are clear. Oropharynx with no redness, swelling, or masses, exudates, or evidence of obstruction, uvula midline. Mucous membranes moist. Neck: Trachea midline, no thyromegaly or masses palpated, and no cervical lymphadenopathy. Supple, full range of motion without nuchal rigidity, or vertebral point tenderness. No Meningismus. Chest/axilla: Normal chest wall appearance and motion. Nontender with no deformity. No lesions are appreciated. Cardiovascular: Regular rate and rhythm with a normal S1 and S2. No gallops, murmurs, or rubs. Normal PMI, no JVD. No pulse deficits. Respiratory: Lungs have equal breath sounds bilaterally, clear to auscultation and percussion. No rales, rhonchi or wheezes noted. No increased work of breathing, no retractions or nasal flaring. Abdomen/GI: Soft, non-tender, with normal bowel sounds. No distension or tympany. No guarding or rebound. No evidence of tenderness throughout. Back: No spinal tenderness. No costovertebral tenderness. Full range of motion. Male : Normal genitalia with no discharge or lesions. Skin: Warm, dry with normal turgor. Normal color with no rashes, no lesions, and no evidence of cellulitis. Neuro: Awake and alert, GCS 15, oriented to person, place, time, and situation. Cranial nerves II-XII grossly intact. Motor strength 5/5 in all extremities. Sensory grossly intact. Cerebellar exam normal. Normal gait. Psych: Awake, alert, with orientation to person, place and time. Behavior, mood, and affect are within normal limits. 14:50 Musculoskeletal/extremity: ROM: LEFT FOOT DROP, DVT Exam: No signs of deep vein thrombosis. no pain, no swelling, no tenderness, negative Homans' sign noted on exam, no appreciated bluish discoloration, no erythema, no increased warmth, 14:59 ECG was reviewed by the Attending Physician. [facility] Vital Signs: 13:36 BP 130 / 90; Pulse 79; Resp 16; Temp 97(TE); Pulse Ox 100% on R/A; Weight 81.65 kg; cm10 Height 5 ft. 9 in. ; Pain 0/10; 14:00 BP 156 / 98; Pulse 72; Resp 16; Pulse Ox 98% ; me1 15:00 BP 150 / 88; Pulse 76; Resp 20; Pulse Ox 98% on R/A; me1 16:00 BP 149 / 94; Pulse 73; Resp 8; Pulse Ox 98% on R/A; me1 13:36 Body Mass Index 26.58 (81.65 kg, 175.26 cm) cm10 13:36 Pain Scale: Adult cm10 MDM: 13:30 Medical Screening Exam initiated barrett 14:52 Differential diagnosis: contusion, tendonitis. Data reviewed: vital signs, nurses [facility] notes, lab test result(s), EKG, radiologic studies, doppler, plain films. Consideration of Admission/Observation Escalation of care including admission/observation considered. I considered the following discharge prescriptions or medication management in the emergency department Medications were administered in the Emergency Department. See MAR. Independent interpretation of the following test(s) in the Emergency Department X-Ray: My interpretation is X RAY. 05/01 13:32 Order name: Basic Metabolic Panel; Complete Time: 15:38 [facility] 05/01 13:32 Order name: CBC with Diff; Complete Time: 15:38 [facility] 05/01 13:32 Order name: LFT's; Complete Time: 15:38 [facility] 05/01 13:32 Order name: Magnesium; Complete Time: 15:38 [facility] 05/01 13:32 Order name: NT PRO-BNP; Complete Time: 15:38 [facility] 05/01 13:32 Order name: PT-INR; Complete Time: 15:38 [facility] 05/01 13:32 Order name: Troponin HS; Complete Time: 15:38 [facility] 05/01 13:32 Order name: Lipase; Complete Time: 15:38 [facility] 05/01 13:32 Order name: Urinalysis w/ reflexes; Complete Time: 15:38 [facility] 05/01 13:32 Order name: XRAY Chest (1 view); Complete Time: 15:38 [facility] 05/01 13:32 Order name: US Extremity Venous W Compression Gustavo; Complete Time: 15:38 [facility] 05/01 14:44 Order name: Knee Left 3 View XRAY [facility] 05/01 13:32 Order name: Cardiac monitoring; Complete Time: 14:15 [facility] 05/01 13:32 Order name: EKG - Nurse/Tech; Complete Time: 14:15 [facility] 05/01 13:32 Order name: IV Saline Lock; Complete Time: 14:42 [facility] 05/01 13:32 Order name: Labs collected and sent; Complete Time: 14:42 [facility] 05/01 13:32 Order name: O2 Per Protocol; Complete Time: 14:42 [facility] 05/01 13:32 Order name: O2 Sat Monitoring; Complete Time: 14:42 [facility] EC:59 Rate is 75 beats/min. Rhythm is regular. QRS Cooper is Normal. CO interval is normal. QRS barrett interval is normal. QT interval is normal. No Q waves. T waves are Normal. No ST changes noted. Clinical impression: NSR w/ Non-specific ST/T Changes and No evidence of ischemia. Interpreted by me. Reviewed by me. Administered Medications: 14:42 Drug: NS 0.9% IV 250 ml IV at 125 ml/hr once Route: IV; Rate: 125 ml/hr; Site: left me1 forearm; 16:01 Follow up: Response: No adverse reaction; IV Status: Completed infusion; IV Intake: me1 200ml Disposition Summary: 05/01/24 15:39 Discharge Ordered Notes: Location: Home barrett Problem: new barrett Symptoms: have improved barrett Condition: Stable barrett Diagnosis - Injury of peroneal nerve at lower leg level, left leg, initial encounter barrett - Type 1 diabetes mellitus with hyperglycemia barrett Followup: barrett - With: Private Physician - When: 2 - 3 days - Reason: Recheck today's complaints, Continuance of care, Re-evaluation by your physician Followup: barrett - With: Roberto Samuels MD - When: 2 - 3 days - Reason: Recheck today's complaints, Continuance of care, Re-evaluation by your physician Followup: barrett - With: Roberto Dobbs MD - When: 2 - 3 days - Reason: Recheck today's complaints, Re-evaluation by your physician Discharge Instructions: - Discharge Summary Sheet barrett - Diabetes Mellitus and Foot Care barrett - Blood Glucose Monitoring, Adult barrett - Diabetes Mellitus and Nutrition, Adult barrett - Common Peroneal Nerve Entrapment [facility] Forms: - Medication Reconciliation Form barrett - Antibiotic Education barrett - Prescription Opioid Use barrett - Patient Portal Instructions [facility] - Leadership Thank You Letter [facility] Prescriptions: - Medrol (Bart) 4 mg Oral Tablets, Dose Pack - take 1 tablet ORAL route as directed - follow package instructions; 1 packet; barrett Refills: 0, Product Selection Permitted - Motrin IB 200 mg Oral tablet - take 2 tablet ORAL route every 6 hours As needed as needed with food; 28 barrett tablet; Refills: 0, Product Selection Permitted Signatures: Dispatcher [employer] EDGuy Winter MD MD cha Martinez, Clarissa RN RN cm10 Marianne Lopez RN RN me1 Corrections: (The following items were deleted from the chart) 13:33 13:33 Extrem Venous W Compression Gustavo+US.RAD.BRZ ordered. EDMS EDMS
--- NOTE | 2024-05-01 15:39 | ER ---
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 PT DENIES cm10 ANY PAIN OR SHORTNESS OF BREATH. Coronavirus screen: Client denies travel out of the [place] in the last 14 days. Ebola Screen: Patient denies travel to an Ebola-affected area in the 21 days before illness onset. No symptoms or risks identified at this time. Initial Sepsis Screen: Does the patient meet any 2 criteria? No. Patient's initial sepsis screen is negative. Does the patient have a suspected source of infection? No. Patient's initial sepsis screen is negative. Risk Assessment: Do you want to hurt yourself or someone else? Patient reports no desire to harm self or others. Onset of symptoms was May 01, 2024. 13:36 Method Of Arrival: Wheelchair cm10 13:36 Acuity: TIERA 3 cm10 Triage Assessment: 13:37 General: Appears in no apparent distress. comfortable, Behavior is calm, cooperative. cm10 Pain: Denies pain. Neuro: No deficits noted. Level of Consciousness is awake, alert, obeys commands, Oriented to person, place, time, situation, Appropriate for age. Respiratory: No deficits noted. Airway is patent Respiratory effort is even, unlabored, Respiratory pattern is regular, symmetrical. Historical: - Allergies: 13:36 No Known Allergies; cm10 - PMHx: 13:36 Diabetes - IDDM; Hypercholesterolemia; Hypertension; cm10 - Immunization history:: Adult Immunizations up to date. - Infectious Disease History:: Denies. - Social history:: Smoking status: Patient/guardian denies using tobacco. - Family history:: not pertinent. Screenin:37 Abuse screen: Denies threats or abuse. Denies injuries from another. Nutritional ss screening: No deficits noted. Tuberculosis screening: Never had TB. 14:54 [facility] ED Fall Risk Assessment (Adult) History of falling in the last 3 months, me1 including since admission No falls in past 3 months (0 pts) Confusion or Disorientation No (0 pts) Intoxicated or Sedated No (0 pts) Impaired Gait Yes (1 pt) Mobility Assist Device Used Yes (1 pt) Altered Elimination No (0 pt) Score/Fall Risk Level 0 - 2 = Low Risk Maintained a safe environment, Provided non-skid footwear, Hourly rounding (assess needs \T\ fall precautionary measures) done. Assessment: 13:37 Reassessment: Sent by Dr. Samuels for further evaluation of foot drop/ difficulty walking. ss 13:47 Reassessment: to lobTrue Office to bring pt to room. Pt not in lobby. rs5 13:59 Reassessment: pt wheeled into room. rs5 14:54 General: Appears comfortable, well groomed, well developed, well nourished, Behavior is me1 calm, cooperative, appropriate for age, Reports BILATERAL ANKLE SWELLING ONSET YESTERDAY. PT DENIES ANY PAIN OR SHORTNESS OF BREATH. c/o footdrop to left foot. Pain: Denies pain. Neuro: Level of Consciousness is awake, alert, obeys commands, Oriented to person, place, time, situation, Appropriate for age. Cardiovascular: Patient's skin is warm and dry. Respiratory: Airway is patent Respiratory effort is even, unlabored, Respiratory pattern is regular, symmetrical. GI: No signs and/or symptoms were reported involving the gastrointestinal system. : No signs and/or symptoms were reported regarding the genitourinary system. EENT: No signs and/or symptoms were reported regarding the EENT system. Derm: Skin is intact, is healthy with good turgor, Skin is pink, warm \T\ dry. Musculoskeletal: Reports foot drop to left foot. Vital Signs: 13:36 BP 130 / 90; Pulse 79; Resp 16; Temp 97(TE); Pulse Ox 100% on R/A; Weight 81.65 kg; cm10 Height 5 ft. 9 in. ; Pain 0/10; 14:00 BP 156 / 98; Pulse 72; Resp 16; Pulse Ox 98% ; me1 15:00 BP 150 / 88; Pulse 76; Resp 20; Pulse Ox 98% on R/A; me1 16:00 BP 149 / 94; Pulse 73; Resp 8; Pulse Ox 98% on R/A; me1 13:36 Body Mass Index 26.58 (81.65 kg, 175.26 cm) cm10 13:36 Pain Scale: Adult cm10 ED Course: 13:28 Patient arrived in ED. sj2 13:30 Guy Horne MD is Attending Physician. barrett 13:36 Triage completed. cm10 13:37 Arm band placed on right wrist. Patient placed in waiting room. cm10 13:58 US Extremity Venous W Compression Gustavo In Process Unspecified. EDMS 14:10 XRAY Chest (1 view) In Process Unspecified. EDMS 14:26 Marianne Lopez, RN is Primary Nurse. me1 14:42 Basic Metabolic Panel Sent. me1 14:42 CBC with Diff Sent. me1 14:42 LFT's Sent. me1 14:42 Magnesium Sent. me1 14:42 NT PRO-BNP Sent. me1 14:42 PT-INR Sent. me1 14:42 Troponin HS Sent. me1 14:42 Lipase Sent. me1 14:42 Initial lab(s) drawn, by id, sent to lab. Inserted saline lock: 22 gauge in left me1 forearm, using aseptic technique. 14:54 Patient has correct armband on for positive identification. Bed in low position. Call me1 light in reach. Side rails up X2. Provided Education on: POC. Verbalized understanding. Client placed on continuous cardiac and pulse oximetry monitoring. NIBP monitoring applied. hall monitor on. Pulse ox on. NIBP on. 14:54 No provider procedures requiring assistance completed. me1 15:10 Urinalysis w/ reflexes Sent. me1 15:10 Urine collected: clean catch specimen, clear. me1 15:27 Knee Left 3 View XRAY In Process Unspecified. EDMS 15:39 Roberto Samuels MD is Referral Physician. barrett 15:39 Roberto Dobbs MD is Referral Physician. barrett 16:02 IV discontinued, intact, bleeding controlled, No redness/swelling at site. Pressure me1 dressing applied. Administered Medications: 14:42 Drug: NS 0.9% IV 250 ml IV at 125 ml/hr once Route: IV; Rate: 125 ml/hr; Site: left me1 forearm; 16:01 Follow up: Response: No adverse reaction; IV Status: Completed infusion; IV Intake: me1 200ml Medication: 13:37 VIS not applicable for this client. ss Intake: 16:01 IV: 200ml; Total: 200ml. me1 Outcome: 15:39 Discharge ordered by . barrett 16:02 Discharged to home ambulatory, me1 16:02 Condition: good 16:02 Discharge instructions given to patient, Instructed on discharge instructions, follow up and referral plans. medication usage, Demonstrated understanding of instructions, follow-up care, medications, Prescriptions given X 2, 16:03 Patient left the ED. me1 Signatures: Dispatcher [employer] EDGuy Winter MD MD cha Blanchard, Shelby, RN RN Melquiades Sosa RN RN rs5 Latricia Galicia RN RN cm10 Marianne Lopez RN RN me1 Jane Ku sj2 Corrections: (The following items were deleted from the chart) 14:54 13:36 Chief complaint: Patient states: BILATERAL ANKLE SWELLING ONSET YESTERDAY. PT me1 DENIES ANY PAIN OR SHORTNESS OF BREATH. cm10
[2024-05-01 16:12] VITALS: TEMP 97
[2024-05-01 16:18] VITALS: O2SAT 98
[2024-05-01 16:29] VITALS: BP 149/94
--- NOTE | 2024-05-01 16:40 | RAD REPORT ---
EXAM: XR Knee Left 3 View HISTORY: [facility] MAIN PAIN Bed Name: 16 COMPARISON: None TECHNIQUE: 3 views of the left knee were obtained. FINDINGS: No knee effusion is seen. There is no evidence of acute fracture or dislocation. Total kne e arthroplasty hardware in satisfactory alignment with no evidence of complications No soft tissue swelling. Vascular calcifications. IMPRESSION: No evidence of acute osseous abnormality. 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
--- NOTE | 2024-05-04 11:36 | EKG ---
Test Date: 2024-05-01 Test Time: 14:07:47 Correspondence Renew Clerk: AM MEASUREMENT RESULTS: Intervals: Rate: 75 CO: 162 QRSD: 86 QT: 394 QTc: 439 [place]: P: 41 CO: 162 QRS: -62 T: 12 INTERPRETIVE STATEMENTS: Normal sinus rhythm Left axis deviation Anteroseptal infarct, age undetermined Abnormal ECG Compared to ECG 03/30/2024 11:10:42 Left-axis deviation now present Myocardial infarct finding now present Sinus bradycardia no longer present Right-axis deviation no longer present Electronically Signed On 05-04-24 11:34:35 MAGAZINE SUPERVISOR by Logan Dc
== END 2024-05-01 16:03 | disposition home or self-care (01) ==
LOC: SUPCPDRO 12:55 → ER 12:55
DX: S84.12XA Injury of peroneal nerve at lower leg level, left leg, initial encounter (principal); E10.65 Type 1 diabetes mellitus with hyperglycemia; I10 Essential (primary) hypertension
CPT/HCPCS: 96365; 85025; 81001; 80048; 36415; 83735; 85610; 80076; 84484; 83690; 83880; 71045; 73562; 93970; 99285; J7050; 93005

== ENCOUNTER 2024-05-02 12:09 | Emergency (ER) | payer OTHER ==
--- OUTSIDE RECORDS SUMMARY | 2024-05-02 12:13 | XMS REPORT | Continuity of Care Document ---
Author Name Unknown Address [address] [facility] [address] [place] [address] [facility] Address [address] [facility] [address] [place] [address] Care Team Providers Care Rn Night Name Role Phone MARJORIE ARREDONDO Primary Care Physician Unavailab Andreia Lance Attending Clinician Unavailable Zakia Givens Cardiology Attending Clinician Unavailable JUAN BRYANT Attending Clinician Unavailable Lab, Adc Fam Pob I Attending Clinician Unavailab Jessica Carreno Attending Clinician [phone] JESSICA LUU Attending Clinician Unavailable System, Amb Referring Provider Not In Attending Clinician Unavailable Pob1, Acute Care Clinic Attending Clinician Unav Remedios Paredes Attending Clinician [phone] Doctor Unassigned, [facility] Attending Clinician U Ryann Graham MD Attending Clinician [phone] RYANN GARCIA Attending Clinician UnavailAndreia Santamaria Admitting Clinician Unavailable Zakia Givens Admitting Clinician Unavailable UNDEFINED Admitting Clinician Unavailable Payers Payer Name Policy Type Policy Number Effective Date Expirati on Date Source [employer] MEDICARE GOLD [id number] 2019 00:00:00 Problems Condition Name Condition Details Condition Category Status Onset Date Resolution Date Last Treatment Date Treating Clinician Comments Source Sore throat Sore throat Disease Active 8 00:00: 00 [facility] Pain in joint of left knee Pain in joint of left knee Problem Active [facility] Left sided sciatica Left sided sciatica Problem Active [facility] Infection following a procedure, subsequent encounter Infection following a procedure, subsequent encounter Problem Active [facility] 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 following joint replacemen t surgery Problem Active [facility] 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 left artificial knee joint Problem Active [facility] Iliotibial band syndrome of right side Iliotibial band syndrome of right side Diagnosis Active [facility] Diabetic polyneurop athy associated with diabetes mellitus due to underlying condition Diabetic polyneurop athy associated with diabetes mellitus due to underlying condition Problem Active [facility] Primary osteoarthr itis of right knee Primary osteoarthr itis of right knee Problem Active [facility] Pain in joint of right knee Pain in joint of right knee Diagnosis Active [facility] Allergies, Adverse Reactions, Alerts Allergy Name Allergy Type Status Severity Reaction(s) Onset Date Inactive Date Treating Clinician Comments Source No Known Allergie s DA Active U 08 00:00: 00 [facility] No Known Allergie s DA Active U 3-03 00:00: 00 [facility] No Known Allergie s DA Active U 3-03 00:00: 00 [facility] NO KNOWN ALLERGIE S Drug Class Active [facility] Social History Social Habit Start Date Stop Date Quantity Comments Source Sex Assigned At [facility] Exposure to SARS-CoV-2 (event) Yes [facility] Tobacco use and exposure 2019-12-21 00:00:00 2019-12-21 00:00:00 Never used [facility] Smoking Status Start Date Stop Date Source Never smoker [facility] Medications Ordered Medication Name Filled Medication Name Start Date Stop Date Current Medication? Ordering Clinician Indication Dosage Frequency Signature (SIG) Comments Components Source hydroCHLORO thiazide 12.5 mg tablet 16 00:00: 00 Yes 12.5mg Take 12.5 mg by mouth every morning. [facility] NOVOFINE PLUS 32 gauge x 1/6" Ndle 11-21 00:00: 00 Yes USE DIRECTED EVERY DAY [facility] NOVOFINE PLUS 32 gauge x 1/6" Ndle 11-21 00:00: 00 Yes USE DIRECTED EVERY DAY [facility] LEVEMIR FLEXTOUCH U-100 INSULN 100 unit/mL (3 mL) injection 11-20 00:00: 00 Yes INJECT 25UNITS SUBCUTANEO USLY DAILY IN MORNING [facility] ONETOUCH ULTRA BLUE TEST STRIP strip 11-09 00:00: 00 Yes USE DIRECTED EVERY DAY [facility] atorvastati n 80 mg tablet 11-01 00:00: 00 Yes [facility] doxazosin 2 mg tablet 11-01 00:00: 00 Yes [facility] hydrALAZINE 10 mg tablet 11-01 00:00: 00 Yes [facility] metoprolol tartrate 25 mg tablet 11-01 00:00: 00 Yes [facility] clopidogreL 75 mg tablet 11-01 00:00: 00 Yes [facility] omeprazole 20 mg capsule 11-01 00:00: 00 Yes [facility] OMEPRAZOLE ORAL 05-24 20:54: 35 Yes None Entered [facility] PRAVASTATIN ORAL 08 20:54: 35 Yes None Entered [facility] PLAVIX ORAL 05-24 20:54: 35 Yes None Entered [facility] GABAPENTIN ORAL 05-24 20:54: 35 Yes None Entered [facility] CRESTOR ORAL 05-24 20:54: 35 Yes None Entered [facility] METFORMIN HCL ORAL 05-24 20:54: 35 Yes None Entered [facility] ASPIRIN 81 MG ORAL CHEW 05-24 20:54: 35 Yes None Entered [facility] GLIMEPIRIDE ORAL 05-24 20:54: 35 Yes None Entered [facility] diclofenac 75 mg EC tablet 05-24 00:00: 00 Yes [id number] 75mg Take 1 tablet by mouth 2 (two) times daily with meals. [facility] Gabapentin Gabapentin 11-25 00:00: 00 Yes Roberto Dobbs 1 capsule [facility] Doxazosin Mesylate Doxazosin Mesylate 11-25 00:00: 00 Yes Roberto Dobbs 1 tablet [facility] Aspirin 81 Aspirin 81 11-25 00:00: 00 Yes Roberto Dobbs 1 tablet [facility] Multi Complete Multi Complete 11-25 00:00: 00 Yes Roberto Dobbs as directed [facility] Vitamin B 12 Vitamin B 12 11-25 00:00: 00 Yes Roberto Dobbs as directed [facility] Clopidogrel Bisulfate Clopidogrel Bisulfate Yes Roberto Dobbs not defined [facility] Atorvastati n Calcium Atorvastati n Calcium Yes Roberto Dobbs not defined [facility] Metformin HCl Metformin HCl Yes Roberto Dobbs not defined [facility] Omeprazole Omeprazole Yes Roberto Dobbs not defined [facility] Metoprolol Tartrate Metoprolol Tartrate Yes Roberto Dobbs not defined [facility] Glimepiride Glimepiride Yes Derik Dobbs not defined [facility] Ciprofloxac in HCl Ciprofloxac in HCl Yes Roberto Dobbs not defined [facility] Amlodipine Besylate Amlodipine Besylate Yes Roberto Dobbs not defined [facility] Levemir FlexTouch Levemir FlexTouch Yes Roberto Dobbs not defined [facility] Omeprazole Omeprazole Yes Roberto Dobbs not defined [facility] HydrALAZINE HCl HydrALAZINE HCl Yes Roberto Dobbs not defined [facility] Diclofenac Sodium Diclofenac Sodium Yes Roberto Dobbs not defined [facility] Vital Signs Vital Name Observation Time Observation Value Comments S ource Systolic blood pressure 2019-12-21 16:28:00 132 mm[Hg] [facility] Diastolic blood pressure 2019-12-21 16:28:00 78 mm[Hg] [facility] Heart rate 2019-12-21 16:27:00 67 /min Unive [facility] Body temperature 2019-12-21 16:27:00 36.83 Laura [facility] Respiratory rate 2019-12-21 16:27:00 18 /min [facility] Body height 2019-12-21 16:27:00 175.3 cm [facility] Body weight 2019-12-21 16:27:00 83.915 kg [facility] BMI 2019-12-21 16:27:00 27.32 kg/m2 [facility] Oxygen saturation in Arterial blood by Pulse oximetry 2019-12-21 16:27:00 99 /min [facility] Systolic blood pressure 2019-12-21 16:28:00 132 mm[Hg] [facility] Diastolic blood pressure 2019-12-21 16:28:00 78 mm[Hg] [facility] Heart rate 2019-12-21 16:27:00 67 /min [facility] Body temperature 2019-12-21 16:27:00 36.83 Laura [facility] Respiratory rate 2019-12-21 16:27:00 18 /min [facility] Body height 2019-12-21 16:27:00 175.3 cm [facility] Body weight 2019-12-21 16:27:00 83.915 kg [facility] BMI 2019-12-21 16:27:00 27.32 kg/m2 [facility] Oxygen saturation in Arterial blood by Pulse oximetry 2019-12-21 16:27:00 99 /min [facility] Procedures Procedure Date / Time Performed Performing Clinician Source [id number] 2020-07-26 00:00[facility]00 [id number] 2020-07-26 00:00:00 [facility] AUTHORIZATION FOR RELEASE OF PHI 2019-08-16 05:01:00 Doctor Unassigned, [facility] Encounters Start Date/Time End Date/Time Encounter Type Admission Type Attending Clinicians Care Facility Care Department Encounter ID Source 2020-07-17 16:45:32 Inpatient Andreia Burris [facility]ATO HCATO [id number] [facility] 2021-10-04 04:30:00 2021-10-04 04:30:00 Outpatient Zakia Bauer [facility] [id number] [facility] 2021-10-04 04:30:00 2021-10-04 04:30:00 Outpatient Zakia Bauer [facility] H[facility]U [id number] [facility] 2021-08-23 05:21:00 2021-08-23 05:21:00 Inpatient Zakia Bauer [facility] [id number] [facility] 2020-09-09 13:30:00 2020-09-09 13:30:00 Outpatient JUAN CONROY [facility] [id number] [facility] 2020-08-19 13:40:00 2020-08-19 13:40:00 Outpatient [facility] [id number] [facility] 2020-07-27 07:24:00 2020-07-27 07:24:00 Outpatient Andreia Saleem [facility] REFE [id number] [facility] 2020-07-27 07:23:00 2020-07-27 07:23:00 Outpatient Andreia Saleem [facility]WH SIST [id number] [facility] 2020-07-17 20:12:00 2020-07-17 20:12:00 Outpatient Andreia Saleem HCACL LABO [id number] [facility] 2020-07-17 00:00:00 2020-07-17 00:00:00 Outpatient Andreia Burris HCATO 3DAY [id number] [facility] 2020-03-21 13:11:08 2020-03-21 13:31:08 Laboratory Only Lab, [facility] Fam Pob I [facility] [address] ..114 350.1.13.10 4.2.7.2.686 [id number] [facility] 2020-03-21 13:11:08 2020-03-21 13:31:08 Laboratory [facility] [address] ..114 350.1.13.10 4.2.7.2.686 [id number] 2020-03-21 13:20:00 2020-03-21 13:20:00 Outpatient JESSICA NIELSEN [facility] [id number] [facility] 2019-12-26 00:00:00 2019-12-26 00:00:00 Telephone System, Amb Referring Provider Not In [facility] .114 350.1.13.10 4.2.7.2.686 [id number] [facility] 2019-12-26 00:00:00 2019-12-26 00:00:00 Telephone System, Amb Referring Provider Not In [facility] 1.0.114 350.1.13.10 4.2.7.2.686 [id number] 2019-12-21 11:17:47 2019-12-21 12:49:21 Urgent Care Pob1, Acute Care Clinic [facility] [address] ..114 350.1.13.10 4.2.7.2.686 [id number] [facility] 2019-12-21 11:17:47 2019-12-21 12:49:21 Urgent Care Pob1, Acute Care Clinic [facility] Profkt nal Office [address] [id number] 350.1.13.10 4.2.7.2.686 [id number] 2019-12-21 11:40:00 2019-12-21 11:40:00 Outpatient R [facility] [id number] [facility] 2019-08-16 09:30:00 2019-08-16 09:30:00 Outpatient [facility] [id number] [facility] 2019-08-16 00:00:00 2019-08-16 00:00:00 Orders Only Doctor Unassigned, [facility] [id number] 350.1.13.10 4.2.7.2.686 [id number] [facility] 2019-08-16 00:00:00 2019-08-16 00:00:00 Orders Only Doctor Unassigned, [facility] 1.2840.114 350.1.13.10 4.2.7.2.686 [id number] 2019-07-16 00:00:00 2019-07-16 00:00:00 RefRyann Carnes [facility] [id number] 350.1.13.10 4.2.7.2.686 [id number] [facility] 2019-07-16 00:00:00 2019-07-16 00:00:00 Ryann Barry [facility] [id number] 350.1.13.10 4.2.7.2.686 [id number] 2019-05-24 14:57:40 2019-05-24 23:59:00 Outpatient RYANN [facility] [id number] [facility] 2019-03-23 10:30:00 2019-03-23 10:30:00 [facility] [id number] [facility] 2018-11-25 09:30:00 2018-11-25 09:30:00 [facility] [id number] [facility] Results Test Description Test Time Test Comments Results Result Co mments Source BASIC METABOLIC [id number] 05:20:00* Test Item Value Reference Range Interpretation [...] mg/dL HIGH.........160-189 mg/dL VERY HIGH.........>/= 190 mg/dL [id number] 05:20:00* Test Item Value Reference Range Interpretation Comme [facility] MAGNESIUM (test code = MAG) 1.8 MG/DL 1.6-2.3 N PROTHROMBIN [id number] 05:12:00* Test Item Value Reference Range Interpretation Comme [facility] PROTHROMBIN TIME PATIENT (test code = PTP) [...] recurrent systemic embolism. 3.0 - 4.5 PTT [id number] 05:12:00* Test Item Value Reference Range Interpretation [facility] P[facility] ACTIVATED (test code = APTT) 33.1 SECONDS 26.2-35.4 COVID 19 Asymptomatic IH [id number] 05:05:00* Test Item Value Reference Range Interpretation [facility] COVID 19 Asymptomatic IH AG (test code [...] virus (antigen) in the sample." CBC W/AUTO [id number] 04:57:00* Test Item Value Reference Range Interpretation [...] code = NRBC#) 0.00 K/mm3 0.0-0.1 N [id number] 11:57:00* Test Item Value Reference Range Interpretation Comme nts ACT-ISTAT (test code = ACTI) 237 SEC 74-137 H BASIC METABOLIC [id number] 08:13:00* Test Item Value Reference Range Interpretation [...] mg/dL HIGH.........160-189 mg/dL VERY HIGH.........>/= 190 mg/dL [id number] 08:13:00* Test Item Value Reference Range Interpretation Comme nts MAGNESIUM (test code = MAG) 1.9 MG/DL 1.6-2.3 N PROTHROMBIN [id number] 07:53:00* Test Item Value Reference Range Interpretation [...] recurrent systemic embolism. 3.0 - 4.5 PTT [id number] 07:53:00* Test Item Value Reference Range Interpretation Comme [facility] PTT ACTIVATED (test code = APTT) 30.7 SECONDS 26.2-35.4 N CBC W/AUTO [id number] 07:45:00* Test Item Value Reference Range Interpretation [...] K/mm3 0.0-0.1 N COVID 19 Asymptomatic IH [id number] 05:42:00* Test Item Value Reference Range Interpretation [...] amount of virus (antigen) in the sample." [id number] 13:15:00* Test Item Value Reference Range Interpretation Comme nts GLUBED (test code = GLUBED) 151 mg/dL 60-125 H [id number] 05:59:00* Test Item Value Reference Range Interpretation Comme nts GLUBED (test code = GLUBED) 104 mg/dL 60-125 N [id number] 21:06:00* Test Item Value Reference Range Interpretation Comme nts GLUBED (test code = GLUBED) 161 mg/dL 60-125 H [id number] 17:33:00* Test Item Value Reference Range Interpretation Comme nts GLUBED (test code = GLUBED) 151 mg/dL 60-125 H [id number] 11:35:00* Test Item Value Reference Range Interpretation [...] fructosamineshould be considered for these patients.DONE AT: [facility] [address] [place] [address] GLYCOSYLATED HEMOGLOBIN (HA1C)2020-07-27 11:23:00* Test Item Value [...] be considered for these patients. B-TYPE NATRIURETIC [id number] 11:05:00* Test Item Value Reference Range Interpretation Comme [facility] B-TYPE NATRIURETIC PEPTIDE ( test code = BNP) 66.84 pg/mL 0-100 B-TYPE NATRIURETIC [id number] 11:05:00* Test Item Value Reference Range Interpretation Comme nts B-TYPE NATRIURETIC PEPTIDE ( test code = BNP) 66.84 pg/mL 0-100 N [id number] 09:17:00* Test Item Value Reference Range Interpretation Comme nts GLUBED (test code = GLUBED) 171 mg/dL 60-125 H BASIC METABOLIC [id number] 07:42:00* Test Item Value Reference Range Interpretation [...] 87.6 >60 Unit of m easure: mL/min/1.73 [id number] Range:Healthy Adults >90 mL/min/1.73 m2 For Chronic Kidney Disease: Stage II Mild Decrease in GFR 60-90 Stage III Moderate Decrease in GFR 30-59 Stage IV Severe Decrease in GFR 15-29 Stage V Kidney Failure <15 CREATININE (test code = CREAT) 1.00 mg/dL 0.55-1.30 N CALCIUM (test code = CA) 9.0 mg/dL 8.2-10.1 N HGB [id number] 07:27:00* Test Item Value Reference Range Interpretation Comme nts HEMOGLOBIN (test code = HGB) 11.3 g/dL 12-16 L HEMATOCRIT (test code = HCT) 34.5 % 37-47 L [id number] 05:44:00* Test Item Value Reference Range Interpretation Comme nts GLUBED (test code = GLUBED) 80 mg/dL 60-125 N [id number] 23:44:00* Test Item Value Reference Range Interpretation Comme nts GLUBED (test code = GLUBED) 197 mg/dL 60-125 H [id number] 20:47:00* Test Item Value Reference Range Interpretation Comme nts GLUBED (test code = GLUBED) 372 mg/dL 60-125 H [id number] 12:19:00* Test Item Value Reference Range Interpretation Comme nts GLUBED (test code = GLUBED) 185 mg/dL 60-125 H - XR SPINE 1 V SPEC [id number] 10:37:[address] [facility] 1940 Sex: M Patient Name: ZANDER MULLER Unit No: [id number] EXAMS: CPT CODE: [id number] XR SPINE 1 V SPEC LEVEL 34337 2 LATERAL INTRAOPERATIVE VIEWS OF THE LUMBAR SPINE Image 1: Surgical marker is at the upper L3 level Image 2: Surgical instrumentation is at L3-L4. Electronically Signed by Richi Dior on07/26/2020 at 1037 Reported and signed by: Alexander Dior M.D. CC: Andreia Saleem MD Technologist: VAMSHI PATEL (RT.R) Transcribed D/ (1037) [facility] NAME: ZANDER MULLER [address] [place] [address] PHYS: Andreia Wellington MD : 1940 AGE: 79 SEX: M [place], [place] [address] LOC: Y.998 2 PHONE #: [phone] EXAM DATE: 07/26/2020 STATUS: ADM IN FAX #: [phone] RAD #: D/C DT PAGE 1 Signed Report Patient Name: ZANDER MULLER Unit No: [id number] EXAMS: CPT CODE: [id number] XR SPINE 1 V SPEC LEVEL 97353 (Continued) Orig Print D/T: S: 07/26/2020 (1040) [facility] NAME: ZANDER MULLER [address] [place] [address] PHYS: Izabella Wellington : 1940 AGE: 79 SEX: M [place], [place] [address] LOC: Y.998 2 PHONE #: [phone] EXAM DATE: 07/26/2020 STATUS: ADM IN FAX #: [phone] RAD #: D/C DT PAGE 2 Signed Report- XR SPINE 1 V SPEC [id number] 10:37:[address] [facility] 1940 Sex: M Patient Name: ZANDER MULLER Unit No: [id number] EXAMS: CPT CODE: [id number] XR SPINE 1 V SPEC LEVEL 26686 2 LATERAL INTRAOPERATIVE VIEWS OF THE LUMBAR SPINE Image 1: Surgical marker is at the upper L3 level Image 2: Surgical instrumentation is at L3-L4. at 1037 Reported and signed by: Alexander Dior M.D. CC: Andreia Saleem MD Technolog ist: VAMSHI PATEL (RT.R) Transcribed D/ (1037) [facility]J [facility] NAME: ZANDER MULLER [address] [place] [address] Main PHYS: Andreia Wellington MD : 1940 AGE: 79 SEX: M [place] [address] LOC: Y.998 2 PHONE #: [phone] EXAM DATE: 07/26/2020 STATUS: ADM IN FAX #: [phone] RAD #: D/C DT PAGE 1 Signed Report Patient Name: ZANDER MULLER Unit No: [id number] EXAMS: CPT CODE: [id number] XR SPINE 1 V SPEC LEVEL 63319 (Continued) Orig Print D/T: S: 07/26/2020 (1040) [facility] NAME: ZANDER MULLER [address] [place] [address] Main PHYS: Andreia Wellington MD : 1940 AGE: 79 SEX: M [place], [place] [address] LOC: Y.998 2 PHONE #: [phone] EXAM DATE: 07/26/2020 STATUS: ADM IN FAX #: [phone] RAD #: D/C DT PAGE 2 [id number] 07:13:00* Test Item Value Reference Range Interpretation Comme nts GLUBED (test code = GLUBED) 152 mg/dL 60-125 H Novel Coronavirus 2018 [id number] 20:10:00* Test Item Value Reference Range Interpretation Comme nts Novel Coronavirus 2018 Inhouse (test code = COVNONPUI) Negative Negative Positive resul ts are indicative of the presence efTQAU-PlZ-7 RNA, clinical correlation with patient historyand other [...] for the identification of SARS-CoV-2 RNA usingthe Think2 M2000 System under the FDA Emergency UseAuthorization. The testing is performed by personneltrained in the procedures for the Ley M2000 moleculardiagnostic SARS-CoV-2 assay in vitro. Novel Coronavirus 2018 [id number] 20:09:00* Test Item Value Reference Range Interpretation Comme nts Novel Coronavirus 2018 Inhouse (test code = COVNONPUI) Negative Negative Positive resul ts are indicative of the presence koYTYR-CgF-0 RNA, clinical correlation with patient historyand other [...] for the identification of SARS-CoV-2 RNA usingthe Think2 M2000 System under the FDA Emergency UseAuthorization. The testing is performed by personneltrained in the procedures for the Think2 M2000 moleculardiagnostic SARS-CoV-2 assay in vitro. CBC W/AUTO [id number] 20:58:00* Test Item Value Reference Range Interpretation [...] NRBC) 0 % 0-0 N BASIC METABOLIC [id number] 20:56:00* Test Item Value Reference Range Interpretation [...] 87.6 >60 Unit of m easure: mL/min/1.73 [id number] Range:Healthy Adults >90 mL/min/1.73 m2 For Chronic Kidney Disease: Stage II Mild Decrease in GFR 60-90 Stage III Moderate Decrease in GFR 30-59 Stage IV Severe Decrease in GFR 15-29 Stage V Kidney Failure <15 CREATININE (test code = CREAT) 1.00 mg/dL 0.55-1.30 N CALCIUM (test code = CA) 9.2 mg/dL 8.2-10.1 N PROTHROMBIN [id number] 20:52:00* Test Item Value Reference Range Interpretation [...] is on Heparin Drip? NO THROMBOPLASTIN TIME [id number] 20:52:00* Test Item Value Reference Range Interpretation Comme nts PTT ACTIVATED (test code = APTT) 30.5 secs 24.9-37.0 N IS PATIENT ON ANTICOAGULANTS ? YLIST ANTICOAGULANT/ANTI PLT MEDICATION : Clopidogrel (Anti-PLT)Has Lab been notified if Patient is on Heparin Drip? NO
--- NOTE | 2024-05-02 13:58 | RAD REPORT ---
EXAMINATION: MRI LUMBAR SPINE WITHOUT CONTRAST CLINICAL INDICATION: Numbness and foot drop TECHNIQUE: Multiplanar multisequence MR images were obtained of the lumbar spine without intravenous contrast. Unless otherwise specified, incidental findings do not require dedicated imaging follow-up. [id number]. COMPARISON: 2020 FINDINGS: For purposes of this dictation, it is assumed that there are 5 non rib-bearing lumbar type vertebrae, and the most caudal fully segmented lumbar vertebra is labeled L5. Disc bulge and osteophytes L-1-2 results in narrowing of the thecal sac to 9.5 mm. Mild to moderate n arrowing of the neural foramina bilaterally.. Left facet hypertrophy. Mild posterior subluxation L2 on L3. Disc bulge, osteophytes, ligamentum flavum and facet hypertrophy seen. The thecal sac 7 mm.. Small left lateral disc herniation. Moderate narrowing left neural foramina. Slight posterior subluxation L3 on L4. Disc bulge, osteophytes and facet hypertrophy L3-4.. Marked na rrowing left neural foramina. Post surgical changes L4-5. Thecal sac 9 mm. Disc bulge and facet hypertrophy present. Small osteophy edelmira seen. Moderate narrowing left neural foramina. Slight anterior subluxation L5 on S1. Disc bulge. Facet hypertrophy. Moderate narrowing of foramina b ilaterally. No significant abnormal signal within the bones. 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 Small left lateral disc herniat ion. Spondylosis L3-4 results in marked left foraminal stenosis. Post surgical changes L4-5. Spondylosis L5-S1 results in moderate foraminal stenosis
--- NOTE | 2024-05-02 14:29 | EDPHYS ---
Physician Documentation [facility] Name: Suresh Conley Age: 83 yrs Sex: Male : 1940 Arrival Date: 05/02/2024 Time: 12:09 Bed IW1 Private MD: ED Physician Alonzo Renteria HPI: 05/02 18:41 This 83 yrs old Black Male presents to ER via Wheelchair with complaints of Foot Drop. ms3 18:41 Suresh Conley is an 83-year-old male who presents with difficulty lifting his left foot, ms3 described as feeling "heavy" and slightly numb. This issue has been ongoing for almost a month. There is no associated pain, and the symptom has not improved or worsened with any activities. The patient reports no fever, chills, nausea, vomiting, or shortness of breath. They were seen in the emergency department yesterday and have been advised by their primary care doctor, Dr. Samuels, to obtain an MRI of the lumbar spine.. Historical: - Allergies: 12:22 No Known Allergies; tm6 - PMHx: 12:22 Diabetes - IDDM; Hypertension; Hypercholesterolemia; tm6 - PSHx: 12:22 None; tm6 - Immunization history:: Flu vaccine is up to date. - Infectious Disease History:: Denies. - Social history:: Smoking status: Patient/guardian denies using tobacco, the patient reports quitting approximately 25 years ago. ROS: 18:41 Constitutional: Negative for fever, and chills. Cardiovascular: Negative for chest ms3 pain, and palpitations. Respiratory: Negative for shortness of breath, cough, wheezing, and pleuritic chest pain, Abdomen/GI: Negative for abdominal pain, nausea, vomiting, diarrhea, and constipation, 18:41 Neuro: Positive for left foot drop, Exam: 18:41 Constitutional: This is a well developed, well nourished patient who is awake, alert, ms3 and in no acute distress. Chest/axilla: Normal chest wall appearance and motion. Nontender with no deformity. Cardiovascular: Regular rate and rhythm with a normal S1 and S2. No gallops, murmurs, or rubs. Normal PMI, no JVD. No pulse deficits. Respiratory: Lungs have equal breath sounds bilaterally, clear to auscultation and percussion. No rales, rhonchi or wheezes noted. No increased work of breathing, no retractions or nasal flaring. Abdomen/GI: Soft, non-tender, with normal bowel sounds. No distension or tympany. No guarding or rebound. No evidence of tenderness throughout. Skin: Warm, dry with normal turgor. Normal color with no rashes, no lesions, and no evidence of cellulitis. 18:41 Musculoskeletal/extremity: Left foot drop present. Vital Signs: 12:20 BP 139 / 81; Pulse 74; Resp 18; Temp 97.7(O); Pulse Ox 100% on R/A; MAP 98 mmHg; Weight tm6 77.11 kg; Pain 0/10; 12:20 Pain Scale: Adult tm6 MDM: 12:33 Medical Screening Exam initiated ms3 18:41 Differential diagnosis: Lumbar disc herniation vs DDD vs Foot drop. Data reviewed: ms3 vital signs, nurses notes, radiologic studies, and as a result, I will discharge patient. Management of patient was discussed with the following: Primary Care Provider: Dr Samuels- Will see patient in clinic next week. Counseling: I had a detailed discussion with the patient and/or guardian regarding the historical points, exam findings, and any diagnostic results supporting the discharge/admit diagnosis, radiology results, the need for outpatient follow up, to return to the emergency department if symptoms worsen or persist or if there are any questions or concerns that arise at home. Special discussion: I discussed with the patient/guardian in detail that at this point there is no indication for admission to the hospital. It is understood, however, that if the symptoms persist or worsen the patient needs to return immediately for re-evaluation. ED course: Discussed MRI results with patient. Patient to follow-up with Dr. Samuels in clinic next week. Patient understands agrees with plan. All questions were answered. Return precautions discussed include worsening symptoms, or any other concerns. 05/02 12:15 Order name: MRI Lumbar Spine wo Con; Complete Time: 14:01 ms3 Administered Medications: No medications were administered Disposition Summary: 05/02/24 14:29 Discharge Ordered Notes: Location: Home ms3 Condition: Stable ms3 Diagnosis - Foot drop, left foot ms3 Followup: ms3 - With: Roberto Samuels MD - When: 5 - 6 days - Reason: Recheck today's complaints Discharge Instructions: - Discharge Summary Sheet ms3 - Peripheral Neuropathy ms3 Forms: - Medication Reconciliation Form ms3 - Antibiotic Education ms3 - Prescription Opioid Use ms3 - Patient Portal Instructions ms3 - Leadership Thank You Letter ms3 Signatures: Dispatcher [employer] Alonzo Collins DO DO ms3 Myriam Trejo, RN RN tm6
--- NOTE | 2024-05-02 14:29 | ER ---
Nurse's Notes [facility] Name: Suresh Conley Age: 83 yrs Sex: Male : 1940 Arrival Date: 05/02/2024 Time: 12:09 Bed IW1 Private MD: Diagnosis: Foot drop, left foot Presentation: 05/02 12:21 Chief complaint: Patient states: Dr. Samuels said my blood pressure was high and sent me tm6 to the ER. My fingers on both hands feel tingly/numb, started about a month ago per Dr. Renteria, patient is here for left foot drop. 12:21 Method Of Arrival: Wheelchair tm6 12:23 Coronavirus screen: Client denies travel out of the [place] in the last 14 days. Ebola tm6 Screen: Patient negative for fever greater than or equal to 101.5 degrees Fahrenheit, and additional compatible Ebola Virus Disease symptoms Patient denies exposure to infectious person. Patient denies travel to an Ebola-affected area in the 21 days before illness onset. No symptoms or risks identified at this time. Initial Sepsis Screen: Does the patient meet any 2 criteria? No. Patient's initial sepsis screen is negative. Does the patient have a suspected source of infection? No. Patient's initial sepsis screen is negative. Risk Assessment: Do you want to hurt yourself or someone else? Patient reports no desire to harm self or others. Onset of symptoms was May 02, 2024. 12:23 Acuity: TIERA 3 tm6 Triage Assessment: 12:23 General: Appears in no apparent distress. Behavior is calm, cooperative. Pain: Denies tm6 pain. Pain: Complains of pain in right hand and left hand Pain currently is 0 out of 10 on a pain scale. Quality of pain is described as tingling, Pain began one month ago. EENT: No signs and/or symptoms were reported regarding the EENT system. Neuro: Level of Consciousness is awake, alert, obeys commands, Oriented to person, place, time, situation. Cardiovascular: Patient's skin is warm and dry. Respiratory: Airway is patent Respiratory effort is even, unlabored, Respiratory pattern is regular, symmetrical. GI: No signs and/or symptoms were reported involving the gastrointestinal system. Abdomen is flat, non-distended. : No signs and/or symptoms were reported regarding the genitourinary system. Derm: No signs and/or symptoms reported regarding the dermatologic system. Musculoskeletal: No signs and/or symptoms reported regarding the musculoskeletal system. Historical: - Allergies: 12:22 No Known Allergies; tm6 - PMHx: 12:22 Diabetes - IDDM; Hypertension; Hypercholesterolemia; tm6 - PSHx: 12:22 None; tm6 - Immunization history:: Flu vaccine is up to date. - Infectious Disease History:: Denies. - Social history:: Smoking status: Patient/guardian denies using tobacco, the patient reports quitting approximately 25 years ago. Assessment: 15:03 Reassessment: Pt seen and evaluated by Dr. Renteria and left prior to receiving new ss discharge instructions. Vital Signs: 12:20 BP 139 / 81; Pulse 74; Resp 18; Temp 97.7(O); Pulse Ox 100% on R/A; MAP 98 mmHg; Weight tm6 77.11 kg; Pain 0/10; 12:20 Pain Scale: Adult tm6 ED Course: 12:11 Patient arrived in ED. ra3 12:14 Alonzo Renteria DO is Attending Physician. ms3 12:22 Arm band placed on right wrist. tm6 12:23 Triage completed. tm6 13:15 family member contact........Inez Ace [phone]. bd 13:20 MRI Lumbar Spine wo Con In Process Unspecified. EDMS 14:28 Roberto Samuels MD is Referral Physician. ms3 15:03 No provider procedures requiring assistance completed. Patient did not have IV access ss during this emergency room visit. Administered Medications: No medications were administered Outcome: 14:29 Discharge ordered by . ms3 15:03 Discharged to home see nurses notes ss 15:03 Patient left the ED. ss Signatures: Dispatcher [employer] EDMS Demetrice Hernandes bd Carlotta Cotton RN RN Alonzo Renteria DO DO ms3 Myriam Trejo RN RN tm6 Elizabeth Aponte ra3 Corrections: (The following items were deleted from the chart) 12:27 12:21 Chief complaint: Patient states: Dr. Samuels said my blood pressure was high and tm6 sent me to the ER. My fingers on both hands feel tingly/numb, started about a month ago tm6
[2024-05-02 15:22] VITALS: BP 139/81; TEMP 97.7; O2SAT 100
== END 2024-05-02 15:03 | disposition home or self-care (01) ==
LOC: ER 12:09
DX: M21.372 Foot drop, left foot (principal)
CPT/HCPCS: 72148; 99281

== ENCOUNTER 2024-06-12 14:59 | Emergency (ER) | payer OTHER ==
[2024-06-12] MEDS ORDERED: NA CHLORIDE 0.9% 500 ML ONE (15:45)
[2024-06-12 15:59] LABS: Specific Gravity 1.007 (1.005-1.030); Urine Bilirubin NEGATIVE (Negative); Urine Blood Negative (Negative); Urine Clarity Clear (Clear); Urine Color Colorless (Yellow); Urine Glucose 3+ (Negative); Urine Ketones NEGATIVE (Negative); Urine Microscopic Reflex YN NO UMIC; Urine Nitrite NEGATIVE (Negative); Urine Protein NEGATIVE (Negative); Urine Urobilinogen Normal (Normal)
[2024-06-12 16:20] LABS: SARS-CoV-2 Antigen CONTROL BLUE LINE VIS/BG OK; SARS-CoV-2 Antigen Rapid Res Negative (Negative)
[2024-06-12 16:24] LABS: Absolute Basophils 0.1 K/uL (0-0.5); Absolute Eosinophils 0.1 K/uL (0-0.5); Absolute Lymphocytes (CBC) 1.5 K/uL (0.7-4.9); Absolute Monocytes 0.4 K/uL (0.1-1.3); Absolute Neutrophil 4.6 K/uL (1.8-8.0); Basophils % 0.8 % (0-1.3); Eosinophils % 1.6 % (0-4.4); Hematocrit 38.6 % (39.6-49.0); Hemoglobin 12.8 g/dL (13.6-17.9); MCH 26.5 pg (27.0-35.0); MCHC 33.1 g/dL (32.0-36.0); MCV 80.1 fL (80-100); Monocytes % 6.1 % (3.3-12.3); Neutrophils % 68.5 % (41.7-73.7); Nucleated Red Blood Cells % 0.1 % (0-0); Platelets 302 thou/uL (152-406); RBC Red Blood Cell Count 4.81 M/uL (4.33-5.43); Red Cell Distribution Width 13.8 % (12.1-15.2)
--- NOTE | 2024-06-12 16:24 | RAD REPORT ---
EXAM: Chest Single View HISTORY: COUGH COMPARISON: 05/01/2024 FINDINGS: LUNGS/PLEURA: The lungs are clear. No pleural effusions or pneumothorax. No pulmonary edema. MEDIASTINUM: Tortuous thoracic aorta. CARDIAC: The cardiac silhouette is within normal limits. UPPER ABDOMEN: No significant abnormality. BONES: No acute abnormality. LINES/TUBES/OTHER: N/A IMPRESSION: No evidence of acute cardiopulmonary disease.
[2024-06-12 16:29] LABS: PT Prothrombin Time 12.4 SECONDS (9.4-12.5); Protime INR 1.18
[2024-06-12 16:41] LABS: ALT/SGPT 25 U/L (16-61); AST/SGOT 21 U/L (15-37); Albumin 3.2 g/dL (3.4-5.0); Albumin/Globulin Ratio 0.6 (1.1-1.8); Alkaline Phosphatase 115 U/L (45-117); BUN Blood Urea Nitrogen 13 mg/dL (7-18); Bicarbonate 26 mEq/L (21-32); Bilirubin Total 0.3 mg/dL (0.2-1.0); Globulin 5.2 g/dL (2.3-3.5); Glomerular Filtration Rate 68 ml/min (=/>90); Glucose Level 211 mg/dL (74-106); Lipase 111 U/L (13-75); Magnesium 1.7 mg/dL (1.6-2.4); NT PRO-BNP 239 pg/mL (<450); Protein, Total 8.4 g/dL (6.4-8.2); Sodium Level 131 mEq/L (136-145); Troponin High Sensitivity 12.1 pg/mL (<58.9)
[2024-06-12 16:42] LABS: Bilirubin Direct < 0.2 mg/dL (0-0.2); Bilirubin Indirect, Calculated 0.1 mg/dL (0.2-0.8)
--- NOTE | 2024-06-12 18:12 | ER ---
Nurse's Notes [facility] Name: Suresh Conley Age: 83 yrs Sex: Male : 1940 Arrival Date: 06/12/2024 Time: 14:59 Bed 26 Private MD: Diagnosis: Weakness;Type 1 diabetes mellitus with hyperglycemia Presentation: 06/12 15:12 Chief complaint: EMS states: toned out to patient home for weakness. Pt reports feeling ld1 weak and slid down to ground. Denies injury. Coronavirus screen: At this time, the client does not indicate any symptoms associated with coronavirus-19. Ebola Screen: No symptoms or risks identified at this time. Risk Assessment: Do you want to hurt yourself or someone else? Patient reports no desire to harm self or others. Onset of symptoms was June 12, 2024. 15:12 Method Of Arrival: EMS: [facility] ld1 15:12 Acuity: TIERA 3 ld1 Triage Assessment: 15:14 General: Appears in no apparent distress. comfortable, Behavior is calm, cooperative, ld1 appropriate for age. Pain: Denies pain. EENT: No signs and/or symptoms were reported regarding the EENT system. Neuro: Level of Consciousness is awake, alert, obeys commands, Oriented to person, place, time, situation, Appropriate for age. Cardiovascular: Capillary refill < 3 seconds Patient's skin is warm and dry. Respiratory: Airway is patent Respiratory effort is even, unlabored. GI: Abdomen is flat, non-distended. : No signs and/or symptoms were reported regarding the genitourinary system. Derm: No signs and/or symptoms reported regarding the dermatologic system. Musculoskeletal: No signs and/or symptoms reported regarding the musculoskeletal system. Historical: - Allergies: 15:14 No Known Allergies; ld1 - PMHx: 15:14 Diabetes - IDDM; Hypercholesterolemia; Hypertension; ld1 - PSHx: 15:14 None; ld1 - Immunization history:: Adult Immunizations up to date. - Infectious Disease History:: Denies. - Social history:: Smoking status: Patient denies any tobacco usage or history of. Patient/guardian denies using alcohol. Screenin:00 [facility] ED Fall Risk Assessment (Adult) History of falling in the last 3 months, jb4 including since admission No falls in past 3 months (0 pts) Confusion or Disorientation No (0 pts) Intoxicated or Sedated No (0 pts) Impaired Gait No (0 pts) Mobility Assist Device Used No (0 pt) Altered Elimination No (0 pt) Score/Fall Risk Level 0 - 2 = Low Risk Oriented to surroundings, Maintained a safe environment. 18:00 Abuse screen: Denies threats or abuse. Nutritional screening: No deficits noted. jb4 Tuberculosis screening: No symptoms or risk factors identified. Assessment: 18:00 Reassessment: Patient appears in no apparent distress at this time. Patient and/or jb4 family updated on plan of care and expected duration. Pain level reassessed. Patient is alert, oriented x 3, equal unlabored respirations, skin warm/dry/pink. 18:50 Reassessment: Patient appears in no apparent distress at this time. Patient and/or jb4 family updated on plan of care and expected duration. Pain level reassessed. Patient is alert, oriented x 3, equal unlabored respirations, skin warm/dry/pink. 19:07 Reassessment: D/c pending ride home. jb4 Vital Signs: 15:40 BP 150 / 88; Pulse 59; Resp 17; Temp 97.8(TE); Pulse Ox 97% on R/A; Weight 77.11 kg; ld1 Height 5 ft. 10 in. ; Pain 0/10; 16:15 BP 170 / 87; Pulse 57; Resp 16; Pulse Ox 97% on R/A; jb4 17:00 BP 182 / 99; Pulse 62; Resp 16; Pulse Ox 99% on R/A; jb4 18:00 BP 178 / 84; Pulse 66; Resp 16; Pulse Ox 100% on R/A; jb4 19:33 BP 153 / 75; Pulse 62; Resp 18; Pulse Ox 98% on R/A; jb4 15:40 Body Mass Index 24.39 (77.11 kg, 177.8 cm) ld1 15:40 Pain Scale: Adult ld1 [place] Coma Score: 18:08 Eye Response: spontaneous(4). Motor Response: obeys commands(6). Verbal Response: barrett oriented(5). Total: 15. NIH Stroke Scale Scores: 18:08 NIHSS Score: 0 barrett ED Course: 15:11 Patient arrived in ED. ld1 15:13 Guy Horne MD is Attending Physician. [facility] 15:14 Triage completed. ld1 15:14 Arm band placed on right wrist. ld1 15:54 SARS RAPID Sent. ld1 15:54 Flu Sent. ld1 15:54 Urinalysis w/ reflexes Sent. ld1 16:12 Inserted saline lock: 22 gauge in right upper arm, using aseptic technique. Blood ld1 collected. Flushed with 10 mL NS. 16:22 XRAY Chest (1 view) In Process Unspecified. EDMS 18:00 Patient has correct armband on for positive identification. Bed in low position. Call jb4 light in reach. Side rails up X 1. Provided Education on: plan of care. 19:06 Trever Gonzalez, RN is Primary Nurse. [facility] 19:35 No provider procedures requiring assistance completed. IV discontinued, intact, jb4 bleeding controlled, No redness/swelling at site. Pressure dressing applied. Administered Medications: 16:09 Drug: NS 0.9% IV 500 ml 500 ml IV at 1 bolus once; to be given as a bolus over 30 ld1 minutes Volume: 500 ml; Route: IV; Rate: 1 bolus; Site: right upper arm; Medication: 19:33 VIS not applicable for this client. jb4 Outcome: 18:11 Discharge ordered by . [facility] 19:35 Discharged to home via wheelchair, with family, [facility] 19:35 Condition: stable 19:35 Discharge instructions given to patient, Instructed on discharge instructions, follow up and referral plans. Demonstrated understanding of instructions, follow-up care, 19:36 Patient left the ED. jb4 NIH Stroke Scale - NIH Stroke Score Date: 06/12/2024 Time: 18:08 Total Score = 0 10. Dysarthria (speech clarity - read or repeat words) - 0(Normal) 11. Extinction and Inattention (visual/tactile/auditory/spatial/personal) - 0(No abnormality) 1a. Level of Consciousness (LOC) - 0(Alert) 1b. Level of Consciousness (LOC) (Month \T\ Age) - 0(Both) 1c. LOC Commands (Open \T\ Closes Eyes/[employer]) - 0(Both) 2. Best Gaze (Lateral Gaze Paresis) - 0(Normal) 3. Visual Field Loss - 0(No visual loss) 4. Facial Palsy - 0(Normal) 5a. Left Arm: Motor (10-second hold) - 0(No drift) 5b. Right Arm: Motor (10-second hold) - 0(No drift) 6a. Left Leg: Motor (5-second hold - always test supine) - 0(No drift) 6b. Right Leg: Motor (5-second hold - always test supine) - 0(No drift) 7. Limb Ataxia (finger/nose \T\ heel/li - test with eyes open) - 0(Absent) 8. Sensory Loss (pinprick arms/legs/face) - 0(Normal) 9. Best Language: Aphasia (description/naming/reading) - 0(No aphasia) Initials: barrett Signatures: Dispatcher [employer] EDGuy Winter MD MD cha Bryson, James, RN RN jb4 Lorena Renteria RN RN ld1
--- NOTE | 2024-06-12 18:12 | EDPHYS ---
Physician Documentation [facility] Name: Sruesh Conley Age: 83 yrs Sex: Male : 1940 Arrival Date: 06/12/2024 Time: 14:59 Bed 26 Private MD: ED Physician Guy Horne HPI: 06/12 17:57 This 83 yrs old Black Male presents to ER via EMS with complaints of General Weakness. barrett 17:57 WEAKNESS. Onset: The symptoms/episode began/occurred today. Severity of symptoms: At barrett their worst the symptoms were mild in the emergency department the symptoms have improved mildly. The patient has experienced similar episodes in the past, a few times. Historical: - Allergies: 15:14 No Known Allergies; ld1 - PMHx: 15:14 Diabetes - IDDM; Hypercholesterolemia; Hypertension; ld1 - PSHx: 15:14 None; ld1 - Immunization history:: Adult Immunizations up to date. - Infectious Disease History:: Denies. - Social history:: Smoking status: Patient denies any tobacco usage or history of. Patient/guardian denies using alcohol. ROS: 18:00 Constitutional: Negative for fever, chills, and weight loss, Eyes: Negative for injury, barrett pain, redness, and discharge, ENT: Negative for injury, pain, and discharge, Neck: Negative for injury, pain, and swelling, Cardiovascular: Negative for chest pain, palpitations, and edema, Respiratory: Negative for shortness of breath, cough, wheezing, and pleuritic chest pain, Abdomen/GI: Negative for abdominal pain, nausea, vomiting, diarrhea, and constipation, Back: Negative for injury and pain, : Negative for injury, bleeding, discharge, and swelling, MS/Extremity: Negative for injury and deformity, Skin: Negative for injury, rash, and discoloration, Psych: Negative for depression, anxiety, suicide ideation, homicidal ideation, and hallucinations, Allergy/Immunology: Negative for hives, rash, and allergies, Endocrine: Negative for neck swelling, polydipsia, polyuria, polyphagia, and marked weight changes, Hematologic/Lymphatic: Negative for swollen nodes, abnormal bleeding, and unusual bruising, 18:00 Neuro: Positive for weakness, Exam: 18:00 Constitutional: This is a well developed, well nourished patient who is awake, alert, barrett and in no acute distress. Head/Face: Normocephalic, atraumatic. Eyes: Pupils equal round and reactive to light, extra-ocular motions intact. Lids and lashes normal. Conjunctiva and sclera are non-icteric and not injected. Cornea within normal limits. Periorbital areas with no swelling, redness, or edema. ENT: Nares patent. No nasal discharge, no septal abnormalities noted. Tympanic membranes are normal and external auditory canals are clear. Oropharynx with no redness, swelling, or masses, exudates, or evidence of obstruction, uvula midline. Mucous membranes moist. Neck: Trachea midline, no thyromegaly or masses palpated, and no cervical lymphadenopathy. Supple, full range of motion without nuchal rigidity, or vertebral point tenderness. No Meningismus. Chest/axilla: Normal chest wall appearance and motion. Nontender with no deformity. No lesions are appreciated. Cardiovascular: Regular rate and rhythm with a normal S1 and S2. No gallops, murmurs, or rubs. Normal PMI, no JVD. No pulse deficits. Respiratory: Lungs have equal breath sounds bilaterally, clear to auscultation and percussion. No rales, rhonchi or wheezes noted. No increased work of breathing, no retractions or nasal flaring. Abdomen/GI: Soft, non-tender, with normal bowel sounds. No distension or tympany. No guarding or rebound. No evidence of tenderness throughout. Back: No spinal tenderness. No costovertebral tenderness. Full range of motion. Male : Normal genitalia with no discharge or lesions. Skin: Warm, dry with normal turgor. Normal color with no rashes, no lesions, and no evidence of cellulitis. MS/ Extremity: Pulses equal, no cyanosis. Neurovascular intact. Full, normal range of motion., bilateral aka Neuro: Awake and alert, GCS 15, oriented to person, place, time, and situation. Cranial nerves II-XII grossly intact. Motor strength 5/5 in all extremities. Sensory grossly intact. Cerebellar exam normal. Normal gait. Psych: Awake, alert, with orientation to person, place and time. Behavior, mood, and affect are within normal limits. 18:00 ECG was reviewed by the Attending Physician. 18:08 Musculoskeletal/extremity: ROM: no acute changes, Pulses: are normal with no barrett appreciated deficits, Perfusion: the patient is normally perfused throughout, Sensation intact. Compartment Syndrome exam of affected extremity: is normal. Weight bearing: able to fully bear weight, without difficulty, DVT Exam: No signs of deep vein thrombosis. no pain, no swelling, no tenderness, negative Homans' sign noted on exam, no appreciated bluish discoloration, no erythema, no increased warmth, 18:09 Neuro: Orientation: is normal, appropriate for stated age, no acute changes, Mentation: barrett is normal, appropriate for stated age, no acute changes, Memory: is normal, appropriate for stated age, no acute changes, immediate memory is intact, remote memory is intact. recent memory is intact, Cranial nerves: grossly normal, Cerebellar function: is grossly normal, is grossly normal based on the patient's age, no acute changes, Motor: is normal, is grossly normal based on the patient's age, no acute changes, moves all fours, strength is normal, strength is 5/5 in all extremities, Sensation: is normal, no obvious gross deficits, appropriate no acute changes, Gait: not tested. seizure activity, is not displayed by the patient, Vital Signs: 15:40 BP 150 / 88; Pulse 59; Resp 17; Temp 97.8(TE); Pulse Ox 97% on R/A; Weight 77.11 kg; ld1 Height 5 ft. 10 in. ; Pain 0/10; 16:15 BP 170 / 87; Pulse 57; Resp 16; Pulse Ox 97% on R/A; jb4 17:00 BP 182 / 99; Pulse 62; Resp 16; Pulse Ox 99% on R/A; jb4 18:00 BP 178 / 84; Pulse 66; Resp 16; Pulse Ox 100% on R/A; jb4 19:33 BP 153 / 75; Pulse 62; Resp 18; Pulse Ox 98% on R/A; jb4 15:40 Body Mass Index 24.39 (77.11 kg, 177.8 cm) ld1 15:40 Pain Scale: Adult ld1 NIH Stroke Scale Scores: 18:08 NIHSS Score: 0 barrett Anita Coma Score: 18:08 Eye Response: spontaneous(4). Motor Response: obeys commands(6). Verbal Response: barrett oriented(5). Total: 15. MDM: 15:13 Medical Screening Exam initiated barrett 18:06 Differential Diagnosis altered mental status, sepsis, flu. Data reviewed: vital signs, [facility] nurses notes, lab test result(s), EKG, radiologic studies, plain films. Consideration of Admission/Observation Escalation of care including admission/observation considered. I considered the following discharge prescriptions or medication management in the emergency department Medications were administered in the Emergency Department. See MAR. Independent interpretation of the following test(s) in the Emergency Department EKG: See my EKG interpretation above. Test considered but Not performed: CT: NO CT HEAD. Historians other than the Patient: EMS: EMS WELL INFORMED. PT WELL INFORMED. Care significantly affected by the following chronic conditions: Diabetes, Hypertension, HIGH CHLESTEROL. Counseling: I had a detailed discussion with the patient and/or guardian regarding the historical points, exam findings, and any diagnostic results supporting the discharge/admit diagnosis, lab results, radiology results, the need for outpatient follow up, for definitive care, a family practitioner. 06/12 15:14 Order name: Basic Metabolic Panel; Complete Time: :06/12 15:14 Order name: CBC with Diff; Complete Time: :06/12 15:14 Order name: LFT's; Complete Time: :06/12 15:14 Order name: Magnesium; Complete Time: :06/12 15:14 Order name: NT PRO-BNP; Complete Time: :06/12 15:14 Order name: PT-INR; Complete Time: :06/12 15:14 Order name: Troponin HS; Complete Time: :06/12 15:14 Order name: Blood Culture Adult (2) [facility] 06/12 15:14 Order name: Urinalysis w/ reflexes; Complete Time: :06/12 15:14 Order name: Lipase; Complete Time: :06/12 15:14 Order name: Flu; Complete Time: :06/12 15:14 Order name: SARS RAPID; Complete Time: :06/12 15:14 Order name: XRAY Chest (1 view); Complete Time: :06/12 15:14 Order name: EKG; Complete Time: 15:15 [facility] 06/12 15:14 Order name: Cardiac monitoring; Complete Time: 15:19 [facility] 06/12 15:14 Order name: EKG - Nurse/Tech; Complete Time: 15:41 [facility] 06/12 15:14 Order name: IV Saline Lock; Complete Time: 16:09 [facility] 06/12 15:14 Order name: Labs collected and sent; Complete Time: 16:09 [facility] 06/12 15:14 Order name: O2 Per Protocol; Complete Time: 15:19 [facility] 06/12 15:14 Order name: O2 Sat Monitoring; Complete Time: 15:19 [facility] 06/12 17:39 Order name: Misc. Order: GET UA; Complete Time: 19:06 [facility] EC:00 Rate is 66 beats/min. Rhythm is regular. QRS [place] is Normal. MA interval is normal. QRS barrett interval is normal. QT interval is normal. No Q waves. T waves are Normal. No ST changes noted. Clinical impression: NSR w/ Non-specific ST/T Changes and No evidence of ischemia. Interpreted by me. Reviewed by me. Administered Medications: 16:09 Drug: NS 0.9% IV 500 ml 500 ml IV at 1 bolus once; to be given as a bolus over 30 ld1 minutes Volume: 500 ml; Route: IV; Rate: 1 bolus; Site: right upper arm; Disposition Summary: 06/12/24 18:11 Discharge Ordered Notes: Location: Home barrett Problem: new barrett Symptoms: have improved barrett Condition: Stable barrett Diagnosis - Weakness barrett - Type 1 diabetes mellitus with hyperglycemia barrett Followup: barrett - With: Private Physician - When: 2 - 3 days - Reason: Recheck today's complaints, Continuance of care, Re-evaluation by your physician Discharge Instructions: - Discharge Summary Sheet barrett - Hyperglycemia barrett - Weakness barrett - Fatigue barrett - Blood Glucose Monitoring, Adult barrett - Diabetes Mellitus and Nutrition, Adult barrett - Weakness, [id number] barrett Forms: - Medication Reconciliation Form barrett - Antibiotic Education barrett - Prescription Opioid Use barrett - Patient Portal Instructions barrett - Leadership Thank You Letter [facility] NIH Stroke Scale - NIH Stroke Score Date: 06/12/2024 Time: 18:08 Total Score = 0 10. Dysarthria (speech clarity - read or repeat words) - 0(Normal) 11. Extinction and Inattention (visual/tactile/auditory/spatial/personal) - 0(No abnormality) 1a. Level of Consciousness (LOC) - 0(Alert) 1b. Level of Consciousness (LOC) (Month \T\ Age) - 0(Both) 1c. LOC Commands (Open \T\ Closes Eyes/Broom Builder) - 0(Both) 2. Best Gaze (Lateral Gaze Paresis) - 0(Normal) 3. Visual Field Loss - 0(No visual loss) 4. Facial Palsy - 0(Normal) 5a. Left Arm: Motor (10-second hold) - 0(No drift) 5b. Right Arm: Motor (10-second hold) - 0(No drift) 6a. Left Leg: Motor (5-second hold - always test supine) - 0(No drift) 6b. Right Leg: Motor (5-second hold - always test supine) - 0(No drift) 7. Limb Ataxia (finger/nose \T\ heel/li - test with eyes open) - 0(Absent) 8. Sensory Loss (pinprick arms/legs/face) - 0(Normal) 9. Best Language: Aphasia (description/naming/reading) - 0(No aphasia) Initials: barrett Signatures: Dispatcher [employer] EDMS Guy Horne MD MD cha Sims, Lauren, RN RN ld1 Corrections: (The following items were deleted from the chart) 15:15 15:15 BASIC METABOLIC PANEL+C.LAB.BRZ ordered. EDMS EDMS 15:15 15:15 CBC+H.LAB.BRZ ordered. EDMS EDMS 15:15 15:15 HEPATIC FUNCTION+C.LAB.BRZ ordered. EDMS EDMS 15:15 15:15 MAGNESIUM+C.LAB.BRZ ordered. EDMS EDMS 15:15 15:15 PROBNP+C.LAB.BRZ ordered. EDMS EDMS 15:15 15:15 PROTIME (+INR)+COAG.LAB.BRZ ordered. EDMS EDMS 15:15 15:15 Troponin High Sensitivity+C.LAB.BRZ ordered. EDMS EDMS 15:15 15:15 BLOOD CULTURE*+BA.LAB.BRZ ordered. EDMS EDMS 15:15 15:15 Urinalysis+U.LAB.BRZ ordered. EDMS EDMS 15:15 15:15 LIPASE+C.LAB.BRZ ordered. EDMS EDMS 15:15 15:15 Influenza Screen (A \T\ B)+BA.LAB.BRZ ordered. EDMS EDMS 15:15 15:15 SARS-COV-2 Antigen Rapid+I.LAB.BRZ ordered. EDMS EDMS
[2024-06-13 01:07] VITALS: TEMP 97.8
[2024-06-13 01:12] VITALS: BP 153/75; O2SAT 98
--- OUTSIDE RECORDS SUMMARY | 2024-06-14 01:49 | XMS REPORT | Continuity of Care Document ---
Author Name Unknown Address [address] [place] [address] [facility] Address [address] [place] [address] Care Team Providers Care Timber Killer Name Role Phone MARJORIE ARREDONDO Primary Care Physician Unavailab Andreia Lance Attending Clinician Unavailable Zakia Givens Cardiology Attending Clinician Unavailable JUAN BRYANT Attending Clinician Unavailable Lab, Adc Fam Pob I Attending Clinician Unavailab Jessica Carreno Attending Clinician [phone] JESSICA LUU Attending Clinician Unavailable System, Amb Referring Provider Not In Attending Clinician Unavailable Pob1, Acute Care Clinic Attending Clinician Unav Remedios Paredes Attending Clinician [phone] Doctor Unassigned, Smiley Attending Clinician U Ryann Graham MD Attending Clinician [phone] RYANN GARCIA Attending Clinician UnavailAndreia Santamaria Admitting Clinician Unavailable Zakia Givens Admitting Clinician Unavailable UNDEFINED Admitting Clinician Unavailable Payers Payer Name Policy Type Policy Number Effective Date Expirati on Date Source [employer] MEDICARE GOLD [id number] 2019 00:00:00 Problems Condition Name Condition Details Condition Category Status Onset Date Resolution Date Last Treatment Date Treating Clinician Comments Source Sore throat Sore throat Disease Active 8 00:00: 00 [facility] Iliotibial band syndrome of right side Iliotibial band syndrome of right side Diagnosis Active [facility] Diabetic polyneurop athy associated with diabetes mellitus due to underlying condition Diabetic polyneurop athy associated with diabetes mellitus due to underlying condition Problem Active [facility] Primary osteoarthr itis of right knee Primary osteoarthr itis of right knee Problem Active [facility] Pain in joint of right knee Pain in joint of right knee Diagnosis Active [facility] Pain in joint of left knee Pain in joint of left knee Problem Active [facility] Left sided sciatica Left sided sciatica Problem Active [facility] Infection following a procedure, subsequent encounter Infection following a procedure, subsequent encounter Problem Active [facility] 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 following joint replacemen t surgery Problem Active [facility] 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 left artificial knee joint Problem Active [facility] Allergies, Adverse Reactions, Alerts Allergy Name Allergy Type Status Severity Reaction(s) Onset Date Inactive Date Treating Clinician Comments Source No Known Allergie s DA Active U 08 00:00: 00 [facility] No Known Allergie s DA Active U 3 00:00: 00 [facility] No Known Allergie s DA Active U 3 00:00: 00 [facility] NO KNOWN ALLERGIE S Drug Class Active [facility] Social History Social Habit Start Date Stop Date Quantity Comments Source Sex Assigned At [facility] Exposure to SARS-CoV-2 (event) Yes [facility] Tobacco use and exposure 2019-12-21 00:00:00 2019-12-21 00:00:00 Never used [facility] Smoking Status Start Date Stop Date Source Never smoker [facility] Medications Ordered Medication Name Filled Medication Name Start Date Stop Date Current Medication? Ordering Clinician Indication Dosage Frequency Signature (SIG) Comments Components Source hydroCHLORO thiazide 12.5 mg tablet 16 00:00: 00 Yes 12.5mg Take 12.5 mg by mouth every morning. [facility] NOVOFINE PLUS 32 gauge x 1/6" Ndle 11-21 00:00: 00 Yes USE DIRECTED EVERY DAY [facility] NOVOFINE PLUS 32 gauge x 1/6" Ndle 11-21 00:00: 00 Yes USE DIRECTED EVERY DAY [facility] LEVEMIR FLEXTOUCH U-100 INSULN 100 unit/mL (3 mL) injection 11-20 00:00: 00 Yes INJECT 25UNITS SUBCUTANEO USLY DAILY IN MORNING [facility] ONETOUCH ULTRA BLUE TEST STRIP strip 11-09 00:00: 00 Yes USE DIRECTED EVERY DAY [facility] atorvastati n 80 mg tablet 11-01 00:00: 00 Yes [facility] doxazosin 2 mg tablet 11-01 00:00: 00 Yes [facility] hydrALAZINE 10 mg tablet 11-01 00:00: 00 Yes [facility] metoprolol tartrate 25 mg tablet 11-01 00:00: 00 Yes [facility] clopidogreL 75 mg tablet 11-01 00:00: 00 Yes [facility] omeprazole 20 mg capsule 11-01 00:00: 00 Yes [facility] OMEPRAZOLE ORAL 05-24 20:54: 35 Yes None Entered [facility] PRAVASTATIN ORAL 05-24 20:54: 35 Yes None Entered [facility] PLAVIX ORAL 05-24 20:54: 35 Yes None Entered [facility] GABAPENTIN ORAL 05-24 20:54: 35 Yes None Entered [facility] CRESTOR ORAL 05-24 20:54: 35 Yes None Entered [facility] METFORMIN HCL ORAL 05-24 20:54: 35 Yes None Entered [facility] ASPIRIN 81 MG ORAL CHEW 05-24 20:54: 35 Yes None Entered [facility] GLIMEPIRIDE ORAL 05-24 20:54: 35 Yes None Entered [facility] diclofenac 75 mg EC tablet 05-24 00:00: 00 Yes [id number] 75mg Take 1 tablet by mouth 2 (two) times daily with meals. [facility] Gabapentin Gabapentin 11-25 00:00: 00 Yes Roberto Dobbs 1 capsule [facility] Doxazosin Mesylate Doxazosin Mesylate 11-25 00:00: 00 Yes Roberto Dobbs 1 tablet [facility] Aspirin 81 Aspirin 81 11-25 00:00: 00 Yes Roberto Dobbs 1 tablet [facility] Multi Complete Multi Complete 11-25 00:00: 00 Yes Roberto Dobbs as directed [facility] Vitamin B 12 Vitamin B 12 11-25 00:00: 00 Yes Roberto Dobbs as directed [facility] Clopidogrel Bisulfate Clopidogrel Bisulfate Yes Roberto Dobbs not defined [facility] Atorvastati n Calcium Atorvastati n Calcium Yes Roberto Dobbs not defined [facility] Metformin HCl Metformin HCl Yes Roberto Dobbs not defined [facility] Omeprazole Omeprazole Yes Roberto Dobbs not defined [facility] Metoprolol Tartrate Metoprolol Tartrate Yes Roberto Dobbs not defined [facility] Glimepiride Glimepiride Yes Derik Dobbs not defined [facility] Ciprofloxac in HCl Ciprofloxac in HCl Yes Roberto Dobbs not defined [facility] Amlodipine Besylate Amlodipine Besylate Yes Roberto Dobbs not defined [facility] Levemir FlexTouch Levemir FlexTouch Yes Roberto Dobbs not defined [facility] Omeprazole Omeprazole Yes Roberto Dobbs not defined [facility] HydrALAZINE HCl HydrALAZINE HCl Yes Roberto Dobbs not defined [facility] Diclofenac Sodium Diclofenac Sodium Yes Roberto Dobbs not defined [facility] Vital Signs Vital Name Observation Time Observation Value Comments S ource Systolic blood pressure 2019-12-21 16:28:00 132 mm[Hg] [facility] Diastolic blood pressure 2019-12-21 16:28:00 78 mm[Hg] [facility] Heart rate 2019-12-21 16:27:00 67 /min Unive [facility] Body temperature 2019-12-21 16:27:00 36.83 Laura [facility] Respiratory rate 2019-12-21 16:27:00 18 /min [facility] Body height 2019-12-21 16:27:00 175.3 cm [facility] Body weight 2019-12-21 16:27:00 83.915 kg [facility] BMI 2019-12-21 16:27:00 27.32 kg/m2 [facility] Oxygen saturation in Arterial blood by Pulse oximetry 2019-12-21 16:27:00 99 /min [facility] Systolic blood pressure 2019-12-21 16:28:00 132 mm[Hg] [facility] Diastolic blood pressure 2019-12-21 16:28:00 78 mm[Hg] [facility] Heart rate 2019-12-21 16:27:00 67 /min Unive [facility] Body temperature 2019-12-21 16:27:00 36.83 Laura [facility] Respiratory rate 2019-12-21 16:27:00 18 /min [facility] Body height 2019-12-21 16:27:00 175.3 cm [facility] Body weight 2019-12-21 16:27:00 83.915 kg [facility] BMI 2019-12-21 16:27:00 27.32 kg/m2 [facility] Oxygen saturation in Arterial blood by Pulse oximetry 2019-12-21 16:27:00 99 /min [facility] Procedures Procedure Date / Time Performed Performing Clinician Source [id number] 2020-07-26 00:00:00 [facility] [id number] 2020-07-26 00:00:00 [facility] AUTHORIZATION FOR RELEASE OF PHI 2019-08-16 05:01:00 Doctor Unassigned, Smiley [facility] Encounters Start Date/Time End Date/Time Encounter Type Admission Type Attending Clinicians Care Facility Care Department Encounter ID Source 2020-07-17 16:45:32 Inpatient ANURADHA Andreia Saleem [facility]O [id number] [facility]ope [facility] 2021-10-04 04:30:00 2021-10-04 04:30:00 Outpatient Zakia Bauer [facility] [id number] [facility] 2021-10-04 04:30:00 2021-10-04 04:30:00 Outpatient Zakia Bauer [facility] [id number] [facility] 2021-08-23 05:21:00 2021-08-23 05:21:00 Inpatient Zakia Bauer [facility] [id number] [facility] 2020-09-09 13:30:00 2020-09-09 13:30:00 Outpatient JUAN CONROY [facility] [id number] [facility] 2020-08-19 13:40:00 2020-08-19 13:40:00 Outpatient [facility] [id number] [facility] 2020-07-27 07:24:00 2020-07-27 07:24:00 Outpatient Andreia Saleem [facility] REFE [id number] [facility] 2020-07-27 07:23:00 2020-07-27 07:23:00 Outpatient Andreia Saleem [facility] SIST [id number] [facility] 2020-07-17 20:12:00 2020-07-17 20:12:00 Outpatient Andreia Saleem [facility]ACL LABO [id number] [facility] 2020-07-17 00:00:00 2020-07-17 00:00:00 Outpatient Andreia Burris [facility] 3DAY [id number] [facility] 2020-03-21 13:11:08 2020-03-21 13:31:08 Laboratory Only Lab, Adc Fam Pob I [facility] [address] 1.0.114 350.1.13.10 4.2.7.2.686 [id number] 2020-03-21 13:11:08 2020-03-21 13:31:08 Laboratory Only Lab, Adc Fam Pob I Jessica Luu [facility] 1.0.114 350.1.13.10 4.2.7.2.686 [id number] [facility] 2020-03-21 13:20:00 2020-03-21 13:20:00 Outpatient JESSICA NIELSEN [facility] [id number] [facility] 2019-12-26 00:00:00 2019-12-26 00:00:00 Telephone System, Amb Referring Provider Not In [facility] 1.840.114 350.1.13.10 4.2.7.2.686 [id number] 2019-12-26 00:00:00 2019-12-26 00:00:00 Telephone System, Amb Referring Provider Not In [facility] 1.840.114 350.1.13.10 4.2.7.2.686 [id number] [facility] 2019-12-21 11:17:47 2019-12-21 12:49:21 Urgent Care Pob1, Acute Care Clinic [facility] 1.0.114 350.1.13.10 4.2.7.2.686 [id number] 2019-12-21 11:17:47 2019-12-21 12:49:21 Urgent Care Pob1, Acute Care Clinic [facility] 1.840.114 350.1.13.10 4.2.7.2.686 [id number] [facility] 2019-12-21 11:40:00 2019-12-21 11:40:00 Outpatient R [facility] [id number] [facility] 2019-08-16 09:30:00 2019-08-16 09:30:00 Outpatient [facility] [id number] [facility] 2019-08-16 00:00:00 2019-08-16 00:00:00 Orders Only Doctor Unassigned, Smiley [facility] 1.0.114 350.1.13.10 4.2.7.2.686 [id number] 2019-08-16 00:00:00 2019-08-16 00:00:00 Orders Only Doctor Unassigned, Smiley [facility] 1.2840.114 350.1.13.10 4.2.7.2.686 [id number] [facility] 2019-07-16 00:00:00 2019-07-16 00:00:00 [facility] 1..840.114 350.1.13.10 4.2.7.2.686 [id number] 2019-07-16 00:00:00 2019-07-16 00:00:00 [facility] 1..840.114 350.1.13.10 4.2.7.2.686 [id number] [facility] 2019-05-24 14:57:40 2019-05-24 23:59:00 Outpatient RYANN [facility] [id number] [facility] 2019-03-23 10:30:00 2019-03-23 10:30:00 Outpatient [facility] [id number] [facility] 2018-11-25 09:30:00 2018-11-25 09:30:00 Outpatient [facility] [id number] [facility] Results Test Description Test Time Test Comments Results Result Co mments Source BASIC METABOLIC [id number] 05:20:00* Test Item Value Reference Range Interpretation [...] mg/dL HIGH.........160-189 mg/dL VERY HIGH.........>/= 190 mg/dL [id number] 05:20:00* Test Item Value Reference Range [facility]ation [facility] (test code = MAG) 1.8 MG/DL 1.6-2.3 N PROTHROMBIN [id number] 05:12:00* Test Item Value Reference Range Interpretation [facility] PROTHROMBIN TIME PATIENT (test code = [...] recurrent systemic embolism. 3.0 - 4.5 PTT [id number] 05:12:00* Test Item Value Reference Range Interpretation [facility] PTT ACTIVATED (test code = APTT) 33.1 SECONDS 26.2-35.4 COVID 19 Asymptomatic IH [id number] 05:05:00* Test Item Value Reference Range Interpretation [facility] COVID 19 Asymptomatic IH AG (test code [...] virus (antigen) in the sample." CBC W/AUTO [id number] 04:57:00* Test Item Value Reference Range Interpretation [...] code = NRBC#) 0.00 K/mm3 0.0-0.1 N [id number] 11:57:00* Test Item Value Reference Range Interpretation Comme nts ACT-ISTAT (test code = ACTI) 237 SEC 74-137 H BASIC METABOLIC [id number] 08:13:00* Test Item Value Reference Range Interpretation [...] mg/dL HIGH.........160-189 mg/dL VERY HIGH.........>/= 190 mg/dL [id number] 08:13:00* Test Item Value Reference Range Interpretation Comme [facility] MAGNESIUM (test code = MAG) 1.9 MG/DL 1.6-2.3 N PROTHROMBIN [id number] 07:53:00* Test Item Value Reference Range Interpretation Comme [facility] PROTHROMBIN TIME PATIENT [...] recurrent systemic embolism. 3.0 - 4.5 PTT [id number] 07:53:00* Test Item Value Reference Range Interpretation Comme [facility] PTT ACTIVATED (test code = APTT) 30.7 SECONDS 26.2-35.4 N CBC W/AUTO [id number] 07:45:00* Test Item Value Reference Range Interpretation Comme [facility] WHITE BLOOD CELL (test code = WBC) [...] K/mm3 0.0-0.1 N COVID 19 Asymptomatic IH [id number] 05:42:00* Test Item Value Reference Range Interpretation [...] amount of virus (antigen) in the sample." [id number] 13:15:00* Test Item Value Reference Range Interpretation Comme nts GLUBED (test code = GLUBED) 151 mg/dL 60-125 H [id number] 05:59:00* Test Item Value Reference Range Interpretation Comme nts GLUBED (test code = GLUBED) 104 mg/dL 60-125 N [id number] 21:06:00* Test Item Value Reference Range Interpretation Comme nts GLUBED (test code = GLUBED) 161 mg/dL 60-125 H [id number] 17:33:00* Test Item Value Reference Range Interpretation Comme nts GLUBED (test code = GLUBED) 151 mg/dL 60-125 H [id number] 11:35:00* Test Item Value Reference Range Interpretation [...] fructosamineshould be considered for these patients.DONE AT: [facility] [address] [place] [address] GLYCOSYLATED HEMOGLOBIN (HA1C)2020-07-27 11:23:00* Test Item Value [...] be considered for these patients. B-TYPE NATRIURETIC [id number] 11:05:00* Test Item Value Reference Range Interpretation Comme [facility] B-TYPE NATRIURETIC PEPTIDE ( test code = BNP) 66.84 pg/mL 0-100 N B-TYPE NATRIURETIC [id number] 11:05:00* Test Item Value Reference Range Interpretation Comme nts B-TYPE NATRIURETIC PEPTIDE ( test code = BNP) 66.84 pg/mL 0-100 [id number] 09:17:00* Test Item Value Reference Range Interpretation Comme nts GLUBED (test code = GLUBED) 171 mg/dL 60-125 H BASIC METABOLIC [id number] 07:42:00* Test Item Value Reference Range Interpretation [...] 87.6 >60 Unit of m easure: mL/min/1.73 [id number] Range:Healthy Adults >90 mL/min/1.73 m2 For Chronic Kidney Disease: Stage II Mild Decrease in GFR 60-90 Stage III Moderate Decrease in GFR 30-59 Stage IV Severe Decrease in GFR 15-29 Stage V Kidney Failure <15 CREATININE (test code = CREAT) 1.00 mg/dL 0.55-1.30 N CALCIUM (test code = CA) 9.0 mg/dL 8.2-10.1 N HGB [id number] 07:27:00* Test Item Value Reference Range Interpretation Comme nts HEMOGLOBIN (test code = HGB) 11.3 g/dL 12-16 L HEMATOCRIT (test code = HCT) 34.5 % 37-47 L [id number] 05:44:00* Test Item Value Reference Range Interpretation Comme nts GLUBED (test code = GLUBED) 80 mg/dL 60-125 N [id number] 23:44:00* Test Item Value Reference Range Interpretation Comme nts GLUBED (test code = GLUBED) 197 mg/dL 60-125 H [id number] 20:47:00* Test Item Value Reference Range Interpretation Comme nts GLUBED (test code = GLUBED) 372 mg/dL 60-125 H [id number] 12:19:00* Test Item Value Reference Range Interpretation Comme nts GLUBED (test code = GLUBED) 185 mg/dL 60-125 H - XR SPINE 1 V SPEC [id number] 10:37:00 [facility]ITAL[facility]: ZANDER MULLER : 1940 Sex: M Patient Name: ZANDER MULLER Unit No: [id number] EXAMS: CPT CODE: [id number] XR SPINE 1 V SPEC LEVEL 64201 2 LATERAL INTRAOPERATIVE VIEWS OF THE LUMBAR SPINE Image 1: Surgical marker is at the upper L3 level Image 2: Surgical instrumentation is at L3-L4. Electronically Signed by Richi Dior on07/26/2020 at 1037 Reported and signed by: Alexander Dior M.D. CC: Andreia Saleem MD Technologist: VAMSHI PATEL (RT.R) Transcribed D/ (1037) MariaelenaSLJ [facility] NAME: ZANDER MULLER [address] [place] [address] PHYS: Andreia Wellington MD : 1940 AGE: 79 SEX: M [place], [place] [address] LOC: Y.998 2 PHONE #: [phone] EXAM DATE: 07/26/2020 STATUS: ADM IN FAX #: [phone] RAD #: D/C DT PAGE 1 Signed Report Patient Name: ZANDER MULLER Unit No: [id number] EXAMS: CPT CODE: [id number] XR SPINE 1 V SPEC LEVEL 45165 (Continued) Orig Print D/T: S: 07/26/2020 (1040) [facility] NAME: ZANDER MULLER [address] [place] [address] PHYS: Mik WellingtonD : 1940 AGE: 79 SEX: M [place], [place] [address] LOC: Y.998 2 PHONE #: [phone] EXAM DATE: 07/26/2020 STATUS: ADM IN FAX #: [phone] RAD #: D/C DT PAGE 2 Signed Report- XR SPINE 1 V SPEC [id number] 10:37:00 [facility] 1940 Sex: M Patient Name: ZANDER MULELR Unit No: [id number] EXAMS: CPT CODE: [id number] XR SPINE 1 V SPEC LEVEL 06698 2 LATERAL INTRAOPERATIVE VIEWS OF THE LUMBAR SPINE Image 1: Surgical marker is at the upper L3 level Image 2: Surgical instrumentation is at L3-L4. at 1037 Reported and signed by: Alexander Dior M.D. CC: Andreia Saleem MD Technolog ist: VAMSHI PATEL (RT.R) Transcribed D/ (1037) JosiahJ [facility] NAME: ZANDER MULLER [address] [place] [address] PHYS: Andreia Wellington MD : 1940 AGE: 79 SEX: M [place], [place] [address] LOC: Y.998 2 PHONE #: [phone] EXAM DATE: 07/26/2020 STATUS: ADM IN FAX #: [phone] RAD #: D/C DT PAGE 1 Signed Report Patient Name: ZANDER MULLER Unit No: [id number] EXAMS: CPT CODE: [id number] XR SPINE 1 V SPEC LEVEL 96838 (Continued) Orig Print D/T: S: 07/26/2020 (1040) [facility] NAME: ZANDER MULLER [address] [place] [address] PHYS: Andreia Wellington MD : 1940 AGE: 79 SEX: M [place], [place] [address] LOC: Y.998 2 PHONE#: [phone] EXAM DATE: 07/26/2020 STATUS: ADM IN FAX #: [phone] RAD #: D/C DT PAGE 2 Signed [id number] 07:13:00* Test Item Value Reference Range Interpretation Comme nts GLUBED (test code = GLUBED) 152 mg/dL 60-125 H Novel Coronavirus 2018 [id number] 20:10:00* Test Item Value Reference Range Interpretation Comme nts Novel Coronavirus 2018 Inhouse (test code = COVNONPUI) Negative Negative Positive resul ts are indicative of the presence llFUHC-JtA-7 RNA, clinical correlation with patient historyand other [...] for the identification of SARS-CoV-2 RNA usingthe SellStage M2000 System under the FDA Emergency UseAuthorization. The testing is performed by personneltrained in the procedures for the Ley M2000 moleculardiagnostic SARS-CoV-2 assay in vitro. Novel Coronavirus 2018 [id number] 20:09:00* Test Item Value Reference Range Interpretation Comme nts Novel Coronavirus 2019 Inhouse (test code = COVNONPUI) Negative Negative Positive resul ts are indicative of the presence xhPGME-MfA-7 RNA, clinical correlation with patient historyand other [...] for the identification of SARS-CoV-2 RNA usingthe [employer]Stage M2000 System under the FDA Emergency UseAuthorization. The testing is performed by personneltrained in the procedures for the SellStage M2000 moleculardiagnostic SARS-CoV-2 assay in vitro. CBC W/AUTO [id number] 20:58:00* Test Item Value Reference Range Interpretation [...] NRBC) 0 % 0-0 N BASIC METABOLIC [id number] 20:56:00* Test Item Value Reference Range Interpretation [...] 87.6 >60 Unit of m easure: mL/min/1.73 [id number] Range:Healthy Adults >90 mL/min/1.73 m2 For Chronic Kidney Disease: Stage II Mild Decrease in GFR 60-90 Stage III Moderate Decrease in GFR 30-59 Stage IV Severe Decrease in GFR 15-29 Stage V Kidney Failure <15 CREATININE (test code = CREAT) 1.00 mg/dL 0.55-1.30 N CALCIUM (test code = CA) 9.2 mg/dL 8.2-10.1 N PROTHROMBIN [id number] 20:52:00* Test Item Value Reference Range Interpretation [...] is on Heparin Drip? NO THROMBOPLASTIN TIME [id number] 20:52:00* Test Item Value Reference Range Interpretation Comme nts PTT ACTIVATED (test code = APTT) 30.5 secs 24.9-37.0 N IS PATIENT ON ANTICOAGULANTS ? YLIST ANTICOAGULANT/ANTI PLT MEDICATION : Clopidogrel (Anti-PLT)Has Lab been notified if Patient is on Heparin Drip? NO
== END 2024-06-12 19:36 | disposition home or self-care (01) ==
LOC: ER 14:59
DX: E10.65 Type 1 diabetes mellitus with hyperglycemia (principal); Z11.52 Encounter for screening for COVID-19
CPT/HCPCS: 87040 ×2; 85025; 80048; 36415; 83735; 85610; 80076; 81003; 84484; 83690; 83880; 87804 ×2; 71045; 87811; J7040; 99284